=== PATIENT | male | born 1960 | race Caucasian/White ===

== ENCOUNTER 2016-04-07 12:55 | Emergency (ER) | payer BC, OTHER ==
[~2016-04-07] VITALS: Ht 170.2 cm; Wt 80.0 kg
[~2016-04-07 12:55] MED LIST: ATV5 PO; CLC100 PO; FLV400 PO; LIDO5DIS10 TD; RXC5 PO; [UNRECOGNIZED DRUG - CODE] PO
[2016-04-07 12:57] VITALS: TEMP 36.5; Ht 170.2 cm; Wt 80.0 kg
[2016-04-07] MEDS ORDERED: HYDROmorphone INJ 1 MG/ML SYR IV STA (13:37)
[2016-04-07] MEDS ORDERED: HYDROmorphone INJ 1 MG/ML SYR IM ONE (13:45)
[2016-04-07 13:59] VITALS: BP 154/81; PULSE 91; O2SAT 96
--- NOTE | 2016-04-08 18:01 | EMERGENCY ROOM VISIT NOTE ---
ED Visit Note First contact with patient: 13:03 Chief Complaint: Severe lower back pain. History of Present Illness: Mr. Stein is a 55-year-old white male who ambulates into the ED accompanied by his accompanied by his complaining of severe lumbar back pain. Historically patient reports he has severe degenerative disc disease and has had lumbar discectomy surgeries. He is currently followed by his family physician pain and receives monthly doses of OxyIR. Additionally he reports his contract with his family physician for no additional prescribed narcotics. Patient reports last evening he was attempting to get out of the bed. He reports he threw his feet towards himself and twisted his body. When he was attempting to stand up he reports he developed acute onset of severe pain. Instead time the pain has been constant and is located in the L1-L2. He describes his pain as a constant sharp sensation. He rates his discomfort 10/ 10. He reports he does have radiation down the left buttocks and leg. His pain worsens with all movements of the back and palpation. He has not identified any alleviating factors related to the pain. He reports he has taken his home medication OxyIR without relief of his discomfort. He denies any associated symptoms or fevers, chills, sweats, skin eruptions, skin color changes, abdominal pain, nausea, vomiting, diarrhea, constipation, rectal bleeding, black/tarry stools, urinary symptoms, hematuria, bowel and bladder dysfunction, genital/rectal paresthesias, lower extremity weakness/numbness/ tingling. Review of Systems: As noted above in history of present illness. All body systems were reviewed and found to be negative as noted above. Past Medical History: (1) Ac Myocar Infarc,Inferolateral Wall,Init Epis Care (2) Ac Myocard Infarc,Anterolat Wall,Epis Care,Unspec (3) Cervical stenosis of spinal canal (4) Coronary Atherosclerosis Of [place] Coronary Vessel (5) intractable radicular back pain (6) intractable radicular back pain (7) Neuropathy (8) Percutaneous Translum Coron Angioplasty Status (9) POSSIBLE DISCITIS (10) Pure Hypercholesterolem Current Medications: Medications Dose Route/Sig Max Daily Dose Days Date Category Ascorbic Acid 1,000 Mg Tab 100 Mg PO DAILY 04/07/16 Reported Folvite (Folic Acid) 400 Mcg Tab 400 Mcg PO DAILY 04/07/16 Reported Oxycodone Hcl 5 Mg Cap 5 Mg PO Q8 PRN 08/15/14 Reported Cymbalta (Duloxetine HCl) 60 Mg Cap 60 Mg PO BID 01/14/14 Reported Pepcid (Famotidine) 40 Mg Tab 40 Mg PO QAM 12/15/13 Reported Aspirin Adult Low Strengt (Aspirin) 81 Mg Chw 81 Mg PO HS 09/29/12 Reported Lipitor (Atorvastatin Calcium) 80 Mg Tab 40 Mg PO HS 01/07/11 Reported Nitrostat (Nitroglycerin) 0.4 Mg Tab 0.4 Mg UT PRN 01/09/09 Reported Multivitamin (Multivitamins) Tab 1 Tab PO QAM 01/09/09 Reported [place]-3 (Fish Oil) 1 Ea Cap 2 Cap PO BID 01/09/09 Reported Vitamin B6 (Pyridoxine HCl) 100 Mg Tab 100 Mg PO NOON 01/09/09 Reported Vitamin B-12 (Cyanocobalamin) 500 Mcg Tab 500 Mcg PO NOON 01/09/09 Reported Ativan * (Lorazepam) 0.5 Mg Tab 0.5 Mg PO DAILY PRN 01/09/09 Reported Toprol-Xl (Metoprolol Succinate) 100 Mg Tabcr 100 Mg PO QAM 01/09/09 Reported Zestril (Lisinopril) 10 Mg Tab 10 Mg PO QAM 01/09/09 Reported Allergies to Medications: Acetaminophen, ibuprofen, morphine, sulfa, chlorhexidine. Social History: Patient is not currently employed; he lives with his and feels safe in his home environment; he admits to tobacco use and denies alcohol use. Physical Examination: Vital Signs: Date Time Temp Pulse Resp B/P Pulse Ox O2 Delivery O2 Flow Rate FiO2 04/07/16 13:59 91 22 154/81 96 04/07/16 12:57 36.5 76 16 150/88 96 Room Air GENERAL: 55-year-old female in moderate distress due to pain, nontoxic-appearing , afebrile and hemodynamically stable. NEUROLOGICAL: Awake, alert and oriented to person, place and time. Answering questions appropriately and following commands. Assisted gait with cane. SKIN: Warm, dry and pink. No soft tissue eruptions or trauma noted. HEENT: Atraumatic and normocephalic. BACK: No tenderness over the bony cervical and thoracic spine. No CVA tenderness. Moderate tenderness over the L1 and L2 area without bony deformities, swelling, ecchymosis or step-offs. There is also mild tenderness in the bilateral upper lumbar paraspinous musculature without muscle spasm. Decreased range of motion in all movements of the spine due to pain. Negative straight leg raise test. THORAX: Lungs sounds are clear to auscultation and equal bilaterally with symmetrical chest wall. HEART: Regular rate and rhythm. No gallops, rubs or murmurs are appreciated. ABDOMEN: Flat, soft and nontender. Positive bowel sounds in all quadrants. No guarding, rigidity or organomegaly. EXTREMITIES: Moves all extremities well on command and with purpose. All distal neurovascular statuses are intact and equal bilaterally. 2+ patellar and Achilles deep tendon reflexes intact and equal bilaterally. 4/5 muscle strength in hip flexion, extension, abduction and abduction, knee flexion and extension, ankle pronation and supination and flexion and extension of the great toe. No calf tenderness or cords. Throughout the foot the skin was warm and dry and capillary refill was brisk. ED Course: Patient is assessed as noted above. Patient was given an IM injection of 2 mg of the Dilaudid. Patient was observed and discharged home in stable condition accompanied by his without reactions to his medications. Clinical Impression: Acute on chronic lumbar back pain. Disposition: Patient discharged home in stable condition accompanied by his ; prior to departure he was reassessed and subjectively reported he was better and rated his discomfort 8/10. Plan: Patient was encouraged to continue his home pain medications as prescribed. Patient was encouraged use ice for 5 times a day for 5 minutes for pain. Patient was encouraged to contact his back specialist for definitive care and treatment. Patient was encouraged return ED for worsening/uncontrolled pain, genital/ rectal paresthesias, bowel and and bladder dysfunction, fevers, abdominal pain or any new/concerning symptoms.
[2016-06-05] MEDS ORDERED: OXYC1CAP5 PO (12:12)
[2016-06-05] MEDS ORDERED: FAMO40TA6 PO (13:09)
[2016-06-05] MEDS ORDERED: DOCU-94 PO (13:56)
[2016-06-05] MEDS ORDERED: ASCO100061 PO (13:56)
[2016-06-05] MEDS ORDERED: FOLI400T41 PO (13:56)
[2016-06-05] MEDS ORDERED: ASPI1CHW26 PO (14:02)
[2016-06-05] MEDS ORDERED: CYM/60 PO (15:10)
[2016-06-06] MEDS ORDERED: FAMO40TA6 PO (16:36)
== END 2016-04-07 14:00 | disposition home or self-care (01) ==
LOC: C.EDB 12:56 → C.EDD 14:00
DX: M54.5 Low back pain (principal); G89.29 Other chronic pain; I25.2 Old myocardial infarction; I25.10 Atherosclerotic heart disease of native coronary artery without angina pectoris; E78.00 Pure hypercholesterolemia, unspecified; G62.9 Polyneuropathy, unspecified; F17.200 Nicotine dependence, unspecified, uncomplicated; Z79.899 Other long term (current) drug therapy; Z79.82 Long term (current) use of aspirin; Z98.61 Coronary angioplasty status

== ENCOUNTER 2016-06-05 19:28 | Observation (INO) | payer BC, OTHER ==
[~2016-06-05] VITALS: Ht 170.2 cm; Wt 78.3 kg
[~2016-06-05 19:28] MED LIST changes: +ASCO100061 PO; +ASPI1CHW26 PO; -CLC100 PO; +CYM/60 PO; +DOCU-94 PO; +FAMO40TA6 PO; -FLV400 PO; +FOLI400T41 PO; -LIDO5DIS10 TD; +OXYC1CAP5 PO; -RXC5 PO; -[UNRECOGNIZED DRUG - CODE] PO
[2016-06-05] MEDS ORDERED: ASPIRIN 81 MG CHEW PO STA (19:48)
--- NOTE | 2016-06-05 20:04 | DIAGNOSTIC IMAGING REPORT ---
SINGLE VIEW CHEST CLINICAL HISTORY: Atypical chest pain. FINDINGS: An AP, portable, upright chest radiograph is compared to study dated 08/15/2014. The examination is degraded by portable technique and patient rotation. The heart is mildly enlarged and there is atherosclerotic calcification of the thoracic aorta. The pulmonary vasculature is noncongested. Linear atelectasis is present the left lung base. Chronic interstitial thickening is unchanged. The lungs and pleural spaces are otherwise clear. No pneumothorax is seen. The skeletal structures appear osteopenic. The bony thorax is grossly intact. Fusion hardware is partially imaged in the lower cervical spine. IMPRESSION: Cardiac enlargement with no acute cardiopulmonary abnormality. Electronically signed by: Johnny Hernandez M.D. 06/05/2016 8:02 PM Dictated Date/Time: 06/05/2016 8:01 PM
[2016-06-05] MEDS ORDERED: LORA-741 PO (20:15)
[2016-06-05 20:33] LABS: BASO % 0.2 %; BASO ABS # 0.02 K/uL (0-0.2); COMPLETE YES; EOS % 3.3 %; HEMATOCRIT 39.8 % (42-52); IG% 0.3 %; LYMPH % 34.9 %; LYMPH ABS # 3.17 K/uL (1.2-3.4); MEAN CELL VOLUME 90.9 fL (80-100); MEAN CORPUSCULAR HEMOGLOBIN 32.4 pg (25-34); MEAN CORPUSCULAR HGB CONC 35.7 g/dl (32-36); MEAN PLATELET VOLUME 11.1 fL (7.4-10.4); NEUT % 54.3 %; PLATELET COUNT 197 K/uL (130-400); RED BLOOD COUNT 4.38 M/uL (4.7-6.1); WHITE BLOOD COUNT 9.08 K/uL (4.8-10.8)
[2016-06-05 20:45] LABS: BLOOD UREA NITROGEN 11 mg/dl (7-18); BUN/CREATININE RATIO 11.1 (10-20); CALCIUM 9.1 mg/dl (8.5-10.1); CARBON DIOXIDE 25 mmol/L (21-32); CHLORIDE 107 mmol/L (98-107); CREATININE 0.95 mg/dl (0.60-1.40); GLUCOSE 120 mg/dl (70-99); POTASSIUM 3.7 mmol/L (3.5-5.1); SODIUM 139 mmol/L (136-145)
[2016-06-05] MEDS: NITROGLYCERIN 0.4 MG SL PER TAB CHARGE SL PRN ×2 (20:48→20:53)
[2016-06-05 20:49] LABS: CKMB/CK RATIO 1.2 (0-3.0)
[2016-06-05] MEDS ORDERED: ZOLPIDEM TARTRATE 5 MG TAB PO PRN (21:30)
[2016-06-05] MEDS ORDERED: NITROGLYCERIN 0.4 MG SL PER TAB CHARGE SL PRN (21:30)
[2016-06-05] MEDS ORDERED: ONDANSETRON INJ 2 MG/ML 2 ML VIAL IV PRN (21:30)
[2016-06-05] MEDS ORDERED: NITROGLYCERIN 0.4 MG SL PER TAB CHARGE UT SCH (21:30)
[2016-06-05] MEDS ORDERED: LORAZEPAM 0.5 MG TAB PO PRN (21:30)
[2016-06-05] MEDS ORDERED: LISI-461 PO (21:34)
[2016-06-05] MEDS ORDERED: METO1TAB69 PO (21:35)
[2016-06-05] MEDS ORDERED: OMEG10007 PO (21:35)
[2016-06-05] MEDS ORDERED: PYRI100T4 PO (21:35)
[2016-06-05] MEDS ORDERED: MULT-506 PO (21:35)
[2016-06-05] MEDS ORDERED: CYAN500T PO (21:35)
[2016-06-05] MEDS ORDERED: NTRGSL/4 UT (21:35)
[2016-06-05] MEDS ORDERED: ATOR-26 PO (22:02)
[2016-06-05] MEDS: OXYCODONE HCL IR 5 MG TAB (IMMEDIATE RELEASE) PO PRN (22:04)
--- NOTE | 2016-06-05 22:13 | History and Physical ---
History & Physical Date & Time of Service: Jun 05, 2016 at 22:13 Chief Complaint: Precordial Chest Pain Primary Care Physician: Good Esteban M.D. History of Present Illness Source: patient, family, spouse The patient is a 55-year-old male who presents to the emergency department with complaint of 4 days of intermittent left sided chest pain that worsens with exertion and resolves with rest. He also has a second process which he describes as pressure at the top of his chest that remains even at rest. His arms and legs have intermittently felt heavy and weak. He did take 2 nitroglycerin sublingual NTG's yesterday which did not help symptoms. He has had MIs with 2 stents placed in 2011, and since that time has taken Plavix and aspirin daily as directed. He does smoke regularly, and does not have an active exercise plan. He presented to the emergency department tonight at the insistence of his family. Past Medical/Surgical History Medical Problems: (1) Ac Myocar Infarc,Inferolateral Wall,Init Epis Care Status: Resolved (2) Ac Myocard Infarc,Anterolat Wall,Epis Care,Unspec Status: Resolved (3) Coronary Atherosclerosis Of [place] Coronary Vessel Status: Chronic (4) intractable radicular back pain Status: Chronic (5) intractable radicular back pain Status: Chronic (6) Neuropathy Status: Chronic (7) Percutaneous Translum Coron Angioplasty Status Status: Resolved (8) POSSIBLE DISCITIS Status: Resolved (9) Pure Hypercholesterolem Status: Chronic Family History Heart disease Hypertension Social History Smoking Status: Current Every Day Smoker Smokeless Tobacco Use: No Alcohol Use: none Drug Use: none Marital Status: Housing status: lives with family Occupational Status: disabled Immunizations History of Influenza Vaccine: Yes Influenza Vaccine Date: Dec 17, 2010 History of Tetanus Vaccine?: 1998 History of Pneumococcal: Yes Pneumococcal Date: Dec 20, 2003 History of Hepatitis B Vaccine: No Multi-Drug Resistant Organisms History of MDRO: No Allergies Coded Allergies: Acetaminophen (Verified Allergy, Severe, NOT TO TAKE DUE TO EXISTING HEART PROBLEM, 06/03/15) Ibuprofen (Verified Allergy, Severe, NOT TO TAKE DUE TO EXISTING HEART PROBLEM, 06/03/15) Chlorhexidine (Verified Allergy, Intermediate, severe itching, 06/03/15) Sulfa Antibiotics (Verified Allergy, Intermediate, rash, hives, 06/03/15) Morphine (Verified Allergy, Unknown, SHAKEY, GRUMPY OUT OF SORTS, 04/07/16) Home Medications Scheduled Ascorbic Acid (Ascorbic Acid), 1,000 MG PO DAILY Aspirin (Aspirin Adult Low Strengt), 81 MG PO HS Atorvastatin (Lipitor), 40 MG PO HS Cyanocobalamin (Vitamin B-12), 500 MCG PO NOON Docusate Sodium (Colace), 200 MG PO HS Duloxetine HCl (Cymbalta), 60 MG PO BID Famotidine (Pepcid), 40 MG PO QAM Fish Oil ([place]-3), 2 CAP PO BID Folic Acid (Folvite), 400 MCG PO DAILY Lisinopril (Zestril), 10 MG PO QAM Metoprolol Succ (Toprol Xl) (Toprol-Xl ), 100 MG PO QAM Multivitamin (Multivitamin), 1 TAB PO QAM Nitroglycerin (Nitrostat), 0.4 MG UT PRN Pyridoxine (Vitamin B6), 100 MG PO NOON Scheduled PRN Lorazepam (Ativan), 0.5 MG PO DAILY PRN for Anxiety Oxycodone Hcl (Oxycodone Hcl), 5 MG PO Q8 PRN for Pain Review of Systems The patient denies palpitations, cough, lower extremity swelling, vision change , hearing change, sore throat, fevers, chills, sweats, weight change, fatigue, nausea, vomiting, abdominal pain, pelvic pain, blood in urine or stool, dysuria , urinary frequency or urgency, lightheadedness, dizziness, headache, memory loss, rash, abnormal bruising or bleeding, imbalance, focal weakness, arthralgias or myalgias, back or neck pain, night sweats, or allergy symptoms. The review of systems is otherwise negative other than for that already noted above, and at least 10 systems have been reviewed. Physical Exam Vital Signs Date Time Temp Pulse Resp B/P Pulse Ox O2 Delivery O2 Flow Rate FiO2 06/05/16 21:01 56 18 132/77 92 Room Air 06/05/16 20:54 58 18 135/75 95 Room Air 06/05/16 20:50 59 06/05/16 20:49 54 18 166/95 95 Room Air 06/05/16 19:30 Room Air 06/05/16 19:30 36.9 64 16 167/84 96 Room Air The patient is awake, well-developed and adequately nourished, alert and oriented 3, normocephalic and atraumatic, lying in bed and in no acute distress. HEENT--PERRL, EOMI, mucous membranes and oropharynx normal. Neck--supple, no JVD or bruits, thyroid normal, trachea midline, no adenopathy. Heart--normal S1 and S2, no extra beats, no murmurs, rubs or gallops. Lungs--clear bilaterally, no respiratory distress, no accessory muscle use. Abdomen--normal bowel sounds and soft, nontender and nondistended, no hernias or masses, no organomegaly. Extremities--no cyanosis, clubbing or edema. There are good distal pulses b/l. Dermatologic--normal skin turgor, normal color, warm and dry, no abnormal lymph nodes, no rash. Neurologic--cranial nerves II through XII grossly intact, motor and sensory examination normal. Rheumatologic--normal range of motion, nontender, muscles and joints. Psychiatric--normal affect. Diagnostics Laboratory Results Results Past 24 Hours Test 06/05/16 20:05 06/05/16 21:28 06/05/16 22:04 Range/Units White Blood Count 9.08 4.8-10.8 K/uL Red Blood Count 4.38 4.7-6.1 M/uL Hemoglobin 14.2 14.0-18.0 g/dL Hematocrit 39.8 42-52 % Mean Corpuscular Volume 90.9 80-100 fL Mean Corpuscular Hemoglobin 32.4 25-34 pg Mean Corpuscular Hemoglobin Concent 35.7 32-36 g/dl Platelet Count 197 130-400 K/uL Mean Platelet Volume 11.1 7.4-10.4 fL Neutrophils (%) (Auto) 54.3 % Lymphocytes (%) (Auto) 34.9 % Monocytes (%) (Auto) 7.0 % Eosinophils (%) (Auto) 3.3 % Basophils (%) (Auto) 0.2 % Neutrophils # (Auto) 4.92 1.4-6.5 K/uL Lymphocytes # (Auto) 3.17 1.2-3.4 K/uL Monocytes # (Auto) 0.64 0.11-0.59 K/uL Eosinophils # (Auto) 0.30 0-0.5 K/uL Basophils # (Auto) 0.02 0-0.2 K/uL RDW Standard Deviation 45.3 36.4-46.3 fL RDW Coefficient of Variation 13.6 11.5-14.5 % Immature Granulocyte % (Auto) 0.3 % Immature Granulocyte # (Auto) 0.03 0.00-0.02 K/uL D-Dimer 500 0-500 ug/L FEU Sodium Level 139 136-145 mmol/L Potassium Level 3.7 3.5-5.1 mmol/L Chloride Level 107 98-107 mmol/L Carbon Dioxide Level 25 21-32 mmol/L Anion Gap 7.0 3-11 mmol/L Blood Urea Nitrogen 11 7-18 mg/dl Creatinine 0.95 0.60-1.40 mg/dl Est Creatinine Clear Calc Drug Dose 83.0 ml/min Estimated GFR () 102.6 Estimated GFR (Non- 88.5 BUN/Creatinine Ratio 11.1 10-20 Random Glucose 120 70-99 mg/dl Calcium Level 9.1 8.5-10.1 mg/dl Total Creatine Kinase 77 39-308 U/L Creatine Kinase MB 0.9 0.5-3.6 ng/ml Creatine Kinase MB Ratio 1.2 0-3.0 Troponin I < 0.015 0-0.045 ng/ml Diagnostic Radiology Patient Name: FERNANDO RAMON Unit Number: [id number] Dictated: 06/05/162000 Transcribed: 06/05/162000 EV Printed Date/Time: [~ rep prt dt]/[~ rep prt tm] [~ rep ct labl] - [~ rep ct ivnm] [facility] [place] [address] Dictated: 06/05/162000 Transcribed: 06/05/162000 EV Printed Date/Time: [~ rep prt dt]/[~ rep prt tm] [~ rep ct labl] - [~ rep ct ivnm] [~ rep ct add3]] SINGLE VIEW CHEST CLINICAL HISTORY: Atypical chest pain. FINDINGS: An AP, portable, upright chest radiograph is compared to study dated 08/15/2014. The examination is degraded by portable technique and patient rotation. The heart is mildly enlarged and there is atherosclerotic calcification of the thoracic aorta. The pulmonary vasculature is noncongested. Linear atelectasis is present the left lung base. Chronic interstitial thickening is unchanged. The lungs and pleural spaces are otherwise clear. No pneumothorax is seen. The skeletal structures appear osteopenic. The bony thorax is grossly intact. Fusion hardware is partially imaged in the lower cervical spine. IMPRESSION: Cardiac enlargement with no acute cardiopulmonary abnormality. Electronically signed by: Johnny Hernandez M.D. 06/05/2016 8:02 PM Dictated Date/Time: 06/05/2016 8:01 PM The status of this report is Signed. Draft = Not yet reviewed or approved by Radiologist. Signed = Reviewed and approved by Radiologist. <AttendingPhy></AttendingPhy> <FamilyPhy>Good Esteban M.D.</FamilyPhy> < PrimaryPhy>Good Esteban M.D.</PrimaryPhy> <UnitNumber>[id number]</ UnitNumber> <VisitNumber>[id number]</VisitNumber> <PatientName>KALPANAMARTINFERNANDO Vazquez </PatientName> <DateOfBirth>1960</DateOfBirth> <Location>C.ED[facility]</Location> <ServiceDate>06/05/16</ServiceDate> <MNE>ESINDI</MNE> <OrderingPhy>Abdirizak Alfred DO</OrderingPhy> <OrderingPhyMNE>f rep ord dr varma</OrderingPhyMNE> < DictatingPhyMNE>f rep dict dr varma</DictatingPhyMNE> <CCListMNE>f rep ct avani</ CCListMNE> <AdmittingPhyMNE>f pt admit dr varma</AdmittingPhyMNE> <AttendingPhyMNE >f pt attend dr varma</AttendingPhyMNE> <ConsultingPhyMNE>f pt consult dr varma</ConsultingPhyMNE> <FamilyPhyMNE>f pt fam dr varma</FamilyPhyMNE> <OtherPhyMNE>f pt other dr varma</OtherPhyMNE> < PrimaryPhyMNE>f pt prim care dr varma</PrimaryPhyMNE> <ReferringPhyMNE>f pt referring dr varma</ReferringPhyMNE> EKG EKG #1 shows normal sinus rhythm at 62 bpm, no change compared to 05/24/2015. EKG #2 shows sinus bradycardia at 54 bpm, with no acute ST-T changes. Impression Assessment and Plan CAD/hypertension/history of TN/coronary artery stents 2/exertional chest pain and shortness of breath--the patient will be admitted to the telemetry unit for serial cardiac enzymes, cardiac rhythm monitoring and a 2-D echocardiogram with Dopplers. We'll pay close attention to the echo to see if there is a pericardial effusion, as there is just a hint of generalized ST elevation on both EKG's, which could suggest pericarditis. We'll continue aspirin 81 mg by mouth daily, lisinopril 10 mg by mouth every morning, metoprolol succinate 100 mg by mouth every morning, and nitroglycerin sublinguals when necessary. Hypercholesterolemia--continue atorvastatin 40 mg by mouth at bedtime and fish oil 2000 mg by mouth twice a day. GERD--continue famotidine 40 mg by mouth every morning. Depression/radicular back pain/neuropathy--continue Cymbalta 60 mg by mouth twice a day, pyridoxine 100 mg by mouth at noon, folic acid 400 g by mouth daily and cyanocobalamin 500 g by mouth at noon. Level of Care Telemetry Advanced Directives Existing Advance Directive: No Existing Living Will: No Existing Power of Braiding Machine Operator: No Resuscitation Status FULL RESUSCITATION VTE Prophylaxis VTE Risk Assessment Done? Y/N: Yes Risk Level: Low Given or contraindicated: SCD's Social Service Consult None Apply
--- NOTE | 2016-06-05 22:29 | EMERGENCY ROOM VISIT NOTE ---
History Report prepared by Polina: Francisco Campos Under the Supervision of: Dr. Abdirizak Alfred D.O. First contact with patient: 19:39 Chief Complaint: CHEST PAIN Stated Complaint: CHEST PAINS, PRESSURE- HX HEART ATTACKS Nursing Triage Summary: Patient c/o left sided chest pain with radiation into neck/throat that began a few days ago. + relief with nitro yesterday. Hx: multiple stent placement. History of Present Illness The patient is a 55 year old male who presents to the Emergency Room with complaints of intermittent left-sided chest pain beginning about 4 days ago. He notes the pain is worse with walking and exertion, and is usually resolved with rest. He describes the pain as "sharp" but also notes experiencing pressure at the top of his chest that remains even with rest. He does not currently have pain, but has this pressure feeling. The patient adds that his arm feels heavy and weak. He denies having any shortness of breath. The patient took 2 nitro yesterday which did not help. He adds that he also takes Plavix, and Aspirin at bedtime. He has not taken his Aspirin this evening. The patient reports having a history of PE, and two stents placed in 2011 from past MIs. He states his current symptoms feels similar to his past MIs. He denies a history of stroke, but admits to smoking. Source of History: patient Onset: about 4 days ago Position: chest (left) Quality: pressure, sharp Timing: intermittent Modifying Factors (Worsening): exertion Modifying Factors (Relieving): rest Associated Symptoms: No SOB Review of Systems See HPI for pertinent positives & negatives. A total of 10 systems reviewed and were otherwise negative. Past Medical & Surgical Medical Problems: (1) Ac Myocar Infarc,Inferolateral Wall,Init Epis Care (2) Ac Myocard Infarc,Anterolat Wall,Epis Care,Unspec (3) Cervical stenosis of spinal canal (4) Coronary Atherosclerosis Of [place] Coronary Vessel (5) intractable radicular back pain (6) intractable radicular back pain (7) Neuropathy (8) Percutaneous Translum Coron Angioplasty Status (9) POSSIBLE DISCITIS (10) Precordial chest pain (11) Pure Hypercholesterolem Family History Heart disease Hypertension Social History Smoking Status: Current Every Day Smoker Alcohol Use: none Drug Use: none Marital Status: Housing Status: lives with family Occupation Status: disabled Current/Historical Medications Scheduled Ascorbic Acid (Ascorbic Acid), 1,000 MG PO DAILY Aspirin (Aspirin Adult Low Strengt), 81 MG PO HS Atorvastatin (Lipitor), 40 MG PO HS Cyanocobalamin (Vitamin B-12), 500 MCG PO NOON Docusate Sodium (Colace), 200 MG PO HS Duloxetine HCl (Cymbalta), 60 MG PO BID Famotidine (Pepcid), 40 MG PO QAM Fish Oil ([place]-3), 2 CAP PO BID Folic Acid (Folvite), 400 MCG PO DAILY Lisinopril (Zestril), 10 MG PO QAM Metoprolol Succ (Toprol Xl) (Toprol-Xl ), 100 MG PO QAM Multivitamin (Multivitamin), 1 TAB PO QAM Nitroglycerin (Nitrostat), 0.4 MG UT PRN Pyridoxine (Vitamin B6), 100 MG PO NOON Scheduled PRN Lorazepam (Ativan), 0.5 MG PO DAILY PRN for Anxiety Oxycodone Hcl (Oxycodone Hcl), 5 MG PO Q8 PRN for Pain Allergies Coded Allergies: Acetaminophen (Verified Allergy, Severe, NOT TO TAKE DUE TO EXISTING HEART PROBLEM, 06/03/15) Ibuprofen (Verified Allergy, Severe, NOT TO TAKE DUE TO EXISTING HEART PROBLEM, 06/03/15) Chlorhexidine (Verified Allergy, Intermediate, severe itching, 06/03/15) Sulfa Antibiotics (Verified Allergy, Intermediate, rash, hives, 06/03/15) Morphine (Verified Allergy, Unknown, SHAKEY, GRUMPY OUT OF SORTS, 04/07/16) Physical Exam Vital Signs Date Time Temp Pulse Resp B/P Pulse Ox O2 Delivery O2 Flow Rate FiO2 06/05/16 21:01 56 18 132/77 92 Room Air 06/05/16 20:54 58 18 135/75 95 Room Air 06/05/16 20:50 59 06/05/16 20:49 54 18 166/95 95 Room Air 06/05/16 19:30 Room Air 06/05/16 19:30 36.9 64 16 167/84 96 Room Air Physical Exam GENERAL: Sitting up in bed, chronically ill appearing, no acute distress, non- toxic. EYE EXAM: normal conjunctiva OROPHARYNX: no exudate, no erythema, lips, buccal mucosa, and tongue normal and mucous membranes are moist NECK: supple, no nuchal rigidity, no adenopathy, non-tender LUNGS: Clear to auscultation. Normal chest wall mechanics HEART: no murmurs, S1 normal and S2 normal ABDOMEN: abdomen soft, non-tender, normo-active bowel sounds, no masses, no rebound or guarding. BACK: Back is symmetrical on inspection and there is no deformity, no midline tenderness, no CVA tenderness. SKIN: no rashes and no bruising UPPER EXTREMITIES: upper extremities are grossly normal. LOWER EXTREMITIES: No pitting edema. Calves equal bilaterally. NEURO EXAM: Normal sensorium, cranial nerves II-XII grossly intact, normal speech, no gross weakness of arms, no gross weakness of legs. Gross sensation intact. Medical Decision & Procedures ER Provider Diagnostic Interpretation: Radiology results have been interpreted by the radiologist and reviewed by me. SINGLE VIEW CHEST FINDINGS: An AP, portable, upright chest radiograph is compared to study dated 08/15/2014. The examination is degraded by portable technique and patient rotation. The heart is mildly enlarged and there is atherosclerotic calcification of the thoracic aorta. The pulmonary vasculature is noncongested. Linear atelectasis is present the left lung base. Chronic interstitial thickening is unchanged. The lungs and pleural spaces are otherwise clear. No pneumothorax is seen. The skeletal structures appear osteopenic. The bony thorax is grossly intact. Fusion hardware is partially imaged in the lower cervical spine. IMPRESSION: Cardiac enlargement with no acute cardiopulmonary abnormality. Electronically signed by: Johnny Hernandez M.D. 06/05/2016 8:02 PM Dictated Date/Time: 06/05/2016 8:01 PM Laboratory Results 06/05/16 20:05 Red Blood Count 4.38, Mean Corpuscular Volume 90.9, Mean Corpuscular Hemoglobin 32.4, Mean Corpuscular Hemoglobin Concent 35.7, Mean Platelet Volume 11.1, Neutrophils (%) (Auto) 54.3, Lymphocytes (%) (Auto) 34.9, Monocytes (%) (Auto) 7.0, Eosinophils (%) (Auto) 3.3, Basophils (%) (Auto) 0.2, Neutrophils # (Auto) 4.92, Lymphocytes # (Auto) 3.17, Monocytes # (Auto) 0.64, Eosinophils # (Auto) 0.30, Basophils # (Auto) 0.02 06/05/16 20:05 Test 06/05/16 20:05 White Blood Count 9.08 K/uL (4.8-10.8) Red Blood Count 4.38 M/uL (4.7-6.1) Hemoglobin 14.2 g/dL (14.0-18.0) Hematocrit 39.8 % (42-52) Mean Corpuscular Volume 90.9 fL (80-100) Mean Corpuscular Hemoglobin 32.4 pg (25-34) Mean Corpuscular Hemoglobin Concent 35.7 g/dl (32-36) Platelet Count 197 K/uL (130-400) Mean Platelet Volume 11.1 fL (7.4-10.4) Neutrophils (%) (Auto) 54.3 % Lymphocytes (%) (Auto) 34.9 % Monocytes (%) (Auto) 7.0 % Eosinophils (%) (Auto) 3.3 % Basophils (%) (Auto) 0.2 % Neutrophils # (Auto) 4.92 K/uL (1.4-6.5) Lymphocytes # (Auto) 3.17 K/uL (1.2-3.4) Monocytes # (Auto) 0.64 K/uL (0.11-0.59) Eosinophils # (Auto) 0.30 K/uL (0-0.5) Basophils # (Auto) 0.02 K/uL (0-0.2) RDW Standard Deviation 45.3 fL (36.4-46.3) RDW Coefficient of Variation 13.6 % (11.5-14.5) Immature Granulocyte % (Auto) 0.3 % Immature Granulocyte # (Auto) 0.03 K/uL (0.00-0.02) D-Dimer 500 ug/L FEU (0-500) Anion Gap 7.0 mmol/L (3-11) Est Creatinine Clear Calc Drug Dose 83.0 ml/min Estimated GFR () 102.6 Estimated GFR (Non- 88.5 BUN/Creatinine Ratio 11.1 (10-20) Calcium Level 9.1 mg/dl (8.5-10.1) Laboratory results per my review. Medications Administered Medications (Trade) Dose Ordered Sig/Tiffanie Route Start Time Stop Time Status Last Admin Dose Admin Aspirin (Aspirin Chew) 324 mg NOW STAT PO 06/05/16 19:48 3/28/17 19:49 DC 06/05/16 20:47 324 MG Nitroglycerin (Nitrostat Tab) 0.4 mg Q5M PRN SL 06/05/16 20:00 06/05/16 21:45 DC 06/05/16 20:53 0.4 MG ECG Indication: chest pain Rate (beats per minute): 62 Rhythm: sinus rhythm Findings: no ectopy, other (normal axis) Comparison ECG Date: 05/24/11 Change: Flipped T wave in aVL ED Course ED COURSE: Vital signs were reviewed and showed hypertensive. The patients medical record was reviewed The above diagnostic studies were performed and reviewed. ED treatments and interventions as stated above. 1940: The patient was evaluated in room B5. A complete history and physical examination was performed. 1947: Ordered Aspirin 324 mg PO. 1999: Ordered Nitroglycerin 0.4 mg SL. 2049: I reviewed the patient's case with Dr. Olson. He will evaluate the patient for further management. 2099: Upon reevaluation, the patient is doing well.I discussed my findings with the patient and he understands and agrees with the treatment plan. Based on the patients age, coexisting illnesses, exam and lab findings the decision to treat as an inpatient was made. The patient remained stable while under my care. The patient will be evaluated for further management. Medical Decision Differential diagnoses includes but is not limited to acute coronary syndrome, myocardial infarction, pericarditis, pulmonary embolus, aortic dissection, pneumonia, pneumothorax, musculoskeletal, shingles, esophageal. Patient is a 55-year-old male who presents the ER for precordial chest pain and arm heaviness. He notes he has a previous history of 2 MIs and stents placed. EKG was unchanged from previous. Troponin was negative. He is given nitroglycerin with improvement of his chest pain and resolution of a sharp stabbing pain. D-dimer was negative. Patient was also given aspirin. Chest x- ray was unremarkable. He is updated regards to his findings. He is admitted to internal medicine. Consults Time Called: 2044 Consulting Physician: Dr. Olson. [facility] [place] Returned Call: 2049 I reviewed the patient's case with Dr. Olson. He will evaluate the patient for further management. Impression Primary Impression: Precordial chest pain Scribe Attestation The scribe's documentation has been prepared under my direction and personally reviewed by me in its entirety. I confirm that the note above accurately reflects all work, treatment, procedures, and medical decision making performed by me. Departure Information Dispostion Being Evaluated By Hospitalist Good Hdz M.D. (PCP) Patient Instructions My [facility]
[2016-06-05 22:34] LABS: CKMB/CK RATIO 1.3 (0-3.0)
[2016-06-06] MEDS ORDERED: IV FLUIDS COMPLETED PRN (01:00)
[2016-06-06 05:27] LABS: BASO % 0.3 %; BASO ABS # 0.02 K/uL (0-0.2); COMPLETE YES; EOS % 4.8 %; HEMATOCRIT 39.1 % (42-52); IG% 0.1 %; LYMPH % 45.4 %; LYMPH ABS # 3.49 K/uL (1.2-3.4); MEAN CELL VOLUME 89.7 fL (80-100); MEAN CORPUSCULAR HEMOGLOBIN 32.1 pg (25-34); MEAN CORPUSCULAR HGB CONC 35.8 g/dl (32-36); MEAN PLATELET VOLUME 10.6 fL (7.4-10.4); MONO % 6.2 %; NEUT % 43.2 %; PLATELET COUNT 191 K/uL (130-400); RED BLOOD COUNT 4.36 M/uL (4.7-6.1); WHITE BLOOD COUNT 7.69 K/uL (4.8-10.8)
[2016-06-06 05:44] LABS: BLOOD UREA NITROGEN 9 mg/dl (7-18); BUN/CREATININE RATIO 11.7 (10-20); CALCIUM 8.7 mg/dl (8.5-10.1); CARBON DIOXIDE 26 mmol/L (21-32); CHLORIDE 111 mmol/L (98-107); GLUCOSE 87 mg/dl (70-99); POTASSIUM 3.9 mmol/L (3.5-5.1); SODIUM 143 mmol/L (136-145)
--- NOTE | 2016-06-06 07:51 | Family Medicine Progress Note ---
Progress Note Date of Service Jun 06, 2016. Subjective Pt evaluation today including: conversation w/ patient, physical exam, chart review, lab review Patient says that he has a persistent chest heaviness/pressure and occasional episodes of sharp grace over the sternal and left chest area. Know known triggers - has been present at rest, occasionally worse after eating, no radiation into arm/jaw back. No associated dyspnea, diaphoresis, palpitation or nausea/vomiting. He says these sensations are different from both previous KS pain and GERD symptoms. Denies recent acute illness, other than pain and depression secondary to his back pain. . Reports no lightheadedness, SOB, diaphoresis, n/v, rashes, change in back pain. Constitutional: No fever Respiratory: No cough, No shortness of breath, No sputum Cardiovascular: + chest pain, No PND, No edema, No orthopnea, No palpitations Abdomen: No GI bleeding, No constipation, No diarrhea, No nausea, No pain, No vomiting Male : No dysuria, No hematuria Skin: No itch, No rash Objective Vital Signs Date Time Temp Pulse Resp B/P Pulse Ox O2 Delivery O2 Flow Rate FiO2 06/06/16 07:33 54 06/06/16 04:19 55 06/06/16 03:00 52 18 148/76 95 Room Air 06/06/16 00:15 55 06/05/16 23:04 55 18 152/80 97 Room Air 06/05/16 21:01 56 18 132/77 92 Room Air 06/05/16 20:54 58 18 135/75 95 Room Air 06/05/16 20:50 59 06/05/16 20:49 54 18 166/95 95 Room Air 06/05/16 19:30 Room Air 06/05/16 19:30 36.9 64 16 167/84 96 Room Air Physical Exam General Appearance: WD/WN, no apparent distress Eyes: normal inspection ENT: hearing grossly normal Neck: supple, no adenopathy, no JVD Respiratory/Chest: lungs clear, normal breath sounds, no respiratory distress, no accessory muscle use Cardiovascular: regular rate, rhythm, no JVD, no murmur Abdomen: normal bowel sounds, non tender, soft, no organomegaly Extremities: normal inspection, no pedal edema, no calf tenderness Neurologic/Psychiatric: alert, normal mood/affect, oriented x 3 Skin: normal color, warm/dry, no rash Laboratory Results Results Past 24 Hours Test 06/05/16 22:04 06/06/16 05:13 06/06/16 14:45 Range/Units Total Creatine Kinase 72 67 64 39-308 U/L Creatine Kinase MB 0.9 0.7 0.6 0.5-3.6 ng/ml Creatine Kinase MB Ratio 1.3 1.0 0.9 0-3.0 Troponin I < 0.015 < 0.015 < 0.015 0-0.045 ng/ml White Blood Count 7.69 4.8-10.8 K/uL Red Blood Count 4.36 4.7-6.1 M/uL Hemoglobin 14.0 14.0-18.0 g/dL Hematocrit 39.1 42-52 % Mean Corpuscular Volume 89.7 80-100 fL Mean Corpuscular Hemoglobin 32.1 25-34 pg Mean Corpuscular Hemoglobin Concent 35.8 32-36 g/dl Platelet Count 191 130-400 K/uL Mean Platelet Volume 10.6 7.4-10.4 fL Neutrophils (%) (Auto) 43.2 % Lymphocytes (%) (Auto) 45.4 % Monocytes (%) (Auto) 6.2 % Eosinophils (%) (Auto) 4.8 % Basophils (%) (Auto) 0.3 % Neutrophils # (Auto) 3.32 1.4-6.5 K/uL Lymphocytes # (Auto) 3.49 1.2-3.4 K/uL Monocytes # (Auto) 0.48 0.11-0.59 K/uL Eosinophils # (Auto) 0.37 0-0.5 K/uL Basophils # (Auto) 0.02 0-0.2 K/uL RDW Standard Deviation 44.9 36.4-46.3 fL RDW Coefficient of Variation 13.5 11.5-14.5 % Immature Granulocyte % (Auto) 0.1 % Immature Granulocyte # (Auto) 0.01 0.00-0.02 K/uL Sodium Level 143 136-145 mmol/L Potassium Level 3.9 3.5-5.1 mmol/L Chloride Level 111 98-107 mmol/L Carbon Dioxide Level 26 21-32 mmol/L Anion Gap 6.0 3-11 mmol/L Blood Urea Nitrogen 9 7-18 mg/dl Creatinine 0.80 0.60-1.40 mg/dl Est Creatinine Clear Calc Drug Dose 98.5 ml/min Estimated GFR () 114.9 Estimated GFR (Non- 99.2 BUN/Creatinine Ratio 11.7 10-20 Random Glucose 87 70-99 mg/dl Calcium Level 8.7 8.5-10.1 mg/dl Magnesium Level 2.0 1.8-2.4 mg/dl Assessment and Plan 55 year old male smoker with h/o CAD with KS s/p stent placement in 2012, HTN, HLD, and radicular pain s/p back surgery presents with chest pain. In view of negative workup, likely worsening reflux. Chest pain - Continue aspirin 81mg daily, lisinopril 10mg qAM, metoprolol succinate 100mg qAM, and nitroglycerin sublinguals PRN - CE x 3 negative - Echocardiogram with Dopplers unremarkable with some artifact - CTA chest negative for thoracic aortic aneurysm or dissection - Dobutamine stress no evidence of inducible ischemia HTN - Continue lisinopril 10mg qAM, metoprolol succinate 100mg qAM HLD - Continue atorvastatin 40mg qHS and fish oil 2000mg BID GERD - Increase famotidine 40mg qAM to BID - Recommend outpatient follow up for GI eval given tobacco use and worsening symptoms Depression/radicular back pain/neuropathy - Continue Cymbalta 60mg BID, pyridoxine 100mg daily at noon, folic acid 400g daily and cyanocobalamin 500g daily at noon. Dispo - Home Continued [facility] stay due to: other Discharge planning: home Resident Tracking Resident Involvement: Resident Care Provided Care Provided: Adult Hospital Medicine History Resident Physician Supervision Note: I was present with Dr. Barrios during the history and exam. I discussed the case with the resident and agree with the findings and plan as documented in the note. Any exceptions or clarifications are listed here. Pt seen and examined at bedside. Chest pain has subsided and is no longer present. Described primarily as suprasternal pressure sensation different from both previous KS pain and burning reflux pain. Reports no lightheadedness, SOB, diaphoresis, n/v, rashes, change in back pain. General Appearance: WD/WN, no apparent distress Respiratory: chest non-tender, lungs clear, normal breath sounds, no respiratory distress Cardiovascular: normal peripheral pulses, regular rate, rhythm, no edema, no murmur Gastrointestinal: normal bowel sounds, non tender, soft, no organomegaly Assessment/Plan 55 y/o male h/o CAD w/ KS and QUIN, HTN, tobacco use, HLD present w/ chest pain Chest pain - CT chest w/ contrast w/o aneurysm, dobutamine stress reviewed, troponin neg x 3. Symptoms concomittant with worsening reflux. Increase H2 ru to BID, strongly encourage outpatient f/u for GI eval because of h/o tobacco use and worsening symptoms CAD w/ h/o KS w/ QUIN - continue ASA, lipitor, lisinopril, toprol HTN - continue toprol, lisinopril GERD - famotidine BID Depression/anxiety - cymbalta
[2016-06-06] MEDS ORDERED: MULTIVITAMIN TAB PO SCH (09:00)
[2016-06-06] MEDS ORDERED: OMEGA-3 (PURIFIED FISH OIL) 1 GM CAP PO SCH (09:00)
[2016-06-06] MEDS ORDERED: ASCORBIC ACID 500 MG TAB PO SCH (09:00)
[2016-06-06] MEDS ORDERED: DULOXETINE HCL 60 MG CAP PO SCH (09:00)
[2016-06-06] MEDS ORDERED: METOPROLOL SUCC 50MG EXT REL TAB PO SCH (09:00)
[2016-06-06] MEDS ORDERED: LISINOPRIL 10 MG TAB PO SCH (09:00)
[2016-06-06] MEDS ORDERED: FAMOTIDINE 20 MG TAB PO SCH (09:00)
[2016-06-06] MEDS ORDERED: FoLIC ACID TAB 400 MCG TAB PO SCH (09:00)
[2016-06-06] MEDS: OXYCODONE HCL IR 5 MG TAB (IMMEDIATE RELEASE) PO PRN (10:03)
[2016-06-06 10:05] VITALS: BP 141/79; PULSE 55; TEMP 37; O2SAT 98; Ht 170.2 cm; Wt 78.3 kg
[2016-06-06] MEDS ORDERED: OPTIRAY 320 IV PRN (11:15)
[2016-06-06] MEDS ORDERED: CYANOCOBALAMIN 500 MCG TAB (VIT B-12) PO SCH (12:00)
[2016-06-06] MEDS ORDERED: PYRIDOXINE HCL 50 MG TAB PO SCH (12:00)
[2016-06-06 12:35] VITALS: BP 163/79; PULSE 53; TEMP 36.2; O2SAT 98
--- NOTE | 2016-06-06 12:40 | DIAGNOSTIC IMAGING REPORT ---
CT CHEST COMBO ANGIOGRAPHY CT DOSE: 601.48 mGy.cm CLINICAL HISTORY: Atypical chest pain. Possible aortic dissection. TECHNIQUE: Unenhanced images were obtained to the thorax. Patient was then scanned in a dynamic helical fashion during intravenous administration of 93 cc of Optiray 320. MIP imaging was performed. COMPARISON STUDY: None. FINDINGS: There are postsurgical changes present within the cervical spine. No thyroid masses are visualized. There are mildly enlarged mediastinal and hilar lymph nodes. No pulmonary artery filling defects are visualized. There is no evidence of thoracic aortic aneurysm or dissection. There is no evidence of acute aortic hematoma. The heart is normal in size. There are coronary artery calcifications present. There are no pleural effusions. There are lingular atelectatic changes present. There is no focal pulmonary consolidation. There is minor subpleural interstitial thickening. There is mild apical emphysema. There are few scattered calcified granulomas present. There is a to small to characterize 8 mm left lobe hepatic hypodensity. There is a 17 mm right lobe hepatic hypodensity which is felt to represent a cyst IMPRESSION: 1. No CT evidence of thoracic aortic aneurysm or dissection. 2. Mildly enlarged mediastinal and hilar lymph nodes 3. No evidence of focal pulmonary consolidation Electronically signed by: Darren Fernando M.D. 06/06/2016 12:39 PM Dictated Date/Time: 06/06/2016 12:33 PM
[2016-06-06] MEDS ORDERED: NICOTINE 21 MG/24 HR TDSY TD ONE (13:03)
[2016-06-06] MEDS ORDERED: METOPROLOL TARTRATE 1 MG/ML VIAL ONE (13:26)
[2016-06-06] MEDS ORDERED: DOBUTamine HCL 12.5 MG/ML 20 ML VIAL ONE (13:26)
[2016-06-06] MEDS ORDERED: ATROPINE SULFATE 0.1 MG/ML 5ML SYR ONE (13:26)
--- NOTE | 2016-06-06 14:37 | CARDIOLOGY CONSULTATION ---
DATE OF CONSULTATION: 06/06/2016 PERTINENT HISTORY OF PRESENT ILLNESS: Mr. Stein is a 55-year-old white male well known to me from the outpatient setting. He was admitted last evening with a chest pain syndrome. This consultation was ordered to assist in his cardiac management. The patient claims he was in his usual state of health until 1 week prior to presentation. On 05/30/2016, while walking outside, the patient experienced a "jab" in the left chest and then a "burning pressure" that radiated up his sternal region to his throat. This lasted for approximately 30-45 minutes. There were no other associated symptoms such as shortness of breath, nausea, vomiting, or diaphoresis. On June 03, the patient had a similar episode of chest discomfort with burning pressure radiating up his throat. This occurred while resting, but after his evening meal. Again, there were no other associated symptoms. We have discussed the possibility of the acid reflux. The patient has longstanding history of coronary artery disease. He suffered an inferolateral myocardial infarction in 2003, treated with a bare metal stent in the left circumflex. He had recurrent infarction in December 2010 secondary to in-stent stenosis. He had 2 drug-eluting stents placed within the left circumflex stent. The LAD had a 30% stenosis. The right coronary artery was free of significant disease. The patient did have a normal dobutamine stress echocardiogram performed in July 2014. Currently, the patient is resting comfortably at the bedside and without complaints. PAST MEDICAL HISTORY: 1. Coronary artery disease -- see above. 2. Bare metal stent left circumflex -- 2003. 3. Drug-eluting stents x2, left circumflex, in-stent restenosis. 4. Hypertension. 5. Hypercholesterolemia. 6. GERD. 7. Nephrolithiasis. 8. History of pulmonary embolism. 9. Inguinal hernia repair. 10. BPH. 11. History of thrombophlebitis. 12. Chronic low back pain. 13. Anxiety/depression. MEDICATIONS: 1. Toprol-XL 100 mg per day. 2. Lisinopril 10 mg daily. 3. Lipitor 40 mg at bedtime. 4. Aspirin 81 mg per day. 5. Pepcid 40 mg per day. 6. Folic acid 400 mcg daily. 7. Cymbalta 60 mg b.i.d. 8. Colace 200 mg per day. 9. Vitamin B12 500 mcg daily. 10. Vitamin B6 100 mg daily. 11. Vitamin C 1000 mg daily. ALLERGIES: 1. SULFA. 2. IBUPROFEN. 3. ACETAMINOPHEN. SOCIAL HISTORY: The patient is and lives with his . Currently, on disability due to chronic low back pain. He did smoke 1 pack of cigarettes daily. Does not use alcohol. FAMILY HISTORY: No early coronary artery disease. REVIEW OF SYSTEMS: A 10-point review of systems is negative except for that described above. PHYSICAL EXAMINATION: GENERAL: This is a well-developed, well-nourished white male in no acute distress. VITAL SIGNS: Blood pressure is 148/76 with a regular pulse of 54. Respiratory rate is 18. The patient is afebrile at 36.9 degrees Celsius. Saturation is 95% on room air. HEENT: Negative. NECK: Supple with full carotid upstrokes. No carotid bruits. Jugular venous pressure is flat at 90 degrees. There is no thyromegaly. CARDIOVASCULAR: Reveals a regular rhythm with normal S1 and S2. No S3, S4, or murmurs are noted. LUNGS: Clear without rales, rhonchi, or wheezes. ABDOMEN: Soft without bruits. EXTREMITIES: Reveal intact radial artery pulses bilaterally. There is no peripheral edema. LABORATORY AND IMAGING DATA: CBC notes hemoglobin 14.0, hematocrit 39.1, white count 7.7, and platelet count 191,000. Electrolytes note sodium of 143, potassium 3.9, chloride 108, bicarb 26, BUN 9, creatinine 0.8, glucose 87. Three troponin I levels are undetectable at less than 0.015. CKs are 77, 72, and 167 with MB fractions of 0.9, 0.9, and 0.7 respectively. D-dimer was normal at 500. EKG with sinus rhythm and early repolarization changes. Chest x-ray notes cardiomegaly without acute disease. Echocardiogram notes normal left ventricular systolic function without wall motion abnormality. The ascending thoracic aorta notes either artifact within the lumen or a possible dissection flap. IMPRESSION: Mr. Stein was admitted with a chest pain syndrome. As his symptoms lasted for greater than 30 minutes on 2 separate occasions within the last 7 days, would expect elevated troponins if this was to be myocardial ischemia. Clear, this is not the case. The findings in the ascending thoracic aorta are most likely artifact; however, a dissection cannot be excluded on the basis of this study. I suggest proceeding with a CT scan of the chest with contrast. This was discussed with Dr. Barrios. A CT scan is negative for a dissection, could proceed with a stress echocardiogram. PLAN: 1. CT scan of the chest with contrast to rule out an ascending thoracic dissection. 2. Consider stress echocardiogram if the above normal. 3. Continue usual outpatient cardiac medications. 4. Further recommendations depending on his clinical course.
[2016-06-06 15:30] VITALS: BP 108/60; PULSE 55; TEMP 36.3; O2SAT 95
[2016-06-06 15:33] LABS: CKMB/CK RATIO 0.9 (0-3.0)
--- NOTE | 2016-06-06 15:55 | DOBUTAMINE ECHO ---
*NOTICE TO RECEIVING LIBERTARIAN AGENCY This information is strictly Confidential and protected under [place] law. [place] law prohibits you from making any further disclosure of this information unless further disclosure is expressly permitted by the written consent of the person to whom it pertains or is authorized by law. A general authorization for the release of medical or other information is not sufficient for this purpose. Hospital accepts no responsibility if the information is made available to any other person, INCLUDING THE PATIENT. Interpretation Summary * Name: FERNANDO RAMON Study Date: 06/06/2016 12:57 PM BP: 118/79 mmHg * Patient Location: [facility] HR: 52 * : 1960 (M/d/yyyy) Gender: Male Height: 67 in * Age: 55 yrs Ethnicity: [place] Weight: 180 lb * Ordering Physician: Shalini Barrios. * Referring Physician: Self, Referred * Performed By: Tracy Reilly, [facility] * * Reason For Study: CHEST PAIN * BSA: 1.9 m2 * -- Conclusions -- * Diagnostic dobutamine echocardiogram with symptoms of chest pressure but no evidence of inducible ischemia. Procedure Details * DOBUTAMINE ECHO, CPT#63429 Left Ventricular Findings with Stress * Diagnostic dobutamine echocardiogram with symptoms of chest pressure but no evidence of inducible ischemia. Left Ventricle * Left ventricular systolic function is normal. Stress Parameters * Normal baseline electrocardiogram. * Stress ECG: No ST changes. No arrhythmias. * The stress portion of this study was personally supervised by the undersigned interpreting physician. * Rest heart rate was '52' BPM. * Rest blood pressure was '118/79' * Maximum heart rate achieved was 139 bpm. * Maximum heart rate was 85 % of maximum age-predicted heart rate. * Maximum blood pressure was '135/58' * Maximum Dobutamine infusion rate was '50' mcg/kg/min. * A total of 0.5 mg of intravenous Atropine was used to supplement Dobutamine for heart rate response. * Dobutamine infusion was terminated due to end of protocol/maximum medication doses * A total of 0 mg of IV Metoprolol was administered to reverse Dobutamine-induced tachycardia. Left Ventricular Findings with Stress * Normal baseline LV function with normal augmentation and no inducible wall motion abnormalities. Normal baseline EKG without changes during dobutamine infusion. Patient did report some upper chest pressure during the test.
[2016-06-06] MEDS ORDERED: FAMO40TA6 PO (16:36)
--- NOTE | 2016-06-06 16:47 | Discharge Instructions ---
Discharge Instructions Date of Service Jun 06, 2016. Admission Reason for Admission: Precordial Chest Pain Discharge Discharge Diagnosis / Problem: Chest pain Discharge Goals Goal(s): Decrease discomfort, Improve disease control Activity Recommendations Activity Limitations: resume your previous activity Lifting Limitations: none Exercise/Sports Limitations: as tolerated May Resume Sexual Activity: when tolerated Shower/Bathe: no limitations Driving or Machine Use: resume 1 day after discharge . Instructions / Follow-Up Instructions / Follow-Up You were admitted to the hospital under observation for central chest pain. With your history of cardiac issues, high cholesterol, high blood pressure and smoking, you were evaluated by cardiology and inpatient family medicine. During this time, you were given an echocardiogram, a dobutamine stress test and a CT scan of your vessels around your heart, the results of which are summarized below. All of these findings are not concerning for cardiac causes of chest pain. You should continue your home statin and blood pressure medications as you had when you arrived. Your description of the pain as an upper chest squeezing sensation as being different from your usual burning reflux pain is concerning for esophageal irritation/spasm. As a result, your inpatient team has increased your famotidine (Pepcid) dosing to twice daily in order to decrease the amount of acid in your system and decrease the frequency and severity of your issue. You should be followed up in short order by your primary care physician and potentially by a electronic data processing auditor with endoscopy. You are a cigarette smoker - this contributes in part to many of your problems, including your reflux and your heart issues. It would be very beneficial for you to quit. When you are ready, we would encourage you to discuss quitting with Dr. Esteban and make a plan so he can support your though these trying times. Current Hospital Diet Patient's current hospital diet: AHA Diet (Heart Healthy) Discharge Diet Recommended Diet: AHA Diet (Heart Healthy), Low Sodium Diet (2gm Na) Pending Studies Studies pending at discharge: no Laboratory Results CT Chest - no evidence of thoracic aortic aneurysm (bulging of the blood vessels of the heart). Some mildly enlarged lymph nodes. Diagnostic dobutamine echocardiogram with symptoms of chest pressure but no evidence of inducible ischemia. Stress EKG showed no changes or arrhythmias Medical Emergencies . Who to Call and When: Medical Emergencies: If at any time you feel your situation is an emergency, please call 911 immediately. . Non-Emergent Contact Non-Emergency issues call your: Primary Care Provider Call Non-Emergent contact if: you have a fever, your pain is not controlled, your pain is worsening, your pain is unusual for you . . "Provider Documentation" section prepared by Michael Bishop. VTE Core Measure Inpt VTE Proph given/why not?: SCD's
[2016-06-06] MEDS ORDERED: ATORVASTATIN 40 MG TAB PO SCH (21:00)
[2016-06-06] MEDS ORDERED: DOCUSATE SODIUM 100 MG CAP PO SCH (21:00)
[2016-06-06] MEDS ORDERED: ASPIRIN 81 MG ECTAB PO SCH (21:00)
--- NOTE | 2016-06-06 22:09 | Discharge Summary ---
Discharge Summary Date of Service Jun 06, 2016. (Alka. Barrios MD) Discharge Summary Admission Date: Jun 05, 2016 at 21:24 Discharge Date: Jun 06, 2016 Discharge Disposition: Home Principal Diagnosis: GERD Immunizations: Have You Had Influenza Vaccine: Yes Influenza Vaccine Date: Dec 17, 2010 History of Tetanus Vaccine?: 1998 History of Pneumococcal: Yes Pneumococcal Date: Dec 20, 2003 History of Hepatitis B Vaccine: No (Alka. Barrios MD) Principal Diagnosis: (Michael Bishop MD) Discharge Exam For detailed ROS and P/E at time of discharge, see progress note dated 06/06/16 (Alka. Barrios MD) Hospital Course Patient admitted to the hospital under observation for central chest pain. With history of CAD with CT s/p QUIN placement in 2011, HLD, HTN and smoking, inpatient and cardiology management included and reported the following: - CE x 3: negative - Echocardiogram with Doppler: unremarkable with some artifact - CTA chest: no evidence of thoracic aortic aneurysm or dissection. Some mildly enlarged lymph nodes. - Diagnostic dobutamine echocardiogram with symptoms of chest pressure but no evidence of inducible ischemia. - Stress EKG: no changes or arrhythmias Given pain description as upper chest squeezing sensation, possibly worsening GERD with some concern arising for esophageal irritation/spasm. Thus famotidine dosing increased to BID for symptom management with recommendations for outpatient follow up by PCP and potentially by gastroenterology with endoscopy. Patient advised for smoking cessation. Total Time Spent: Less than 30 minutes This includes examination of the patient, discharge planning, medication reconciliation, and communication with other providers. (Alka. Barrios MD) Total Time Spent: Greater than 30 minutes (Michael Bishop MD) Discharge Instructions Please refer to the electronic Patient Visit Report (Discharge Instructions) for additional information. (Alka. Barrios MD) Additional Copies To Good Esteban M.D. History For complete history and physical from day of discharge, see accompanying note from today. (Michael Bishop MD) Assessment/Plan 55 y/o male h/o CAD w/ CT and QUIN, HTN, tobacco use, HLD present w/ chest pain Chest pain - CT chest w/ contrast w/o aneurysm, dobutamine stress w/o ischemia, troponin neg x 3. Symptoms concomitant with worsening reflux. Increase H2 ru to BID, strongly encourage outpatient f/u for GI eval because of h/o tobacco use and worsening symptoms. Follow with primary care. CAD w/ h/o CT w/ QUIN - continue ASA, lipitor, lisinopril, toprol HTN - continue toprol, lisinopril GERD - famotidine BID Depression/anxiety - cymbalta (Michael Bishop MD)
[2016-06-07] MEDS ORDERED: NICOTINE 21 MG/24 HR TDSY TD SCH (09:00)
--- NOTE | 2016-06-11 12:20 | ECHOCARDIOGRAM REPORT ---
*NOTICE TO RECEIVING GREEN PARTY AGENCY This information is strictly Confidential and protected under [place] law. [place] law prohibits you from making any further disclosure of this information unless further disclosure is expressly permitted by the written consent of the person to whom it pertains or is authorized by law. A general authorization for the release of medical or other information is not sufficient for this purpose. Hospital accepts no responsibility if the information is made available to any other person, INCLUDING THE PATIENT. Interpretation Summary * Name: FERNANDO RAMON Study Date: 06/06/2016 07:23 AM BP: 148/76 mmHg * Patient Location: [facility] HR: 52 * : 1960 (M/d/yyyy) Gender: Male Height: 68 in * Age: 55 yrs Ethnicity: CA Weight: 180 lb * Ordering Physician: Juan Olson * Referring Physician: Self, Referred * Performed By: Tracy Reilly [facility] * * Reason For Study: CHEST PAIN * BSA: 2.0 m2 * -- Conclusions -- * Left ventricular systolic function is normal. * No regional wall motion abnormalities noted. * Ejection Fraction = 55-60%. * There is mild concentric left ventricular hypertrophy. * Diastolic dysfunction, Grade II (pseudonormalization pattern). * Linear echos in the ascending thoracic aorta suggest a possible aortic dissection vs. artifact. * Suggest CT scan of chest. Procedure Details * A complete two-dimensional transthoracic echocardiogram was performed (2D, M-mode, Doppler and color flow Doppler). Left Ventricle * The left ventricle is normal in size. * There is mild concentric left ventricular hypertrophy. * Ejection Fraction = 55-60%. * Left ventricular systolic function is normal. * No regional wall motion abnormalities noted. Right Ventricle * The right ventricle is not well visualized. * The right ventricular systolic function is normal as assessed by tricuspid annular plane systolic excursion (TAPSE) (normal >1.5 cm). Atria * The left atrium is mildly dilated. * The right atrium is mildly dilated. * No ASD detected; PFO is not assessed. Mitral Valve * The mitral valve anatomy is normal. * There is no mitral valve stenosis. * Significant mitral regurgitation is absent. Tricuspid Valve * The tricuspid valve is not well visualized, but is grossly normal. * There is no tricuspid stenosis. * Significant tricuspid regurgitation is absent. Aortic Valve * The aortic valve is normal in structure and function. * No hemodynamically significant valvular aortic stenosis. * No aortic regurgitation is present. Pulmonic Valve * The pulmonary valve is not well seen, but the Doppler examination is normal without significant regurgitation or stenosis. Great Vessels * The aortic root is normal size. * Linear echos in the ascending thoracic aorta suggest a possible aortic dissection vs. artifact. * The pulmonary is not well visualized. Pericardium/Pleural * There is no pericardial effusion. Great Vessels * Normal inferior vena cava size and collapsability with sniff indicates a normal right atrial pressure of 3 mmHg Left Ventricular Diastolic Function * Diastolic dysfunction, Grade II (pseudonormalization pattern). MMode 2D Measurements and Calculations IVSd 1.4 cm IVSs 2.0 cm LVIDd 4.7 cm LVIDs 3.7 cm LVPWd 1.6 cm LVPWs 1.2 cm IVS/LVPW 0.86 FS 21.7 % EDV(Teich) 104.2 ml ESV(Teich) 58.5 ml EF(Teich) 43.9 % EDV(cubed) 106.2 ml ESV(cubed) 51.0 ml EF(cubed) 52.0 % % IVS thick 43.3 % % LVPW thick -25.49 % LV mass(C)d 302.5 grams LV mass(C)dI 154.8 grams/m\S\2 LV mass(C)s 235.3 grams LV mass(C)sI 120.4 grams/m\S\2 SV(Teich) 45.7 ml SI(Teich) 23.4 ml/m\S\2 SV(cubed) 55.2 ml SI(cubed) 28.2 ml/m\S\2 Ao root diam 3.5 cm Ao root area 9.8 cm\S\2 LA dimension 4.1 cm LA/Ao 1.2 LVOT diam 2.0 cm LVOT area 3.0 cm\S\2 LVAd ap4 31.6 cm\S\2 LVLd ap4 8.1 cm EDV(MOD-sp4) 103.5 ml EDV(sp4-el) 104.3 ml LVAs ap4 18.6 cm\S\2 LVLs ap4 6.2 cm ESV(MOD-sp4) 46.7 ml ESV(sp4-el) 47.2 ml EF(MOD-sp4) 54.8 % EF(sp4-el) 54.8 % LVAd ap2 34.3 cm\S\2 LVLd ap2 7.5 cm EDV(MOD-sp2) 127.8 ml EDV(sp2-el) 132.6 ml LVAs ap2 19.3 cm\S\2 LVLs ap2 6.2 cm ESV(MOD-sp2) 50.3 ml ESV(sp2-el) 50.9 ml EF(MOD-sp2) 60.7 % EF(sp2-el) 61.6 % LVLd %diff -7.67 % EDV(MOD-bp) 115.0 ml LVLs %diff 0.47 % ESV(MOD-bp) 48.6 ml EF(MOD-bp) 57.7 % SV(MOD-sp4) 56.8 ml SI(MOD-sp4) 29.0 ml/m\S\2 SV(MOD-sp2) 77.5 ml SI(MOD-sp2) 39.7 ml/m\S\2 SV(MOD-bp) 66.3 ml SI(MOD-bp) 33.9 ml/m\S\2 SV(sp4-el) 57.1 ml SI(sp4-el) 29.2 ml/m\S\2 SV(sp2-el) 81.7 ml SI(sp2-el) 41.8 ml/m\S\2 Doppler Measurements and Calculations MV E max pramod 94.4 cm/sec MV A max pramod 60.4 cm/sec MV E/A 1.6 MV P1/2t max pramod 110.6 cm/sec MV P1/2t 106.5 msec MVA(P1/2t) 2.1 cm\S\2 MV dec slope 304.4 cm/sec\S\2 MV dec time 0.19 sec Ao V2 max 142.4 cm/sec Ao max PG 8.1 mmHg Ao max PG (full) 3.9 mmHg LALO(V,A) 2.2 cm\S\2 LALO(V,D) 2.2 cm\S\2 LV V1 max PG 4.2 mmHg LV V1 max 102.5 cm/sec PA V2 max 75.3 cm/sec PA max PG 2.3 mmHg
== END 2016-06-06 17:10 | disposition home or self-care (01) ==
LOC: ENRESERVDT → ENRESERVTM → C.EDB 19:28 → C.EDINP 21:24 → C.2E 06-06 12:31
PROVIDERS: ADMIT Hospitalist; ATTEND Family Medicine
DX: K21.9 Gastro-esophageal reflux disease without esophagitis (principal); I25.2 Old myocardial infarction; I25.10 Atherosclerotic heart disease of native coronary artery without angina pectoris; Z98.61 Coronary angioplasty status; E78.00 Pure hypercholesterolemia, unspecified; F17.200 Nicotine dependence, unspecified, uncomplicated

== ENCOUNTER 2016-10-29 11:38 | Emergency (ER) | payer BC, OTHER ==
[~2016-10-29] VITALS: Ht 170.2 cm; Wt 78.4 kg
[~2016-10-29 11:38] MED LIST changes: +ATOR-26 PO; -ATV5 PO; +CYAN500T PO; +LISI-461 PO; +LORA-741 PO; +METO1TAB69 PO; +MULT-506 PO; +NTRGSL/4 UT; +OMEG10007 PO; +PYRI100T4 PO
[2016-10-29 11:50] VITALS: TEMP 36.6; Ht 170.2 cm; Wt 78.4 kg
[2016-10-29] MEDS ORDERED: HYDROmorphone INJ 2 MG/ML SYR/VIAL IM STA (12:31)
[2016-10-29] MEDS ORDERED: KRIL1000 (12:36)
--- NOTE | 2016-10-29 12:37 | EMERGENCY ROOM VISIT NOTE ---
History First contact with patient: 12:16 Chief Complaint: BACK PAIN Stated Complaint: BACK PAIN History of Present Illness The patient is a 55 year old male who presents to the Emergency Room with complaints of low back pain. The patient has a long-standing history of back pain and has had multiple surgeries. The patient states that 2 days ago he was getting up out of a chair and felt that his back locked up. He states the he immediately had pain that radiated into his buttock. The patient states that he chronically has pain and numbness in the left leg. He states this seems to be slightly worse. The patient rates his discomfort a 9/10. He denies any fevers. He denies any loss of bowel or bladder control. He denies any weakness. He denies any abdominal pain, nausea or vomiting. The patient does take oxycodone 3 times daily for his chronic back pain. Review of Systems A 10 system review of systems was completed with positives and pertinent negatives listed in the HPI. Past Medical/Surgical History Medical Problems: (1) Ac Myocar Infarc,Inferolateral Wall,Init Epis Care (2) Ac Myocard Infarc,Anterolat Wall,Epis Care,Unspec (3) Cervical stenosis of spinal canal (4) Coronary Atherosclerosis Of [place] Coronary Vessel (5) intractable radicular back pain (6) intractable radicular back pain (7) Neuropathy (8) Percutaneous Translum Coron Angioplasty Status (9) POSSIBLE DISCITIS (10) Precordial chest pain (11) Pure Hypercholesterolem Family History Heart disease Hypertension Social History Smoking Status: Current Every Day Smoker Alcohol Use: none Drug Use: none Marital Status: Housing Status: lives with family Occupation Status: disabled Current/Historical Medications Scheduled Ascorbic Acid (Ascorbic Acid), 1,000 MG PO DAILY Aspirin (Aspirin Adult Low Strengt), 81 MG PO HS Atorvastatin (Lipitor), 40 MG PO HS Cyanocobalamin (Vitamin B-12), 500 MCG PO NOON Docusate Sodium (Colace), 200 MG PO HS Duloxetine HCl (Cymbalta), 60 MG PO BID Famotidine (Pepcid), 40 MG PO BID Folic Acid (Folvite), 400 MCG PO DAILY Lisinopril (Zestril), 10 MG PO QAM Metoprolol Succ (Toprol Xl) (Toprol-Xl ), 100 MG PO QAM Multivitamin (Multivitamin), 1 TAB PO QAM Nitroglycerin (Nitrostat), 0.4 MG UT PRN Prednisone (Prednisone), 0 PO DAILY Pyridoxine (Vitamin B6), 100 MG PO NOON Scheduled PRN Lorazepam (Ativan), 0.5 MG PO DAILY PRN for Anxiety Oxycodone Hcl (Oxycodone Hcl), 5 MG PO Q8 PRN for Pain Miscellaneous Medications Krill Oil (Krill Oil) Physical Exam Vital Signs Date Time Temp Pulse Resp B/P (MAP) Pulse Ox O2 Delivery O2 Flow Rate FiO2 10/29/16 14:18 61 16 130/85 94 10/29/16 13:05 75 16 153/84 95 Room Air 10/29/16 11:50 36.6 77 22 132/81 95 Room Air Physical Exam VITALS: Vitals are noted on the nurse's note and reviewed by myself. Vital signs stable. GENERAL: This is a 55-year-old male, in no acute distress, nondiaphoretic, well- developed well-nourished. SKIN: The skin was without rashes, erythema, edema, or bruising. There is no tenting of the skin. Capillary reflex less than 2 seconds. HEAD: Normocephalic atraumatic. EARS: The external ears are normal in appearance. EYES: Pupils equal round and reactive to light and accommodation. Conjunctivae without injection, sclerae without icterus. Extraocular movements intact. NOSE: Patent, turbinates without inflammation or discharge. MOUTH: Mucous membranes moist. Tonsils are not enlarged. Pharynx without erythema or exudate. Uvula midline. Airway patent. Tongue does not deviate. NECK: Supple without nuchal rigidity. No JVD. HEART: Regular rate and rhythm without murmurs gallops or rubs. LUNGS: Clear to auscultation bilaterally without wheezes, rales or rhonchi. No retractions or accessory muscle use. MUSCULOSKELETAL: No muscle atrophy, erythema, or edema noted. Full range of motion without joint tenderness in all extremities.there is mild tenderness to palpation to the lumbar spine. Normal gait. Strength 5/5 throughout. NEURO: Patient was alert and oriented to person place and time. Normal sensation to light and sharp touch. Deep tendon reflexes 2+ in the lower extremities bilaterally. No focal neurological deficits. Medical Decision & Procedures Medications Administered Medications (Trade) Dose Ordered Sig/Tiffanie Route Start Time Stop Time Status Last Admin Dose Admin Dexamethasone Sodium Phosphate (Decadron Inj) 10 mg NOW ONCE IM 10/29/16 12:45 10/29/16 12:47 DC 10/29/16 12:40 10 MG Hydromorphone HCl (Dilaudid Inj) 2 mg ONE STAT IM 10/29/16 12:31 10/29/16 12:32 DC 10/29/16 12:40 2 MG ED Course The patient was seen and examined. Previous visits were reviewed. The patient does not have any loss of bowel or bladder control, saddle anesthesia,. He does not have any weakness on examination. His reflexes are intact in the lower extremities bilaterally. I do not suspect cauda equina or cord compression. He does not have fever. I do not suspect infectious process. The patient has a history of back pain and has had surgery in the past. I discussed the possibility of MRI with the patient and his significant other. I do not suspect acute neurologic deficit and do not suspect acute surgical emergency. I advised him that I could not guarantee that the insurance company would cover an MRI of the lumbar spine. They are in agreement and plan to follow with Dr. Sim. The patient was given 2 mg IM Dilaudid and 10 mg IM Decadron. I did attempt to contact Dr. Sim and relayed the patient's information to the OR nurse. I did not hear back from him. The patient is already taking oxycodone. I do not feel comfortable prescribing additional narcotics at this time. He was treated in the ER and given a prescription for prednisone. He should return with any worsening or concerning symptoms. The patient was also seen and examined by who agrees with the assessment and treatment plan. Medical Decision DIFFERENTIAL DIAGNOSIS: Lumbar strain, degenerative disc disease, spondylolisthesis, herniated disc, spinal stenosis, osteoporosis, fracture, cauda equina syndrome, neoplasm, infection, inflammatory arthritis, among others. [place] Drug Monitoring [place] Search Results: patient reviewed within database, see additional documentation Drug Monitoring Findings: The patient receives regular prescriptions of oxycodone for his back pain Medication Reconcilliation Current Medication List: was personally reviewed by me Blood Pressure Screening Patient's blood pressure: Elevated blood pressure Blood pressure disposition: Elevated BP felt to be situational Impression Primary Impression: Acute exacerbation of chronic low back pain Departure Information Dispostion Home / Self-Care Condition GOOD Prescriptions Prednisone (Prednisone) 20 Mg Tab 0 PO DAILY, #18 TAB 3 DAILY FOR 3 DAYS, THEN 2 DAILY FOR 3 DAYS, THEN 1 DAILY FOR 3 DAYS. Prov: Matilde Andrews PA-C 10/29/16 Referrals Good Esteban M.D. (PCP) Darien Sim D.O. Patient Instructions Back Pain - [facility], Back Pain Relieve, [facility] Additional Instructions Resume your usual medications Prednisone as prescribed, until finished Contact orthopedics for a follow-up appointment for further evaluation and management Return with any fevers, worsening pain, loss of bowel or bladder control, weakness, generalized worsening symptoms
[2016-10-29] MEDS ORDERED: DEXAMETHASONE SOD INJ 10 MG/ML VIAL IM ONE (12:45)
[2016-10-29] MEDS ORDERED: PRED20TA PO (13:34)
--- NOTE | 2016-10-29 14:14 | EMERGENCY ROOM VISIT NOTE ---
ED Visit Note First contact with patient: 12:16 I have personally seen and evaluated the patient with the physician pediatric physician assistant. I agree with the diagnostic/management decisions and have personally been involved in these decisions and agree with the diagnosis.
[2016-10-29 14:18] VITALS: BP 130/85; PULSE 61; O2SAT 94
== END 2016-10-29 14:18 | disposition home or self-care (01) ==
LOC: C.EDB 11:39 → C.EDD 14:18
DX: M54.5 Low back pain (principal); I21.09 ST elevation (STEMI) myocardial infarction involving other coronary artery of anterior wall; I21.19 ST elevation (STEMI) myocardial infarction involving other coronary artery of inferior wall; E78.00 Pure hypercholesterolemia, unspecified; Z83.3 Family history of diabetes mellitus; Z82.49 Family history of ischemic heart disease and other diseases of the circulatory system; F17.200 Nicotine dependence, unspecified, uncomplicated

== ENCOUNTER → 2016-11-09 | Outpatient (CLI) | payer BC, OTHER ==
[~2016-11-09] MED LIST changes: +KRIL1000; -OMEG10007 PO; +PRED20TA PO
--- NOTE | 2016-11-09 14:13 | DIAGNOSTIC IMAGING REPORT ---
MRI OF THE LUMBAR SPINE WITHOUT CONTRAST CLINICAL HISTORY: Sciatica. COMPARISON STUDY: Lumbar spine MRI October 20, 2015. TECHNIQUE: Utilizing a 1.5 Marissa magnet and dedicated coil, multiplanar, multiecho imaging of the lumbar spine was performed without IV contrast. FINDINGS: For purposes of numbering on this exam, the L5-S1 disc space is assigned to axial image 23 of 25. Alignment of the lumbar spine is anatomic. Vertebral body heights are maintained. There is no marrow replacement. Conus terminates at the T12-L1 level. There is no intracanalicular mass or fluid collection. Paravertebral soft tissues are unremarkable. The patient is status post L3-L4 and L4-L5 discectomies with interbody spacer placement. A posterior decompression is noted. There are bilateral pedicle screws at the L3 and L4 levels. L5 pedicle screws have been removed. L1-2: Mild disc bulge is noted with a central annular tear. The central canal and neural foramen are patent. L2-3: There is a disc bulge with ligamentous hypertrophy and facet arthrosis. There is mild narrowing of the central canal, lateral recesses and neural foramen. This is slightly increased since exam of October 20, 2015. L3-4: The central canal and neural foramen are patent. L4-5: The central canal and neural foramen are patent. L5-S1: The central canal and neural foramen are patent. IMPRESSION: 1. Status post L3-L4 and L4-L5 discectomies and bilateral pedicle screw fusion from L3 through L4. L5 pedicle screws removed. 2. Mild central canal, lateral recess and neural foraminal stenosis at L2-L3 due to disc bulge, ligamentous hypertrophy and facet arthrosis. Otherwise, patent central canal and neural foramen. Electronically signed by: Camron Miller M.D. 11/09/2016 2:12 PM Dictated Date/Time: 11/09/2016 2:01 PM
== END | disposition home or self-care (01) ==
LOC: C.MRI 13:09
PROVIDERS: ATTEND Orthopaedic Surgery Orthopaedic Surgery of the Spine
DX: M54.40 Lumbago with sciatica, unspecified side (principal); Z98.1 Arthrodesis status

== ENCOUNTER 2017-02-13 13:47 | Emergency (ER) | payer BC, OTHER ==
[~2017-02-13] VITALS: Ht 170.2 cm; Wt 74.0 kg
[~2017-02-13 13:47] MED LIST changes: -ASCO100061 PO; -ASPI1CHW26 PO; -ATOR-26 PO; -CYAN500T PO; -FOLI400T41 PO; -KRIL1000; +KRIL1000 PO; +METO100T44 PO; -METO1TAB69 PO; -MULT-506 PO; -NTRGSL/4 UT; -PYRI100T4 PO
[2017-02-13] MEDS ORDERED: FOLI400T41 PO (13:56)
[2017-02-13] MEDS ORDERED: ASCO100061 PO (13:56)
[2017-02-13 13:59] VITALS: TEMP 36.7; Ht 170.2 cm; Wt 74.0 kg
[2017-02-13] MEDS ORDERED: ASPI1CHW26 PO (14:02)
[2017-02-13] MEDS ORDERED: CYCLOBENZAPRINE HCL 10 MG TAB PO STA (14:54)
[2017-02-13] MEDS ORDERED: DEXAMETHASONE SOD INJ 4 MG/ML VIAL IM ONE (15:00)
[2017-02-13] MEDS ORDERED: KETOROLAC TROMETHAMINE 60 MG/2 ML VIAL IM ONE (15:00)
[2017-02-13] MEDS ORDERED: HYDROmorphone INJ 2 MG/ML SYR/VIAL IM ONE (15:00)
--- NOTE | 2017-02-13 15:13 | EMERGENCY ROOM VISIT NOTE ---
History First contact with patient: 14:42 Chief Complaint: BACK PAIN Stated Complaint: BACK PAIN History of Present Illness The patient is a 56 year old male who presents to the Emergency Room with complaints of low back pain shooting down his left leg. The patient has a history of chronic back pain. He has had 2 back surgeries in the past. He follows with pain management, and Dr. Sim. He is prescribed oxycodone by his primary care physician. This has not been helping. The patient reports getting a steroid injection in the left SI joint last week. This did not seem to help. He denies any weakness in his lower extremities. No urinary or bowel incontinence. No fever or chills. 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,Anterolat Wall,Epis Care,Unspec (3) Cervical stenosis of spinal canal (4) Coronary Atherosclerosis Of [place] Coronary Vessel (5) intractable radicular back pain (6) intractable radicular back pain (7) Neuropathy (8) Percutaneous Translum Coron Angioplasty Status (9) POSSIBLE DISCITIS (10) Precordial chest pain (11) Pure Hypercholesterolem Family History Heart disease Hypertension Social History Smoking Status: Current Every Day Smoker Alcohol Use: none Drug Use: none Marital Status: Housing Status: lives with family Occupation Status: disabled Current/Historical Medications Scheduled Ascorbic Acid (Ascorbic Acid), 1,000 MG PO DAILY Aspirin (Aspirin Adult Low Strengt), 81 MG PO HS Atorvastatin (Lipitor), 40 MG PO HS Clopidogrel Bisulfate (Clopidogrel), 75 MG PO DAILY Cyanocobalamin (Vitamin B-12), 500 MCG PO QD@1200 Cyclobenzaprine Hcl (Flexeril), 10 MG PO TID Docusate Sodium (Docusate Sodium), 100 MG PO HS Duloxetine HCl (Duloxetine HCl), 60 MG PO BID Famotidine (Pepcid), 40 MG PO QAM Folic Acid (Folvite), 400 MCG PO DAILY Krill Oil (Krill Oil), 1 CAP PO DAILY Lisinopril (Lisinopril), 10 MG PO QAM Methylprednisolone (Medrol Dosepak), 1 PKT PO UD Metoprolol Succinate (Metoprolol Succinate ER), 100 MG PO QAM Multivitamin (Multivitamin), 1 TAB PO QAM Pyridoxine (Vitamin B6), 100 MG PO QD@1200 Scheduled PRN Lorazepam (Lorazepam), 0.5 MG PO BID PRN for Anxiety Nitroglycerin (Nitrostat), 0.4 MG UT UD PRN for Chest Pain Oxycodone HCl (Oxycodone HCl), 5 MG PO Q8 PRN for Pain Physical Exam Vital Signs Date Time Temp Pulse Resp B/P (MAP) Pulse Ox O2 Delivery O2 Flow Rate FiO2 02/13/17 15:45 60 18 128/71 93 Room Air 02/13/17 13:59 36.7 72 16 149/89 97 Room Air Physical Exam VITALS: Vitals are noted on the nurse's note and reviewed by myself. Vital signs stable. GENERAL: 56-year-old male, in obvious discomfort,, in no acute distress, nondiaphoretic, well-developed well-nourished. SKIN: The skin was without rashes, erythema, edema, or bruising. HEAD: Normocephalic atraumatic. NECK: Cervical spine is nontender. MUSCULOSKELETAL: No tenderness over the spinous processes throughout the spine. There is a muscle spasm noted in the lumbar paraspinous muscle on the left. No significant tenderness over the SI joint bilaterally. Sensation in lower extremities is intact bilaterally. Strength 5/5 throughout. NEURO: Patient was alert and oriented to person place and time. Normal sensation to touch. No focal neurological deficits. Medical Decision & Procedures Medications Administered Medications (Trade) Dose Ordered Sig/[facility] Route Start Time Stop Time Status Last Admin Dose Admin Hydromorphone HCl (Dilaudid Inj) 2 mg ONE ONCE IM 02/13/17 15:00 02/13/17 15:01 DC 02/13/17 15:10 2 MG Dexamethasone Sodium Phosphate (Decadron Inj) 10 mg NOW ONCE IM 02/13/17 15:00 02/13/17 15:01 DC 02/13/17 15:07 10 MG Ketorolac Tromethamine (Toradol Inj) 60 mg ONE ONCE IM 02/13/17 15:00 02/13/17 15:01 DC 02/13/17 15:09 60 MG Cyclobenzaprine HCl (Flexeril Tab) 10 mg NOW STAT PO 02/13/17 14:54 12/6/17 14:55 DC 02/13/17 15:06 10 MG ED Course The patient was seen and examined He was medicated with Dilaudid, Toradol, Decadron and Flexeril Upon reevaluation, the patient was feeling better. We discussed discharge instructions, and he was discharged in good condition Medical Decision Differential diagnosis: Spine fracture, ligamentous injury, subluxation, spondylolisthesis, spondylosis, herniated disc, contusion, muscle spasm This patient is a 56-year-old male that presents to emergency department with acute on chronic back pain. He does not have any weakness in the extremities, urinary or bowel incontinence, or saddle paresthesias. No recent injury. On exam, he does have a muscle spasm in the lumbar area. He was neurologically intact. I did not find imaging necessary. He had good relief in the emergency department. The patient is prescribed chronic narcotics from his primary care provider. He will continue these as prescribed. He was given a prescription for a muscle relaxant. He was also given a Medrol Dosepak. He'll follow-up with his pain management doctor in addition to his primary care physician. He agrees to return to the emergency department for a new, worsening or concerning symptoms. This chart was completed in part utilizing [employer] Voice Recognition software. Attempts were made to minimize the grammatical errors, random word insertions, pronoun errors and incomplete sentences. Any formal questions or concerns about the content, text or information contained within the body of this dictation should be directly addressed to the provider for clarification. [place] Drug Monitoring Program Search Results: patient reviewed within database Medication Reconcilliation Current Medication List: was personally reviewed by me Blood Pressure Screening Patient's blood pressure: Elevated blood pressure Blood pressure disposition: Elevated BP felt to be situational Impression Primary Impression: Acute exacerbation of chronic low back pain Departure Information Dispostion Home / Self-Care Condition FAIR Prescriptions Cyclobenzaprine Hcl (FLEXERIL) 10 Mg Tab 10 MG PO TID, #30 TAB Prov: Mari Ayon PA-C 02/13/17 Methylprednisolone (MEDROL DOSEPAK) 4 Mg [place] 1 PKT PO UD for 6 Days, #1 PKT Prov: Mari Ayon PA-C 02/13/17 Referrals Esteban, Good, M.D. (PCP) Patient Instructions [facility] Additional Instructions Please continue current pain medications as prescribed Please take Flexeril 1 tab every 8 hours as needed for back pain/muscle spasms. Please do not drink alcohol or drive well taking this medication as it may make you sleepy. Please take the entire course of steroids. Take this medication with food. Please follow-up with your primary care physician in addition to pain management Please return to the emergency department with any new, worsening or concerning symptoms; especially, problems with urination or bowel movements, weakness in the legs or fever
[2017-02-13 15:45] VITALS: BP 128/71; PULSE 60; O2SAT 93
[2017-02-13] MEDS ORDERED: METH4PAK PO (15:46)
[2017-02-13] MEDS ORDERED: CYCL10TA6 PO (15:46)
[2017-02-13] MEDS ORDERED: PLV75 PO (15:58)
[2017-02-13] MEDS ORDERED: LISI-461 PO (15:58)
[2017-02-13] MEDS ORDERED: LORA0.5T12 PO (15:58)
[2017-02-13] MEDS ORDERED: CLC100 PO (15:58)
[2017-02-13] MEDS ORDERED: FAMO40TA6 PO (15:58)
[2017-02-13] MEDS ORDERED: CYM60 PO (15:58)
[2017-02-13] MEDS ORDERED: OXYC-609 PO (15:58)
[2017-02-13] MEDS ORDERED: TPRSR/100 PO (15:58)
[2017-02-13] MEDS ORDERED: CYAN500T PO (21:35)
[2017-02-13] MEDS ORDERED: PYRI100T4 PO (21:35)
[2017-02-13] MEDS ORDERED: NTRGSL/4 UT (21:35)
[2017-02-13] MEDS ORDERED: MULT-506 PO (21:35)
[2017-02-13] MEDS ORDERED: ATOR-26 PO (22:02)
--- NOTE | 2017-02-14 14:14 | EMERGENCY ROOM VISIT NOTE ---
ED Visit Note First contact with patient: 14:42 HPI: exacerbation of chronic back pain. No bowel incontinence or urinary retention. Plan: flexeril, steroids for antiinflammatory effect. Pain management and spine f/u. I reviewed the patient's past medical history, medications, and visit nursing notes. I discussed the case with the physician surgeon assistant, examined the patient, and agree with the findings and plan as documented in the physician assistants note.
== END 2017-02-13 15:59 | disposition home or self-care (01) ==
LOC: C.EDB 13:48 → C.EDD 15:59
DX: M54.5 Low back pain (principal); G89.29 Other chronic pain; I25.2 Old myocardial infarction; I25.10 Atherosclerotic heart disease of native coronary artery without angina pectoris; E78.00 Pure hypercholesterolemia, unspecified; M48.02 Spinal stenosis, cervical region; F17.200 Nicotine dependence, unspecified, uncomplicated; Z98.61 Coronary angioplasty status; Z79.82 Long term (current) use of aspirin; Z79.899 Other long term (current) drug therapy; Z82.49 Family history of ischemic heart disease and other diseases of the circulatory system

== ENCOUNTER → 2017-10-15 | Outpatient (CLI) | payer OTHER ==
[~2017-10-15] MED LIST changes: +ASCO100061 PO; +ASPI1CHW26 PO; +ATOR-26 PO; +CLC100 PO; +CYAN500T PO; -CYM/60 PO; +CYM60 PO; -DOCU-94 PO; +FOLI400T41 PO; -LORA-741 PO; +LORA0.5T12 PO; -METO100T44 PO; +MULT-506 PO; +NTRGSL/4 UT; +OXYC-609 PO; -OXYC1CAP5 PO; +PLV75 PO; -PRED20TA PO; +PYRI100T4 PO; +TPRSR/100 PO
--- NOTE | 2017-10-15 10:48 | DIAGNOSTIC IMAGING REPORT ---
TWO VIEW CHEST CLINICAL HISTORY: Preoperative examination. History of COPD. FINDINGS: PA and lateral chest radiographs are compared to study dated 06/05/2016 and correlated with chest CT dated 06/06/2016. The cardiomediastinal silhouette is unremarkable noting atherosclerotic calcification of the thoracic aorta. Chronic interstitial thickening is similar to previous. There is mild left basilar scarring/atelectasis. No airspace consolidation or pleural effusion is identified. There is no pneumothorax. The bony thorax appears intact. Fusion hardware is noted in the lower cervical spine. IMPRESSION: No active disease in the chest. Electronically signed by: Johnny Hernandez M.D. 10/15/2017 10:47 AM Dictated Date/Time: 10/15/2017 10:45 AM
== END | disposition home or self-care (01) ==
LOC: C.RAD1850 10:38
PROVIDERS: ATTEND Family Medicine
DX: Z01.818 Encounter for other preprocedural examination (principal); J44.9 Chronic obstructive pulmonary disease, unspecified; Z88.2 Allergy status to sulfonamides

== ENCOUNTER → 2017-10-23 | Outpatient (CLI) | payer OTHER ==
[2017-10-18 10:29] VITALS: BMI 29.0
--- NOTE | 2017-10-22 15:21 | PAT Medication Instructions ---
Service Date Oct 22, 2017. Current Home Medication List Ascorbic Acid (Ascorbic Acid), 1,000 MG PO QAM Aspirin (Aspirin Adult Low Strengt), 81 MG PO HS Atorvastatin (Lipitor), 40 MG PO HS Clopidogrel Bisulfate (Clopidogrel), 75 MG PO QAM Cyanocobalamin (Vitamin B-12), 500 MCG PO QD@1200 Docusate Sodium (Docusate Sodium), 100 MG PO HS Duloxetine HCl (Duloxetine HCl), 60 MG PO BID Famotidine (Pepcid), 40 MG PO QAM Folic Acid (Folvite), 400 MCG PO NOON Krill Oil (Krill Oil), 1 CAP PO NOON Lisinopril (Lisinopril), 10 MG PO QAM Lorazepam (Lorazepam), 0.5 MG PO BID PRN for Anxiety Metoprolol Succinate (Metoprolol Succinate ER), 100 MG PO QAM Multivitamin (Multivitamin), 1 TAB PO QAM Nitroglycerin (Nitrostat), 0.4 MG UT UD PRN for Chest Pain Oxycodone HCl (Oxycodone HCl), 5 MG PO Q8 PRN for Pain Pyridoxine (Vitamin B6), 100 MG PO QD@1200 Medication Instructions For Your Scheduled Surgery - Hold the following medications starting 10/22/17: Krill Oil (Krill Oil), 1 CAP PO NOON - Check with surgeon and prescribing physician for instructions: Clopidogrel Bisulfate (Clopidogrel), 75 MG PO QAM - Hold the following medications the morning of surgery: Ascorbic Acid (Ascorbic Acid), 1,000 MG PO QAM Folic Acid (Folvite), 400 MCG PO NOON Lisinopril (Lisinopril), 10 MG PO QAM Multivitamin (Multivitamin), 1 TAB PO QAM - Take the following medications the morning of surgery with a sip of water: Nitroglycerin (Nitrostat), 0.4 MG UT UD PRN for Chest Pain (if needed) Oxycodone HCl (Oxycodone HCl), 5 MG PO Q8 PRN for Pain (okay to take up to 4 hours prior to surgery if needed) Lorazepam (Lorazepam), 0.5 MG PO BID PRN for Anxiety (if needed) Metoprolol Succinate (Metoprolol Succinate ER), 100 MG PO QAM Famotidine (Pepcid), 40 MG PO QAM Duloxetine HCl (Duloxetine HCl), 60 MG PO BID - Take the following medications as scheduled the night before surgery: Pyridoxine (Vitamin B6), 100 MG PO QD@1200 Nitroglycerin (Nitrostat), 0.4 MG UT UD PRN for Chest Pain (if needed) Oxycodone HCl (Oxycodone HCl), 5 MG PO Q8 PRN for Pain (if needed) Lorazepam (Lorazepam), 0.5 MG PO BID PRN for Anxiety (if needed) Duloxetine HCl (Duloxetine HCl), 60 MG PO BID Cyanocobalamin (Vitamin B-12), 500 MCG PO QD@1200 Docusate Sodium (Docusate Sodium), 100 MG PO HS Atorvastatin (Lipitor), 40 MG PO HS Aspirin (Aspirin Adult Low Strengt), 81 MG PO HS If you have any questions please call us at [phone] or [phone] or [phone]
[~2017-10-23] VITALS: Ht 170.2 cm; Wt 78.3 kg
[~2017-10-23] MED LIST changes: +ACETAMINOPHEN 500 MG TAB PO SCH; +CEFAZOLIN 1000MG IV PUSH 7.5 ML IV SCH; +GABAPENTIN 600 MG PO SCH; +LACTATED RINGER'S 1000ML 1,000 ML IV SCH
[2017-10-23 10:35] VITALS: Ht 170.2 cm; Wt 78.3 kg
[2017-10-23 11:18] LABS: BASO % 0.1 %; BASO ABS # 0.01 K/uL (0-0.2); EOS % 1.6 %; EOS ABS # 0.14 K/uL (0-0.5); HEMATOCRIT 41.6 % (42-52); HEMOGLOBIN 14.5 g/dL (14.0-18.0); IG# 0.02 K/uL (0.00-0.02); LYMPH % 27.1 %; LYMPH ABS # 2.38 K/uL (1.2-3.4); MEAN CELL VOLUME 92.4 fL (80-100); MEAN CORPUSCULAR HEMOGLOBIN 32.2 pg (25-34); MEAN CORPUSCULAR HGB CONC 34.9 g/dl (32-36); MEAN PLATELET VOLUME 10.3 fL (7.4-10.4); MONO % 6.8 %; NEUT % 64.2 %; NEUT ABS # 5.62 K/uL (1.4-6.5); PLATELET COUNT 211 K/uL (130-400); RED CELL DISTRIBUTION WIDTH CV 13.7 % (11.5-14.5); RED CELL DISTRIBUTION WIDTH SD 46.5 fL (36.4-46.3); WHITE BLOOD COUNT 8.77 K/uL (4.8-10.8)
[2017-10-23 11:26] LABS: PTT PATIENT 25.5 SECONDS (21.0-31.0)
--- NOTE | 2017-11-07 12:24 | EDITING REQUIRED CODING QUERY ---
Once completed, please kindly fax back to [phone] For questions please call [phone] Physician Order Needed A valid physician order must be submitted in order to properly bill for the service(s) provided, including date of service(s), valid diagnosis, and physician signature. If these tests are done on a recurring basis the original physican order must be submitted in order to code and bill for the service(s) provided. Please fax us the original, signed physician order so that we may expedite billing to [phone] DOS 10/23/2017 * CBC WITH AUTO DIFF * PRP * PTT * PT/INR * TYPE/SCREEN * UA CLEAN CATCH * ECG * CHEST X RAY Thank you Adeola Massey [facility] Information Management
== END | disposition home or self-care (01) ==
LOC: C.LAB 08:00 → EDSTATUS 10-30 11:48
PROVIDERS: ATTEND Orthopaedic Surgery Orthopaedic Surgery of the Spine
DX: Z01.810 Encounter for preprocedural cardiovascular examination (principal); Z01.812 Encounter for preprocedural laboratory examination; Z01.818 Encounter for other preprocedural examination

== ENCOUNTER 2023-05-22 14:02 | Observation (INO) ==
[2023-05-22] MEDS ORDERED: NITROGLYCERIN SL 0.4 MG/TAB TAB SL PRN ×2 (14:13→21:24)
--- NOTE | 2023-05-22 14:13 | ED Triage Note ---
Date of Service May 22, 2023 Provider in Triage Author: Ryan Hobbs History of Present Illness This patient was briefly evaluated while in triage. An abbreviated physical exam was performed. This patient is a 62-year-old Male who presents to the ED for evaluation of chest pain, fatigue and night sweats. The patient reports that he has had chest discomfort for the past few days. He reports that the pain is mostly left-sided radiating to the center. He reports that it feels like indigestion. Patient does report a prior history of 2 catheterizations, with his last stent placement in 2011 . Patient is a smoker. Patient also reports a history of chronic back pain. He rates his discomfort an 8 out of 10. Patient is currently on Plavix. Patient does have nitroglycerin at home, but has not tried taking it. Physical Exam CONSTITUTIONAL: Healthy and well nourished. HEENT: No scleral icterus or conjunctival injection. RESPIRATORY: Clear to auscultation bilaterally with no wheezing, crackles, rhonchi or stridor. CARDIOVASCULAR: Regular rate and rhythm with no murmurs, rubs or gallops. MUSCULOSKELETAL: Full range of motion of all joints without discomfort. INTEGUMENTARY: No rash or other significant dermatologic conditions noted. HEMATOLOGIC: No ecchymosis or petechiae. PSYCHIATRIC: Positive affect. NEUROLOGIC: No focal neurologic deficits noted. Initial orders for labs and / or imaging were placed and patient was placed in the waiting area until a bed is available. Please see further documentation for the full ED course.
[2023-05-22 16:04] LABS: Basophils # (auto) 0.03 K/uL (0.00-0.20); Basophils % (auto) 0.4 %; Eosinophils # (auto) 0.43 K/uL (0.00-0.50); Eosinophils % (auto) 5.1 %; Hematocrit (blood only) 43.3 % (42.0-52.0); Hemoglobin 15.2 g/dl (14.0-18.0); Immature Granulocytes # (auto) 0.02 K/uL (0.01-0.20); Immature Granulocytes % (auto) 0.2 %; Lymphocytes # (auto) 3.14 K/uL (1.20-3.40); Lymphocytes % (auto) 37.2 %; Mean Corpuscular Hemoglobin 31.1 pg (25.0-34.0); Mean Corpuscular Hgb Conc 35.1 g/dL (32.0-36.0); Mean Corpuscular Volume 88.7 fL (80.0-100.0); Mean Platelet Volume 11.3 fL (9.4-12.4); Monocytes # (auto) 0.56 K/uL (0.11-0.59); Monocytes % (auto) 6.6 %; Neutrophils # (auto) 4.26 K/uL (1.40-6.50); Neutrophils % (auto) 50.5 %; Platelet Count 264 K/uL (130-400); RDW Coefficient of Variation 13.3 % (11.5-14.5); RDW Standard Deviation 43.4 fL (36.4-46.3); Red Blood Count 4.88 M/uL (4.70-6.10); White Blood Count 8.44 K/ul (4.8-10.8)
[2023-05-22 16:19] LABS: Troponin I High Sensitivity 6.1 pg/ml (0-20)
--- NOTE | 2023-05-22 16:25 | XRay Report ---
XR chest 1V not portable HISTORY: 62 years-old Male Chest pain, nonspecific COMPARISON: 04/26/2023 TECHNIQUE: PA view the chest FINDINGS: Cardiac silhouette is enlarged. No pneumothorax, pleural effusion or pulmonary edema. Chronic interst itial coarsening. Cervical spinal fusion hardware. Degenerative changes of the shoulders and spine. IMPRESSION: No acute process. ACT 112: Negative or not required by law. The above report was generated using voice recognition software. It may contain grammatical, syntax o r spelling errors. Electronically signed by: Fidel Davies M.D. 05/22/2023 4:24 PM
[2023-05-22 16:27] LABS: Albumin Level 4.1 gm/dl (3.4-5.0); Anion Gap 9 (3-11); Bilirubin,Total 0.3 mg/dl (0.2-1.0); Calcium 9.7 mg/dl (8.6-10.3); Carbon Dioxide 21 mmol/L (21-32); Chloride 104 mmol/L (98-107); Potassium 4.6 mmol/L (3.5-5.1); Sodium 134 mmol/L (136-145)
[2023-05-22 16:33] LABS: Alanine Aminotransferase 25 U/L (7-52); Albumin Globulin Ratio 1.3 (0.9-2); Alkaline Phosphatase 88 U/L (34-104); Aspartate Aminotransferase 37 U/L (13-39); Blood Urea Nitrogen 14 mg/dl (6-23); Est GFR (African American) 91.8 ml/min; Est GFR (Non-African American) 79.2 ml/min; Globulin 3.2 gm/dl (2.5-4.0); Glucose 101 mg/dl (70-99(Fasting)); Lipase 36 U/L (11-82); Total Protein 7.3 gm/dl (6.0-8.3)
--- NOTE | 2023-05-22 17:04 | Emergency Department Note ---
Impression & Plan Precordial chest pain, Hypertension, Headache, History of coronary artery disease ED Provider Note NAME: FERNANDO RAMON AGE: 62 SEX: M : 1960 ARRIVES VIA: Walk-In INFORMANT: [Patient] ED PROVIDER(S): [Johnny Steven MD] CHIEF COMPLAINT: Cardiac assessment HISTORY OF PRESENT ILLNESS: The patient is a 62-year-old male with a history of 2 prior MIs. He does have 2 coronary stents. Patient states that over the last month, he has had elevated blood pressure. He did see his doctor's office and his lisinopril was increased. He saw his doctor 2 days ago and his blood pressure was high but there were no medication changes made. Patient is currently complaining of a headache and fatigue. He states that he has had 2 days of some left-sided chest pressure that seems to come and go. It does not seem to worsen with activity. He has not felt short of breath but last evening, he did have a sweat. With the headache, the sweats, his history of heart disease, he presents for evaluation, he is concerned for a repeat heart attack. PMHx/PSHx/Social Hx: See Below PHYSICAL EXAM: GENERAL: Patient is in no acute distress. Slightly anxious. HEENT: No acute trauma, normocephalic atraumatic, mucous membranes moist, no nasal congestion. NECK: No stridor, no adenopathy, no meningismus, trachea is midline. LUNGS: Clear to auscultation bilaterally, no wheeze, no rhonchi, breath sounds equal. Breath sounds diminished bilaterally. HEART: Without murmurs gallops or rubs, regular rate and rhythm. ABDOMEN: Soft, nontender, no peritonitis. EXTREMITIES: No cyanosis, full range of motion of all the joints without pain or difficulty. NEUROLOGIC: Oriented x 3, no acute motor or sensory deficits, no focal weakness. SKIN: No jaundice, no diaphoresis. DIFFERENTIAL DIAGNOSIS: Cardiac ischemia, RI, musculoskeletal pain, uncontrolled blood pressure, electrolyte imbalance, anemia, among others. EMERGENCY DEPARTMENT PROCEDURES: MEDICAL DECISION MAKING: There is no leukocytosis or concerning anemia. There is a normal platelet count. No coagulopathy. No renal failure or significant electrolyte abnormality. No concerning liver enzyme elevation. No evidence for pancreatitis. ECG shows a normal sinus rhythm, no ST elevation. Cardiac enzyme testing x 1 is not consistent with acute cardiac injury. Chest film does not show mediastinal widening, pneumonia or pneumothorax. On exam, the patient was complaining of some left-sided chest pain. He was quite hypertensive. The patient received 1 inch of nitroglycerin paste. He received 2.5 mg of IV Lopressor, 0.5 mg of IV Ativan, 5 mg of IV hydralazine, 324 of oral aspirin. Patient was given 5 mg of oxycodone for his chronic back pain. The patient presents with chest discomfort, headache and high blood pressure. His blood pressure is now under control since being medicated. He seems to be more comfortable. I do think the patient requires a hospital stay. He presents with chest discomfort, he has known coronary disease. He was quite hypertensive upon arrival. I do think further cardiac workup and blood pressure control is warranted. I spoke with the patient and case management. The on-call hospitalist was consulted. Prior/Outside records/notes reviewed: Cardiology note from 03/01/2023 discussing his ongoing issues and history of coronary disease as well as the plan moving forward. ECG per my interpretation: Indication was chest pain. The ECG shows a normal sinus rhythm with a rate of 63. There is no ST elevation, no PVCs, the QTc is 382. Continuous Cardiac Monitoring per my interpretation: An order was placed for continuous cardiac monitoring. The monitor shows a rate of 65 with normal sinus rhythm. Imaging/x-ray results per my interpretation: Chest x-ray does not show mediastinal widening, pneumonia or pneumothorax. Chronic Medical/Social conditions affecting care: History of RI with coronary artery disease. Care/Management discussed with: Case management, the on-call hospitalist. Level of care consideration(s): After review of the information above and other included data: --I believe the patient requires escalation of care to admission Critical Care Note: I have personally spent 41 minutes of critical care time in the direct management of this patient. This includes bedside care, interpretation of diagnostic studies, and testing, discussion with consultants, patient, and family members, and other required patient management activities. This 41 minutes is in excess of all separately billable procedures. DISPOSITION: Admission with cardiology consult. Past Med/Surg History Medical History Myocardial Infarction 2003. Depression Hypertension BPH (benign prostatic hyperplasia) Pulmonary embolism 2004, spontaneous- previously on coumadin for short period of time Coronary artery disease 2004- stent x 1, 2012- stents x 2. FOllows with [facility] [place] cardiology Kidney stones Hyperlipidemia GERD (gastroesophageal reflux disease) controlled Anxiety Lumbar stenosis with neurogenic claudication Surgical History Fusion of spine Lumbar x2 H/O hand surgery LEFT H/O tooth extraction removal of infected dental implant 01/19/20 placed on abx. History of cardiac cath 2003 - 1 STENT 2010- 2 STENTS History of cataract surgery bilateral History of cystoscopy with stent History of lithotripsy laser lithotripsy History of tooth extraction Hx of inguinal hernia repair left S/P cervical spinal fusion 05/2015. MAC 3. Grade 1 view. No issues. Full ROM. S/P epidural steroid injection lumbar and SI joint injections S/P lumbar fusion hardware removal, L2-L3 decompression with fusion: 11/15/17: Grade 1 view, MAC#3, ETT 8.0 at [facility] Family History Other No family history of adverse response to anesthesia Social History Smoking Status: Current every day smoker Tobacco Type: Cigarettes Cigarettes Per Day: 20 daily x 40 years; Second Hand Exposure: Yes; Do You Dip or Chew Tobacco: No; Hx Alcohol Use: No Hx Substance Use: Yes (recreational use "2 joints a day") Last Used Substance: Hours (ago) Last Used Substance Other:: 01/19/20 Preferred Language: Malay Communication Ability: Effective Visual Impairment: No Limitations Hearing Ability: Normal Shared Services And Outsourcing Manager Required: No Beliefs That Will Affect Care: Uatsdin Uatsdin Beliefs: Denominational marital status: Current Living Situation: Spouse Feels Safe at Home: Yes Assistive Devices: Brace/Splint/Immobilizer and Denture - Upper Allergies Allergies Allergy/AdvReac Type Severity Reaction Status Date / Time chlorhexidine Allergy Intermediate severe Verified 05/22/23 17:01 itching, redness Sulfa (Sulfonamide Allergy Intermediate rash, hives Verified 05/22/23 17:01 Antibiotics) acetaminophen AdvReac Severe elevated Verified 05/22/23 17:01 LFTs ibuprofen AdvReac Severe elevated Verified 05/22/23 17:01 LFTs morphine AdvReac Intermediate shakiness, Verified 05/22/23 17:01 grumpy, disoriented Home Meds Home Medications Medication Instructions Recorded Confirmed ascorbic acid (vitamin C) 1,000 mg 1,000 mg PO QAM ##0 04/07/16 05/22/23 tablet aspirin 81 mg tablet,delayed 81 mg PO HS 11/14/17 05/22/23 release clopidogrel 75 mg tablet (Plavix) 75 mg PO QAM 11/14/17 05/22/23 cyanocobalamin (vitamin B-12) 500 500 mcg PO QAM 11/14/17 05/22/23 mcg tablet (Vitamin B-12) docusate sodium 100 mg capsule 100 mg PO QAM 11/14/17 05/22/23 duloxetine 60 mg capsule,delayed 60 mg PO BID 11/14/17 05/22/23 release (Cymbalta) famotidine 40 mg tablet (Pepcid) 40 mg PO BID 11/14/17 05/22/23 folic acid 400 mcg tablet 0.4 mg PO QAM 11/14/17 05/22/23 krill 1,000 mg-omega-3 170 mg-dha 1 cap PO QAM 11/14/17 05/22/23 50 mg-epa 80 [id number] capsule (krill oil) lorazepam 0.5 mg tablet 0.5 mg PO BID PRN Anxiety 11/14/17 05/22/23 metoprolol succinate 100 mg 100 mg PO QAM 11/14/17 05/22/23 tablet,extended release 24 hr multivitamin 1 tab PO QAM 11/14/17 05/22/23 nitroglycerin 0.4 mg sublingual 0.4 mg sublingual DIRECTED PRN 11/14/17 05/22/23 tablet (Nitrostat) Chest Pain oxycodone 5 mg capsule 5 mg PO Q8H 11/14/17 05/22/23 pyridoxine (vitamin B6) 100 mg 100 mg PO QAM 11/14/17 05/22/23 tablet cannabidiol 100 mg/mL oral solution 50 mg PO BID 11/27/19 05/22/23 atorvastatin 80 mg tablet 80 mg PO QAM 05/22/23 05/22/23 cholecalciferol (vitamin D3) 25 0 mcg PO DAILY 05/22/23 05/22/23 mcg (1,000 unit) capsule (Vitamin D3) lisinopril 20 mg tablet 20 mg PO QAM 05/22/23 05/22/23 zinc gluconate 50 mg tablet 50 mg PO DAILY 05/22/23 05/22/23 Previous Rx's Medication Instructions Recorded diazepam 2 mg tablet (Valium) 2 mg PO BID PRN muscle spasm #14 08/17/22 tabs Results & Data (ED) Vital Signs Vital Signs - 24 hr 05/22/23 14:10 05/22/23 16:48 05/22/23 16:49 Temperature 36.8 C Temperature Source Temporal Artery Scan Pulse Rate 69 Pulse Rate [Apical] 64 Pulse Rhythm Regular Pulse Strength Normal Respiratory Rate 18 16 Respiratory Effort / Characteristics Non-Labored Non-Labored Spontaneous Respiratory Depth Normal Normal Respiratory Pattern Regular Regular Blood Pressure 164/98 H Blood Pressure [Right Arm] 184/106 H Blood Pressure Mean 120 Blood Pressure Mean [Right Arm] 132 Blood Pressure Position [Right Arm] Semi-fowlers Pulse Oximetry 98 99 99 Oxygen Delivery Method Room Air Room Air Room Air Sepsis Recent Fever Within 48 Hours No Sepsis New/Unexplained Change in Mental Status No Sepsis Action Taken by Nursing No Action Required 05/22/23 17:05 05/22/23 17:06 05/22/23 17:21 Temperature Temperature Source Pulse Rate 61 63 Pulse Rate [Apical] 61 Pulse Rhythm Pulse Strength Respiratory Rate Respiratory Effort / Characteristics Respiratory Depth Respiratory Pattern Blood Pressure 210/122 H Blood Pressure [Right Arm] 210/122 H Blood Pressure Mean Blood Pressure Mean [Right Arm] 151 Blood Pressure Position [Right Arm] Pulse Oximetry Oxygen Delivery Method Sepsis Recent Fever Within 48 Hours Sepsis New/Unexplained Change in Mental Status Sepsis Action Taken by Nursing 05/22/23 17:30 Temperature Temperature Source Pulse Rate 56 L Pulse Rate [Apical] Pulse Rhythm Pulse Strength Respiratory Rate Respiratory Effort / Characteristics Respiratory Depth Respiratory Pattern Blood Pressure 177/131 H Blood Pressure [Right Arm] Blood Pressure Mean Blood Pressure Mean [Right Arm] Blood Pressure Position [Right Arm] Pulse Oximetry Oxygen Delivery Method Sepsis Recent Fever Within 48 Hours Sepsis New/Unexplained Change in Mental Status Sepsis Action Taken by Skilled Nursing Medications Current Medication List: was personally reviewed by me Laboratory Data Attestation: I reviewed the patient's lab results. 05/22/23 14:45 05/22/23 14:45 Lab Results 05/22/23 05/22/23 Range/Units 14:45 17:25 WBC 8.44 (4.8-10.8) K/ul RBC 4.88 (4.70-6.10) M/uL Hgb 15.2 (14.0-18.0) g/dl Hct 43.3 (42.0-52.0) % MCV 88.7 (80.0-100.0) fL MCH 31.1 (25.0-34.0) pg MCHC 35.1 (32.0-36.0) g/dL RDW Std Deviation 43.4 (36.4-46.3) fL RDW Coeff of Jeanette 13.3 (11.5-14.5) % Plt Count 264 (130-400) K/uL MPV 11.3 (9.4-12.4) fL Immature Gran % (Auto) 0.2 % Neut % (Auto) 50.5 % Lymph % (Auto) 37.2 % [place] % (Auto) 6.6 % Eos % (Auto) 5.1 % Baso % (Auto) 0.4 % Neut # (Auto) 4.26 (1.40-6.50) K/uL Lymph # (Auto) 3.14 (1.20-3.40) K/uL [place] # (Auto) 0.56 (0.11-0.59) K/uL Eos # (Auto) 0.43 (0.00-0.50) K/uL Baso # (Auto) 0.03 (0.00-0.20) K/uL Immature Gran # (Auto) 0.02 (0.01-0.20) K/uL PT Cancelled 10.9 INR Cancelled 1.0 APTT Cancelled 28 PTT Ratio Cancelled 1.0 Sodium 134 L (136-145) mmol/L Potassium 4.6 (3.5-5.1) mmol/L Chloride 104 (98-107) mmol/L Carbon Dioxide 21 (21-32) mmol/L Anion Gap 9 (3-11) BUN 14 (6-23) mg/dl Creatinine 1.00 (0.6-1.4) mg/dl Est Cr Clr Drug Dosing Not Reportable Est GFR ( Amer) 91.8 ml/min Est GFR (Non-Af Amer) 79.2 ml/min BUN/Creatinine Ratio 14.0 (10-20) Glucose 101 H (70-99(Fasting)) mg/dl Calcium 9.7 (8.6-10.3) mg/dl Magnesium 1.8 (1.7-2.4) mg/dl Total Bilirubin 0.3 (0.2-1.0) mg/dl AST 37 (13-39) U/L ALT 25 (7-52) U/L Alkaline Phosphatase 88 (34-104) U/L Troponin I High Sens 6.1 (0-20) pg/ml Total Protein 7.3 (6.0-8.3) gm/dl Albumin 4.1 (3.4-5.0) gm/dl Globulin 3.2 (2.5-4.0) gm/dl Albumin/Globulin Ratio 1.3 (0.9-2) Lipase 36 (11-82) U/L Administered Medications Discontinued Medications Aspirin (Aspirin Chew 324 Mg) 324 mg PO NOW STA Stop: 05/22/23 16:59 Last Admin: 05/22/23 17:06 Dose: 324 mg Documented By: SANJEEV Hydralazine HCl (Hydralazine Hcl 20 Mg/Ml Vial) 5 mg IV NOW ONE Stop: 05/22/23 17:47 Last Admin: 05/22/23 18:04 Dose: 5 mg Documented By: [email or web address] Lorazepam (Lorazepam 1 Mg/1 Ml Syr Ed Inj Use) 0.5 mg IV ONE STA Stop: 05/22/23 16:58 Last Admin: 05/22/23 17:11 Dose: 0.5 mg Documented By: SANJEEV Metoprolol Tartrate (Metoprolol Tartrate 1 Mg/Ml Vial) 2.5 mg IV NOW STA Stop: 05/22/23 16:58 Last Admin: 05/22/23 17:06 Dose: 2.5 mg Documented By: SANJEEV Nitroglycerin (Nitroglycerin 2% Ointment 30gm Tube) 1 inch EXT NOW STA Stop: 05/22/23 16:58 Last Admin: 05/22/23 17:11 Dose: 1 inch Documented By: SANJEEV Oxycodone HCl (Oxycodone Hcl Ir 5 Mg Tab (Immediate Release)) 5 mg PO NOW STA Stop: 05/22/23 18:05 Last Admin: 05/22/23 18:16 Dose: 5 mg Documented By: LCD Imaging Data Radiologist's Impression: Chest X-Ray 05/22/23 14:13 XR chest 1V not portable HISTORY: 62 years-old Male Chest pain, nonspecific COMPARISON: 04/26/2023 TECHNIQUE: PA view the chest FINDINGS: Cardiac silhouette is enlarged. No pneumothorax, pleural effusion or pulmonary edema. Chronic interstitial coarsening. Cervical spinal fusion hardware. Degenerative changes of the shoulders and spine. IMPRESSION: No acute process. ACT 112: Negative or not required by law. The above report was generated using voice recognition software. It may contain grammatical, syntax or spelling errors. Electronically signed by: Fidel Davies M.D. 05/22/2023 4:24 PM Discharge Plan Visit Data Chief Complaint: Cardiac Assessment Stated Complaint: CHEST PAIN,HX CARDIAC,TIRED ED Provider: Johnny Steven Discharge Problem: Precordial chest pain, Hypertension, Headache, History of coronary artery disease Patient Disposition: Admitted As Inpatient Condition: Fair Forms Stand Alone Forms: My [facility] Related Content Database (RCDb) Prescriptions Prescriptions: No Action ascorbic acid (vitamin C) 1,000 mg Tablet 1,000 mg PO QAM Qty: 0 multivitamin Tablet 1 tab PO QAM famotidine [Pepcid] 40 mg Tablet 40 mg PO BID metoprolol succinate 100 mg Tablet Extended Release 24 Hr 100 mg PO QAM clopidogrel [Plavix] 75 mg Tablet 75 mg PO QAM folic acid 400 mcg Tablet 0.4 mg PO QAM aspirin 81 mg Tablet,Delayed Release (Dr/Ec) 81 mg PO HS lorazepam 0.5 mg Tablet 0.5 mg PO BID PRN (Reason: Anxiety) cyanocobalamin (vitamin B-12) [Vitamin B-12] 500 mcg Tablet 500 mcg PO QAM oxycodone 5 mg Capsule 5 mg PO Q8H nitroglycerin [Nitrostat] 0.4 mg Tablet, Sublingual 0.4 mg Sublingual DIRECTED PRN (Reason: Chest Pain) Patient Comments: "i have not used it for awhile" docusate sodium 100 mg Capsule 100 mg PO QAM pyridoxine (vitamin B6) 100 mg Tablet 100 mg PO QAM duloxetine [Cymbalta] 60 mg Capsule,Delayed Release(Dr/Ec) 60 mg PO BID krill oil [id number] mg Capsule 1 cap PO QAM cannabidiol 100 mg/mL Solution 50 mg PO BID diazepam [Valium] 2 mg tablet 2 mg PO BID PRN (Reason: muscle spasm) Qty: 14 0RF atorvastatin 80 mg tablet 80 mg PO QAM lisinopril 20 mg tablet 20 mg PO QAM zinc gluconate 50 mg Tablet 50 mg PO DAILY cholecalciferol (vitamin D3) [Vitamin D3] 25 mcg (1,000 unit) Capsule 0 mcg PO DAILY Rx Instructions: PT UNSURE OF STRENGTH Referrals Referrals: Michael Bishop MD [Primary Care Provider] - Discharge Problem: Hypertension Qualifiers: Hypertension type: unspecified Qualified Code(s): I10 - Essential (primary) hypertension Headache Qualifiers: Headache type: unspecified Headache chronicity pattern: acute headache I ntractability: intractable Qualified Code(s): R51.9 - Headache, unspecified
[2023-05-22] MEDS: METOPROLOL TARTRATE 1 MG/ML VIAL IV STA (17:06)
[2023-05-22] MEDS: ASPIRIN CHEW 324 MG PO STA (17:06)
[2023-05-22] MEDS: NITROGLYCERIN 2% OINTMENT 30GM TUBE EXT STA (17:11)
[2023-05-22] MEDS: LORazepam 1 MG/1 ML SYR ED Inj Use IV STA (17:11)
[2023-05-22] MEDS ORDERED: hydrALAZINE HCL 20 MG/ML VIAL IV STA (17:45)
[2023-05-22 17:57] LABS: Magnesium 1.8 mg/dl (1.7-2.4)
[2023-05-22] MEDS: hydrALAZINE HCL 20 MG/ML VIAL IV ONE (18:04)
--- NOTE | 2023-05-22 18:08 | History & Physical Report ---
Date of Service May 22, 2023 Assessment & Plan (1) Hypertensive emergency: Plan: Symptomatic hypertension With headache and chest discomfort, no signs of ischemia BP peak in ER 200/100, improved following aspirin/nitro/hydralazine Home regimen includes lisinopril 20 mg every morning, metoprolol 100 mg succinate every morning. He does not have a history of hypokalemia, and hydrochlorothiazide for adjunct control Patient seen at ER reassessment. Following aspirin, nitro, hydralazine BP on recheck at bedside is 168/80s. Headache 70% resolved, chest pain is completely resolved with improved blood pressure. Patient has no focal neurologic deficits, no facial droop, no aphasia/dysarthria suggestive of stroke; CThead deferred no chest pain or ongoing signs of MT. Patient's chest pain did occur with hypertension resolved with improvement in hypertension, this pain lasted several hours and is within normal troponin and no acute ischemic EKG changes. Not consistent with ACS. Continue BP management as above. Adjunct hydrochlorothiazide added for blood pressure control. Hydralazine on-call first-line, labetalol on-call for second- line/severe hypertension. Signed out to overnight provider Urine protein pending, creatinine is normal, albumin is normal Patient denies any abdominal, shoulder blade or scapular pain and BP has improved on reassessment. No dyspnea/hypoxia. No ongoing signs to suggest PE/aneurysm at time of assessment (2) CAD (coronary artery disease): Plan: History of CAD Follows with [facility] cardiology. Has a history of PCI with OM 2 BMS occlusion s/p aspiration thrombectomy and QUIN times 04/30/2010, stable on follow- up since that time 1 pack/day cigarette use BP recently slightly elevated [id number] at last follow-up. On admission blood pressure had escalated to 200s with symptoms including chest pain and headache which both improved following blood pressure control Signed out to overnight provider for evaluation; if patient has repeat chest pain then continue with blood pressure control, give additional nitro, trend troponins, obtain echo and consult cardiology. (3) HLD (hyperlipidemia): Plan: Continue statin (4) HNP (herniated nucleus pulposus), lumbar: Plan: History of chronic lumbar pain with multiple procedures with Dr. Sim Patient reports he has not had any acute change in his lumbar pain, and no acute strength or sensory change in his extremities. Home medications continued (5) Tobacco abuse: Plan: Cessation recommended, ongoing cigarette use (6) BPH (benign prostatic hyperplasia): Plan: Voiding without difficulty, you have urinary symptoms. Bladder scan as needed History of Present Illness Primary Care Provider: Michael Bishop MD Alphonso Huntley is seen for suspected symptomatic severe hypertension Pt seen at bedside: BP higher than normal this week. Intermittent headache this week with high blood pressure. Saw Dr. Galindo --> Bp was a little high but pt was having back pain and was going to followup and have rechecked on next visit. Was only 150s systolic at that time. Back pain no worse than normal/no change Pt did have progressive increasing headache which was abnormal for him, took BP at [facility] eand sabi to 178/101 Last night hae a little heavy sweat and LEFT sided chest pressure and with some substernal pressure. Chest discomfort was persistent for several hours until he arrived in the ER, resolved completely after aspirin, hydralazine, and nitro. Pain is completely gone at time of assessment. Headache was persistent 'and head was going to explode' until coming to the ER< with BP control now 70% better and 'almost gone.' NO dyspnea/shortness of breath No fevers, chills NO cough. No sputum production. No abdominal pain. No pain between the shoulder backs. +chronic low back pain unchanged from prior. Hx of multiple back surgeries with Dr. Sim. No UE or LE weakness or sensory change Medical History: Reviewed Medications: Reviewed Surgical History: Reviewed Family history: Reviewed Allergies: Reviewed Social History: +cigarette use 1ppd. +marijuana. Code Status: Full COde Allergies Allergy/AdvReac Type Severity Reaction Status Date / Time chlorhexidine Allergy Intermediate severe Verified 05/22/23 17:01 itching, redness Sulfa (Sulfonamide Allergy Intermediate rash, hives Verified 05/22/23 17:01 Antibiotics) acetaminophen AdvReac Severe elevated Verified 05/22/23 17:01 LFTs ibuprofen AdvReac Severe elevated Verified 05/22/23 17:01 LFTs morphine AdvReac Intermediate shakiness, Verified 05/22/23 17:01 grumpy, disoriented Home Medications Medication Instructions Recorded Confirmed Type ascorbic acid (vitamin C) 1,000 mg 1,000 mg PO QAM ##0 04/07/16 05/22/23 History tablet aspirin 81 mg tablet,delayed 81 mg PO HS 11/14/17 05/22/23 History release clopidogrel 75 mg tablet (Plavix) 75 mg PO QAM 11/14/17 05/22/23 History cyanocobalamin (vitamin B-12) 500 500 mcg PO QAM 11/14/17 05/22/23 History mcg tablet (Vitamin B-12) docusate sodium 100 mg capsule 100 mg PO QAM 11/14/17 05/22/23 History duloxetine 60 mg capsule,delayed 60 mg PO BID 11/14/17 05/22/23 History release (Cymbalta) famotidine 40 mg tablet (Pepcid) 40 mg PO BID 11/14/17 05/22/23 History folic acid 400 mcg tablet 0.4 mg PO QAM 11/14/17 05/22/23 History krill 1,000 mg-omega-3 170 mg-dha 1 cap PO QAM 11/14/17 05/22/23 History 50 mg-epa 80 [id number] capsule (krill oil) lorazepam 0.5 mg tablet 0.5 mg PO BID PRN Anxiety 11/14/17 05/22/23 History metoprolol succinate 100 mg 100 mg PO QAM 11/14/17 05/22/23 History tablet,extended release 24 hr multivitamin 1 tab PO QAM 11/14/17 05/22/23 History nitroglycerin 0.4 mg sublingual 0.4 mg sublingual DIRECTED PRN 11/14/17 05/22/23 History tablet (Nitrostat) Chest Pain oxycodone 5 mg capsule 5 mg PO Q8H 11/14/17 05/22/23 History pyridoxine (vitamin B6) 100 mg 100 mg PO QAM 11/14/17 05/22/23 History tablet cannabidiol 100 mg/mL oral solution 50 mg PO BID 11/27/19 05/22/23 History diazepam 2 mg tablet (Valium) 2 mg PO BID PRN muscle spasm #14 08/17/22 05/22/23 Rx tabs atorvastatin 80 mg tablet 80 mg PO QAM 05/22/23 05/22/23 History cholecalciferol (vitamin D3) 25 0 mcg PO DAILY 05/22/23 05/22/23 History mcg (1,000 unit) capsule (Vitamin D3) lisinopril 20 mg tablet 20 mg PO QAM 05/22/23 05/22/23 History zinc gluconate 50 mg tablet 50 mg PO DAILY 05/22/23 05/22/23 History Past Med/Surg History Medical History Anxiety BPH (benign prostatic hyperplasia) Coronary artery disease 2004- stent x 1, 2012- stents x 2. FOllows with [facility] cardiology Depression GERD (gastroesophageal reflux disease) controlled Hyperlipidemia Hypertension Kidney stones Lumbar stenosis with neurogenic claudication Myocardial Infarction 2004. Pulmonary embolism 2004, spontaneous- previously on coumadin for short period of time Surgical History Fusion of spine Lumbar x2 H/O hand surgery LEFT H/O tooth extraction removal of infected dental implant 01/19/20 placed on abx. History of cardiac cath 2004 - 1 STENT 2010- 2 STENTS History of cataract surgery bilateral History of cystoscopy with stent History of lithotripsy laser lithotripsy History of tooth extraction Hx of inguinal hernia repair left S/P cervical spinal fusion 05/2015. MAC 3. Grade 1 view. No issues. Full ROM. S/P epidural steroid injection lumbar and SI joint injections S/P lumbar fusion hardware removal, L2-L3 decompression with fusion: 11/15/17: Grade 1 view, MAC#3, ETT 8.0 at [facility] Family History Other No family history of adverse response to anesthesia Social History Smoking Status: Current every day smoker Tobacco Type: Cigarettes Cigarettes Per Day: 20 daily x 40 years; Second Hand Exposure: Yes; Do You Dip or Chew Tobacco: No; Hx Alcohol Use: No Hx Substance Use: Yes (recreational use "2 joints a day") Last Used Substance: Hours (ago) Last Used Substance Other:: 01/19/20 Preferred Language: Greek Communication Ability: Effective Visual Impairment: No Limitations Hearing Ability: Normal 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 NAD. Cooperative. HEENT: Atraumatic, normocephalic. PERLAA. No facial asymmetry Pulm: Trace RLL end expiratory wheeze. Otherwise CTAB A&P. -wheezes, -rales, - rhonchi. Symmetrical chest rise. No increased work of breathing. No respiratory distress. Cardiac: RRR, -mrg. Radial pulses intact and symmetrical. Abdominal: Nontender, nondistended, soft. BS present. Ext: warm, dry. tailing hand, elbow flexion, hip flexion, ankle dorsi/plantarflexion 5/5 bilat. Sensation to soft touch intact bilaterally. Results & Data Results & Data Vital Signs (Past 12 Hours) Vital Signs Temp Pulse Pulse Resp BP BP Pulse Ox 05/22/23 17:30 56 L 177/131 H 05/22/23 17:21 63 05/22/23 17:06 61 210/122 H 05/22/23 17:05 61 210/122 H 05/22/23 16:49 99 05/22/23 16:48 64 16 184/106 H 99 05/22/23 14:10 36.8 C 69 18 164/98 H 98 O2 Del Method 05/22/23 17:30 05/22/23 17:21 05/22/23 17:06 05/22/23 17:05 05/22/23 16:49 Room Air 05/22/23 16:48 Room Air 05/22/23 14:10 Room Air PG Care Time/CCT Total # of Minutes Spent Total Time Spent with Patient: Total time spent is greater than 50% in coordination of care (as documented) at patient's floor/unit and/or counseling patient: Coding Level of Care Code 11977 INT INP/OBS CARE 3/75MIN Diagnoses Hypertensive emergency I16.1 CAD (coronary artery disease) I25.10 HLD (hyperlipidemia) E78.5 HNP (herniated nucleus pulposus), lumbar M51.26 Tobacco abuse Z72.0 Benign prostatic hyperplasia without lower urinary tract symptoms N40.0 Lower urinary tract symptom presence: symptoms absent (6) BPH (benign prostatic hyperplasia) Lower urinary tract symptom presence: symptoms absent Qualified Code(s): N40.0 - Benign prostatic hyperplasia without lower urinary tract symptoms
[2023-05-22] MEDS: oxyCODONE HCL IR 5 MG TAB (IMMEDIATE RELEASE) PO STA (18:16)
[2023-05-22 18:18] LABS: Partial Thromboplastin Time 28 Seconds (21-31); Prothrombin Time 10.9 Seconds (9.0-12.0)
[2023-05-22] MEDS ORDERED: hydrALAZINE HCL 20 MG/ML VIAL IV PRN (18:38)
[2023-05-22] MEDS: hydroCHLOROthiazide 25 MG TAB PO STA (19:27)
[2023-05-22] MEDS: ASPIRIN 81 MG ECTAB PO SCH (22:26)
[2023-05-22] MEDS: DULoxetine HCL 60 MG CAP PO SCH (22:27)
[2023-05-22] MEDS: FAMOTIDINE 40 MG TABLET PO SCH (22:27)
[2023-05-22] MEDS: KETOROLAC TROMETHAMINE 15 MG/ML VIAL IV ONE (22:49)
[2023-05-22] MEDS: NICOTINE 21 MG/24 HR TDSY TD SCH (23:47)
[2023-05-22] MEDS: oxyCODONE HCL IR 5 MG TAB (IMMEDIATE RELEASE) PO SCH (23:47)
[2023-05-23] MEDS: ENOXAPARIN INJ 40 MG/0.4 ML SYR SQ SCH (07:59)
[2023-05-23] MEDS: CLOPIDOGREL BISULFATE 75 MG TAB PO SCH (08:00)
[2023-05-23] MEDS: METOPROLOL SUCC 50MG EXT REL TAB PO SCH (08:00)
[2023-05-23] MEDS: FOLIC ACID 400 MCG TAB PO SCH (08:00)
[2023-05-23] MEDS: CYANOCOBALAMIN (B-12) 500 MCG TABLET PO SCH (08:00)
[2023-05-23] MEDS: ATORVASTATIN 40 MG TAB PO SCH (08:00)
[2023-05-23] MEDS: lisinopril 40 MG TAB PO SCH (08:00)
[2023-05-23] MEDS: DOCUSATE SODIUM 100 MG CAP PO SCH (08:01)
[2023-05-23] MEDS: PYRIDOXINE HCL 50 MG TAB PO SCH (08:01)
[2023-05-23 08:07] LABS: Basophils # (auto) 0.04 K/uL (0.00-0.20); Basophils % (auto) 0.5 %; Eosinophils # (auto) 0.35 K/uL (0.00-0.50); Hematocrit (blood only) 41.8 % (42.0-52.0); Hemoglobin 14.2 g/dl (14.0-18.0); Immature Granulocytes # (auto) 0.03 K/uL (0.01-0.20); Immature Granulocytes % (auto) 0.3 %; Lymphocytes # (auto) 2.83 K/uL (1.20-3.40); Lymphocytes % (auto) 32.6 %; Mean Corpuscular Hemoglobin 30.2 pg (25.0-34.0); Mean Corpuscular Volume 88.9 fL (80.0-100.0); Mean Platelet Volume 10.7 fL (9.4-12.4); Monocytes # (auto) 0.76 K/uL (0.11-0.59); Monocytes % (auto) 8.7 %; Neutrophils # (auto) 4.68 K/uL (1.40-6.50); Neutrophils % (auto) 53.9 %; Platelet Count 234 K/uL (130-400); RDW Coefficient of Variation 13.5 % (11.5-14.5); RDW Standard Deviation 43.9 fL (36.4-46.3); White Blood Count 8.69 K/ul (4.8-10.8)
--- NOTE | 2023-05-23 08:20 | Hospitalist Progress Note ---
Date of Service May 23, 2023 Assessment & Plan (1) Hypertensive emergency: Plan: Symptomatic hypertension With headache and chest discomfort, no signs of ischemia initially treated with aspirin/nitro/hydralazine BP improved, Headache resolved, chest pain resolved ( with normal troponin no furtehr acs eval) Home regimen includes lisinopril 20 mg, metoprolol 100 mg succinate Adjunct hydrochlorothiazide added for blood pressure control. Urine normal, albumin is normal (2) CAD (coronary artery disease): Plan: History of CAD history of PCI with OM 2 BMS occlusion s/p aspiration thrombectomy and QUIN times 04/30/2010, [facility] Cardiology 1 pack/day cigarette use -Aspirin, plavix, atorvastatin (3) HNP (herniated nucleus pulposus), lumbar: Plan: History of chronic lumbar pain with multiple procedures with Dr. Sim Patient reports he has not had any acute change in his lumbar pain, and no acute strength or sensory change in his extremities. Home medications oxycodone, duloxetine, valium, cannibidiol (4) Tobacco abuse: Plan: Cessation recommended, ongoing cigarette use (5) BPH (benign prostatic hyperplasia): Plan: Voiding without difficulty, you have urinary symptoms. Admission and Anticipated Discharge Date Admission Date: May 22, 2023 Results & Data Results & Data Vital Signs (Past 12 Hours) Vital Signs Temp Pulse Pulse Resp BP BP Pulse Ox 05/23/23 07:35 97.3 F L 67 18 179/99 H 96 05/23/23 03:35 97.9 F 66 18 140/85 93 05/22/23 22:41 97.3 F L 60 18 170/91 H 96 05/22/23 22:17 61 05/22/23 21:45 63 05/22/23 21:29 97.9 F 61 18 179/92 H 94 05/22/23 21:04 59 L O2 Del Method 05/23/23 07:35 Room Air 05/23/23 03:35 Room Air 05/22/23 22:41 Room Air 05/22/23 22:17 05/22/23 21:45 05/22/23 21:29 Room Air 05/22/23 21:04 PG Care Time/CCT Total # of Minutes Spent Total Time Spent with Patient: Total time spent is greater than 50% in coordination of care (as documented) at patient's floor/unit and/or counseling patient: Coding Diagnoses Hypertensive emergency I16.1 CAD (coronary artery disease) I25.10 HNP (herniated nucleus pulposus), lumbar M51.26 Tobacco abuse Z72.0 Benign prostatic hyperplasia without lower urinary tract symptoms N40.0 Lower urinary tract symptom presence: symptoms absent (5) BPH (benign prostatic hyperplasia) Lower urinary tract symptom presence: symptoms absent Qualified Code(s): N40.0 - Benign prostatic hyperplasia without lower urinary tract symptoms
[2023-05-23 08:29] LABS: BUN Creatinine Ratio 15.4 (10-20); Calcium 9.4 mg/dl (8.6-10.3); Creatinine Clr Calc Pharmacy 66.8 ml/min; Est GFR (African American) 75.9 ml/min; Est GFR (Non-African American) 65.5 ml/min; Potassium 3.9 mmol/L (3.5-5.1)
[2023-05-23] MEDS: SPIRONOLACTONE 25 MG TAB PO ONE (08:54)
[2023-05-23] MEDS ORDERED: NON-FORMULARY MEDICATION (Krill-Om-3-Dha-Epa-Phospho-Ast [Krill Oil] 1,000-170-50-80 mg Ca PO SCH (09:00)
--- OUTSIDE RECORDS SUMMARY | 2023-05-23 14:24 | External Medical Summary | Continuity of Care Document ---
Author Name Unknown Organization [facility] [address] Address [address] [place], [place] [id number] Care Team Providers Care Guest Service Host Name Role Phone Dario Lisandroso Primary Care Physician [phone] [id number] Date(s): 05/13/23 - 05/13/23 [facility] [address] [facility] [address], [facility] [address] [place], [place] [phone] Encounter Diagnosis Low back pain, unspecified(Final) - Essential (primary) hypertension(Final) - Hyperlipidemia, unspecified(Final) - Discharge Disposition: Home or Self Care Attending Physician: MD Conn Joseph P Referring Physician: MD Conn Joseph P Allergies, Adverse Reactions, Alerts Substance Reaction Severity Status morphine SHAKEY, GRUMPY OUT OF SORTS Active sulfa drugs HEADACHE ITCH RASH Active Immunizations Given and Recorded Vaccine Date Status Refusal Reason tetanus/diphtheria/pertuss, acel (Tdap) 09/28/22 G iven tetanus/diphtheria/pertuss, acel (Tdap) 10/22/13 G iven tetanus/diphtheria/pertuss, acel (Tdap) 01/12/03 R ecorded influenza virus vaccine, inactivated 01/12/21 Give n influenza virus vaccine, inactivated 12/02/19 Give n influenza virus vaccine, inactivated 11/17/18 Give n influenza virus vaccine, inactivated 01/02/18 Give n influenza virus vaccine, inactivated 12/18/16 Give n influenza virus vaccine, inactivated 12/15/15 Give n influenza virus vaccine, inactivated 12/24/14 Give n influenza virus vaccine, inactivated 01/05/14 Give n pneumococcal 23-valent vaccine 11/26/02 Recorded Medications Aspirin Low Dose Start: 12/08/09 16:05:57, 81 mg =, PO, Daily, Refills: 0, current medication from another provider Start Date: 12/08/09 Status: Ordered atorvastatin 80 mg oral tablet Start: 10/17/22 21:44:00 EDT, See Instructions, Disp# 90 tab, Refills: 4, TAKE 1 TABLET BY MOUTH ATBEDTIME., Pharmacy: [facility] Start Date: 10/17/22 Status: Ordered cannabidiol Start: 04/16/19 11:20:00 EST, 1 dose, 1 dose daily Start Date: 04/16/19 Status: Ordered CBD oil Start: 11/17/18 14:11:00 EDT, CBD oil Start Date: 11/17/18 Status: Ordered clopidogrel 75 mg oral tablet Start: 03/05/23 9:51:00 EST, 1 tab, PO, Daily, Disp# 90 tab, Refills: 3, Pharmacy: [id number] Start Date: 03/05/23 Status: Ordered docusate sodium 100 mg oral capsule Start: 12/23/17 9:38:03 EDT, See Instructions, Disp# 360, Refills: 2, TAKE 2 CAPSULES TWICE A DAY NEEDED, Pharmacy: [facility]/pharmacy #[id number] Start Date: 12/23/17 Status: Ordered DULoxetine 60 mg oral delayed release capsule Start: 04/29/23 12:12:00 EST, 1 cap, PO, bid, Disp# 180 unknown unit, Refills: 4, Pharmacy: [facility] Start Date: 04/29/23 Status: Ordered famotidine 20 mg oral tablet Start: 01/14/23 11:08:00 EST, 1 tab, PO, bid, Disp# 180 tab, Refills: 2, Pharmacy: [facility] Start Date: 01/14/23 Stop Date: 10/11/23 Status: Ordered lisinopril 20 mg oral tablet Start: 01/14/23 11:23:00 EST, 1 tab, PO, Daily, Disp# 30 tab, Refills: 3, Pharmacy: [facility] Start Date: 01/14/23 Stop Date: 05/14/23 Status: Ordered LORazepam 0.5 mg oral tablet Start: 05/06/23 10:13:00 EST, 1 tab, PO, q12h, Disp# 60 tab, Refills: 0, Note to Pharmacy: no driving or operating machines if cognitively impaired, PRN: as needed for anxiety, [id number] Start Date: 05/06/23 Status: Ordered Metoprolol Succinate ER 100 mg oral tablet, extended release Start: 01/28/23 19:56:00 EST, 1 tab, PO, Daily, Disp# 90 tab, Refills: 3, Pharmacy: [id number] Start Date: 01/28/23 Status: Ordered multivitamin Start: 03/25/18 12:25:00 EST, 1 tab, PO, Daily Start Date: 03/25/18 Status: Ordered nitroglycerin 0.4 mg sublingual tablet Start: 02/07/18 13:14:27 EST, See Instructions, Disp# 25, TAKE 1 TAB UNDER TONGUE EVERY 5 MINUTES: NEEDED FOR CHEST PAIN, Pharmacy: [id number] Start Date: 02/07/18 Status: Ordered oxyCODONE 5 mg oral tablet Start: 05/06/23 10:13:00 EST, 5 mg =, PO, q8h, Disp# 93 tab, Refills: 0, PRN: as needed for pain, [id number] Start Date: 05/06/23 Stop Date: 06/06/23 Status: Ordered pantoprazole 40 mg oral delayed release tablet See Instructions, Disp# 30 tab, Refills: 5, TAKE 1 TABLET BY MOUTH EVERY DAY, Pharmacy: [id number] Start Date: 01/05/20 Status: Ordered triamcinolone 0.025% topical ointment Start: 02/29/16 15:00:00, 1 appl, topical, bid, Disp# 60 g, Refills: 3, apply a thin film to both arms and both legs afflicted with psoriasis, Pharmacy: [facility] Start Date: 02/29/16 Status: Ordered Vitamin C Start: 08/11/18 9:58:00 EDT, 1,000 mg =, PO, Daily Start Date: 08/11/18 Status: Ordered Vitamin D3 Start: 07/19/20 9:17:00 EDT Start Date: 07/19/20 Status: Ordered Zinc Start: 07/19/20 9:17:00 EDT Start Date: 07/19/20 Status: Ordered Problem List Condition Confirmation Course Effective Dates Status H ealth Status Informant ANXIETY Confirmed Active Cannabis use, uncomplicated Confirmed Active Chronic lower back pain Confirmed Active COPD, DISEASE ONLY Confirmed Active Cigarette smoker Confirmed Active Dysphagia Confirmed Active Chronic GERD Confirmed Active History of sacroiliac joint dysfunction Confirmed Active HEMORRHOIDS Confirmed Active History of - myocardial infarction 1 Confirmed Active History of spinal fusion Confirmed Active Hypertension Confirmed Active Lumbar radiculopathy Confirmed Active Lumbar spondylosis Confirmed Active Major depressive 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 Confirmed Active Neck pain 2 Confirmed Active Left wrist pain Confirmed Active Paresthesia of left arm Confirmed Active Lesion of thumb Confirmed Active Solitary pulmonary nodule Confirmed Active Odynophagia Confirmed Active 96478 2and numbness in hands and arms Procedures Procedure Date Related Diagnosis Body Site Status Lung cancer screening 1 04/13/22 C ompleted SI joint fusion 2 02/03/[address] of pelvis w/o IV contrast 3 02/23/[address] of abdomen and pelvis wit hout contrast 4 09/17/18 Completed Fusion of lumbar spine L2-3 2017 Completed Dental implant system- REMOVAL 2016 Completed Spinal fusion with graft 5 06/03/15 Completed removal old hardware-interva l L3-4 discectomy with spacer 6 08/16/14 Complet ed Lumbar nerve root compressio n and fusion L3 and4 7 08/05/14 Completed Stent placement- LEFT CIRCUMFLEX - X 2 12/17/10 Completed Kidney stone- RETRIEVAL 8 03/11/10 Completed rods,cage/bone graft to back 02/09/04 Completed PICA-stent right branch circumflex 08/01/03 Completed left inguinal hernia 06/13/98 Comp leted 1Impression: 1. Mild emphysema with areas of subpleural fibrosis and ill-defined centrilobular nodular opacities. Although there are no significant groundglass opacities or air trapping, these findings are suspicious for possible respiratory bronchiolitis interstitial lung disease. 2. Stable benign 5 mm nodule of the left lower lobe. There are several additional scattered solid nodules measuring up to 4mm which also of low clinical suspicion. Attention at follow-up recommended. 3. Unchanged subcarinal lymphadenopathy. 2DrGi Sim 3Impression: No definitive CT evidence of significant sacroilitis. MRI would be more sensitive for the detectionof marrow edema. 41. Nonobstructing 3 mm right renal calculus. This is similar to slightly increased in size from prior. No hydronephrosis or evidence of a recently passed calculus. 2. Allowing for noncontrast technique, no convincing evidence of acute intra- abdominal pathology. 3. Prostatomegaly. 4. Findings suggest postinfectious or postinflammatory changes in the right lower lobe, which may in part be chronic. 5C 5-[address] Sim 6DrGi Hartman 7DrGi Sim 8RETRIEVAL Results Laboratory List Name Date Comprehensive Metabolic Panel (COMP META B PANEL) 05/13/23 Lipid Profile (LIPOPROTEINS) 05/13/23 Most recent to oldest [Reference Range]: 1 eGFR CKD-EPI [>60 mL/min/1.73 m2] 81 mL/ min/1.73 m2 1 (05/13/23 9:30 AM) Non-HDL 141 mg/dL 2 (05/13/23 9:30 AM) Estimated CrCl 76.72 mL/min (05/13/23 10:26 AM) Anion Gap [5-14 mmol/L] 7 mmol/L (05/13/23 9:30 AM) Alb [3.5-5.0 g/dL] 4.2 g/dL (05/13/23 9:30 AM) Alk Phos [38-126 unit/L] 84 unit/L (05/13/23 9:30 AM) ALT [<50 unit/L] 26 unit/L (05/13/23 9:30 AM) AST [15-46 unit/L] 27 unit/L (05/13/23 9:30 AM) BUN [7-20 mg/dL] 15 mg/dL (05/13/23 9:30 AM) Ca [8.4-10.2 mg/dL] 9.7 mg/dL (05/13/23 9:30 AM) Chol/HDL 6 (05/13/23 9:30 AM) Chol [125-200 mg/dL] 167 mg/dL (05/13/23 9:30 AM) Cl- [96-107 mmol/L] 109 mmol/L *HI* (05/13/23 9:30 AM) HCO3 [22-30 mmol/L] 25 mmol/L (05/13/23 9:30 AM) Cret [0.70-1.30 mg/dL] 1.03 mg/dL (05/13/23 9:30 AM) Glu [74-106 mg/dL] 108 mg/dL *HI* (05/13/23 9:30 AM) HDL [>35 mg/dL] 26 mg/dL *LOW* (05/13/23 9:30 AM) K [3.5-5.1 mmol/L] 5.0 mmol/L (05/13/23 9:30 AM) LDL Chol, Calculated [50-130 mg/dL] 100 mg/dL (05/13/23 9:30 AM) Na [137-145 mmol/L] 141 mmol/L (05/13/23 9:30 AM) T Bili [0.2-1.3 mg/dL] 0.7 mg/dL (05/13/23 9:30 AM) Prot [6.3-8.2 g/dL] 7.9 g/dL (05/13/23 9:30 AM) TG [<200 mg/dL] 205 mg/dL *HI* (05/13/23 9:30 AM) 1Result Comment: Testing Performed By: Dept of Pathology [facility], [address] [place] [id number] 2Result Comment: Testing Performed By: Dept of Pathology [facility], [address] [place] [id number] Social History Social History Type Response Tobacco Current every day sm oker, Cigarettes, Exposure to Secondhand Smoke: No. 20 per day. 43 year(s). Started age 13 Years. Previous treatment: Nicotine replacement. Ready to change: No. 1 Smoking Status Current every day he natacha smoker Sex Male 1menthol natalia Patient Care team information Care Team Personnel Name: MD Springer Jonathan D Position: Physician - Family Med Member Role: Lifetime Relationship Address: Address: [address] [place] [id number] [place] Name: DO Cruz Jill M Position: Physician - Anesthesiologist Member Role: Lifetime Relationship Address: Address: [address] [place] [id number] Name: MD Bishop Christopher Position: Physician - Family Med Member Role: Primary Care Provider Address: Address: [address] [place] [id number] [place] Care Team Related Persons Name: MEGAN RAMON Address: home [address] [facility], [phone] Name: MEGAN RAMON Address: home [address] [facility], [place] [phone] Name: RACHEL RAMON Address: home [address] [facility] [place], [place] [phone] [place] Name: RACHEL RAMON Soraida Address: home [address] [facility] [place] [phone] [place] Name: RACHEL RAMON Soraida Address: home [address] [facility] [place], [place] [phone] [place] Name: RACHEL RAMON Soraida Address: home [address] [facility] [place] [phone]
[2023-05-23] MEDS: LORazepam 0.5 MG TAB PO PRN (14:46)
--- NOTE | 2023-05-23 14:58 | Ultrasound Report ---
US duplex renal artery CLINICAL HISTORY: accelerated hypertension. Assess for renal artery stenosis COMPARISON STUDY: Abdomen and pelvis CT 08/17/2022. FINDINGS: The right kidney measures 10.3 cm and the left kidney measures 10.4 cm. There is a punctate echogenic focus within the right kidney likely representing a small stone. No hydronephrosis. The st omach loss within the proximal right renal artery was 113 cm/s in the left renal artery was 150 cm/s. Resistive indices of the bilateral renal arcuate arteries are within normal limits. The bilateral re nal veins are patent. A 4.5 cm left renal cyst. IMPRESSION: 1. No evidence for renal artery stenosis. 2. Right-sided nephrolithiasis. No hydronephrosis. ACT 112: Negative or not required by law. Electronically signed by: Avila Wilcox M.D. 05/23/2023 2:57 PM
--- NOTE | 2023-05-23 16:53 | Discharge Summary ---
Date of Service May 23, 2023 Admission HPI Per Admitting Provider Alphonso Huntley is seen for suspected symptomatic severe hypertension Pt seen at bedside: BP higher than normal this week. Intermittent headache this week with high blood pressure. Saw Dr. Galindo --> Bp was a little high but pt was having back pain and was going to followup and have rechecked on next visit. Was only 150s systolic at that time. Back pain no worse than normal/no change Pt did have progressive increasing headache which was abnormal for him, took BP at [facility] to 178/101 Last night hae a little heavy sweat and LEFT sided chest pressure and with some substernal pressure. Chest discomfort was persistent for several hours until he arrived in the ER, resolved completely after aspirin, hydralazine, and nitro. Pain is completely gone at time of assessment. Headache was persistent 'and head was going to explode' until coming to the ER< with BP control now 70% better and 'almost gone.' NO dyspnea/shortness of breath No fevers, chills NO cough. No sputum production. No abdominal pain. No pain between the shoulder backs. +chronic low back pain unchanged from prior. Hx of multiple back surgeries with Dr. Sim. No UE or LE weakness or sensory change Medical History: Reviewed Medications: Reviewed Surgical History: Reviewed Family history: Reviewed Allergies: Reviewed Social History: +cigarette use 1ppd. +marijuana. Code Status: Full COde Principal Diagnosis Hypertensive urgency Discharge Exam Cardiac exam is regular there are no murmurs There are no carotid bruits or abdominal bruits Lungs are clear without wheezes or crackles Extremities are without edema Discharge Data Allergies Allergy/AdvReac Type Severity Reaction Status Date / Time chlorhexidine Allergy Intermediate severe Verified 05/22/23 17:01 itching, redness Sulfa (Sulfonamide Allergy Intermediate rash, hives Verified 05/22/23 17:01 Antibiotics) acetaminophen AdvReac Severe elevated Verified 05/22/23 17:01 LFTs ibuprofen AdvReac Severe elevated Verified 05/22/23 17:01 LFTs morphine AdvReac Intermediate shakiness, Verified 05/22/23 17:01 grumpy, disoriented Consultations 05/22/23 17:04 ED Decision to Admit Stat Ordered Studies 05/23/23 08:34 US duplex renal artery Routine Hospital Course (1) Hypertensive emergency: Symptomatic hypertension With headache and chest discomfort, no signs of ischemia initially treated with aspirin/nitro/hydralazine BP improved, Headache reso lved, chest pain resolved ( with normal troponin no furtehr acs eval) Home regimen includes lisinopril 20 mg, metoprolol 100 mg succinate Adjunct spironolactone with good improvement Renal artery ultrasound was checked and is negative for renal artery stenosis Urine normal, albumin is normal Echocardiogram is pending at this time Lifestyle modification counseling given to this patient (2) CAD (coronary artery disease): History of CAD history of PCI with OM 2 BMS occlusion s/p aspiration thrombectomy and QUIN times 04/30/2010, [facility] 1 pack/day cigarette use -Aspirin, plavix, atorvastatin (3) HNP (herniated nucleus pulposus), lumbar: History of chronic lumbar pain with multiple procedures with Dr. Sim Patient reports he has not had any acute change in his lumbar pain, and no acute strength or sensory change in his extremities. Home medications oxycodone, duloxetine, valium, cannibidiol Patient will continue to follow with pain management through Dr. Sim (4) Tobacco abuse: Cessation recommended, ongoing cigarette use counseling given before discharge (5) BPH (benign prostatic hyperplasia): Voiding without difficulty, you have urinary symptoms. Total Time Total Time Spent Total Time Spent (In Minutes): greater than 30 minutes Discharge Plan Discharge Items Patient Disposition: Home - Self-Care Reason For Visit: SX HYPERTENSION, CHEST PAIN Discharge Diagnosis: accelerated hypertension Condition on Discharge: Fair Activity: Per Instructions section Non-emergency contact: Primary Care Provider Call non-emergency contact if: your symptoms worsen Follow-up/Referrals: Michael Bishop MD [Primary Care Provider] - Diet: Low Sodium (2gm) Ambulatory Orders: Basic Metabolic Panel (Routine) Timeframe: 4 Days Location: Determined by Patient Ordered By: Jonathan Blackmon Attending Provider Instructions: you will be started on a new medicine called spironolactone, you will have blood work on Saturday please reduce your risk of high blood pressure by reducing salt, caffeine and alcohol, Pending Studies at Discharge: Yes Studies:: your echocardiogram is not read at the time of discharge, we will call if issues and certainly discuss with your primary care Stand-Alone Forms: My [employer], Smoking Cessation Medications and DC Order Prescriptions: New spironolactone 25 mg tablet 25 mg PO DAILY Qty: 30 0RF spironolactone 25 mg tablet 25 mg PO DAILY Qty: 7 0RF Continued ascorbic acid (vitamin C) 1,000 mg Tablet 1,000 mg PO QAM Qty: 0 multivitamin Tablet 1 tab PO QAM famotidine [Pepcid] 40 mg Tablet 40 mg PO BID metoprolol succinate 100 mg Tablet Extended Release 24 Hr 100 mg PO QAM clopidogrel [Plavix] 75 mg Tablet 75 mg PO QAM folic acid 400 mcg Tablet 0.4 mg PO QAM aspirin 81 mg Tablet,Delayed Release (Dr/Ec) 81 mg PO HS lorazepam 0.5 mg Tablet 0.5 mg PO BID PRN (Reason: Anxiety) cyanocobalamin (vitamin B-12) [Vitamin B-12] 500 mcg Tablet 500 mcg PO QAM oxycodone 5 mg Capsule 5 mg PO Q8H nitroglycerin [Nitrostat] 0.4 mg Tablet, Sublingual 0.4 mg Sublingual DIRECTED PRN (Reason: Chest Pain) Patient Comments: "i have not used it for awhile" docusate sodium 100 mg Capsule 100 mg PO QAM pyridoxine (vitamin B6) 100 mg Tablet 100 mg PO QAM duloxetine [Cymbalta] 60 mg Capsule,Delayed Release(Dr/Ec) 60 mg PO BID krill oil [phone] mg Capsule 1 cap PO QAM cannabidiol 100 mg/mL Solution 50 mg PO BID diazepam [Valium] 2 mg tablet 2 mg PO BID PRN (Reason: muscle spasm) Qty: 14 0RF atorvastatin 80 mg tablet 80 mg PO QAM lisinopril 20 mg tablet 20 mg PO QAM zinc gluconate 50 mg Tablet 50 mg PO DAILY cholecalciferol (vitamin D3) [Vitamin D3] 25 mcg (1,000 unit) Capsule 0 mcg PO DAILY Rx Instructions: PT UNSURE OF STRENGTH Discharge Orders: Discharge Order (Routine); Ordered 05/23/23 Ordered By: Jonathan Huerta Admission Data Admit Date/Time: 05/22/23 18:38 Attending Provider: Jonathan Huerta Admit Provider: Nicholas Lei Primary Care Provider: Michael Bishop Other Providers: Nicholas Lei Coding Level of Care Code 25476 INP/OBS DISCH >30 MIN Diagnoses Hypertensive emergency I16.1 CAD (coronary artery disease) I25.10 HNP (herniated nucleus pulposus), lumbar M51.26 Tobacco abuse Z72.0 Benign prostatic hyperplasia without lower urinary tract symptoms N40.0 Lower urinary tract symptom presence: symptoms absent
--- NOTE | 2023-05-23 19:51 | XCELERA ---
[id number]
--- OUTSIDE RECORDS SUMMARY | 2023-05-24 02:06 | External Medical Summary | Continuity of Care Document ---
Author Name Unknown Organization [facility] [address] [place] [address] [address] [place] [phone] Care Team Providers Care Dairy Nutrition Consultant Name Role Phone Michael Bishop Primary Care Physician [phone] Encounter [facility] [id number] Date(s): 05/20/23 - 05/20/23 [facility] [address] [facility] 207 [facility], [address] [address] [phone] Encounter Diagnosis Major depressive 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(Discharge Diagnosis) - 05/20/23 Chronic lower back pain(Discharge Diagnosis) - 04/03/23 COPD, DISEASE ONLY(Discharge Diagnosis) - 05/20/23 Annual physical exam(Discharge Diagnosis) - 05/20/23 Prediabetes(Discharge Diagnosis) - 05/20/23 Discharge Disposition: Home or Self Care Attending Physician: MD Bishop Christopher Allergies, Adverse Reactions, Alerts Substance Reaction Severity Status morphine SHAKEY, GRUMPY OUT OF SORTS Active sulfa drugs HEADACHE ITCH RASH Active Assessment and Plan Extracted from: Title:FCM - CPE, LBP, COPD w/ nodules, MDD Autho r:MD Bishop Christopher Date:05/20/23 1.Major depressive disorde r in partial remission Chronic condition exacerbated/progressive/side effects of treatment Goal:improves ymptoms Data:PHQ, VINCE Plan: - likely worsening 2/2 worsening lower back pain and limitations to lifestyle - has good family support, defers prof counseling therapy at this time - could consider addition of bupropion or adjunctive medications as next therapeutic step - managed pain as belo 2.Chronic lower back pain Chronic condition exacerbated/progressive/side effects of treatment Goal:improve pain/function Data:[facility]20[facility] Plan: - reviewed options for pain control - would greatly favor mechanical intervention over pharmaceutical 2/2 adverse effects, tolerance - refer back to Dr. Sim for any potential further surgical intevrentions - has f/u with [facility] for pain mgmt w/ Dr. Patterson, will defer to them w/ upcoming interventional therapy - continue oxycodone at present dose, continue medical marijuana as well 3.COPD, DISEASE ONLY Chronic condition, stable Goal:prevention ofworsening Data:CT from04/2023 Plan: - reviewed results of CT w/ lung nodules, ongoing emphysema - encourage smoking cessation (very precontemplative) 4.Prediabetes Chronic condition, stable Goal:prevention ofprogression Data:CMP Plan: - encourage as much activity as is tolerable with current back pain - low carb diet 5.Annual physical exam - encouraged diet and exercise regimen appropriate for patient age and condition - routine dental and eye care per continuity - re-establish w/ DENTAL - vaccinations reviewed and requires updates - patient aware and declines -screening labs reviewed -no prostate or urinary complaints with patient - declines colon cancer screening w/ scope, FOBT, cologuard Immunizations Given and Recorded Vaccine Date Status [...] TAKE 1 TABLET BY MOUTH ATBEDTIME., Pharmacy: [facility] Start Date: 10/17/22 Status: Ordered cannabidiol Start: 04/16/19 11:20:00 EST, 1 dose, 1 dose daily Start Date: 04/16/19 Status: Ordered CBD oil Start: 11/17/18 14:11:00 EDT, CBD oil Start Date: 11/17/18 Status: Ordered clopidogrel 75 mg oral tablet Start: 03/05/23 9:51:00 EST, 1 tab, PO, Daily, Disp# 90 tab, Refills: 3, Pharmacy: [id number] Start Date: 03/05/23 Status: Ordered docusate sodium 100 mg oral capsule Start: 12/23/17 9:38:03 EDT, See Instructions, Disp# 360, Refills: 2, TAKE 2 CAPSULES TWICE A DAY NEEDED, [id number] Start Date: 12/23/17 Status: Ordered DULoxetine 60 mg oral delayed release capsule Start: 04/29/23 12:12:00 EST, 1 cap, PO, bid, Disp# 180 unknown unit, Refills: 4, Pharmacy: [facility] Start Date: 04/29/23 Status: Ordered famotidine 20 mg oral tablet Start: 01/14/23 11:08:00 EST, 1 tab, PO, bid, Disp# 180 tab, Refills: 2, Pharmacy: [facility] Start Date: 01/14/23 Stop Date: 10/11/23 Status: Ordered lisinopril 20 mg oral tablet Start: 01/14/23 11:23:00 EST, 1 tab, PO, Daily, Disp# 30 tab, Refills: 3, Pharmacy: [facility] Start Date: 01/14/23 Stop Date: 05/14/23 Status: Ordered LORazepam 0.5 mg oral tablet Start: 05/06/23 10:13:00 EST, 1 tab, PO, q12h, Disp# 60 tab, Refills: 0, Note to Pharmacy: no driving or operating machines if cognitively impaired, PRN: as needed for anxiety, Pharmacy: [facility]acy#[id number] Start Date: 05/06/23 Status: Ordered Metoprolol Succinate ER 100 mg oral tablet, extended release Start: 01/28/23 19:56:00 EST, 1 tab, PO, Daily, Disp# 90 tab, Refills: 3, Pharmacy: [id number] Start Date: 01/28/23 Status: Ordered multivitamin Start: 03/25/18 12:25:00 EST, 1 tab, PO, Daily Start Date: 03/25/18 Status: Ordered nitroglycerin 0.4 mg sublingual tablet Start: 02/07/18 13:14:27 EST, See Instructions, Disp# 25, TAKE 1 TAB UNDER TONGUE EVERY 5 MINUTES: NEEDED FOR CHEST PAIN, Pharmacy: [facility]/pharmacy #[id number] Start Date: 02/07/18 Status: Ordered oxyCODONE 5 mg oral tablet Start: 05/06/23 10:13:00 EST, 5 mg =, PO, q8h, Disp# 93 tab, Refills: 0, PRN: as needed for pain, Pharmacy: [facility]/pharmacy #[id number] Start Date: 05/06/23 Stop Date: 06/06/23 Status: Ordered pantoprazole 40 mg oral delayed release tablet See Instructions, Disp# 30 tab, Refills: 5, TAKE 1 TABLET BY MOUTH EVERY DAY, Pharmacy: [id number] Start Date: 01/05/20 Status: Ordered triamcinolone 0.025% topical ointment Start: 02/29/16 15:00:00, 1 appl, topical, bid, Disp# 60 g, Refills: 3, apply a thin film to both arms and both legs afflicted with psoriasis, Pharmacy: [facility] Start Date: 02/29/16 Status: Ordered Vitamin C Start: 08/11/18 9:58:00 EDT, 1,000 mg =, PO, Daily Start Date: 08/11/18 Status: Ordered Vitamin D3 Start: 07/19/20 9:17:00 EDT Start Date: 07/19/20 Status: Ordered Zinc Start: 07/19/20 9:17:00 EDT Start Date: 07/19/20 Status: Ordered Mental Status 05/20/23 Barriers to Learning one year Vision imp airment Mandatory Health Literacy Documentation Yes Health Literacy Communication Barriers N ever Primary Language Fijian Problem List Condition Confirmation Course Effective Dates [...] Active Paresthesia of left arm Confirmed Active Prediabetes Confirmed Active Lesion of thumb Confirmed Active Solitary pulmonary nodule Confirmed Active Odynophagia Confirmed Active 37281 2and numbness in hands and arms Diagnosis Diagnosis Type Effective Dates Health Status Clinical Service Informant Chronic lower back pain Discharge Diagnosis 04/03/23 Non-Specified Major depressive 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 Discharge Diagnosis 05/20/23 Annual physical exam Discharge Diagnosis 05/20/23 COPD, DISEASE ONLY Discharge Diagnosis 05/20/23 Prediabetes Discharge Diagnosis 05/20/23 Procedures Procedure Date Related Diagnosis Body Site [...] chronic. 5C 5-[address] Sim [address] Devan 7Dr[address] Chiquis 8RETRIEVAL Vital Signs Most recent to oldest [Reference Range]: 1 Height 167.7 cm (05/20/23 1:35 PM) Patient Weight 86.5 kg (05/20/23 1:35 PM) Body Mass Index 30.76 kg/m2 (05/20/23 1:35 PM) Temperature [36.5-37.9 DegC] 36.7 DegC (05/20/23 1:35 PM) Blood Pressure 158/82mmHg (05/20/23 1:35 PM) BP Location # 1 Left Arm (05/20/23 1:35 PM) Social History Social History Type Response Tobacco Current every day sm oker, Cigarettes, Exposure to Secondhand Smoke: No. 20 per day. 43 year(s). Started age 13 Years. Previous treatment: Nicotine replacement. Ready to change: No. 1 Smoking Status Current every day he natacha smoker Sex Male 1menthol lites FCM Outpt Note * MD Dario, [place]: PERFORM Event Display: FCM Outpt Note Authored Date: [id number] Chief Complaint Here for f/u. Had chest xray and labs done. No new medical concerns. History of Present Illness Problem Low back pain, chronic, on opioid management - following with [facility] for injection therapy which does help (Dr. Ketty Patterson) - tolerating opioid medication at current dose - evaluated at ED x 1with some improvement with steroids/toradol - original surgical interventionby Dr. Sim(last evaluation in 2019) MDD w/ anxiety - subjective worsening of symptoms with stress with new daughter - supporting with family, not interested in counseling Hypertension - current medication - lisinopril, metoprolol - _adherent to present regimen - no ADEs reported by the patient - checking BP at home - following w/ Dr. Galindo - smoking and caffeine history reviewed - 1 hour prior to measure was last cig CPE _ No hospitalizations in the last 12 months nor severe acute injuries not accounted for in chart. No routine dental care without complaint, looking for provider Routine eye care without issue presently,noglasses/contacts, s/p cataract surgery Vaccination schedule reviewed in EHR Histories updated and reviewed with patient with changes reflected. Feeling safe at home and in relationships without concern. 10 system ROS completed and negative except as noted above. Physical Exam Vitals & Measurements T:36.7C BP:158/82 SpO2:98% HT:167.7cm WT:86.500kg(Dosing) WT:86.5kg BMI:30.76 PHQ2 Data(Data Documented on:05/20/2023 13:27) Emotional health assessment POSITIVE PHQ-9 Data(Data Documented on:05/20/2023 13:31) PHQ-9 Severity Score:17 Thoughts that you would be better off or of hurting yourself in some way?Not at All Depression Risk:Elevated General Anxiety Disorder Screening: VINCE-7 Score:15 VINCE-7 Problem Severity:Extremely Difficult General: _Alert and oriented, No acute distress HEENT: _ Normocephalic, TM clear, Nl gross hearing, moist oral mucosa _ Cardiovascular: _Normal rate, Regular rhythm, No murmur, No gallop. Respiratory: _Lungs are clear to auscultation, Respirations are non-labored, Breath sounds are equal Gastrointestinal: _Soft, Non-tender, Non-distended, Normal bowel sounds. Musculoskeletal: _Normal range of motion,normal strength. Neurologic:Normal sensory, Normal motor function, CN II-XII grossly intact. Integumentary: _Warm, Dry, [place]. Psych: Mood-affect congruence. Reports no SI/HI. Speech is of normal pace and content Assessment/Plan 1.Major depressive 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 Chronic condition exacerbated/progressive/side effects of treatment Goal:improves ymptoms Data:PHQ, VINCE Plan: - likely worsening 2/2 worsening lower back pain and limitations to lifestyle - has good family support, defers prof counseling therapy at this time - could consider addition of bupropion or adjunctive medications as next therapeutic step - managed pain as belo 2.Chronic lower back pain Chronic condition exacerbated/progressive/side effects of treatment Goal:improve pain/function Data:last [facility]09/2022 Plan: - reviewed options for pain control - would greatly favor mechanical intervention over pharmaceutical 2/2 adverse effects, tolerance - refer back to Dr. Sim for any potential further surgical intevrentions - has f/u with [facility] for pain mgmt w/ Dr. Patterson, will defer to them w/ upcoming interventional therapy - continue oxycodone at present dose, continue medical marijuana as well 3.COPD, DISEASE ONLY Chronic condition, stable Goal:prevention ofworsening Data:CT from04/2023 Plan: - reviewed results of CT w/ lung nodules, ongoing emphysema - encourage smoking cessation (very precontemplative) 4.Prediabetes Chronic condition, stable Goal:prevention ofprogression Data:CMP Plan: - encourage as much activity as is tolerable with current back pain - low carb diet 5.Annual physical exam - encouraged diet and exercise regimen appropriate for patient age and condition - routine dental and eye care per continuity - re-establish w/ DENTAL -vaccinations reviewed and requires updates - patient aware and declines -screening labs reviewed -no prostate or urinary complaints with patient - declines colon cancer screening w/ scope, FOBT, cologuard Problem List/Past Medical History Ongoing ANXIETY Cannabis use, uncomplicated Chronic GERD Chronic lower back pain Cigarette smoker COPD, DISEASE ONLY Dysphagia HEMORRHOIDS History of - myocardial infarction History of sacroiliac joint dysfunction History of spinal fusion Hypertension Left wrist pain Lesion of thumb Lumbar radiculopathy Lumbar spondylosis Major depressive 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 Neck pain Odynophagia Paresthesia of left arm Prediabetes Solitary pulmonary nodule Historical ACUTE MYOCARDIAL INFARCTION #2 with stent occlusion Back pain Cardiac catheterization Hernia repair KIDNEY STONES Left arm pain Prostatitis Pulmonary embolism Weight disorder Procedure/Surgical History Lung cancer screening| Service Date: 04/13/2022SI joint fusion| Service Date: 02/03/2020CTof pelvis w/o IV contrast| Service Date: 02/23/2019CT of abdomen and pelvis without contrast| Service Date: 09/17/2018Fusion of lumbar spine L2-3| Service Date: 2017Dental implant system- REMOVAL| Service Date: 2016Spinal fusion with graft| Service Date: 06/03/2015removal old hardware -interval L3-4 discectomy with spacer| Service Date: 08/16/2014Lumbar nerve root compression andfusion L3 and4| Service Date: 08/05/2014Stent placement- LEFT CIRCUMFLEX - X 2| Service Date: 12/17/2010Kidney stone- RETRIEVAL| Service Date: 03/11/2010rods,cage/bone graft to back| ServiceDate: 02/09/2004PICA-stent right branch circumflex| Service Date: 08/01/2003left inguinal hernia| Service Date: 06/13/1998 Medications ascorbic acid(Vitamin C), 1000 mg, PO, Daily aspirin(Aspirin Low Dose), 81 mg, PO, Daily atorvastatin(atorvastatin 80 mg oral tablet), See Instructions cannabidiol, 1 dose cholecalciferol(Vitamin D3) clopidogrel(clopidogrel 75 mg oral tablet), 1 tab, PO, Daily docusate(docusate sodium 100 mg oral capsule), See Instructions, 2 refills DULoxetine(DULoxetine 60 mg oral delayed release capsule), 1 cap, PO, bid famotidine(famotidine 20 mg oral tablet), 20 mg= 1 tab, PO, bid, 2 refills lisinopril(lisinopril 20 mg oral tablet), 20 mg= 1 tab, PO, Daily, 3 refills LORazepam(LORazepam 0.5 mg oral tablet), 0.5 mg= 1 tab, PO, q12h, PRN metoprolol(Metoprolol Succinate ER 100 mg oral tablet, extended release), 1 tab, PO, Daily multivitamin, 1 tab, PO, Daily nitroglycerin(nitroglycerin 0.4 mg sublingual tablet), See Instructions oxyCODONE(oxyCODONE 5 mg oral tablet), 5 mg, PO, q8h, PRN pantoprazole(pantoprazole 40 mg oral delayed release tablet), See Instructions triamcinolone topical(triamcinolone 0.025% topical ointment), 1 appl, topical, bid, 3 refills unknown medication(CBD oil) zinc sulfate(Zinc) Allergies morphineSHAKEY, GRUMPY OUT OF SORTS sulfa drugsHEADACHE, ITCH, RASH Social History Smoking Status Current every day heavy smoker Alcohol - Denies Alcohol Use - Comments: NONE--HX Alcoholic as a younger person Employment/School Status:disability--back Activity level:Moderate physical work Highest education:High school Exercise - Does not exercise Duration (average number of minutes):15 Times per week:Daily Exercise type:Walking Home/Environment Lives with:Children, Spouse Nutrition/Health Type of diet:Regular Substance Abuse Type:Marijuana Frequency:Daily - Comments: 2 joints per day Tobacco - High Risk Use:Current every day smoker Type:Cigarettes Exposure to Secondhand Smoke:No Tobacco use per day:20 Number of years:43 Started at age:13Years Previous treatment:Nicotine replacement Ready to change:No - Comments: menthol lites Family History Alive and well: Sister, Brother, Brother, Daughter and Son. Asthma: Daughter and Son. MVA - Motor vehicle accident: Father. Osteoarthritis: Sister. Ovarian cancer..: Mother. Rheumatoid arthritis: Brother. Health Status Family Member(s) Family Member(s) Relationship: Mother, Name: , Age: 68 Years, Cause: Ovarian CA Relationship: Father, Name: , Age: 41 Years, Cause: MVA Immunizations Vaccine Date Status tetanus/diphtheria/pertuss, acel (Tdap) 09/28/2022 Given influenza virus vaccine, inactivated 01/12/2021 Given influenza virus vaccine, inactivated 12/02/2019 Given influenza virus vaccine, inactivated 11/17/2018 Given influenza virus vaccine, inactivated 01/02/2018 Given influenza virus vaccine, inactivated 12/18/2016 Given influenza virus vaccine, inactivated 12/15/2015 Given influenza virus vaccine, inactivated 12/24/2014 Given influenza virus vaccine, inactivated 01/05/2014 Given tetanus/diphtheria/pertuss, acel (Tdap) 10/22/2013 Given tetanus/diphtheria/pertuss, acel (Tdap) 01/12/2003 Recorded pneumococcal 23-valent vaccine 11/26/2002 Recorded Recommendations Health Maintenance Pending(in the next year) OverDue Adult Influenza Vaccine due09/07/22and every 1year Due Adult COVID-19 Vaccination due05/20/23Unknown Frequency Adult Social Determinants of Health Screening due05/20/23Unknown Frequency Hepatitis C Screening due05/20/23One-time only Pneumococcal Vaccine Adults and Adolescents with Chronic Illness due05/20/23One-time only Shingles Vaccine due05/20/23One-time only Satisfied(in the past 1 year) Satisfied Adult Tdap/Td Vaccine on09/28/22.Satisfied by ALAN Gerardo Cassidy Body Mass Index on05/20/23.Satisfied by ALAN Ortiz Paula Lipid Screening on05/13/23.Satisfied by Contributor_system, [id number] Refused Colorectal Cancer Screening on09/26/22.Recorded by ALAN Ascencio, Taylor: Patient Refuses Electronic Signature on File Electronically Reviewed/Signed by: Michael Bishop MD Author Signature Dt/Tm:05/20/2023 02:08 PM Department of Family Medicine [facility] Patient Care team information Care Team Personnel Name: MD Gian, John Barboza Position: Physician - Family Med Member Role: Lifetime Relationship Address: Address: [address] [place] [id number] [place] Name: DO Cruz Jill M Position: Physician - Anesthesiologist Member Role: Lifetime Relationship Address: Address: [address] [place] [id number] Name: MD Bishop Christopher Position: Physician - Family Med Member Role: Primary Care Provider Address: Address: [address] [place] [address], [place] [address] [place] Care Team Related Persons Name: MEGAN RAMON Address: home [address], [phone] Name: MEGAN RAMON Address: home [address] [address] [place], [place] [phone] Name: RACHEL RAMON Address: home [address], [place] [phone] [place] Name: RACHEL RAMON Address: home [address], [place] [phone] Name: RACHEL RAMON Address: home [address], [place] [phone] Name: RAUDEL RAMONA Soraida Address: home [address], [place] [phone]"
--- NOTE | 2023-05-25 06:10 | Electrocardiogram Report ---
Test Reason : Blood Pressure : / mmHG Vent. Rate : 063 BPM Atrial Rate : 063 BPM P-R Int : 116 ms QRS Dur : 088 ms QT Int : 374 ms P-R-T Axes : 040 049 070 degrees QTc Int : 382 ms Normal sinus rhythm Normal ECG When compared with ECG of 17-AUG-2022 11:28, No significant change Confirmed by Paul Neves ([id number]) on 05/25/2023 6:09:45 AM Referred By: Confirmed By:Paul Neves
== END 2023-05-23 17:55 | disposition home or self-care (01) ==
LOC: ED 14:02 → 2S 14:02 → SUATTDRO 18:38 → 2S 21:02

== ENCOUNTER 2023-08-06 14:43 | Inpatient (IN) ==
--- NOTE | 2023-08-06 15:15 | Emergency Department Note ---
Impression & Plan Acute non-ST elevation myocardial infarction (NSTEMI), Chest pain ED Provider Note NAME: FERNANDO RAMON AGE: 62 SEX: M : 1960 ARRIVES VIA: Walk-In INFORMANT: Patient, patient's , triage note ED PROVIDER(S): Hugo Gamble MD CHIEF COMPLAINT: Chest pain, outpatient referral MEDICAL DECISION MAKING: Patient presents due to concern for chest pain as an outpatient referral. IV was established and blood work was obtained along with an EKG troponin and chest x-ray. EKG does not show any obvious STEMI. Blood work shows a normal white count with virtually normal hemoglobin at 13.9 with normal platelet count. The patient's kidney function is unremarkable with normal electrolytes. The patient's troponin was 148. Given this I did speak with the on-call education trainer Dr. Giles who did evaluate the patient. I did order heparin. The patient was also ordered full dose aspirin and nitro. Patient was reassessed and the patient was still having some chest discomforts the patient was ordered 0.5 mg of Dilaudid. I did speak with the on-call hospital service Dr. Tran and the patient was admitted to the medicine service. Critical Care: I have personally spent 37 minutes of critical care time in direct management of this patient. This includes bedside care, interpretation of diagnostic studies, and testing, discussion with consultants, patient, and family members, and other require inpatient management activities. This 37 minutes is in excess of all separately billable procedures. Discussion w/ other healthcare providers: Dr. Giles with cardiology Dr. Tran inpatient medicine service Prior /Outside records reviewed: None Differential diagnosis: Cardiac ischemia, aortic dissection, pulmonary embolism, pneumothorax, pneumonia, pericarditis, myocarditis, GERD, cholecystitis, pancreatitis, musculoskeletal, as well as other pathologies were considered. Diagnostics, as interpreted by me: ECG: Normal sinus rhythm, rate of 64, normal intervals, normal axis no ST elevations or TWI. No significant change from comparison May 22, 2023 Cardiac monitoring: An order was placed for continuous cardiac monitoring. The monitor shows a rate of 65 with sinus rhythm. Patient was placed on pulse oximetry Medical decision rules: None Imaging studies: I informally interpreted the patient's chest x-ray does not show obvious pneumonia or pneumothorax with formal report to follow. HPI: Patient presents due to concern for chest pain. Patient states that he was seen in the outpatient setting referred here over by PCP resident clinic. Patient states that he had chest pain that he describes as pressure 6 out of 10 but has been fairly stable not necessarily exertional ongoing for about 2 weeks although did seem to be a bit improved after he stopped taking his Aldactone which was prescribed at the end of an admission about a month prior. Patient states it was about an 8 out of 10 prior to stopping his medication. Patient states that he stopped taking this medication on Saturday and felt a little bit better in about 2 days time. Patient states that he has not had any significant change in his chest pain with going up stairs or with activity. Patient denies any fevers or chills. Patient denies any cough or fever but still smokes about 10 cigarettes daily. No leg swelling or calf pain but does have a remote history of PE in the past. Patient does take aspirin and Plavix but does not take any blood thinning medications. The patient does follow with Dr. Galindo. Patient does have a history of CAD status post stents in 2011. Last cardiac catheterization in 2011. The patient believes he has not had a stress test completed in about 2 years. The patient states that he cannot do treadmill stress test and states that he is not interested in performing a medication stress test. PAST MEDICAL HISTORY: See Below PAST SURGICAL HISTORY: See Below SOCIAL HISTORY: See Below HOME MEDICATIONS: See Below ALLERGIES: See Below VITALS: See Below PHYSICAL EXAMINATION: GENERAL: NAD, non-toxic. EYE EXAM: Normal conjunctiva. PERRL, no anisocoria and EOM's grossly intact w/o pain. OROPHARYNX: Moist mucus membranes, grossly normal dentition. NECK: Trachea midline, no stridor. Supple, no nuchal rigidity, no adenopathy, non-tender. No signs of meningismus. FROM of the neck with good chin to chest and neck extension. LUNGS: Clear to auscultation. Normal chest wall mechanics. HEART: NSR, no MRG. ABDOMEN: Abdomen soft, non-tender, no masses, no rebound or guarding. BACK: No CVA TTP. SKIN: No rashes and no bruising. UPPER EXTREMITIES: Upper extremities are grossly normal. LOWER EXTREMITIES: Grossly normal, no edema. NEURO EXAM: A&O x3, cranial nerves II-XII grossly intact, normal speech, moves all 4 extremities. Past Med/Surg History Problem List (Updated 08/06/23 @ 19:30 by Hugo Gamble MD) Chest pain (Acute) Acute non-ST elevation myocardial infarction (NSTEMI) (Acute) History of coronary artery disease (Acute) Hypertension (Acute) Precordial chest pain (Acute) Stented coronary artery Sacroiliitis Acute exacerbation of chronic low back pain (Acute) Cervical stenosis of spinal canal HNP (herniated nucleus pulposus), lumbar (Acute) Intractable low back pain (Acute) Neuropathy (Chronic) Precordial chest pain Encounter for pre-operative examination RADHA (acute kidney injury) (Chronic) Tobacco abuse (Chronic) Chronic back pain Chest pain GERD (gastroesophageal reflux disease) Preoperative cardiovascular examination Depression Hypertension (Chronic) Pulmonary embolism (Chronic) 2004, spontaneous- previously on coumadin for short period of time Lumbar stenosis with neurogenic claudication (Acute) Medical History Thrombophlebitis CAD (coronary artery disease) HLD (hyperlipidemia) Myocardial Infarction 2003. BPH (benign prostatic hyperplasia) Coronary artery disease 2004- stent x 1, 2011- stents x 2. FOllows with [facility] cardiology Kidney stones Hyperlipidemia GERD (gastroesophageal reflux disease) controlled Anxiety Surgical History H/O tooth extraction removal of infected dental implant 01/19/20 placed on abx. S/P lumbar fusion hardware removal, L2-L3 decompression with fusion: 11/15/17: Grade 1 view, MAC#3, ETT 8.0 at [facility] History of tooth extraction S/P epidural steroid injection lumbar and SI joint injections History of cataract surgery bilateral History of cystoscopy with stent History of lithotripsy laser lithotripsy H/O hand surgery LEFT Fusion of spine Lumbar x2 S/P cervical spinal fusion 05/2015. MAC 3. Grade 1 view. No issues. Full ROM. 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 Required: No Beliefs That Will Affect Care: None marital status: Current Living Situation: Spouse Feels Safe at Home: Yes Assistive Devices: Cane Allergies Allergies Allergy/AdvReac Type Severity Reaction Status Date / Time chlorhexidine Allergy Intermediate severe Verified 05/22/23 17:01 itching, redness Sulfa (Sulfonamide Allergy Intermediate rash, hives Verified 05/22/23 17:01 Antibiotics) acetaminophen AdvReac Severe elevated Verified 05/22/23 17:01 LFTs ibuprofen AdvReac Severe elevated Verified 05/22/23 17:01 LFTs morphine AdvReac Intermediate shakiness, Verified 05/22/23 17:01 grumpy, disoriented Home Meds Home Medications Medication Instructions Recorded Confirmed ascorbic acid (vitamin C) 1,000 mg 1,000 mg PO QA ##0 04/07/16 08/06/23 tablet aspirin 81 mg tablet,delayed 81 mg PO HS 11/14/17 08/06/23 release clopidogrel 75 mg tablet (Plavix) 75 mg PO QAM 11/14/17 08/06/23 cyanocobalamin (vitamin B-12) 500 500 mcg PO QAM 11/14/17 08/06/23 mcg tablet (Vitamin B-12) docusate sodium 100 mg capsule 100 mg PO QAM 11/14/17 08/06/23 duloxetine 60 mg capsule,delayed 60 mg PO BID 11/14/17 08/06/23 release (Cymbalta) famotidine 40 mg tablet (Pepcid) 40 mg PO BID 11/14/17 08/06/23 folic acid 400 mcg tablet 0.4 mg PO QAM 11/14/17 08/06/23 krill 1,000 mg-omega-3 170 mg-dha 1 cap PO QAM 11/14/17 08/06/23 50 mg-epa 80 [id number] capsule (krill oil) lorazepam 0.5 mg tablet 0.5 mg PO BID PRN Anxiety 11/14/17 08/06/23 metoprolol succinate 100 mg 100 mg PO QAM 11/14/17 08/06/23 tablet,extended release 24 hr multivitamin 1 tab PO QAM 11/14/17 08/06/23 nitroglycerin 0.4 mg sublingual 0.4 mg sublingual DIRECTED PRN 11/14/17 08/06/23 tablet (Nitrostat) Chest Pain oxycodone 5 mg capsule 5 mg PO Q8H 11/14/17 08/06/23 pyridoxine (vitamin B6) 100 mg 100 mg PO QAM 11/14/17 08/06/23 tablet atorvastatin 80 mg tablet 80 mg PO QAM 05/22/23 08/06/23 cholecalciferol (vitamin D3) 25 1,000 mcg PO DAILY 05/22/23 08/06/23 mcg (1,000 unit) capsule (Vitamin D3) lisinopril 20 mg tablet 20 mg PO QAM 05/22/23 08/06/23 zinc gluconate 50 mg tablet 50 mg PO QAM 05/22/23 08/06/23 spironolactone 25 mg tablet 25 mg PO QAM 08/06/23 08/06/23 Previous Rx's Medication Instructions Recorded diazepam 2 mg tablet (Valium) 2 mg PO BID PRN muscle spasm #14 08/17/22 tabs Results & Data (ED) Vital Signs Vital Signs - 24 hr 08/06/23 14:44 08/06/23 14:59 08/06/23 14:59 Temperature 36.6 C Temperature Source Temporal Artery Scan Pulse Rate 69 68 Pulse Rate [Apical] 65 Pulse Rhythm [Apical] Regular Pulse Strength [Apical] Normal Respiratory Rate 18 18 Respiratory Effort / Characteristics Non-Labored Spontaneous Respiratory Depth Normal Respiratory Pattern Regular Blood Pressure 176/81 H Blood Pressure [Right Arm] 129/80 Blood Pressure Mean 112 Blood Pressure Mean [Right Arm] 96 Pulse Oximetry 97 97 Oxygen Delivery Method Room Air Sepsis Recent Fever Within 48 Hours No Sepsis New/Unexplained Change in Mental Status N/A Sepsis Action Taken by Nursing No Action Required 08/06/23 15:23 08/06/23 16:36 08/06/23 17:40 Temperature Temperature Source Pulse Rate Pulse Rate [Apical] 57 L 66 Pulse Rhythm [Apical] Pulse Strength [Apical] Normal Respiratory Rate 19 18 Respiratory Effort / Characteristics Non-Labored Spontaneous Non-Labored Spontaneous Respiratory Depth Normal Normal Respiratory Pattern Regular Regular Blood Pressure Blood Pressure [Right Arm] 147/88 H 137/80 Blood Pressure Mean Blood Pressure Mean [Right Arm] 107 99 Pulse Oximetry 98 97 98 Oxygen Delivery Method Room Air Room Air Sepsis Recent Fever Within 48 Hours Sepsis New/Unexplained Change in Mental Status Sepsis Action Taken by Nursing 08/06/23 17:49 08/06/23 18:41 Temperature Temperature Source Pulse Rate 53 L Pulse Rate [Apical] 57 L Pulse Rhythm [Apical] Pulse Strength [Apical] Respiratory Rate 19 Respiratory Effort / Characteristics Non-Labored Spontaneous Respiratory Depth Normal Respiratory Pattern Regular Blood Pressure Blood Pressure [Right Arm] 146/94 H Blood Pressure Mean Blood Pressure Mean [Right Arm] 111 Pulse Oximetry 97 Oxygen Delivery Method Room Air Sepsis Recent Fever Within 48 Hours Sepsis New/Unexplained Change in Mental Status Sepsis Action Taken by Group Home Medications Current Medication List: was personally reviewed by me Laboratory Data Attestation: I reviewed the patient's lab results. 08/06/23 15:00 08/06/23 15:00 Lab Results 08/06/23 08/06/23 Range/Units 15:00 17:00 WBC 10.64 (4.8-10.8) K/ul RBC 4.48 L (4.70-6.10) M/uL Hgb 13.9 L (14.0-18.0) g/dl Hct 41.3 L (42.0-52.0) % MCV 92.2 (80.0-100.0) fL MCH 31.0 (25.0-34.0) pg MCHC 33.7 (32.0-36.0) g/dL RDW Std Deviation 46.7 H (36.4-46.3) fL RDW Coeff of Jeanette 13.7 (11.5-14.5) % Plt Count 259 (130-400) K/uL MPV 10.7 (9.4-12.4) fL Immature Gran % (Auto) 0.3 % Neut % (Auto) 55.6 % Lymph % (Auto) 33.7 % Kidder % (Auto) 6.8 % Eos % (Auto) 3.4 % Baso % (Auto) 0.2 % Neut # (Auto) 5.92 (1.40-6.50) K/uL Lymph # (Auto) 3.59 H (1.20-3.40) K/uL Kidder # (Auto) 0.72 H (0.11-0.59) K/uL Eos # (Auto) 0.36 (0.00-0.50) K/uL Baso # (Auto) 0.02 (0.00-0.20) K/uL Immature Gran # (Auto) 0.03 (0.01-0.20) K/uL APTT 26 (21-31) Seconds PTT Ratio 1.0 Sodium 137 (136-145) mmol/L Potassium 4.6 (3.5-5.1) mmol/L Chloride 104 (98-107) mmol/L Carbon Dioxide 26 (21-32) mmol/L Anion Gap 7 (3-11) BUN 20 (6-23) mg/dl Creatinine 1.34 (0.6-1.4) mg/dl Est Cr Clr Drug Dosing 58.3 ml/min Est GFR ( Amer) 64.4 ml/min Est GFR (Non-Af Amer) 55.6 ml/min BUN/Creatinine Ratio 14.9 (10-20) Glucose 100 H (70-99(Fasting)) mg/dl Calcium 9.6 (8.6-10.3) mg/dl Total Bilirubin 0.3 (0.2-1.0) mg/dl AST 24 (13-39) U/L ALT 22 (7-52) U/L Alkaline Phosphatase 82 (34-104) U/L Troponin I High Sens 148.6 H* 156.6 H* (0-20) pg/ml C-Reactive Protein 0.64 H (0-0.5) mg/dl Total Protein 7.5 (6.0-8.3) gm/dl Albumin 4.1 (3.4-5.0) gm/dl Globulin 3.4 (2.5-4.0) gm/dl Albumin/Globulin Ratio 1.2 (0.9-2) Lipase 35 (11-82) U/L Administered Medications Heparin Sodium/Dextrose (Heparin Sodium/Dextrose) 25,000 units in 500 mls @ 18 mls/hr IV .Q24H [facility]; Protocol Stop: 09/05/23 16:14 Last Admin: 08/06/23 16:42 Dose: 900 units/hr, 18 mls/hr Documented By: BRANDI Co-signed By: AGUSTINA Nicotine (Nicotine 14 Mg/24 Hr Patch) 1 patch TD QAM SUZETTE Stop: 09/05/23 17:59 Last Admin: 08/06/23 18:44 Dose: 1 patch Documented By: BRANDI Discontinued Medications Aspirin (Aspirin Chew 324 Mg) 324 mg PO NOW STA Stop: 08/06/23 16:31 Last Admin: 08/06/23 16:38 Dose: 324 mg Documented By: BRANDI Heparin Sodium (Porcine) (Heparin Sod (Porcine) 1000 Unit/Ml) 4,000 units IV NOW ONE Stop: 08/06/23 17:43 Last Admin: 08/06/23 17:54 Dose: 4,000 units Documented By: BRANDI Co-signed By: AGUSTINA Heparin Sodium/Dextrose (Heparin Iv Adult Wt-Based Low-Dose *No* Initial Bolus Protocol) 1 each IV ONE STA; Protocol Stop: 08/06/23 16:00 Last Admin: 08/06/23 16:46 Dose: Not Given Documented By: BRANDI Hydromorphone HCl (Hydromorphone Inj 0.5 Mg/0.5 Ml Syr) 0.5 mg IV NOW STA Stop: 08/06/23 17:46 Last Admin: 08/06/23 17:53 Dose: 0.5 mg Documented By: BRANDI Pantoprazole Sodium 40 mg/ (Syringe) 10 mls @ 5 mls/min IV NOW STA Stop: 08/06/23 17:37 Last Admin: 08/06/23 18:40 Dose: 5 mls/min Documented By: BRANDI Nitroglycerin (Nitroglycerin Sl 0.4 Mg/Tab Tab) 0.4 mg SL NOW STA Stop: 08/06/23 16:31 Last Admin: 08/06/23 16:42 Dose: 0.4 mg Documented By: BRANDI Imaging Data Radiologist's Impression: Chest X-Ray 08/06/23 15:14 XR chest 1V portable CLINICAL HISTORY: Chest pain, nonspecific COMPARISON STUDY: Chest CT 04/26/2023. Chest radiograph May 22, 2023. FINDINGS: Postoperative findings within the spine are incidentally noted. Lung volumes are normal. Lungs are clear. There is no pneumothorax or pleural effusion. Cardiac size is stable. Mediastinal contours are normal. There is no evidence for pulmonary edema. IMPRESSION: No acute cardiopulmonary findings. No change in appearance of the chest. ACT 112: Negative or not required by law. Electronically signed by: Camron Miller M.D. 08/06/2023 3:58 PM Discharge Plan Visit Data Chief Complaint: Chest Pain Stated Complaint: CHEST PRESSURE, DIZZINESS, FATIGUE ED Provider: Hugo Gamble Discharge Problem: Acute non-ST elevation myocardial infarction (NSTEMI), Chest pain Forms Stand Alone Forms: My [facility] Prescriptions Prescriptions: No Action ascorbic acid (vitamin C) 1,000 mg Tablet 1,000 mg PO QAM Qty: 0 multivitamin Tablet 1 tab PO QAM famotidine [Pepcid] 40 mg Tablet 40 mg PO BID metoprolol succinate 100 mg Tablet Extended Release 24 Hr 100 mg PO QAM clopidogrel [Plavix] 75 mg Tablet 75 mg PO QAM folic acid 400 mcg Tablet 0.4 mg PO QAM aspirin 81 mg Tablet,Delayed Release (Dr/Ec) 81 mg PO HS lorazepam 0.5 mg Tablet 0.5 mg PO BID PRN (Reason: Anxiety) cyanocobalamin (vitamin B-12) [Vitamin B-12] 500 mcg Tablet 500 mcg PO QAM oxycodone 5 mg Capsule 5 mg PO Q8H nitroglycerin [Nitrostat] 0.4 mg Tablet, Sublingual 0.4 mg Sublingual DIRECTED PRN (Reason: Chest Pain) Patient Comments: "i have not used it for awhile" docusate sodium 100 mg Capsule 100 mg PO QAM pyridoxine (vitamin B6) 100 mg Tablet 100 mg PO QAM duloxetine [Cymbalta] 60 mg Capsule,Delayed Release(Dr/Ec) 60 mg PO BID krill oil [id number] mg Capsule 1 cap PO QAM diazepam [Valium] 2 mg tablet 2 mg PO BID PRN (Reason: muscle spasm) Qty: 14 0RF atorvastatin 80 mg tablet 80 mg PO QAM lisinopril 20 mg tablet 20 mg PO QAM zinc gluconate 50 mg Tablet 50 mg PO QAM cholecalciferol (vitamin D3) [Vitamin D3] 25 mcg (1,000 unit) Capsule 1,000 mcg PO DAILY Rx Instructions: PT UNSURE OF STRENGTH spironolactone 25 mg tablet 25 mg PO QAM Referrals Referrals: Michael Bishop MD [Primary Care Provider] - Discharge Problem: Chest pain Qualifiers: Chest pain type: unspecified Qualified Code(s): R07.9 - Chest pain, unspecified
[2023-08-06 15:32] LABS: Basophils # (auto) 0.02 K/uL (0.00-0.20); Basophils % (auto) 0.2 %; Eosinophils # (auto) 0.36 K/uL (0.00-0.50); Eosinophils % (auto) 3.4 %; Hematocrit (blood only) 41.3 % (42.0-52.0); Hemoglobin 13.9 g/dl (14.0-18.0); Immature Granulocytes # (auto) 0.03 K/uL (0.01-0.20); Immature Granulocytes % (auto) 0.3 %; Lymphocytes # (auto) 3.59 K/uL (1.20-3.40); Lymphocytes % (auto) 33.7 %; Mean Corpuscular Hgb Conc 33.7 g/dL (32.0-36.0); Mean Corpuscular Volume 92.2 fL (80.0-100.0); Mean Platelet Volume 10.7 fL (9.4-12.4); Monocytes # (auto) 0.72 K/uL (0.11-0.59); Monocytes % (auto) 6.8 %; Neutrophils # (auto) 5.92 K/uL (1.40-6.50); Neutrophils % (auto) 55.6 %; Platelet Count 259 K/uL (130-400); RDW Coefficient of Variation 13.7 % (11.5-14.5); RDW Standard Deviation 46.7 fL (36.4-46.3); Red Blood Count 4.48 M/uL (4.70-6.10); White Blood Count 10.64 K/ul (4.8-10.8)
[2023-08-06 15:49] LABS: Albumin Globulin Ratio 1.2 (0.9-2); Albumin Level 4.1 gm/dl (3.4-5.0); BUN Creatinine Ratio 14.9 (10-20); Bilirubin,Total 0.3 mg/dl (0.2-1.0); Calcium 9.6 mg/dl (8.6-10.3); Creatinine Clr Calc Pharmacy 58.3 ml/min; Est GFR (African American) 64.4 ml/min; Est GFR (Non-African American) 55.6 ml/min; Globulin 3.4 gm/dl (2.5-4.0); Potassium 4.6 mmol/L (3.5-5.1); Total Protein 7.5 gm/dl (6.0-8.3)
[2023-08-06 15:59] LABS: Troponin I High Sensitivity 148.6 pg/ml (0-20)
--- NOTE | 2023-08-06 16:00 | XRay Report ---
XR chest 1V portable CLINICAL HISTORY: Chest pain, nonspecific COMPARISON STUDY: Chest CT 04/26/2023. Chest radiograph May 22, 2023. FINDINGS: Postoperative findings within the spine are incidentally noted. Lung volumes are normal. Jeanette ngs are clear. There is no pneumothorax or pleural effusion. Cardiac size is stable. Mediastinal cont ours are normal. There is no evidence for pulmonary edema. IMPRESSION: No acute cardiopulmonary findings. No change in appearance of the chest. ACT 112: Negative or not required by law. Electronically signed by: Camron Miller M.D. 08/06/2023 3:58 PM
[2023-08-06 16:23] LABS: Partial Thromboplastin Time 26 Seconds (21-31)
[2023-08-06] MEDS: ASPIRIN CHEW 324 MG PO STA (16:38)
[2023-08-06] MEDS: NITROGLYCERIN SL 0.4 MG/TAB TAB SL STA (16:42)
[2023-08-06] MEDS: HEPARIN SODIUM/DEXTROSE 25,000 UNITS/500 ML BAG IV SCH (16:42)
[2023-08-06] MEDS: Heparin IV Adult Wt-Based Low-Dose *NO* INITIAL Bolus Protocol IV STA (16:46)
[2023-08-06 17:39] LABS: Troponin I High Sensitivity 156.6 pg/ml (0-20)
--- NOTE | 2023-08-06 17:39 | History & Physical Report ---
Date of Service August 06, 2023 Assessment & Plan (1) Chest pain: Plan: -Admit to the PCU on tele -Currently with 6/10 chest pressure but otherwise stable -Presented to the ED due to ongoing substernal chest pressure over the past 2 weeks -Has had intermittent BL arm numbness at times as well -Hx of QUIN placement in 2003 and 2010, patient denies these symptoms being similar to the chest discomfort he experienced in the past when he required QUIN placement -Initial high sen trop of 148 -->156 on 2 hour repeat -No acute ST segment or wave changes on ECG -Was evaluated by Cardiology, they will be taking him to the Cath labs tomorrow am -Patient does have a previous hx of PE, described as spontaneous in his problem list >Denies pleuritic chest pain, has been stable on RA, hemodynamically stable, and without tachycardia (although is on a beta ru) >Will obtain venous doppler of the BL LE's to monitor for DVT for now -Started on low-dose, weight-based heparin drip w/bolus in the ED, continue for now -Will add on ESR and CRP to monitor for myocarditis as his pain has not changed with aspirin or nitroglycerin at home or in the ED today (see Cardiology consult note) >Will start prn Dilaudid for ongoing pain -Will continue to monitor on tele and trend high sen trop overnight -S/P 324 mg Aspirin in the ED -Will continue his aspirin, plavix, stating, and metoprolol -Heparin drip for DVT PPX -HH/low sodium diet until midnight then NPO with sips/chips -AM CBC, CMP, mag, PT/INR (2) Hypertension: Plan: -Currently stable -Continue Lisinopril, spironolactone, and metoprolol (3) History of coronary artery disease: Plan: -See chest pain (4) HNP (herniated nucleus pulposus), lumbar: Plan: -Continue home pain regimen (5) Tobacco abuse: Plan: -Continue to stress cessation >Patient is now motivated to quit completely -Will order prn nicotine patch Plan The patient was discussed with Dr. Tran at the time of the admission History of Present Illness Chief Complaint: Chest pain with radiation to the arms Primary Care Provider: Michael Bishop MD Alphonso is a 62 year old male with a PMH significant for poorly controlled HTN, CAD S/P PCI with OM 2 BMS occlusion s/p aspiration thrombectomy and QUIN placement on 04/30/2010, tobacco abuse, chronic back pain due to herniated nucleus pulposus, and BPH who presented to the [facility] ED on 08/06/23 for ongoing chest pain with radiation into the BL arms over the past 2 weeks. On arrival to the ED he was noted to be hypertensive at 176/81 but otherwise stable. Labs were significant for an initial high sen trop of 148 with 2 hour repeat in process. Chest xray was read as negative for acute findings. ECG shows NSR without acute ST segment or T-wave changes. Cardiology was consulted and evaluated the patient; recommended starting the patient on a hearing drip with plans for heart cath tomorrow (08/06). Prior to admission the patient was given 324 mg aspirin, 0.4 mg SL nitroglycerin, 40 mg IV pantoprazole, and started on a low-dose, weight-based heparin drip w/bolus. At the time of the exam the patient was sitting in bed in no acute distress. States that he has been experiencing almost constant substernal chest pressure over the past 2 weeks. Has associated intermittent BL arm numbness but denies neck, jaw, or back pain. Has tried aspirin and nitroglycerin at home without changes in symptoms. Does not change with rest or exertion, and does not change with position. When asked, he states that this does not feel like the chest pain he experienced previously when he required QUIN placement in 2003 and 2010. Still smoking approximately 10 cigarettes daily, but is now very motivated to quit as he wants to be in his grandchildren's lives moving forward. Denies recent fever, chills, cough, hemoptysis, SOB, abd pain, nausea, vomiting, diarrhea, dysuria, hematuria, melena, LE swelling, and recent trauma. He is a full code and his is his POA if he cannot make decisions himself. Please refer to Dr. Tran's attestation for any changes to the treatment plan Allergies Allergy/AdvReac Type Severity Reaction Status Date / Time chlorhexidine Allergy Intermediate severe Verified 05/22/23 17:01 itching, redness Sulfa (Sulfonamide Allergy Intermediate rash, hives Verified 05/22/23 17:01 Antibiotics) acetaminophen AdvReac Severe elevated Verified 05/22/23 17:01 LFTs ibuprofen AdvReac Severe elevated Verified 05/22/23 17:01 LFTs morphine AdvReac Intermediate shakiness, Verified 05/22/23 17:01 grumpy, disoriented Home Medications Medication Instructions Recorded Confirmed Type ascorbic acid (vitamin C) 1,000 mg 1,000 mg PO QAM ##0 04/07/16 08/06/23 History tablet aspirin 81 mg tablet,delayed 81 mg PO HS 11/14/17 08/06/23 History release clopidogrel 75 mg tablet (Plavix) 75 mg PO QAM 11/14/17 08/06/23 History cyanocobalamin (vitamin B-12) 500 500 mcg PO QAM 11/14/17 08/06/23 History mcg tablet (Vitamin B-12) docusate sodium 100 mg capsule 100 mg PO QAM 11/14/17 08/06/23 History duloxetine 60 mg capsule,delayed 60 mg PO BID 11/14/17 08/06/23 History release (Cymbalta) famotidine 40 mg tablet (Pepcid) 40 mg PO BID 11/14/17 08/06/23 History folic acid 400 mcg tablet 0.4 mg PO QAM 11/14/17 08/06/23 History krill 1,000 mg-omega-3 170 mg-dha 1 cap PO QAM 11/14/17 08/06/23 History 50 mg-epa 80 gr-dzqbmj-skdix capsule (krill oil) lorazepam 0.5 mg tablet 0.5 mg PO BID PRN Anxiety 11/14/17 08/06/23 History metoprolol succinate 100 mg 100 mg PO QAM 11/14/17 08/06/23 History tablet,extended release 24 hr multivitamin 1 tab PO QAM 11/14/17 08/06/23 History nitroglycerin 0.4 mg sublingual 0.4 mg sublingual DIRECTED PRN 11/14/17 08/06/23 History tablet (Nitrostat) Chest Pain oxycodone 5 mg capsule 5 mg PO Q8H 11/14/17 08/06/23 History pyridoxine (vitamin B6) 100 mg 100 mg PO QAM 11/14/17 08/06/23 History tablet diazepam 2 mg tablet (Valium) 2 mg PO BID PRN muscle spasm #14 08/17/22 08/06/23 Rx tabs atorvastatin 80 mg tablet 80 mg PO QAM 05/22/23 08/06/23 History cholecalciferol (vitamin D3) 25 1,000 mcg PO DAILY 05/22/23 08/06/23 History mcg (1,000 unit) capsule (Vitamin D3) lisinopril 20 mg tablet 20 mg PO QAM 05/22/23 08/06/23 History zinc gluconate 50 mg tablet 50 mg PO QAM 05/22/23 08/06/23 History spironolactone 25 mg tablet 25 mg PO QAM 08/06/23 08/06/23 History Past Med/Surg History Problem List (Updated 08/06/23 @ 19:30 by Hugo Gamble MD) Chest pain (Acute) Acute non-ST elevation myocardial infarction (NSTEMI) (Acute) History of coronary artery disease (Acute) Hypertension (Acute) Precordial chest pain (Acute) Stented coronary artery Sacroiliitis Acute exacerbation of chronic low back pain (Acute) Cervical stenosis of spinal canal HNP (herniated nucleus pulposus), lumbar (Acute) Intractable low back pain (Acute) Neuropathy (Chronic) Precordial chest pain Encounter for pre-operative examination RADHA (acute kidney injury) (Chronic) Tobacco abuse (Chronic) Chronic back pain Chest pain GERD (gastroesophageal reflux disease) Preoperative cardiovascular examination Depression Hypertension (Chronic) Pulmonary embolism (Chronic) 2004, spontaneous- previously on coumadin for short period of time Lumbar stenosis with neurogenic claudication (Acute) Medical History Thrombophlebitis CAD (coronary artery disease) HLD (hyperlipidemia) Myocardial Infarction 2003. BPH (benign prostatic hyperplasia) Coronary artery disease 2004- stent x 1, 2011- stents x 2. FOllows with [facility] [place] cardiology Kidney stones Hyperlipidemia GERD (gastroesophageal reflux disease) controlled Anxiety Surgical History H/O tooth extraction removal of infected dental implant 01/19/20 placed on abx. S/P lumbar fusion hardware removal, L2-L3 decompression with fusion: 11/15/17: Grade 1 view, MAC#3, ETT 8.0 at [facility] History of tooth extraction S/P epidural steroid injection lumbar and SI joint injections History of cataract surgery bilateral History of cystoscopy with stent History of lithotripsy laser lithotripsy H/O hand surgery LEFT Fusion of spine Lumbar x2 S/P cervical spinal fusion 05/2015. MAC 3. Grade 1 view. No issues. Full ROM. 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 Beliefs That Will Affect Care: None marital status: Current Living Situation: Family Feels Safe at Home: Yes Safety Concerns: Feels Safe At This Time Assistive Devices: None Physical Exam Physical Exam: Physical Exam: General: In no acute distress, stated age, well-nourished, non-toxic appearing HEENT: Normocephalic, atraumatic, no scleral icterus, pupils around round, symmetrical, and reactive to light, moist mucus membranes, trachea midline, no thyromegaly Chest/Pulm: No respiratory distress, symmetrical chest expansion, clear breath sounds throughout Cardiac: RRR, no murmurs noted Abdomen: Negative for ascites and bruising, normoactive bowel sounds, soft, non-tender to palpation throughout Musculoskeletal: Symmetrical and without signs of acute trauma, upper and lower extremities with full ROM, no atrophy, spasticity, or flaccidity Extremities: Radial, dorsalis pedis, and posterior tibial pulses are intact and symmetrical, no edema noted in the BL LE's Skin: Warm, dry, no rashes , lesions, or scars noted Neuro: Alert and oriented to person, place, month, year, and president, no focal defects, no tremors noted Psych: No acute distress, calm and cooperative during the exam Results & Data Results & Data Vital Signs (Past 12 Hours) Vital Signs Temp Pulse Pulse Resp BP BP Pulse Ox 08/06/23 16:36 57 L 19 147/88 H 97 08/06/23 15:23 98 08/06/23 14:59 68 08/06/23 14:59 65 18 129/80 97 08/06/23 14:44 36.6 C 69 18 176/81 H 97 O2 Del Method 08/06/23 16:36 Room Air 08/06/23 15:23 Room Air 08/06/23 14:59 08/06/23 14:59 Room Air 08/06/23 14:44 Laboratory Results Abnormal lab results 08/06/23 08/06/23 Range/Units 15:00 17:00 RBC 4.48 L (4.70-6.10) M/uL Hgb 13.9 L (14.0-18.0) g/dl Hct 41.3 L (42.0-52.0) % RDW Std Deviation 46.7 H (36.4-46.3) fL Lymph # (Auto) 3.59 H (1.20-3.40) K/uL [place] # (Auto) 0.72 H (0.11-0.59) K/uL Glucose 100 H (70-99(Fasting)) mg/dl Troponin I High Sens 148.6 H* 156.6 H* (0-20) pg/ml C-Reactive Protein 0.64 H (0-0.5) mg/dl Diagnostic Findings Chest X-Ray 08/06/23 15:14 XR chest 1V portable CLINICAL HISTORY: Chest pain, nonspecific COMPARISON STUDY: Chest CT 04/26/2023. Chest radiograph May 22, 2023. FINDINGS: Postoperative findings within the spine are incidentally noted. Lung volumes are normal. Lungs are clear. There is no pneumothorax or pleural effusion. Cardiac size is stable. Mediastinal contours are normal. There is no evidence for pulmonary edema. IMPRESSION: No acute cardiopulmonary findings. No change in appearance of the chest. ACT 112: Negative or not required by law. Electronically signed by: Camron Miller M.D. 08/06/2023 3:58 PM ECG Additional Comments: Normal sinus rhythm Normal ECG When compared with ECG of 22-MAY-2023 14:37, No significant change was found Confirmed by Aki Giles ([id number]) on 08/06/2023 5:56:23 PM Code Status & VTE Plan Code Status full code VTE Prophylaxis Plan VTE Prophylaxis will be ordered: Yes Supervising Physician Co-Signing Physician Notes I personally saw and examined the patient. I verified all smith points and agree with Avery Powell PA-C with the following exceptions and/or additions: 62 year old male presents to the ER with 2 weeks of chest pain. Constant severity 6/10, no radiation, non positional, no worse on exertion or in spiration. Prior DC was more sharp. No reflux or acid taste. O/E HS RRR, no murmurs, Chest CTAB, Abdo SNT, no pedal edema A/P Chest pain - atypical for DC given ongoing and constant pain for last 2 weeks without exertional nature although he has elevated troponin and significant risk factors. ASA, clopidogrel, statin, metoprolol, IV heparin. Consult cardiology. PG Care Time/CCT Total # of Minutes Spent Total Time Spent with Patient: Total time spent is greater than 50% in coordination of care (as documented) at patient's floor/unit and/or counseling patient: [place] [address] INT INP/OBS CARE 3/75MIN Patient Type Established Medical Decision Making High Complexity Diagnoses Chest pain R07.9 Hypertension I10 Hypertension type: unspecified History of coronary artery disease Z86.79 HNP (herniated nucleus pulposus), lumbar M51.26 Tobacco abuse Z72.0 (2) Hypertension Hypertension type: unspecified Qualified Code(s): I10 - Essential (primary) hypertension
--- NOTE | 2023-08-06 17:39 | Cardiology Consultation ---
Date of Consultation August 06, 2023 Assessment & Plan (1) Chest pain: (2) History of coronary artery disease: (3) Stented coronary artery: (4) Hypertension: Plan 62-year-old man with known coronary artery disease (status post multiple prior PCI's) who presents with somewhat atypical syndrome of chest pain for 2 weeks and normal ECG but elevated troponin. Absence of a waxing/waning character weighs against ischemic chest pain, but given his known vascular disease and the lack of an alternative explanation would treat initially as potential acute coronary syndrome, continue aspirin and clopidogrel and initiate IV heparin. Nitroglycerin at home and here seem to have no impact, would use analgesics (including narcotic analgesics if necessary) to control pain. Follow troponin curve and serial ECGs, likely will need to proceed to cardiac catheterization tomorrow to further clarify etiology of chest pain If troponin curve is flat and persistent, could represent a myocarditis. Could have had an infarct 2 weeks ago with postinfarct pain (Ike syndrome), but no ECG findings to suggest this. Check echocardiogram for new wall motion abnormalities. Further recommendations based upon troponin curve overnight and likely cardiac catheterization. History of Present Illness Reason for Consultation: Chest pain History of Present Illness 62-year-old man with history of CAD (ILMI 2004 BMS LCx, OM2 BMS occlusion, aspiration thrombectomy and QUIN x 2010, 30%LAD, RCA [place]) who has noted 2 weeks of constant but gradually decreasing chest discomfort and upon ER evaluation has normal ECG but elevated troponin (148). He has had recurrent chest pain over the years, negative dobutamine stress echocardiograms 2014 and 2017, hospitalized May 2023 with severe hypertension/headache/chest pain but negative troponin and normal echocardiogram, had done well until the recent onset of chest pain. About 2 weeks ago, he noted 8/10 in severity central chest discomfort felt like a heavy weight, denied any dyspnea, diaphoresis, palpitations, presyncope, or syncope. Symptoms persisted and were fairly severe until 3 days ago when the pain severity dropped to 5/10. He was apparently seen in the family medicine residency outpatient clinic today and referred to the ER for further evaluation. He smokes about 10 cigarettes a day. At the time my evaluation, he was still noted ongoing 5/10 chest discomfort. No change with position or respiration. No associated symptoms. Allergies Allergy/AdvReac Type Severity Reaction Status Date / Time chlorhexidine Allergy Intermediate severe Verified 05/22/23 17:01 itching, redness Sulfa (Sulfonamide Allergy Intermediate rash, hives Verified 05/22/23 17:01 Antibiotics) acetaminophen AdvReac Severe elevated Verified 05/22/23 17:01 LFTs ibuprofen AdvReac Severe elevated Verified 05/22/23 17:01 LFTs morphine AdvReac Intermediate shakiness, Verified 05/22/23 17:01 grumpy, disoriented Home Medications Medication Instructions Recorded Confirmed Type ascorbic acid (vitamin C) 1,000 mg 1,000 mg PO QAM ##0 04/07/16 08/06/23 History tablet aspirin 81 mg tablet,delayed 81 mg PO HS 11/14/17 08/06/23 History release clopidogrel 75 mg tablet (Plavix) 75 mg PO QAM 11/14/17 08/06/23 History cyanocobalamin (vitamin B-12) 500 500 mcg PO QAM 11/14/17 08/06/23 History mcg tablet (Vitamin B-12) docusate sodium 100 mg capsule 100 mg PO QAM 11/14/17 08/06/23 History duloxetine 60 mg capsule,delayed 60 mg PO BID 11/14/17 08/06/23 History release (Cymbalta) famotidine 40 mg tablet (Pepcid) 40 mg PO BID 11/14/17 08/06/23 History folic acid 400 mcg tablet 0.4 mg PO QAM 11/14/17 08/06/23 History krill 1,000 mg-omega-3 170 mg-dha 1 cap PO QAM 11/14/17 08/06/23 History 50 mg-epa 80 ey-[id number]-[id number] capsule (krill oil) lorazepam 0.5 mg tablet 0.5 mg PO BID PRN Anxiety 11/14/17 08/06/23 History metoprolol succinate 100 mg 100 mg PO QAM 11/14/17 08/06/23 History tablet,extended release 24 hr multivitamin 1 tab PO QAM 11/14/17 08/06/23 History nitroglycerin 0.4 mg sublingual 0.4 mg sublingual DIRECTED PRN 11/14/17 History tablet (Nitrostat) Chest Pain oxycodone 5 mg capsule 5 mg PO Q8H 11/14/17 08/06/23 History pyridoxine (vitamin B6) 100 mg 100 mg PO QAM 11/14/17 08/06/23 History tablet diazepam 2 mg tablet (Valium) 2 mg PO BID PRN muscle spasm #14 08/17/22 08/06/23 Rx tabs atorvastatin 80 mg tablet 80 mg PO QAM 05/22/23 08/06/23 History cholecalciferol (vitamin D3) 25 1,000 mcg PO DAILY 05/22/23 08/06/23 History mcg (1,000 unit) capsule (Vitamin D3) lisinopril 20 mg tablet 20 mg PO QAM 05/22/23 08/06/23 History zinc gluconate 50 mg tablet 50 mg PO QAM 05/22/23 08/06/23 History spironolactone 25 mg tablet 25 mg PO QAM 08/06/23 08/06/23 History Patient History Medical History Thrombophlebitis CAD (coronary artery disease) HLD (hyperlipidemia) Myocardial Infarction 2003. BPH (benign prostatic hyperplasia) Coronary artery disease 2004- stent x 1, 2011- stents x 2. [place] [facility] [place] Kidney stones Hyperlipidemia GERD (gastroesophageal reflux disease) controlled Anxiety Surgical History H/O tooth extraction removal of infected dental implant 01/19/20 placed on abx. S/P lumbar fusion hardware removal, L2-L3 decompression with fusion: 11/15/17: Grade 1 view, MAC#3, ETT 8.0 at [facility] History of tooth extraction S/P epidural steroid injection lumbar and SI joint injections History of cataract surgery bilateral History of cystoscopy with stent History of lithotripsy laser lithotripsy H/O hand surgery LEFT Fusion of spine Lumbar x2 S/P cervical spinal fusion 05/2015. MAC 3. Grade 1 view. No issues. Full ROM. 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 BP 147/88 mmHg. Pulse 57 bpm regular. Respirations 19 and unlabored. Skin: no ecchymoses or generalized lesions. HEENT: unremarkable. Neck: JVP at the clavicle at 90 degrees, no carotid bruits. Lungs: clear. Cardiac: regular rhythm, normal S1-2, no murmur. Abdomen: benign. Extremities: no edema, pulses intact. Neurologic: normal affect and conversation, nonfocal. Results & Data Laboratory Results Initial troponin 148.6. Troponin at the time of his hospitalization in May was 6.1. Hemoglobin 13.9, normal white count and platelet count. Normal electrolytes, BUN 20, creatinine 1.34. Diagnostic Findings ECG showed sinus rhythm at 64 bpm and was completely unremarkable. Chest x-ray was unremarkable. Echocardiogram May 2023 showed EF 66 5% with no regional wall motion abnormalities, moderate LVH with no significant valvular abnormalities. No change compared with 2017. PG Care Time/CCT Total # of Minutes Spent Total Time Spent with Patient: Total time spent is greater than 50% in coordination of care (as documented) at patient's floor/unit and/or counseling patient: Coding Level of Care Code 12391 IN/OBS CONSULT LVL 4,60M Diagnoses Chest pain R07.9 History of coronary artery disease Z86.79 Stented coronary artery Z95.5 Essential hypertension I10 Hypertension type: essential hypertension (4) Hypertension Hypertension type: essential hypertension Qualified Code(s): I10 - Essential (primary) hypertension
[2023-08-06] MEDS: HYDROmorphone INJ 0.5 MG/0.5 ML SYR IV STA (17:53)
[2023-08-06] MEDS: HEPARIN SOD (PORCINE) 1000 UNIT/ML IV ONE (17:54)
--- NOTE | 2023-08-06 17:56 | Electrocardiogram Report ---
Test Reason : Blood Pressure : / mmHG Vent. Rate : 064 BPM Atrial Rate : 064 BPM P-R Int : 138 ms QRS Dur : 084 ms QT Int : 382 ms P-R-T Axes : 053 034 068 degrees QTc Int : 394 ms Normal sinus rhythm Normal ECG When compared with ECG of 22-MAY-2023 14:37, No significant change was found Confirmed by Aki Giles ([id number]) on 08/06/2023 5:56:23 PM Referred By: Confirmed By:Aki Giles
[2023-08-06 18:02] LABS: C Reactive Protein 0.64 mg/dl (0-0.5)
[2023-08-06] MEDS ORDERED: HYDROmorphone INJ 0.5 MG/0.5 ML SYR IV PRN (18:17)
[2023-08-06] MEDS: PANTOprazole 40 MG in SYRINGE 0 ML IV STA (18:40)
[2023-08-06] MEDS: NICOTINE 14 MG/24 HR PATCH TD SCH (18:44)
[2023-08-06] MEDS ORDERED: LORazepam 0.5 MG TAB PO PRN (20:00)
[2023-08-06] MEDS ORDERED: diazePAM 2 MG TABLET PO PRN (20:00)
[2023-08-06] MEDS: oxyCODONE HCL IR 5 MG TAB (IMMEDIATE RELEASE) PO SCH (20:51)
[2023-08-06] MEDS: FAMOTIDINE 40 MG TABLET PO SCH (21:15)
[2023-08-06] MEDS: DULoxetine HCL 60 MG CAP PO SCH (21:16)
[2023-08-06 23:33] LABS: ANTI-Xa, UFH(UnfractionatedHep 0.47 IU/ml (0.3-0.7)
--- OUTSIDE RECORDS SUMMARY | 2023-08-07 07:50 | External Medical Summary | Continuity of Care Document ---
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 Name Role Phone Michael Bishop Primary Care Physician [phone] Encounter [facility] [id number] Date(s): 05/27/23 - 05/27/23 [facility] [address] [facility] [address], [facility] [address] [place], [place] [phone] Encounter Diagnosis Essential (primary) hypertension(Final) - Discharge Disposition: Home or Self Care Attending Physician: MD Huerta Thomas E Referring Physician: MD Huerta Thomas E Allergies, Adverse Reactions, Alerts Substance Reaction Severity [...] TAKE 1 TABLET BY MOUTH ATBEDTIME., Pharmacy: [facility] Start Date: 10/17/22 Status: Ordered cannabidiol Start: 04/16/19 11:20:00 EST, 1 dose, 1 dose daily Start Date: 04/16/19 Status: Ordered CBD oil Start: 11/17/18 14:11:00 EDT, CBD oil Start Date: 11/17/18 Status: Ordered clopidogrel 75 mg oral tablet Start: 03/05/23 9:51:00 EST, 1 tab, PO, Daily, Disp# 90 tab, Refills: 3, Pharmacy: [facility] [id number] Start Date: 03/05/23 Status: Ordered docusate sodium 100 mg oral capsule Start: 12/23/17 9:38:03 EDT, See Instructions, Disp# 360, Refills: 2, TAKE 2 CAPSULES TWICE A DAY NEEDED, [id number] Start Date: 12/23/17 Status: Ordered DULoxetine 60 mg oral delayed release capsule Start: 04/29/23 12:12:00 EST, 1 cap, PO, bid, Disp# 180 unknown unit, Refills: 4, Pharmacy: [facility] Start Date: 04/29/23 Status: Ordered famotidine 20 mg oral tablet Start: 01/14/23 11:08:00 EST, 1 tab, PO, bid, Disp# 180 tab, Refills: 2, Pharmacy: [facility] Start Date: 01/14/23 Stop Date: 10/11/23 Status: Ordered lisinopril 20 mg oral tablet Start: 01/14/23 11:23:00 EST, 1 tab, PO, Daily, Disp# 30 tab, Refills: 3, Pharmacy: [facility] Start Date: 01/14/23 Stop Date: 05/14/23 Status: Ordered LORazepam 0.5 mg oral tablet Start: 05/06/23 10:13:00 EST, 1 tab, PO, q12h, Disp# 60 tab, Refills: 0, Note to Pharmacy: no driving or operating machines if cognitively impaired, PRN: as needed for anxiety, Pharmacy: [facility][id number] Start Date: 05/06/23 Status: Ordered Metoprolol Succinate ER 100 mg oral tablet, extended release Start: 01/28/23 19:56:00 EST, 1 tab, PO, Daily, Disp# 90 tab, Refills: 3, Pharmacy: [id number] Start Date: 01/28/23 Status: Ordered multivitamin Start: 03/25/18 12:25:00 EST, 1 tab, PO, Daily Start Date: 03/25/18 Status: Ordered nitroglycerin 0.4 mg sublingual tablet Start: 02/07/18 13:14:27 EST, See Instructions, Disp# 25, TAKE 1 TAB UNDER TONGUE EVERY 5 MINUTES: NEEDED FOR CHEST PAIN, Pharmacy: [facility]/pharmacy #[id number] Start Date: 02/07/18 Status: Ordered oxyCODONE 5 mg oral tablet Start: 05/06/23 10:13:00 EST, 5 mg =, PO, q8h, Disp# 93 tab, Refills: 0, PRN: as needed for pain, [id number] Start Date: 05/06/23 Stop Date: 06/06/23 Status: Ordered pantoprazole 40 mg oral delayed release tablet See Instructions, Disp# 30 tab, Refills: 5, TAKE 1 TABLET BY MOUTH EVERY DAY, Pharmacy: [facility] [id number] Start Date: 01/05/20 Status: Ordered triamcinolone 0.025% topical ointment Start: 02/29/16 15:00:00, 1 appl, topical, bid, Disp# 60 g, Refills: 3, apply a thin film to both arms and both legs afflicted with psoriasis, Pharmacy: [facility] Start Date: 02/29/16 Status: Ordered Vitamin [...] pulmonary nodule Confirmed Active Odynophagia Confirmed Active 63646 2and numbness in hands and arms Procedures [...] Sim 8RETRIEVAL Results Laboratory List Name Date Basic Metabolic Panel (BASIC METAB PANEL ) 05/27/23 Request to FAX Report (First Location) ( ACC NO TO BE FAXED) 05/27/23 Most recent to oldest [Reference Range]: 1 eGFR CKD-EPI [>60 mL/min/1.73 m2] 77 mL/ min/1.73 m2 1 (05/27/23 11:54 AM) Estimated CrCl 71.26 mL/min (05/27/23 12:46 PM) Phone No [phone] (05/27/23 11:54 AM) Faxed on: 05/28/23 09:00 (05/27/23 11:54 AM) Anion Gap [5-14 mmol/L] 7 mmol/L (05/27/23 11:54 AM) BUN [7-20 mg/dL] 17 mg/dL (05/27/23 11:54 AM) Ca [8.4-10.2 mg/dL] 10.3 mg/dL *HI* (05/27/23 11:54 AM) Cl- [96-107 mmol/L] 108 mmol/L *HI* (05/27/23 11:54 AM) HCO3 [22-30 mmol/L] 23 mmol/L (05/27/23 11:54 AM) Cret [0.70-1.30 mg/dL] 1.08 mg/dL (05/27/23 11:54 AM) Glu [74-106 mg/dL] 100 mg/dL (05/27/23 11:54 AM) K [3.5-5.1 mmol/L] 5.2 mmol/L *HI* (05/27/23 11:54 AM) Na [137-145 mmol/L] 138 mmol/L (05/27/23 11:54 AM) 1Result Comment: Testing Performed By: Dept of Pathology [facility] [address], [address], [place] [address] 2Result Comment: Testing Performed By: Dept of Pathology [facility] [address], [address] [place] [address] Social History Social History Type Response Tobacco [...] Med Member Role: Lifetime Relationship Address: Address: [address] [place] [address] Name: DO Cruz Jill M Position: Physician - Anesthesiologist Member Role: Lifetime Relationship Address: Address: [address] [place] [address] Name: MD Bishop Christopher Position: Physician - Family Med Member Role: Primary Care Provider Address: Address: [address] [place] [address] Care Team Related Persons Name: MEGAN RAMON Address: home [address] [facility], [id number] Name: MEGAN RAMON Address: home [address] [place], [place] [id number] Name: RACHEL RAMON Address: home [address] [place], [place] [phone] Name: RACHEL RAMON Address: home [address] [place], [place] [id number] Name: RACHEL RAMON Address: home [address] [place], [place] [phone] Name: RACHEL RAMON Address: home [address] [place], [place] [phone]
--- NOTE | 2023-08-07 08:00 | Ultrasound Report ---
US venous doppler LE BI CLINICAL HISTORY: chest pressure, hx PE TECHNIQUE: Bilateral lower extremity real-time compression venous ultrasound with Color Doppler imagi ng. Utilizing real-time ultrasonic imaging multiple real time high-resolution ultrasonic images with compression and noncompression maneuvers of the deep venous system in addition to color doppler imagi ng were performed from the common femoral vein through the proximal calf veins. COMPARISON: None available at the time of this dictation. FINDINGS/IMPRESSION: Currently there is normal compressibility of the deep venous system from the common femoral vein thro ugh the proximal calf veins. No superficial venous thrombosis is identified. ACT 112: Negative or not required by law. Electronically signed by: Hector Perera M.D. 08/07/2023 7:58 AM
[2023-08-07] MEDS: CLOPIDOGREL BISULFATE 75 MG TAB PO SCH (08:38)
[2023-08-07] MEDS: SPIRONOLACTONE 25 MG TAB PO SCH (08:38)
[2023-08-07] MEDS: METOPROLOL SUCC 50MG EXT REL TAB PO SCH (08:38)
[2023-08-07] MEDS: ATORVASTATIN 40 MG TAB PO SCH (08:38)
[2023-08-07] MEDS: lisinopril 20 MG TAB PO SCH (08:39)
[2023-08-07] MEDS: OPTIRAY 320 125ml IV ONE (11:07)
--- NOTE | 2023-08-07 11:33 | Hospitalist Progress Note ---
Date of Service August 07, 2023 Assessment & Plan (1) Chest pain: Plan: - high sensitivity troponin trending downwards overnight 147.6 -> 117.4 - previous hx of PE, venous doppler of bilateral lower extremities negative for clots - will obtain CTA of chest to further rule out PE - evaluated by cardiology, dobutamine stress test scheduled after CTA chest - also, continue aspirin, Plavix, statin, and metoprolol - continue heparin drip for DVT prophylaxis - remain NPO - continue monitoring PT/INR (2) Hypertension: Plan: - Currently stable - Continue Lisinopril, spironolactone, and metoprolol (3) HNP (herniated nucleus pulposus), lumbar: Plan: - continue home pain regimen (4) Tobacco abuse: Plan: - patient mentioned numerous stressors in his life for the last 2 years - counciled pateint on smoking cessation - patient is aware that he needs to quit and is open to counciling - nicotine patch ordered PRN Plan Code Status: Full DVT prophylaxis: heparin Diet: NPO Admission and Anticipated Discharge Date Admission Date: August 06, 2023 Subjective Hospital Day 2. Pateint is doing well and reports no overnight events. No acute distress, denies chest pain, N/V, diaphoresis, palpitations. Physical Exam Physical Exam: General: In no acute distress, stated age, well-nourished, non-toxic appearing HEENT: Normocephalic, atraumatic Chest/Pulm: No respiratory distress, symmetrical chest expansion, clear breath sounds throughout, no increased work of breathing Cardiac: RRR, no murmurs noted Abdomen: Negative for ascites and bruising, normoactive bowel sounds, soft, non-tender to palpation throughout Extremities: Radial, dorsalis pedis, and posterior tibial pulses are intact and symmetrical, no edema noted in the BL LE's Skin: Warm, dry, no rashes , lesions, or scars noted Psych: No acute distress, calm and cooperative during the exam Results & Data Results & Data Vital Signs (Past 12 Hours) Vital Signs Pulse Pulse Resp BP Pulse Ox O2 Del Method 08/07/23 08:02 63 08/07/23 07:31 68 18 133/71 93 Room Air 08/07/23 04:03 61 18 126/74 94 Room Air 08/07/23 00:34 61 18 137/68 94 Room Air 08/07/23 00:34 94 Room Air 08/06/23 23:02 59 L (2) Hypertension Hypertension type: unspecified Qualified Code(s): I10 - Essential (primary) hypertension
--- NOTE | 2023-08-07 12:01 | CT Scan Report ---
CT ANGIOGRAPHY OF THE CHEST, PULMONARY EMBOLUS PROTOCOL CLINICAL HISTORY: Chest pain. Shortness of breath. COMPARISON STUDY: Chest CT April 26, 2023. Chest radiograph performed earlier today. TECHNIQUE: Following IV administration of 120 mL of Optiray, helical axial images of the chest were o btained utilizing the pulmonary embolus protocol. Maximal intensity projections and sagittal and cor onal reformats were viewed on an independent 3D workstation. IV contrast was administered without co mplication. Automated exposure control was utilized for the study. A dose lowering technique was ut ilized adhering to the principles of ALARA. CT DOSE: 853.71 mGy.cm FINDINGS: No pulmonary emboli are identified. There is no thoracic aortic dissection. Size of the he art is normal. Is no pericardial effusion. Prominent bilateral hilar lymph nodes are unchanged since CT of January 29, 2018. These are benign. There is no pneumothorax or pleural effusion. Subpleural g roundglass right lower lobe opacities are unchanged from earlier exams. Multiple small pulmonary nodu les measuring up to 5 mm are unchanged since chest CT of April 26, 2023. These are also similar to earlier CT of January 29, 2018. Mild emphysema is present. No acute fractures within the bony thora x. Water attenuation right upper pole renal lesion represents a cyst. A few suspected hepatic cysts a re present. IMPRESSION: 1. No pulmonary emboli identified. 2. No acute intrathoracic findings. 3. Stable subpleural groundglass right lower lobe opacities and scattered pulmonary nodules within th e lungs. These are likely benign and can be assessed on follow-up exams to ensure stability. 4. Mild emphysema. ACT 112: Negative or not required by law. Electronically signed by: Camron Miller M.D. 08/07/2023 11:59 AM
[2023-08-07] MEDS: ATROPINE SULFATE 0.1 MG/ML 10ML SYR IV ONE (13:36)
[2023-08-07] MEDS: DOBUTamine HCL 12.5 MG/ML 20 ML VIAL IV ONE (13:36)
[2023-08-07] MEDS: METOPROLOL TARTRATE 1 MG/ML VIAL IV ONE (13:36)
--- NOTE | 2023-08-07 13:49 | Discharge Summary ---
Date of Service August 07, 2023 Admission HPI Per Admitting Provider Alphonso is a 62 year old male with a PMH significant for poorly controlled HTN, CAD S/P PCI with OM 2 BMS occlusion s/p aspiration thrombectomy and QUIN placement on 04/30/2010, tobacco abuse, chronic back pain due to herniated nucleus pulposus, and BPH who presented to the [facility] ED on 08/06/23 for ongoing chest pain with radiation into the BL arms over the past 2 weeks. On arrival to the ED he was noted to be hypertensive at 176/81 but otherwise stable. Labs were significant for an initial high sen trop of 148 with 2 hour repeat in process. Chest xray was read as negative for acute findings. ECG shows NSR without acute ST segment or T-wave changes. Cardiology was consulted and evaluated the patient; recommended starting the patient on a hearing drip with plans for heart cath tomorrow (08/06). Prior to admission the patient was given 324 mg aspirin, 0.4 mg SL nitroglycerin, 40 mg IV pantoprazole, and started on a low-dose, weight-based heparin drip w/bolus. At the time of the exam the patient was sitting in bed in no acute distress. States that he has been experiencing almost constant substernal chest pressure over the past 2 weeks. Has associated intermittent BL arm numbness but denies neck, jaw, or back pain. Has tried aspirin and nitroglycerin at home without changes in symptoms. Does not change with rest or exertion, and does not change with position. When asked, he states that this does not feel like the chest pain he experienced previously when he required QUIN placement in 2003 and 2010. Still smoking approximately 10 cigarettes daily, but is now very motivated to quit as he wants to be in his grandchildren's lives moving forward. Denies recent fever, chills, cough, hemoptysis, SOB, abd pain, nausea, vomiting, diarrhea, dysuria, hematuria, melena, LE swelling, and recent trauma. He is a full code and his is his POA if he cannot make decisions himself. Please refer to Dr. Tran's attestation for any changes to the treatment plan Principal Diagnosis Myocarditis Discharge Exam Constitutional: well-appearing, no acute distress HEENT: NCAT, no conjunctival injection CV: regular rhythm, no murmur appreciated, extremities well-perfused, no LE edema Resp: CTABL, no wheezes/rales/rhonchi appreciated, no increased work of breathing GI: soft, nondistended, nontender, BS normoactive MSK: no gross deformities appreciated Skin: warm, dry, no rash appreciated Neuro: alert, oriented, no focal neurologic deficit appreciated Discharge Data Allergies Allergy/AdvReac Type Severity Reaction Status Date / Time chlorhexidine Allergy Intermediate severe Verified 05/22/23 17:01 itching, redness Sulfa (Sulfonamide Allergy Intermediate rash, hives Verified 05/22/23 17:01 Antibiotics) acetaminophen AdvReac Severe elevated Verified 05/22/23 17:01 LFTs ibuprofen AdvReac Severe elevated Verified 05/22/23 17:01 LFTs morphine AdvReac Intermediate shakiness, Verified 05/22/23 17:01 grumpy, disoriented Consultations 08/06/23 16:00 ED Decision to Admit Stat 08/06/23 18:11 Consult Cardiology Routine Procedures Performed Operation Date: 08/07/23 09:30 <No data on this case meets the specified criteria> Ordered Studies 08/06/23 18:08 US venous doppler LE BI Routine 08/07/23 06:47 CL Cath Imgs for PACS use only Routine 08/07/23 09:59 CT angio chest PE protocol Urgent Hospital Course (1) Chest pain: - Elevated troponin on admission, downtrending 147.6 -> 117.4. No ischemic changes on EKG - previous hx of PE, venous doppler of bilateral lower extremities negative for clots, CTA without PE - evaluated by cardiology, dobutamine stress test wnl - etiology for elevated troponin demand ischemia vs myocarditis-> cardiology recommending repeat troponin next week with PCP recommended - continue aspirin, Plavix, statin, and metoprolol (2) Hypertension: - Continue Lisinopril and metoprolol (3) HNP (herniated nucleus pulposus), lumbar: - continue home pain regimen (4) Tobacco abuse: - patient mentioned numerous stressors in his life for the last 2 years - counciled pateint on smoking cessation - patient is aware that he needs to quit and is open to counciling Total Time Total Time Spent Total Time Spent (In Minutes): See attending attestation Discharge Plan Discharge Items Patient Disposition: Home - Self-Care Reason For Visit: CHEST PAIN, NSTEMI Discharge Diagnosis: Elevated Troponin Activity: Per Instructions section Non-emergency contact: Primary Care Provider Call non-emergency contact if: you have any medication questions Follow-up/Referrals: Michael Bishop MD [Primary Care Provider] - Diet: Regular Addtl Attending Provider Instructions: You were admitted with chest pain. We did at CT scan to rule out a repeat pulmonary embolism and a cardiac stress test that did not show any abnormalities. The elevation in your troponins could be due to myocarditis, we would like you to follow up in the office next week so that we can to repeat your troponin in the office next week. We did not make any changes to your medications. We got you at appointment at the [facility] office for 08/13/[address] Beba Chen. If you need to change this appointment please call the office. If your chest pain returns please return to the ED for evaluation. Pending Studies at Discharge: No Stand-Alone Forms: My [employer], Smoking Cessation Medications and DC Order Prescriptions: Continued ascorbic acid (vitamin C) 1,000 mg Tablet 1,000 mg PO QAM Qty: 0 multivitamin Tablet 1 tab PO QAM famotidine [Pepcid] 40 mg Tablet 40 mg PO BID metoprolol succinate 100 mg Tablet Extended Release 24 Hr 100 mg PO QAM clopidogrel [Plavix] 75 mg Tablet 75 mg PO QAM folic acid 400 mcg Tablet 0.4 mg PO QAM aspirin 81 mg Tablet,Delayed Release (Dr/Ec) 81 mg PO HS lorazepam 0.5 mg Tablet 0.5 mg PO BID PRN (Reason: Anxiety) cyanocobalamin (vitamin B-12) [Vitamin B-12] 500 mcg Tablet 500 mcg PO QAM oxycodone 5 mg Capsule 5 mg PO Q8H nitroglycerin [Nitrostat] 0.4 mg Tablet, Sublingual 0.4 mg Sublingual DIRECTED PRN (Reason: Chest Pain) Patient Comments: "i have not used it for awhile" docusate sodium 100 mg Capsule 100 mg PO QAM pyridoxine (vitamin B6) 100 mg Tablet 100 mg PO QAM duloxetine [Cymbalta] 60 mg Capsule,Delayed Release(Dr/Ec) 60 mg PO BID krill oil 1,734-310-59-80 mg Capsule 1 cap PO QAM diazepam [Valium] 2 mg tablet 2 mg PO BID PRN (Reason: muscle spasm) Qty: 14 0RF atorvastatin 80 mg tablet 80 mg PO QAM lisinopril 20 mg tablet 20 mg PO QAM zinc gluconate 50 mg Tablet 50 mg PO QAM cholecalciferol (vitamin D3) [Vitamin D3] 25 mcg (1,000 unit) Capsule 1,000 mcg PO DAILY Rx Instructions: PT UNSURE OF STRENGTH Discontinued spironolactone 25 mg tablet 25 mg PO QAM Discharge Orders: Discharge Order (Routine); Ordered 08/07/23 Ordered By: Beba Chen Admission Data Admit Date/Time: 08/06/23 17:47 Attending Provider: Em Beth Admit Provider: John Tran Primary Care Provider: Michael Bishop Other Providers: John Tran; Aki Giles Other Interventions: Discharge Summary Assessment (RN) Last Done: 08/07/23 14:28 Supervising Physician Co-Signing Physician Notes Attending Physician Supervision Note: I independently interviewed and examined the patient and verified the smith history and physical, reviewed labs and image studies and agree with findings and care plan noted above. Resident Activity Tracking Resident Involvement: Resident Care Provided Care Provided: Adult Hospital Medicine
--- NOTE | 2023-08-07 13:54 | Electrocardiogram Report ---
Test Reason : Blood Pressure : / mmHG Vent. Rate : 060 BPM Atrial Rate : 060 BPM P-R Int : 128 ms QRS Dur : 082 ms QT Int : 410 ms P-R-T Axes : 046 023 045 degrees QTc Int : 410 ms Normal sinus rhythm Normal ECG When compared with ECG of 06-AUG-2023 14:51, No significant change was found Confirmed by Aki Giles ([id number]) on 08/07/2023 1:53:51 PM Referred By: REFERRED SELF Confirmed By:Aki Giles
--- NOTE | 2023-08-07 14:55 | XCELERA ---
[id number] \\[id number]
--- NOTE | 2023-08-07 14:55 | XCELERA ---
[id number] \\[email or web address]\[id number]
[2023-08-07] MEDS ORDERED: ASPIRIN 81 MG ECTAB PO SCH (21:00)
== END 2023-08-07 14:43 | disposition home or self-care (01) | DRG 313 ==
LOC: ED 14:43 → SUATTDRO 17:47 → EDINP 17:47 → 1E 20:00

== ENCOUNTER 2023-10-08 02:11 | Inpatient (IN) ==
--- NOTE | 2023-10-08 03:03 | Emergency Department Note ---
Impression & Plan ST elevation (STEMI) myocardial infarction ED Provider Note NAME: FERNANDO RAMON AGE: 62 SEX: M : 1960 ARRIVES VIA: Ambulance INFORMANT: Patient, ED PROVIDER(S): Ortiz Pham MD CHIEF COMPLAINT: Chest pain HPI: This is 62-year-old male with history of previous CAD/stenting presenting for midsternal chest pain. Patient has been around midnight he began having pain in the center of his chest going to his throat. He notes it felt somewhat similar but fairly different from his previous MIs in 2003 and 2011. He had 2 stents in total. He notes took 3 stable nitro at home as well as he was given 3 sublingual nitro by EMS. Also given 324 of aspirin. Patient notes continued symptoms, burning in his chest. No pleurisy or shortness of breath. ROS: See above HPI for pertinent positives & negatives. A total of 10 systems reviewed and were otherwise negative. PHYSICAL EXAMINATION: General: resting comfortably in no acute distress Head: Normocephalic and atraumatic Eyes: Normal inspection, extraocular muscles intact Ear, nose, throat: Normal external exam Neck: Normal range of motion Respiratory: lungs clear to auscultation bilaterally Cardiovascular: Regular rate/rhythm, no murmur GI: soft, nontender, no guarding or rebound Extremities: nontender, moves all extremities Neuro: The patient awake and alert, appropriately conversive, no focal deficits, symmetric faces Skin: Warm, dry, and intact MEDICAL DECISION MAKING: This is a 62-year male with history of CAD and stents presenting for midsternal chest pain. Patient notes his pain has minimized and is getting nitroglycerin at home as well as EMS. He does note some slight burning sensation. Will rule out ACS with EKG, troponin, basic blood work. Will try GI cocktail as patient does describe burning sensation. -Patient notes that his symptoms are improved after Maalox. -Chest Xray independently interpreted by me showing no pneumothorax, focal opacity, or pleural effusions. -First ECG independently interpreted by me with normal sinus rhythm, rate of 67, normal axis, normal AL, normal QRS, normal QTc, no ST segment elevations consistent with STEMI criteria -Was called to bedside as patient had recurrence of his pain, is writhing in stretcher. Not currently diaphoretic but does endorse worsening chest pain. -Second ECG independently interpreted by me with normal sinus rhythm, rate of 57, normal axis, normal AL, normal QRS, normal QTc, subtle ST elevation in the inferior leads, 2 3 and aVF with T wave inversion in aVL -Patient's troponin is negative. Discussed care with Dr. Chung who recommends activating heart alert. Will do heparin bolus/drip at this time -Discussed care Dr. Ordaz for admission Differential diagnosis: ACS, PE, dissection, pneumonia ER treatment provided: See below Diagnostics interpreted by me: ECG: See above Cardiac Monitoring: An order was placed for continuous cardiac monitoring. The monitor shows a rate of 63 with sinus rhythm. Laboratory studies: As stated above and show below. Imaging studies: See below. Critical Care Note: I have personally spent 35 minutes of critical care time in the direct management of this patient. This includes bedside care, interpretation of diagnostic studies, and testing, discussion with consultants, patient, and family members, and other required patient management activities. This 35 minutes is in excess of all separately billable procedures. Past Med/Surg History Problem List (Updated 10/08/23 @ 06:58 by Ortiz Pham MD) ST elevation (STEMI) myocardial infarction (Acute) STEMI (ST elevation myocardial infarction) Acute non-ST elevation myocardial infarction (NSTEMI) (Acute) History of coronary artery disease (Acute) Hypertension (Acute) Precordial chest pain (Acute) Stented coronary artery Sacroiliitis Acute exacerbation of chronic low back pain (Acute) Cervical stenosis of spinal canal HNP (herniated nucleus pulposus), lumbar (Acute) Intractable low back pain (Acute) Neuropathy (Chronic) Precordial chest pain Encounter for pre-operative examination RADHA (acute kidney injury) (Chronic) Tobacco abuse (Chronic) Chronic back pain Chest pain GERD (gastroesophageal reflux disease) Preoperative cardiovascular examination Depression Hypertension (Chronic) Pulmonary embolism (Chronic) 2004, spontaneous- previously on coumadin for short period of time Lumbar stenosis with neurogenic claudication (Acute) Medical History Thrombophlebitis CAD (coronary artery disease) HLD (hyperlipidemia) Myocardial Infarction 2003. BPH (benign prostatic hyperplasia) Coronary artery disease 2004- stent x 1, 2012- stents x 2. [place] [facility] [place] Kidney stones Hyperlipidemia GERD (gastroesophageal reflux disease) controlled Anxiety Surgical History H/O tooth extraction removal of infected dental implant 01/19/20 placed on abx. S/P lumbar fusion hardware removal, L2-L3 decompression with fusion: 11/15/17: Grade 1 view, MAC#3, ETT 8.0 at [facility] History of tooth extraction S/P epidural steroid injection lumbar and SI joint injections History of cataract surgery bilateral History of cystoscopy with stent History of lithotripsy laser lithotripsy H/O hand surgery LEFT Fusion of spine Lumbar x2 S/P cervical spinal fusion 05/2015. MAC 3. Grade 1 view. No issues. Full ROM. Hx of inguinal hernia repair left History of cardiac cath 2003 - STENT 2010- STENTS Family History Other No family history of adverse response to anesthesia Social History Smoking Status: Current every day smoker Tobacco Type: Cigarettes Cigarettes Per Day: 20; Second Hand Exposure: Yes; Do You Dip or Chew Tobacco: No; Hx Alcohol Use: No Hx Substance Use: Yes Last Used Substance: Hours (ago) Last Used Substance Other:: thc Preferred Language: Chilean Communication Ability: Effective Visual Impairment: No Limitations Hearing Ability: Normal Core Dropper Required: Yes Beliefs That Will Affect Care: None marital status: Current Living Situation: Family Feels Safe at Home: Yes Assistive Devices: Cane Allergies Allergies Allergy/AdvReac Type Severity Reaction Status Date / Time chlorhexidine Allergy Intermediate severe Verified 10/08/23 02:38 itching, redness Sulfa (Sulfonamide Allergy Intermediate rash, hives Verified 10/08/23 02:38 Antibiotics) acetaminophen AdvReac Severe elevated Verified 10/08/23 02:38 LFTs ibuprofen AdvReac Severe elevated Verified 10/08/23 02:38 LFTs morphine AdvReac Intermediate shakiness, Verified 10/08/23 02:38 grumpy, disoriented Home Meds Home Medications Medication Instructions Recorded Confirmed ascorbic acid (vitamin C) 1,000 mg 1,000 mg PO QAM ##0 04/07/16 10/08/23 tablet aspirin 81 mg tablet,delayed 81 mg PO HS 11/14/17 10/08/23 release clopidogrel 75 mg tablet (Plavix) 75 mg PO QAM 11/14/17 10/08/23 cyanocobalamin (vitamin B-12) 500 500 mcg PO QAM 11/14/17 10/08/23 mcg tablet (Vitamin B-12) duloxetine 60 mg capsule,delayed 60 mg PO BID 11/14/17 10/08/23 release (Cymbalta) folic acid 400 mcg tablet 0.4 mg PO QAM 11/14/17 10/08/23 lorazepam 0.5 mg tablet 0.5 mg PO Q12H Anxiety 11/14/17 10/08/23 metoprolol succinate 100 mg 100 mg PO QAM 11/14/17 10/08/23 tablet,extended release 24 hr multivitamin 1 tab PO QAM 11/14/17 10/08/23 oxycodone 5 mg capsule 5 mg PO Q8H Pain 11/14/17 10/08/23 pyridoxine (vitamin B6) 100 mg 100 mg PO QAM 11/14/17 10/08/23 tablet cholecalciferol (vitamin D3) 25 1,000 mcg PO DAILY 05/22/23 10/08/23 mcg (1,000 unit) capsule (Vitamin D3) lisinopril 20 mg tablet 20 mg PO QAM 05/22/23 10/08/23 zinc gluconate 50 mg tablet 50 mg PO QAM 05/22/23 10/08/23 Total Beets 1 dose PO DAILY 09/06/23 10/08/23 famotidine 20 mg tablet 20 mg PO BID 09/06/23 10/08/23 krill 1,000 mg-omega-3 230 mg-dha 1 cap PO QAM 09/06/23 10/08/23 60 [id number]-astaxan capsule (MegaRed Birchleaf-3 Krill Oil) spironolactone 25 mg tablet 25 mg PO QAM 09/06/23 10/08/23 Previous Rx's Medication Instructions Recorded nitroglycerin 0.4 mg sublingual 0.4 mg sublingual DIRECTED PRN 08/09/23 tablet (Nitrostat) Chest Pain #20 tabs Results & Data (ED) Vital Signs Vital Signs - 24 hr 10/08/23 02:15 10/08/23 02:15 10/08/23 02:22 Temperature Temperature Source Pulse Rate Pulse Rate [Apical] 67 Pulse Rate from SpO2 Sensor Pulse Rhythm Pulse Rhythm [Apical] Regular Respiratory Rate 18 Respiratory Effort / Characteristics Non-Labored Spontaneous Respiratory Depth Normal Respiratory Pattern Regular Blood Pressure 110/68 Blood Pressure [Left Arm] 110/65 Blood Pressure Mean 75 Blood Pressure Mean [Left Arm] 80 Pulse Oximetry 94 94 Oxygen Delivery Method Room Air Room Air Sepsis Recent Fever Within 48 Hours Sepsis New/Unexplained Change in Mental Status Sepsis Action Taken by Nursing 10/08/23 02:25 10/08/23 02:30 10/08/23 02:34 Temperature 36.7 C Temperature Source Oral Pulse Rate 66 66 67 Pulse Rate [Apical] Pulse Rate from SpO2 Sensor 66 Pulse Rhythm Regular Pulse Rhythm [Apical] Respiratory Rate 20 18 Respiratory Effort / Characteristics Non-Labored Spontaneous Respiratory Depth Normal Respiratory Pattern Regular Blood Pressure 100/62 110/65 Blood Pressure [Left Arm] Blood Pressure Mean 79 80 Blood Pressure Mean [Left Arm] Pulse Oximetry 95 94 Oxygen Delivery Method Room Air Room Air Sepsis Recent Fever Within 48 Hours No Sepsis New/Unexplained Change in Mental Status No Sepsis Action Taken by Nursing No Action Required 10/08/23 02:45 10/08/23 03:00 10/08/23 03:30 Temperature Temperature Source Pulse Rate 67 62 61 Pulse Rate [Apical] Pulse Rate from SpO2 Sensor 61 61 Pulse Rhythm Regular Pulse Rhythm [Apical] Respiratory Rate 18 16 15 Respiratory Effort / Characteristics Respiratory Depth Respiratory Pattern Blood Pressure 123/76 125/63 Blood Pressure [Left Arm] Blood Pressure Mean 101 87 Blood Pressure Mean [Left Arm] Pulse Oximetry 94 96 95 Oxygen Delivery Method Room Air Room Air Room Air Sepsis Recent Fever Within 48 Hours Sepsis New/Unexplained Change in Mental Status Sepsis Action Taken by Nursing 10/08/23 04:00 10/08/23 04:00 10/08/23 04:07 Temperature Temperature Source Pulse Rate 59 L Pulse Rate [Apical] 61 68 Pulse Rate from SpO2 Sensor 59 L Pulse Rhythm Pulse Rhythm [Apical] Regular Respiratory Rate 20 15 21 Respiratory Effort / Characteristics Non-Labored Spontaneous Non-Labored Spontaneous Respiratory Depth Normal Normal Respiratory Pattern Regular Regular Blood Pressure 187/97 H Blood Pressure [Left Arm] 187/97 H 250/118 H Blood Pressure Mean 142 Blood Pressure Mean [Left Arm] 127 162 Pulse Oximetry 100 99 99 Oxygen Delivery Method Room Air Room Air Room Air Sepsis Recent Fever Within 48 Hours Sepsis New/Unexplained Change in Mental Status Sepsis Action Taken by Nursing 10/08/23 04:10 10/08/23 04:10 10/08/23 04:33 Temperature Temperature Source Pulse Rate 62 63 Pulse Rate [Apical] 66 Pulse Rate from SpO2 Sensor 62 63 Pulse Rhythm Pulse Rhythm [Apical] Regular Respiratory Rate 18 16 18 Respiratory Effort / Characteristics Non-Labored Spontaneous Respiratory Depth Normal Respiratory Pattern Regular Blood Pressure 154/90 H 133/68 Blood Pressure [Left Arm] 154/90 H Blood Pressure Mean 110 89 Blood Pressure Mean [Left Arm] 111 Pulse Oximetry 98 98 96 Oxygen Delivery Method Room Air Room Air Room Air Sepsis Recent Fever Within 48 Hours Sepsis New/Unexplained Change in Mental Status Sepsis Action Taken by Nursing 10/08/23 05:00 10/08/23 05:30 10/08/23 05:30 Temperature Temperature Source Pulse Rate 63 Pulse Rate [Apical] 65 Pulse Rate from SpO2 Sensor 63 66 Pulse Rhythm Pulse Rhythm [Apical] Regular Respiratory Rate 16 16 Respiratory Effort / Characteristics Non-Labored Spontaneous Respiratory Depth Normal Respiratory Pattern Regular Blood Pressure 126/71 151/70 H Blood Pressure [Left Arm] 151/70 H Blood Pressure Mean 87 97 Blood Pressure Mean [Left Arm] 97 Pulse Oximetry 97 95 96 Oxygen Delivery Method Room Air Room Air Room Air Sepsis Recent Fever Within 48 Hours Sepsis New/Unexplained Change in Mental Status Sepsis Action Taken by Nursing 10/08/23 06:00 Temperature Temperature Source Pulse Rate 63 Pulse Rate [Apical] Pulse Rate from SpO2 Sensor Pulse Rhythm Pulse Rhythm [Apical] Respiratory Rate 17 Respiratory Effort / Characteristics Respiratory Depth Respiratory Pattern Blood Pressure Blood Pressure [Left Arm] Blood Pressure Mean Blood Pressure Mean [Left Arm] Pulse Oximetry 97 Oxygen Delivery Method Room Air Sepsis Recent Fever Within 48 Hours Sepsis New/Unexplained Change in Mental Status Sepsis Action Taken by Nursing Laboratory Data 10/08/23 02:25 10/08/23 02:25 Lab Results 10/08/23 10/08/23 Range/Units 02:25 04:16 WBC 8.89 (4.8-10.8) K/ul RBC 3.86 L (4.70-6.10) M/uL Hgb 12.2 L (14.0-18.0) g/dl Hct 35.3 L (42.0-52.0) % MCV 91.5 (80.0-100.0) fL MCH 31.6 (25.0-34.0) pg MCHC 34.6 (32.0-36.0) g/dL RDW Std Deviation 44.0 (36.4-46.3) fL RDW Coeff of Jeanette 13.3 (11.5-14.5) % Plt Count 233 (130-400) K/uL MPV 11.0 (9.4-12.4) fL Immature Gran % (Auto) 0.2 % Neut % (Auto) 50.7 % Lymph % (Auto) 35.9 % [place] % (Auto) 6.9 % Eos % (Auto) 6.0 % Baso % (Auto) 0.3 % Neut # (Auto) 4.51 (1.40-6.50) K/uL Lymph # (Auto) 3.19 (1.20-3.40) K/uL [place] # (Auto) 0.61 H (0.11-0.59) K/uL Eos # (Auto) 0.53 H (0.00-0.50) K/uL Baso # (Auto) 0.03 (0.00-0.20) K/uL Immature Gran # (Auto) 0.02 (0.01-0.20) K/uL Sodium 133 L (136-145) mmol/L Potassium 4.1 (3.5-5.1) mmol/L Chloride 105 (98-107) mmol/L Carbon Dioxide 22 (21-32) mmol/L Anion Gap 6 (3-11) BUN 18 (6-23) mg/dl Creatinine 1.07 (0.6-1.4) mg/dl Est Cr Clr Drug Dosing 73.1 ml/min Est GFR ( Amer) 84.6 ml/min Est GFR (Non-Af Amer) 73.0 ml/min BUN/Creatinine Ratio 16.8 (10-20) Glucose 104 H (70-99(Fasting)) mg/dl Calcium 9.4 (8.6-10.3) mg/dl Total Bilirubin 0.3 (0.2-1.0) mg/dl AST 22 (13-39) U/L ALT 18 (7-52) U/L Alkaline Phosphatase 75 (34-104) U/L Troponin I High Sens 5.5 5.9 (0-20) pg/ml Total Protein 6.6 (6.0-8.3) gm/dl Albumin 3.7 (3.4-5.0) gm/dl Globulin 2.9 (2.5-4.0) gm/dl Albumin/Globulin Ratio 1.3 (0.9-2) Lipase 29 (11-82) U/L Administered Medications Heparin Sodium/Dextrose (Heparin Sodium/Dextrose) 25,000 units in 500 mls @ 18 mls/hr IV .Q24H [facility]; Protocol Stop: 11/07/23 05:29 Last Admin: 10/08/23 05:33 Dose: 900 units/hr, 18 mls/hr Documented By: COLT Co-signed By: EUGENIA Discontinued Medications Al Hydrox/Mg Hydrox/Simethicone (Aluminum/Magnesium Susp 30 Ml Udc) 30 ml PO NOW STA Stop: 10/08/23 02:46 Last Admin: 10/08/23 03:42 Dose: 30 ml Documented By: COLT Heparin Sodium (Porcine) (Heparin Sod (Porcine) 1000 Unit/Ml) 1 units IV NOW ONE Stop: 10/08/23 05:20 Last Admin: 10/08/23 05:33 Dose: 4,000 units Documented By: COLT Co-signed By: EUGENIA Heparin Sodium/Dextrose (Heparin Iv Adult Wt-Based Low-Dose W/ Initial Bolus Protocol) 1 each IV NOW STA; Protocol Stop: 10/08/23 05:05 Last Admin: 10/08/23 05:36 Dose: Not Given Documented By: COLT Hydromorphone HCl (Hydromorphone Inj 0.5 Mg/0.5 Ml Syr) 0.5 mg IV NOW STA Stop: 10/08/23 05:15 Last Admin: 10/08/23 05:37 Dose: Not Given Documented By: COLT Famotidine (Pepcid 20mg Iv Push) 20 mg in 5 mls @ 2.5 mls/min IV NOW STA Stop: 10/08/23 02:46 Last Admin: 10/08/23 03:42 Dose: 2.5 mls/min Documented By: COLT Nitroglycerin (Nitroglycerin 2% Ointment 30gm Tube) 1 inch EXT NOW STA Stop: 10/08/23 04:13 Last Admin: 10/08/23 04:18 Dose: 1 inch Documented By: COLT Discharge Plan Visit Data Chief Complaint: Chest Pain Stated Complaint: CHEST PAIN SINCE 003, HX OF ME AND STENTS ED Provider: Ortiz Pham Discharge Problem: ST elevation (STEMI) myocardial infarction Patient Disposition: Admitted As Inpatient Discharge Instructions Interventions: ED Discharge Assessment Last Done: 10/08/23 06:16 Forms Stand Alone Forms: [facility] [employer] Prescriptions Prescriptions: No Action ascorbic acid (vitamin C) 1,000 mg Tablet 1,000 mg PO QAM Qty: 0 nitroglycerin [Nitrostat] 0.4 mg tablet, sublingual 0.4 mg Sublingual DIRECTED PRN (Reason: Chest Pain) Qty: 20 3RF multivitamin Tablet 1 tab PO QAM metoprolol succinate 100 mg Tablet Extended Release 24 Hr 100 mg PO QAM clopidogrel [Plavix] 75 mg Tablet 75 mg PO QAM Rx Instructions: PER PT "WAS ON HOLD FOR PROCEDURE, WILL RESTART 10/08/23". folic acid 400 mcg Tablet 0.4 mg PO QAM aspirin 81 mg Tablet,Delayed Release (Dr/Ec) 81 mg PO HS lorazepam 0.5 mg Tablet 0.5 mg PO Q12H Rx Instructions: takes routinely cyanocobalamin (vitamin B-12) [Vitamin B-12] 500 mcg Tablet 500 mcg PO QAM oxycodone 5 mg Capsule 5 mg PO Q8H Rx Instructions: pt takes every 8 hours pyridoxine (vitamin B6) 100 mg Tablet 100 mg PO QAM duloxetine [Cymbalta] 60 mg Capsule,Delayed Release(Dr/Ec) 60 mg PO BID spironolactone 25 mg tablet 25 mg PO QAM famotidine 20 mg tablet 20 mg PO BID Total Beets 1 dose PO DAILY [id number]-ast [MegaRed Birchleaf-3 Krill Oil] 1,000-230-60 mg Capsule 1 cap PO QAM lisinopril 20 mg tablet 20 mg PO QAM zinc gluconate 50 mg Tablet 50 mg PO QAM cholecalciferol (vitamin D3) [Vitamin D3] 25 mcg (1,000 unit) Capsule 1,000 mcg PO DAILY Referrals Referrals: Michael Bishop MD [Primary Care Provider] -
[2023-10-08 03:13] LABS: Basophils # (auto) 0.03 K/uL (0.00-0.20); Basophils % (auto) 0.3 %; Eosinophils # (auto) 0.53 K/uL (0.00-0.50); Hematocrit (blood only) 35.3 % (42.0-52.0); Hemoglobin 12.2 g/dl (14.0-18.0); Immature Granulocytes # (auto) 0.02 K/uL (0.01-0.20); Immature Granulocytes % (auto) 0.2 %; Lymphocytes # (auto) 3.19 K/uL (1.20-3.40); Lymphocytes % (auto) 35.9 %; Mean Corpuscular Hemoglobin 31.6 pg (25.0-34.0); Mean Corpuscular Hgb Conc 34.6 g/dL (32.0-36.0); Mean Corpuscular Volume 91.5 fL (80.0-100.0); Monocytes # (auto) 0.61 K/uL (0.11-0.59); Monocytes % (auto) 6.9 %; Neutrophils # (auto) 4.51 K/uL (1.40-6.50); Neutrophils % (auto) 50.7 %; Platelet Count 233 K/uL (130-400); RDW Coefficient of Variation 13.3 % (11.5-14.5); Red Blood Count 3.86 M/uL (4.70-6.10); White Blood Count 8.89 K/ul (4.8-10.8)
[2023-10-08 03:27] LABS: Albumin Globulin Ratio 1.3 (0.9-2); Albumin Level 3.7 gm/dl (3.4-5.0); BUN Creatinine Ratio 16.8 (10-20); Bilirubin,Total 0.3 mg/dl (0.2-1.0); Calcium 9.4 mg/dl (8.6-10.3); Creatinine Clr Calc Pharmacy 73.1 ml/min; Est GFR (African American) 84.6 ml/min; Globulin 2.9 gm/dl (2.5-4.0); Potassium 4.1 mmol/L (3.5-5.1); Total Protein 6.6 gm/dl (6.0-8.3)
[2023-10-08 03:33] LABS: Troponin I High Sensitivity 5.5 pg/ml (0-20)
[2023-10-08] MEDS: FAMOTIDINE 20MG IV PUSH 20 MG/5 ML SYR IV STA (03:42)
[2023-10-08] MEDS: ALUMINUM/MAGNESIUM SUSP 30 ML UDC PO STA (03:42)
[2023-10-08] MEDS: NITROGLYCERIN 2% OINTMENT 30GM TUBE EXT STA (04:18)
--- OUTSIDE RECORDS SUMMARY | 2023-10-08 05:18 | External Medical Summary | Continuity of Care Document ---
Author Name Unknown Organization [address] [place] [phone] Care Team Providers Care Staff Development Coordinator Name Role Phone Michael Bishop Primary Care Physician [phone] Encounter [facility] [id number] Date(s): 09/23/23 - 09/23/23 [facility] 0 [facility] 207 [facility] 1850 [facility], [address] [address] [phone] Encounter Diagnosis Muscle spasm(Discharge Diagnosis) - 09/23/23 Discharge Disposition: Home or Self Care Attending Physician: MD Bishop Christopher Allergies, Adverse Reactions, Alerts Substance Criticality Severity Reaction Reaction Severity Status morphine SHAKEY, GRUMPY OUT OF SORTS Active sulfa drugs HEADACHE ITCH RASH Active Assessment and Plan Extracted from: Title:Office Visit Note Author:DO Chen Clair e S Date:09/23/23 1.Muscle spasm Undifferentiated new problem with uncertain prognosis Goal: Resolution Data: THREE data points for a [id number] CT, Cervical Spine CT, Brain MRI, CBC, CMP, troponin, lyme antibodies Plan: Unclear etiology. Possible that could be related to marijuana use. Right sided distribution would raise concern for central nervous symptom process, but imaging reassuring. Distribution of event does not seem constant with seizure or TIA. Overall symptoms improving. Plan for neurology referral. Consider Neurology e-consult. Immunizations Given and Recorded Vaccine Date Status [...] Recorded Medications Aspirin Low Dose Start: 12/08/09 4:05:57 PM EDT, 81 mg =, PO, Daily, Refills: 0, current medication from another provider Start Date: 12/08/09 Status: Ordered atorvastatin 80 mg oral tablet Start: 10/17/22 9:44:00 PM EDT, See Instructions, Disp# 90 tab, Refills: 4, TAKE 1 TABLET BY MOUTH ATBEDTIME., Pharmacy: [facility] Start Date: 10/17/22 Status: Ordered Beet root Start: 08/06/23 1:44:00 PM EDT, Beet root Start Date: 08/06/23 Status: Ordered clopidogrel 75 mg oral tablet Start: 03/05/23 9:51:00 AM EST, 1 tab, PO, Daily, Disp# 90 tab, Refills: 3, Pharmacy: [facility] STORE [id number] Start Date: 03/05/23 Status: Ordered docusate sodium 100 mg oral capsule Start: 12/23/17 9:38:03 AM EDT, See Instructions, Disp# 360, Refills: 2, TAKE 2 CAPSULES TWICE A DAY NEEDED, Pharmacy: [facility]/pharmacy #[id number] Start Date: 12/23/17 Status: Ordered DULoxetine 60 mg oral delayed release capsule Start: 04/29/23 12:12:00 PM EST, 1 cap, PO, bid, Disp# 180 unknown unit, Refills: 4, Pharmacy: [facility] Start Date: 04/29/23 Status: Ordered famotidine 20 mg oral tablet Start: 01/14/23 11:08:00 AM EST, 1 tab, PO, bid, Disp# 180 tab, Refills: 2, Pharmacy: [facility] Start Date: 01/14/23 Stop Date: 10/11/23 Status: Ordered lisinopril 20 mg oral tablet Start: 07/24/23 3:10:00 PM EDT, 1 tab, PO, Daily, Disp# 90 tab, Refills: 4, Pharmacy: [facility] Start Date: 07/24/23 Stop Date: 10/16/24 Status: Ordered LORazepam 0.5 mg oral tablet Start: 09/04/23 5:08:00 PM EDT, 1 tab, PO, q12h, Disp# 60 tab, Refills: 0, Note to Pharmacy: no driving or operating machines if cognitively impaired, PRN: as needed for anxiety, Pharmacy: [facility]/pharmacy #[id number] Start Date: 09/04/23 Status: Ordered Metoprolol Succinate ER 100 mg oral tablet, extended release Start: 01/28/23 7:56:00 PM EST, 1 tab, PO, Daily, Disp# 90 tab, Refills: 3, Pharmacy: [facility] STORE [id number] Start Date: 01/28/23 Status: Ordered multivitamin Start: 03/25/18 12:25:00 PM EST, 1 tab, PO, Daily Start Date: 03/25/18 Status: Ordered [employer]'s Bounty Red Krill Oil Start: 08/06/23 1:44:00 PM EDT Start Date: 08/06/23 Status: Ordered nitroglycerin 0.4 mg sublingual tablet Start: 02/07/18 1:14:27 PM EST, See Instructions, Disp# 25, TAKE 1 TAB UNDER TONGUE EVERY 5 MINUTES: NEEDED FOR CHEST PAIN, Pharmacy: [facility]/pharmacy #[id number] Start Date: 02/07/18 Status: Ordered oxyCODONE 5 mg oral tablet Start: 09/04/23 5:07:00 PM EDT, 5 mg =, PO, q8h, Disp# 93 tab, Refills: 0, PRN: as needed for pain, [id number] Start Date: 09/04/23 Stop Date: 10/05/23 Status: Ordered pantoprazole 40 mg oral delayed release tablet See Instructions, Disp# 30 tab, Refills: 5, TAKE 1 TABLET BY MOUTH EVERY DAY, Pharmacy: [id number] Start Date: 01/05/20 Status: Ordered triamcinolone 0.025% topical ointment Start: 02/29/16 3:00:00 PM EST, 1 appl, topical, bid, Disp# 60 g, Refills: 3, apply a thin film to both arms and both legs afflicted with psoriasis, Pharmacy: [facility] Start Date: 02/29/16 Status: Ordered Vitamin C Start: 08/11/18 9:58:00 AM EDT, 1,000 mg =, PO, Daily Start Date: 08/11/18 Status: Ordered Vitamin D3 Start: 07/19/20 9:17:00 AM EDT Start Date: 07/19/20 Status: Ordered Zinc Start: 07/19/20 9:17:00 AM EDT Start Date: 07/19/20 Status: Ordered Mental Status 09/23/23 Barriers to Learning one year Vision imp airment Mandatory Health Literacy Documentation Yes Health Literacy Communication Barriers N ever Primary Language Bulgarian Problem List Condition Confirmation Course Effective Dates [...] pulmonary nodule Confirmed Active Odynophagia Confirmed Active 44545 2and numbness in hands and arms Diagnosis Diagnosis Type Effective Dates Health Status Cl inical Service Informant Muscle spasm Discharge Diagnosis 09/23/23 Non-Specified Procedures Procedure Date Related Diagnosis Body Site Status Lung cancer screening 1 04/13/22 C ompleted SI joint fusion 2 02/03/[address] of pelvis w/o IV contrast 3 02/23/[address] of abdomen and pelvis wit hout contrast 4 09/17/18 Completed Fusion of lumbar spine L2-3 2018 Completed Dental implant system- REMOVAL 2017 Completed Spinal fusion with graft 5 06/03/15 [...] Dr. Sim 6DrGi Hartman 7DrGi Sim 8RETRIEVAL Vital Signs Most recent to oldest [Reference Range]: 1 Height 167.7 cm (09/23/23 8:30 AM) Patient Weight 85.5 kg (09/23/23 8:30 AM) Body Mass Index 30.4 kg/m2 (09/23/23 8:30 AM) Temperature [36.5-37.9 DegC] 36.7 DegC (09/23/23 8:30 AM) Heart Rate 73 bpm (09/23/23 8:30 AM) Respiratory Rate 18 br/min (09/23/23 8:30 AM) Blood Pressure 120/78mmHg (09/23/23 8:30 AM) Cuff Pulse Pressure 42 mmHg (09/23/23 8:30 AM) Social History Social History Type Response Tobacco Current every day sm oker, Cigarettes, Exposure to Secondhand Smoke: No. 20 per day. 43 year(s). Started age 13 Years. Previous treatment: Nicotine replacement. Ready to change: No. 1 Smoking Status Current every day he natacha smoker Sex Male 1menthol lites FCM Outpt Note * MD Conn Joseph P: MODIFY MD Conn Joseph P: MODIFY Event Display: FCM Outpt Note Authored Date: [id number] Chief Complaint Hospital f/u History of Present Illness 62 year old male presenting for hospital f/u. - ED on 09/04/[address] and without acute pathology- left without being seen - sudden onsetright-sided head pain that traveled down the right side of his body to his leg and was associated with an event where his head neck began to twist to the side with flexion at his elbow and wrist that was uncontrollable and lasted for approximately 10 to 15 seconds - returned to ED 09/06/23 - CBC, CMP, trop, lymewnl - MRI Brain, CT head/neck, CXRwithout acute pathology - Denies LOC during event, denies weakness - pain in arm/leg after event; slowly getting better - headache after event, continues to have dull headache- improving - had COVID- fever/chills, cough, taste/smell-> symptoms resolved in 3-5 days - no prior episodes like this - marijuana daily for 20+ years; grows his own; otherwise denies substance use Review of Systems As per above Physical Exam Vitals & Measurements T:36.7C HR:73(Monitored) RR:18 BP:120/78 SpO2:98% HT:167.7cm WT:85.500kg(Dosing) WT:85.5kg BMI:30.4 PHQ2 Data(Data Documented on:09/23/2023 08:27) Emotional health assessment NEGATIVE General:Well-developed, well-nourished patient, in no acute distress, pleasant and normal affect, intact memory. Eyes:No scleral injection or discharge. ENT:Moist mucous membranes.Clear oropharynx.No exudate.No lesions.Tympanic membranes are clear bilaterally.Neck is supple without lymphadenopathy or thyromegaly. Lungs:Clear to auscultation bilaterally with good effort. Cardiac:Regular rate and rhythm.No murmurs.No extremity edema. Neurologic:CN II-XII intact, strength 5/5 in UE and LE B/L Assessment/Plan 1.Muscle spasm Undifferentiated new problem with uncertain prognosis Goal: Resolution Data:THREE data points for a [id number] CT, Cervical Spine CT, Brain MRI, CBC, CMP, troponin, lymeantibodies Plan: Unclear etiology. Possible that could be related to marijuana use. Right sided distribution would raise concern for central nervous symptom process, but imaging reassuring. Distribution of event does not seem constant with seizure or TIA. Overall symptoms improving. Plan for neurology referral. Consider Neurology e-consult. Attestation I saw patient and was present for the smith portions of the history and physical. I agree with theresident's note and plan as documented in the resident's note. There is unclear cause of spasticity and note cannabis use for decades, which has known benefit of muscle relaxation, but I am not sure what the effect is of halfway use. Discussed that there are many possible causes. With pain in legs it seems to be more peripheral, but does not fit any nerve root distribution. Spasticity inright hand was an event and is improving and sounds like a brachial plexopathy, but this could be central with the entire right face right arm and right leg affected, but would be cerebellar with unilateral symptoms. George Conn Problem List/Past Medical History Ongoing ANXIETY Cannabis [...] of left arm Prediabetes Solitary pulmonary nodule Resolved ACUTE MYOCARDIAL INFARCTION #2 with stent occlusion [...] Service Date: 03/11/2010rods,cage/bone graft to back| ServiceDate: 12/01/2004PICA-stent right branch circumflex| Service Date: 08/01/2003left inguinal hernia| Service Date: 06/13/1998 Medications ascorbic acid(Vitamin C), 1000 mg, PO, Daily aspirin(Aspirin Low Dose), 81 mg, PO, Daily atorvastatin(atorvastatin 80 mg oral tablet), See Instructions cholecalciferol(Vitamin D3) clopidogrel(clopidogrel 75 mg oral tablet), 1 tab, PO, Daily docusate(docusate sodium 100 mg oral capsule), See Instructions, 2 refills DULoxetine(DULoxetine 60 mg oral delayed release capsule), 1 cap, PO, bid famotidine(famotidine 20 mg oral tablet), 20 mg= 1 tab, PO, bid, 2 refills lisinopril(lisinopril 20 mg oral tablet), 20 mg= 1 tab, PO, Daily, 4 refills LORazepam(LORazepam 0.5 mg oral tablet), 0.5 mg= 1 tab, PO, q12h, PRN metoprolol(Metoprolol Succinate ER 100 mg oral tablet, extended release), 1 tab, PO, Daily multivitamin, 1 tab, PO, Daily nitroglycerin(nitroglycerin 0.4 mg sublingual tablet), See Instructions omega-3 polyunsaturated fatty acids([employer]'s Bounty Red Krill Oil) oxyCODONE(oxyCODONE 5 mg oral tablet), 5 mg, PO, q8h, PRN pantoprazole(pantoprazole 40 mg oral delayed release tablet), See Instructions triamcinolone topical(triamcinolone 0.025% topical ointment), 1 appl, topical, bid, 3 refills unknown medication(Beet root) zinc sulfate(Zinc) Allergies morphineSHAKEY, GRUMPY OUT OF [...] treatment:Nicotine replacement Ready to change:No - Comments: krupa fisher Family History Alive and well: Sister, Brother, [...] Recommendations Health Maintenance Pending(in the next year) Due Adult Influenza Vaccine due09/08/23and every 1year Adult COVID-19 Vaccination due09/23/23Unknown Frequency Adult Social Determinants of Health Screening due09/23/23Unknown Frequency Hepatitis C Screening due09/23/23One-time only Pneumococcal Vaccine Adults and Adolescents with Chronic Illness due09/23/23One-time only Shingles Vaccine due09/23/23One-time only Satisfied(in the past 1 year) Satisfied Adult Tdap/Td Vaccine on09/28/22.Satisfied by ALAN Gerardo Cassidy Body Mass Index on09/23/23.Satisfied by ALAN Berkowitz [place] Lipid Screening on05/13/23.Satisfied by Contributor_system, [id number] Refused Colorectal Cancer Screening on09/26/22.Recorded by ALAN Ascencio LynnaeReason: Patient Refuses Electronic Signature on File Electronically Reviewed/Signed by: Beba Chen DO Author Signature Dt/Tm:09/23/2023 03:26 PM Resident Department of Family Medicine Electronically Reviewed/Signed by: MD Sienna Brittigner Signature Dt/Tm: 09/24/2023 08:18AM Department of Family Medicine CSN Patient Care team information Care Team Personnel Name: MD Gian, John Barboza Position: Physician - Family Med Member Role: Lifetime Relationship Address: Address: [address] [place] [id number] [place] Name: DO Cruz Jill M Position: Physician - Anesthesiologist Member Role: Lifetime Relationship Address: Address: [address] [place] [id number] [place] Name: MD Bishop Christopher Position: Physician - Family Med Member Role: Primary Care Provider Address: Address: [address] [place] [id number] [place] Care Team Related Persons Name: MEGAN RAMON Address: home [address] [facility], [id number] Name: MEGAN RAMON L Address: home [address] [facility] [phone] Name: RACHEL RAMON Address: home [address] [facility], [place] [phone] [place] Name: RACHEL RAMON Address: home [address] [facility], [place] [phone] [place] Name: RACHEL RAMON Address: home [address] [facility], [place] [phone] Name: RACHEL RAMON Address: home [address] [facility], [place] [phone] [place]"
[2023-10-08] MEDS: HEPARIN SODIUM/DEXTROSE 25,000 UNITS/500 ML BAG IV SCH (05:33)
[2023-10-08] MEDS: HEPARIN SOD (PORCINE) 1000 UNIT/ML IV ONE (05:33)
[2023-10-08] MEDS: Heparin IV Adult Wt-Based Low-Dose w/ INITIAL Bolus Protocol IV STA (05:36)
[2023-10-08] MEDS: HYDROmorphone INJ 0.5 MG/0.5 ML SYR IV STA (05:37)
--- NOTE | 2023-10-08 05:47 | History & Physical Report ---
Date of Service October 08, 2023 Assessment & Plan (1) STEMI (ST elevation myocardial infarction): (2) History of coronary artery disease: (3) Hypertension: (4) Precordial chest pain: (5) Stented coronary artery: (6) Tobacco abuse: (7) GERD (gastroesophageal reflux disease): (8) Hypertension: Plan STEMI/CAD/hypertension/history non-STEMI/history of stented coronary arteries x 2- EKG with new ST elevations in inferior leads Placed on Nitropaste 1 inch inferior chest wall, to be to continued at the discretion of cardiology Starting heparin drip weight-based with bolus per protocol Continue aspirin, clopidogrel, lisinopril and metoprolol succinate, spironolactone with any adjustments to be made by cardiology Hyperlipidemia- Check a fasting lipid panel Give atorvastatin 40 mg p.o. now and daily GERD- Continue famotidine 20 mg p.o. twice daily, and give pantoprazole 40 mg IV daily Depression/anxiety- Continue duloxetine and lorazepam Chronic pain syndrome- Acetaminophen 650 mg by mouth every 6 hours as needed for mild pain or fever Oxycodone 5 mg p.o. every 8 hours as needed moderate pain History of Present Illness Chief Complaint: The patient presents to the emergency department with substernal chest pressure that began around midnight this evening, and continued to increase in intensity, worse than during his previous admission at the end of July. Primary Care Provider: Michael Bishop MD The patient is a 62-year-old male with a past medical history including CAD with history of MIs x 2, in 2003 and 2011, and history of 2 stents. He presents the emergency department with symptoms that were more intense than previously in July, with initially EKG suggesting new ST elevations in leads II to III aVF, but less so in V6, and inversion in aVL. Patient had only minimal improvement in symptoms with addition of Nitropaste, decision was made to add heparin drip, intervention cardiology Dr. Chung was called, who recommended a heart heart alert be called. Patient will be taken to the cardiac [facility], and then follow-up care in the ICU. Of note, the patient does continue to smoke at least 10 cigarettes daily. He he did undergo a dobutamine stress echocardiogram during admission from 08/05-08/07/2023, which was negative with ejection fraction 65-70% at baseline Allergies Allergy/AdvReac Type Severity Reaction Status Date / Time chlorhexidine Allergy Intermediate severe Verified 10/08/23 02:38 itching, redness Sulfa (Sulfonamide Allergy Intermediate rash, hives Verified 10/08/23 02:38 Antibiotics) acetaminophen AdvReac Severe elevated Verified 10/08/23 02:38 LFTs ibuprofen AdvReac Severe elevated Verified 10/08/23 02:38 LFTs morphine AdvReac Intermediate shakiness, Verified 10/08/23 02:38 grumpy, disoriented Home Medications Medication Instructions Recorded Confirmed Type ascorbic acid (vitamin C) 1,000 mg 1,000 mg PO QAM ##0 04/07/16 10/08/23 History tablet aspirin 81 mg tablet,delayed 81 mg PO HS 11/14/17 10/08/23 History release clopidogrel 75 mg tablet (Plavix) 75 mg PO QAM 11/14/17 10/08/23 History cyanocobalamin (vitamin B-12) 500 500 mcg PO QAM 11/14/17 10/08/23 History mcg tablet (Vitamin B-12) duloxetine 60 mg capsule,delayed 60 mg PO BID 11/14/17 10/08/23 History release (Cymbalta) folic acid 400 mcg tablet 0.4 mg PO QAM 11/14/17 10/08/23 History lorazepam 0.5 mg tablet 0.5 mg PO Q12H Anxiety 11/14/17 10/08/23 History metoprolol succinate 100 mg 100 mg PO QAM 11/14/17 10/08/23 History tablet,extended release 24 hr multivitamin 1 tab PO QAM 11/14/17 10/08/23 History oxycodone 5 mg capsule 5 mg PO Q8H Pain 11/14/17 10/08/23 History pyridoxine (vitamin B6) 100 mg 100 mg PO QAM 11/14/17 10/08/23 History tablet cholecalciferol (vitamin D3) 25 1,000 mcg PO DAILY 05/22/23 10/08/23 History mcg (1,000 unit) capsule (Vitamin D3) lisinopril 20 mg tablet 20 mg PO QAM 05/22/23 10/08/23 History zinc gluconate 50 mg tablet 50 mg PO QAM 05/22/23 10/08/23 History nitroglycerin 0.4 mg sublingual 0.4 mg sublingual DIRECTED PRN 08/09/23 10/08/23 Rx tablet (Nitrostat) Chest Pain #20 tabs Total Beets 1 dose PO DAILY 09/06/23 10/08/23 History famotidine 20 mg tablet 20 mg PO BID 09/06/23 10/08/23 History krill 1,000 mg-omega-3 230 mg-dha 1 cap PO QAM 09/06/23 10/08/23 History 60 jh-cbw-dypepqouy-astaxan capsule (MegaRed [place]-3 Krill Oil) spironolactone 25 mg tablet 25 mg PO QAM 09/06/23 10/08/23 History Past Med/Surg History Problem List (Updated 10/08/23 @ 05:41 by Juan Olson MD) STEMI (ST elevation myocardial infarction) Acute non-ST elevation myocardial infarction (NSTEMI) (Acute) History of coronary artery disease (Acute) Hypertension (Acute) Precordial chest pain (Acute) Stented coronary artery Sacroiliitis Acute exacerbation of chronic low back pain (Acute) Cervical stenosis of spinal canal HNP (herniated nucleus pulposus), lumbar (Acute) Intractable low back pain (Acute) Neuropathy (Chronic) Precordial chest pain Encounter for pre-operative examination RADHA (acute kidney injury) (Chronic) Tobacco abuse (Chronic) Chronic back pain Chest pain GERD (gastroesophageal reflux disease) Preoperative cardiovascular examination Depression Hypertension (Chronic) Pulmonary embolism (Chronic) 2004, spontaneous- previously on coumadin for short period of time Lumbar stenosis with neurogenic claudication (Acute) Medical History Thrombophlebitis CAD (coronary artery disease) HLD (hyperlipidemia) Myocardial Infarction 2003. BPH (benign prostatic hyperplasia) Coronary artery disease 2004- stent x 1, 2012- stents x 2. FOllows with [facility] [place] cardiology Kidney stones Hyperlipidemia GERD (gastroesophageal reflux disease) controlled Anxiety Surgical History H/O tooth extraction removal of infected dental implant 01/19/20 placed on abx. S/P lumbar fusion hardware removal, L2-L3 decompression with fusion: 11/15/17: Grade 1 view, MAC#3, ETT 8.0 at [facility] History of tooth extraction S/P epidural steroid injection lumbar and SI joint injections History of cataract surgery bilateral History of cystoscopy with stent History of lithotripsy laser lithotripsy H/O hand surgery LEFT Fusion of spine Lumbar x2 S/P cervical spinal fusion 05/2015. MAC 3. Grade 1 view. No issues. Full ROM. Hx of inguinal hernia repair left History of cardiac cath 2003 - STENT 2010- STENTS Family History Other No family history of adverse response to anesthesia Social History Smoking Status: Current every day smoker Tobacco Type: Cigarettes Cigarettes Per Day: 20; Second Hand Exposure: Yes; Do You Dip or Chew Tobacco: No; Hx Alcohol Use: No Hx Substance Use: Yes Last Used Substance: Hours (ago) Last Used Substance Other:: thc Preferred Language: [place] Islander Communication Ability: Effective Visual Impairment: No Limitations Hearing Ability: Normal Packager Hand Required: Yes Beliefs That Will Affect Care: None marital status: Current Living Situation: Family Feels Safe at Home: Yes Assistive Devices: Cane Review of Systems Review of Systems: The patient denies palpitations, cough, lower extremity swelling, sore throat, fevers, chills, sweats, weight change, fatigue, nausea, vomiting, diarrhea , c onstipation, abdominal pain, pelvic pain, blood in urine or stool, dysuria, urinary frequency or urgency, lightheadedness, dizziness, headache, memory loss, loss of consciousness, rash, abnormal bruising or bleeding, imbalance, focal or generalized weakness, numbness or tingling in arms or legs, generalized arthralgias or myalgias, back or neck pain, or night sweats. The review of systems is otherwise negative other than for that already noted above, and at least 10 systems have been reviewed. Physical Exam Physical Exam: The patient is awake, alert and oriented 3, well developed and well nourished, normocephalic and atraumatic, lying in bed and in mild to moderate distress secondary to chest discomfort HEENT--PERRL, EOMI, mucous membranes and oropharynx mildly dry Neck--supple. No JVD. No bruits. Thyroid normal, trachea midline, no adenopathy. Heart--normal S1 and S2. No murmurs, rubs or gallops. Lungs--clear bilaterally, no respiratory distress, no accessory muscle use. Abdomen--normal bowel sounds and soft. Nontender. Nondistended, no hernias or masses, no organomegaly. Extremities- No edema. Dermatologic--normal skin turgor, normal color, no abnormal lymph nodes, no rash. Neurologic--cranial nerves II through XII grossly intact. Rheumatologic--normal range of motion. Psychiatric--normal affect. Results & Data Results & Data Vital Signs (Past 12 Hours) Vital Signs Temp Pulse Pulse Resp BP BP Pulse Ox 10/08/23 05:00 63 16 126/71 97 10/08/23 04:33 63 18 133/68 96 10/08/23 04:10 62 16 154/90 H 98 10/08/23 04:10 66 18 154/90 H 98 10/08/23 04:07 68 21 250/118 H 99 10/08/23 04:00 59 L 15 187/97 H 99 10/08/23 04:00 61 20 187/97 H 100 10/08/23 03:30 61 15 125/63 95 10/08/23 03:00 62 16 123/76 96 10/08/23 02:45 67 18 94 10/08/23 02:34 36.7 C 67 18 110/65 94 10/08/23 02:30 66 20 100/62 95 10/08/23 02:25 66 10/08/23 02:22 110/68 10/08/23 02:15 67 18 110/65 94 10/08/23 02:15 94 O2 Del Method 10/08/23 05:00 Room Air 10/08/23 04:33 Room Air 10/08/23 04:10 Room Air 10/08/23 04:10 Room Air 10/08/23 04:07 Room Air 10/08/23 04:00 Room Air 10/08/23 04:00 Room Air 10/08/23 03:30 Room Air 10/08/23 03:00 Room Air 10/08/23 02:45 Room Air 10/08/23 02:34 Room Air 10/08/23 02:30 Room Air 10/08/23 02:25 10/08/23 02:22 10/08/23 02:15 Room Air 10/08/23 02:15 Room Air Laboratory Results Laboratory Results WBC 8.89 K/ul (4.8-10.8) 10/08/23 02:25 RBC 3.86 M/uL (4.70-6.10) L 10/08/23 02:25 Hgb 12.2 g/dl (14.0-18.0) L 10/08/23 02:25 Hct 35.3 % (42.0-52.0) L 10/08/23 02:25 MCV 91.5 fL (80.0-100.0) 10/08/23 02:25 MCH 31.6 pg (25.0-34.0) 10/08/23 02:25 MCHC 34.6 g/dL (32.0-36.0) 10/08/23 02:25 RDW Std Deviation 44.0 fL (36.4-46.3) 10/08/23 02:25 RDW Coeff of Jeanette 13.3 % (11.5-14.5) 10/08/23 02:25 Plt Count 233 K/uL (130-400) 10/08/23 02:25 MPV 11.0 fL (9.4-12.4) 10/08/23 02:25 Immature Gran % (Auto) 0.2 % 10/08/23 02:25 Neut % (Auto) 50.7 % 10/08/23 02:25 Lymph % (Auto) 35.9 % 10/08/23 02:25 [place] % (Auto) 6.9 % 10/08/23 02:25 Eos % (Auto) 6.0 % 10/08/23 02:25 Baso % (Auto) 0.3 % 10/08/23 02:25 Neut # (Auto) 4.51 K/uL (1.40-6.50) 10/08/23 02:25 Lymph # (Auto) 3.19 K/uL (1.20-3.40) 10/08/23 02:25 [place] # (Auto) 0.61 K/uL (0.11-0.59) H 10/08/23 02:25 Eos # (Auto) 0.53 K/uL (0.00-0.50) H 10/08/23 02:25 Baso # (Auto) 0.03 K/uL (0.00-0.20) 10/08/23 02:25 Immature Gran # (Auto) 0.02 K/uL (0.01-0.20) 10/08/23 02:25 Sodium 133 mmol/L (136-145) L 10/08/23 02:25 Potassium 4.1 mmol/L (3.5-5.1) 10/08/23 02:25 Chloride 105 mmol/L (98-107) 10/08/23 02:25 Carbon Dioxide 22 mmol/L (21-32) 10/08/23 02:25 Anion Gap 6 (3-11) 10/08/23 02:25 BUN 18 mg/dl (6-23) 10/08/23 02:25 Creatinine 1.07 mg/dl (0.6-1.4) 10/08/23 02:25 Est Cr Clr Drug Dosing 73.1 ml/min 10/08/23 02:25 Est GFR ( Amer) 84.6 ml/min 10/08/23 02:25 Est GFR (Non-Af Amer) 73.0 ml/min 10/08/23 02:25 BUN/Creatinine Ratio 16.8 (10-20) 10/08/23 02:25 Glucose 104 mg/dl (70-99(Fasting)) H 10/08/23 02:25 Calcium 9.4 mg/dl (8.6-10.3) 10/08/23 02:25 Total Bilirubin 0.3 mg/dl (0.2-1.0) 10/08/23 02:25 AST 22 U/L (13-39) 10/08/23 02:25 ALT 18 U/L (7-52) 10/08/23 02:25 Alkaline Phosphatase 75 U/L (34-104) 10/08/23 02:25 Troponin I High Sens 5.9 pg/ml (0-20) 10/08/23 04:16 Total Protein 6.6 gm/dl (6.0-8.3) 10/08/23 02:25 Albumin 3.7 gm/dl (3.4-5.0) 10/08/23 02:25 Globulin 2.9 gm/dl (2.5-4.0) 10/08/23 02:25 Albumin/Globulin Ratio 1.3 (0.9-2) 10/08/23 02:25 Lipase 29 U/L (11-82) 10/08/23 02:25 Code Status & VTE Plan Code Status Full code VTE Prophylaxis Plan VTE Prophylaxis will be ordered: Yes PG Care Time/CCT Total # of Minutes Spent Total Time Spent with Patient: Total time spent is greater than 50% in coordination of care (as documented) at patient's floor/unit and/or counseling patient: Coding Level of Care Code 20031 INT INP/OBS CARE 3/75MIN Diagnoses STEMI (ST elevation myocardial infarction) I21.3 History of coronary artery disease Z86.79 Hypertension I10 Hypertension type: unspecified Precordial chest pain R07.2 Stented coronary artery Z95.5 Tobacco abuse Z72.0 GERD (gastroesophageal reflux disease) K21.9 (3) Hypertension Hypertension type: unspecified Qualified Code(s): I10 - Essential (primary) hypertension
--- NOTE | 2023-10-08 06:09 | Pre Anesthesia Assessment ---
Date of Service October 08, 2023 Pre Sedation Assessment Vital Signs Temp Pulse Pulse Resp BP BP Pulse Ox 10/08/23 06:00 63 17 97 10/08/23 05:30 151/70 H 96 10/08/23 05:30 65 16 151/70 H 95 10/08/23 05:00 63 16 126/71 97 10/08/23 04:33 63 18 133/68 96 10/08/23 04:10 62 16 154/90 H 98 10/08/23 04:10 66 18 154/90 H 98 10/08/23 04:07 68 21 250/118 H 99 10/08/23 04:00 59 L 15 187/97 H 99 10/08/23 04:00 61 20 187/97 H 100 10/08/23 03:30 61 15 125/63 95 10/08/23 03:00 62 16 123/76 96 10/08/23 02:45 67 18 94 10/08/23 02:34 98.1 F 67 18 110/65 94 10/08/23 02:30 66 20 100/62 95 10/08/23 02:25 66 10/08/23 02:22 110/68 10/08/23 02:15 67 18 110/65 94 10/08/23 02:15 94 O2 Del Method 10/08/23 06:00 Room Air 10/08/23 05:30 Room Air 10/08/23 05:30 Room Air 10/08/23 05:00 Room Air 10/08/23 04:33 Room Air 10/08/23 04:10 Room Air 10/08/23 04:10 Room Air 10/08/23 04:07 Room Air 10/08/23 04:00 Room Air 10/08/23 04:00 Room Air 10/08/23 03:30 Room Air 10/08/23 03:00 Room Air 10/08/23 02:45 Room Air 10/08/23 02:34 Room Air 10/08/23 02:30 Room Air 10/08/23 02:25 10/08/23 02:22 10/08/23 02:15 Room Air 10/08/23 02:15 Room Air Cardiovascular + regular rate Respiratory + respiratory effort normal Pre-Sedation Airway Assessment Smoking Status: Current every day smoker Hx Sleep Apnea: No Hx Difficult Intubation: No Short, Thick Neck: Yes Oral Cavity: + Dental Abnormalities Mallampati Class: III ASA: ASA3 Procedure Planning Contraindications for Sedation: none Current Medications Reviewed: Yes Notes The planned sedation has been discussed with the patient. Informed Consent was obtained. I have identified the patient, determined the appropriateness of sedation and have assessed the patient immediately prior to the procedure. All medicine(s) and interventions are by my order.
--- NOTE | 2023-10-08 06:10 | Cardiology Consultation ---
Date of Consultation October 08, 2023 Assessment & Plan (1) ACS (acute coronary syndrome): Presentation concerning for ACS and recommend proceeding with urgent cardiac catheterization and possible PCI. No apparent contraindications to procedure. Discussed risks, benefits, alternatives of procedure with patient and they are willing to proceed. Given IV heparin in the ED. Further recommendations pending findings of coronary angiography. History of Present Illness History of Present Illness 62-year-old male here with acute chest pain and concern for ACS. Patient follows with Dr. Galindo for his cardiac care. Past cardiac history remarkable for CAD post initial MD in 2003 treated with BMS and subsequent ACS with occluded OM 2 stent requiring 2 QUIN 12/2010. In 07/2023 was seen for atypical chest pain with minimally elevated troponin. Dobutamine stress echo at that time was negative. Cardiac risk factors include hypertension, dyslipidemia and continues to smoke >half pack per day. Other medical issues include chronic back pain post multiple back surgeries and recent epidural injection. Also had questionable neurologic event 08/2023 for which seen in ED and awaiting visit with neurology. Has been off prior Plavix for last 5 days for back injection. Chest pain began approximately midnight while at rest. Describes stuttering substernal pain. Different than prior MD pain in that did not have diaphoresis. Initial ECG/HS TropI on arrival unremarkable. While in ED had worsening chest pain and ECG at that time showed subtle concave inferior ST elevations. Pain/ST changes improved with nitroglycerin. Still with mild residual chest pain, 34/10 at present. Allergies Allergy/AdvReac Type Severity Reaction Status Date / Time chlorhexidine Allergy Intermediate severe Verified 10/08/23 02:38 itching, redness Sulfa (Sulfonamide Allergy Intermediate rash, hives Verified 10/08/23 02:38 Antibiotics) acetaminophen AdvReac Severe elevated Verified 10/08/23 02:38 LFTs ibuprofen AdvReac Severe elevated Verified 10/08/23 02:38 LFTs morphine AdvReac Intermediate shakiness, Verified 10/08/23 02:38 grumpy, disoriented Home Medications Medication Instructions Recorded Confirmed Type ascorbic acid (vitamin C) 1,000 mg 1,000 mg PO QAM ##0 04/07/16 10/08/23 History tablet aspirin 81 mg tablet,delayed 81 mg PO HS 11/14/17 10/08/23 History release clopidogrel 75 mg tablet (Plavix) 75 mg PO QAM 11/14/17 10/08/23 History cyanocobalamin (vitamin B-12) 500 500 mcg PO QAM 11/14/17 10/08/23 History mcg tablet (Vitamin B-12) duloxetine 60 mg capsule,delayed 60 mg PO BID 11/14/17 10/08/23 History release (Cymbalta) folic acid 400 mcg tablet 0.4 mg PO QAM 11/14/17 10/08/23 History lorazepam 0.5 mg tablet 0.5 mg PO Q12H Anxiety 11/14/17 10/08/23 History metoprolol succinate 100 mg 100 mg PO QAM 11/14/17 10/08/23 History tablet,extended release 24 hr multivitamin 1 tab PO QAM 11/14/17 10/08/23 History oxycodone 5 mg capsule 5 mg PO Q8H Pain 11/14/17 10/08/23 History pyridoxine (vitamin B6) 100 mg 100 mg PO QAM 11/14/17 10/08/23 History tablet cholecalciferol (vitamin D3) 25 1,000 mcg PO DAILY 05/22/23 10/08/23 History mcg (1,000 unit) capsule (Vitamin D3) lisinopril 20 mg tablet 20 mg PO QAM 05/22/23 10/08/23 History zinc gluconate 50 mg tablet 50 mg PO QAM 05/22/23 10/08/23 History nitroglycerin 0.4 mg sublingual 0.4 mg sublingual DIRECTED PRN 08/09/23 10/08/23 Rx tablet (Nitrostat) Chest Pain #20 tabs Total Beets 1 dose PO DAILY 09/06/23 10/08/23 History famotidine 20 mg tablet 20 mg PO BID 09/06/23 10/08/23 History krill 1,000 mg-omega-3 230 mg-dha 1 cap PO QAM 09/06/23 10/08/23 History 60 vn-asd-awvmvuxwu-astaxan capsule (MegaRed [place]-3 Krill Oil) spironolactone 25 mg tablet 25 mg PO QAM 09/06/23 10/08/23 History Patient History Medical History Thrombophlebitis CAD (coronary artery disease) HLD (hyperlipidemia) Myocardial Infarction 2003. BPH (benign prostatic hyperplasia) Coronary artery disease 2004- stent x 1, 2012- stents x 2. [place] [facility] [place]ney [place] Hyperlipidemia GERD (gastroesophageal reflux disease) controlled Anxiety Surgical History H/O tooth extraction removal of infected dental implant 01/19/20 placed on abx. S/P lumbar fusion hardware removal, L2-L3 decompression with fusion: 11/15/17: Grade 1 view, MAC#3, ETT 8.0 at [facility] History of tooth extraction S/P epidural steroid injection lumbar and SI joint injections History of cataract surgery bilateral History of cystoscopy with stent History of lithotripsy laser lithotripsy H/O hand surgery LEFT Fusion of spine Lumbar x2 S/P cervical spinal fusion 05/2015. MAC 3. Grade 1 view. No issues. Full ROM. Hx of inguinal hernia repair left History of cardiac cath 2003 - STENT 2010- 2 STENTS Family History Other No family history of adverse response to anesthesia Social History Smoking Status: Current every day smoker Tobacco Type: Cigarettes Cigarettes Per Day: 20; Second Hand Exposure: Yes; Do You Dip or Chew Tobacco: No; Hx Alcohol Use: No Hx Substance Use: Yes Last Used Substance: Hours (ago) Last Used Substance Other:: thc Preferred Language: Sinhala Communication Ability: Effective Visual Impairment: No Limitations Hearing Ability: Normal Aviation Manager Required: Yes Beliefs That Will Affect Care: None marital status: Current Living Situation: Family Feels Safe at Home: Yes Assistive Devices: Cane Review of Systems Review of Systems: All systems reviewed & are unremarkable except as noted in HPI & below Physical Exam Physical Exam: General: Uncomfortable HEENT: Sclerae anicteric Lungs: Clear to auscultation bilaterally Cardiac: Regular rate and rhythm, no murmurs. Vascular: 2+ radial Abdomen: Soft, nontender Extremities: Well perfused, no peripheral edema Neuro: Nonfocal Psych: Alert orient x3, normal affect and mood Results & Data Vital Signs (Past 12 Hours) Vital Signs Temp Pulse Pulse Resp BP BP Pulse Ox 10/08/23 06:00 63 17 97 10/08/23 05:30 151/70 H 96 10/08/23 05:30 65 16 151/70 H 95 10/08/23 05:00 63 16 126/71 97 10/08/23 04:33 63 18 133/68 96 10/08/23 04:10 62 16 154/90 H 98 10/08/23 04:10 66 18 154/90 H 98 10/08/23 04:07 68 21 250/118 H 99 10/08/23 04:00 59 L 15 187/97 H 99 10/08/23 04:00 61 20 187/97 H 100 10/08/23 03:30 61 15 125/63 95 10/08/23 03:00 62 16 123/76 96 10/08/23 02:45 67 18 94 10/08/23 02:34 98.1 F 67 18 110/65 94 10/08/23 02:30 66 20 100/62 95 10/08/23 02:25 66 10/08/23 02:22 110/68 10/08/23 02:15 67 18 110/65 94 10/08/23 02:15 94 O2 Del Method 10/08/23 06:00 Room Air 10/08/23 05:30 Room Air 10/08/23 05:30 Room Air 10/08/23 05:00 Room Air 10/08/23 04:33 Room Air 10/08/23 04:10 Room Air 10/08/23 04:10 Room Air 10/08/23 04:07 Room Air 10/08/23 04:00 Room Air 10/08/23 04:00 Room Air 10/08/23 03:30 Room Air 10/08/23 03:00 Room Air 10/08/23 02:45 Room Air 10/08/23 02:34 Room Air 10/08/23 02:30 Room Air 10/08/23 02:25 10/08/23 02:22 10/08/23 02:15 Room Air 10/08/23 02:15 Room Air PG Care Time/CCT Total # of Minutes Spent Total Time Spent with Patient: Total time spent is greater than 50% in coordination of care (as documented) at patient's floor/unit and/or counseling patient: Coding Level of Care Code 53456 ER DEPT VISIT MOD LVL 4 Diagnoses ACS (acute coronary syndrome) I24.9
--- NOTE | 2023-10-08 07:04 | Electrocardiogram Report ---
Test Reason : Blood Pressure : / mmHG Vent. Rate : 067 BPM Atrial Rate : 067 BPM P-R Int : 126 ms QRS Dur : 082 ms QT Int : 390 ms P-R-T Axes : 042 044 066 degrees QTc Int : 412 ms Normal sinus rhythm Normal ECG When compared with ECG of 06-SEP-2023 00:15, No significant change was found Confirmed by Paul Neves ([id number]) on 10/08/2023 7:04:23 AM Referred By: REFERRED SELF Confirmed By:Paul Neves
--- NOTE | 2023-10-08 07:11 | Electrocardiogram Report ---
Test Reason : Blood Pressure : / mmHG Vent. Rate : 057 BPM Atrial Rate : 057 BPM P-R Int : 128 ms QRS Dur : 088 ms QT Int : 400 ms P-R-T Axes : 050 048 081 degrees QTc Int : [address] elevation, consider inferior injury pattern/STEMI When compared with ECG of 08-OCT-2023 02:18, ST elevation now present in Inferior leads Confirmed by Paul Neves ([id number]) on 10/08/2023 7:11:19 AM Referred By: REFERRED SELF Confirmed By:Paul Neves
[2023-10-08] MEDS: fentaNYL citrate PF 100 MCG/2 ML VIAL ONE ×2 (07:35→07:39)
[2023-10-08] MEDS: HEPARIN (PORCINE) 1000 UNIT/ML 10 ML (CATH LAB USE ONLY) ONE (07:36)
[2023-10-08] MEDS: MIDAZOLAM HCL 1 MG/ML 2ML VIAL ONE ×2 (07:36→07:39)
[2023-10-08] MEDS: NITROGLYCERIN/D5W 100MCG/ML 20ML SYR ONE (07:38)
[2023-10-08] MEDS: niCARdipine HCL INJ 2.5 MG/ML 10 ML AMP ONE (07:38)
[2023-10-08] MEDS: OPTIRAY 350 ONE (07:40)
[2023-10-08] MEDS: TICAGRELOR 90 MG TAB ONE (07:40)
--- NOTE | 2023-10-08 07:44 | Post Anesthesia Assessment ---
Date of Service October 08, 2023 Post Sedation Assessment Vital Signs Temp Pulse Pulse Resp BP BP Pulse Ox 10/08/23 06:00 63 17 97 10/08/23 05:30 151/70 H 96 10/08/23 05:30 65 16 151/70 H 95 10/08/23 05:00 63 16 126/71 97 10/08/23 04:33 63 18 133/68 96 10/08/23 04:10 62 16 154/90 H 98 10/08/23 04:10 66 18 154/90 H 98 10/08/23 04:07 68 21 250/118 H 99 10/08/23 04:00 59 L 15 187/97 H 99 10/08/23 04:00 61 20 187/97 H 100 10/08/23 03:30 61 15 125/63 95 10/08/23 03:00 62 16 123/76 96 10/08/23 02:45 67 18 94 10/08/23 02:34 98.1 F 67 18 110/65 94 10/08/23 02:30 66 20 100/62 95 10/08/23 02:25 66 10/08/23 02:22 110/68 10/08/23 02:15 67 18 110/65 94 10/08/23 02:15 94 O2 Del Method 10/08/23 06:00 Room Air 10/08/23 05:30 Room Air 10/08/23 05:30 Room Air 10/08/23 05:00 Room Air 10/08/23 04:33 Room Air 10/08/23 04:10 Room Air 10/08/23 04:10 Room Air 10/08/23 04:07 Room Air 10/08/23 04:00 Room Air 10/08/23 04:00 Room Air 10/08/23 03:30 Room Air 10/08/23 03:00 Room Air 10/08/23 02:45 Room Air 10/08/23 02:34 Room Air 10/08/23 02:30 Room Air 10/08/23 02:25 10/08/23 02:22 10/08/23 02:15 Room Air 10/08/23 02:15 Room Air Recovery Score Activity: Moves 4 extremities Respiration: Deep Breath/Cough Circulation: +/-20% PreAnes Value Consciousness: Fully Awake Oxygen Saturation: O2 needed for >90% Discharge Sedation Level of Care: Fast Track Phase II Post Sedation Plan On clinical assessment, the patient appears to have tolerated the sedation without complications. Patient is recovering as anticipated. Patient will continue to be monitored by nursing and may be discharged when sedation discharge criteria are met per below protocol. Upon Completions of procedure up to 15 minutes continue every 5 minute vital signs and the P.A.R. score; then discharge to a Phase I or Fast Track to Phase II per the following guidelines: * Discharge Patient to appropriate Phase II area if PAR is 8 or greater or return to pre- procedure baseline. The post - procedure orders will be as directed. * If PAR score is less than 8 or not return to pre-procedure baseline then patient will follow Phase I monitoring till PAR is reached for Phase II. The Phase I may be done in procedure room or may call to secure a Phase I area. * If naloxone or flumazenil are used for reversal, hold in Phase I for continued monitoring from when last reversal dose was given for a minimum of 60 minutes or longer pending the nurse and/or physician discretion of patient condition before discharge to Phase II. Please call the Sedation Physician to re-evaluate and complete post-note for discharge to Phase II area. Do NOT discharge from procedure sedation or Phase 1 until post- sedation evaluation note is complete by procedure /sedation MD Sedation Discharge Instructions to be given to the patient at discharge to home.
[2023-10-08] MEDS ORDERED: ONDANSETRON INJ 2 MG/ML 2 ML VIAL IV PRN ×2 (07:56→08:29)
--- NOTE | 2023-10-08 07:57 | XRay Report ---
XR chest 1V portable CLINICAL HISTORY: Chest pain, nonspecific TECHNIQUE: Single frontal radiograph of the chest was obtained. Comparison: Comparison is made to chest radiograph 09/04/2023 FINDINGS: ACDF is seen. The cardiomediastinal silhouette is normal. Prominence and cephalization of the vascula ture is seen. No evidence of pleural effusion or pneumothorax. IMPRESSION: Mild pulmonary edema. ACT 112: Negative or not required by law. Electronically signed by: Hector Perera M.D. 10/08/2023 7:55 AM
--- NOTE | 2023-10-08 08:23 | Cardiac Catheterization ---
[facility] Data: [facility] [employer] Cardiac Status Clinical evaluation leading to the procedure CAD Presenation: Unstable angina Anginal Classification: CCS IV Diagnostic Physicians Name: Michael Chung MD Closure Device Recommendations: PCI without planned CABG Cardiac Cath Procedure Full Procedure Date October 08, 2023 Pre-Procedure Diagnosis Pre-Procedure Diagnosis: Acute Coronary Syndrome AUC Score AUC Score: 8 Post-Procedure Diagnosis Post-Procedure Diagnosis: Severe CAD, Successful PCI and Normal Intracardiac Pressures Procedure(s) Performed Procedure(s) Performed: Coronary Angiography, Left Heart Cath and Drug Eluting Stent Nut 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 History of coronary artery disease post prior stents to OM 2 last 2010 Access: 6 Fr right radial artery Catheters: Capron, diagnostic JL 3.5, EBU 3.5 guide, 5 Fr JR4 guide Findings: LM -normal caliber, no significant disease LAD -medium caliber, 50-60% earlymid stenosis, mid segment luminal irregularities, distal vessel small and tapers to apex. Small high D1 with mild proximal disease. Small to medium D2 with 3040% ostial stenosis Circumflex -dominant, large caliber, 30% mid stenosis at takeoff of OM1, 40 to 50% distal stenosis after takeoff of OM 2 remainder of distal vessel into PDA, left PLB without significant disease. Medium caliber OM 2 with diffuse in-stent restenosis up to 90%. RCA -small, nondominant, mid 95% stenosis LVEDP -14 -- PCI -- Antithrombotic therapy: Heparin, ticagrelor Procedure: Left main cannulated with EBU 3.5 guide Pre-procedure flow DAMION 23 Gyro Mechanic 50 wire passed across lesion into distal OM 2 [place] wire placed into distal circumflex OM2 in-stent restenosis predilated with 2.5 compliant balloon Dilated lesion stented with 2.25 x 30 mm [place] drug-eluting stent Stent post-dilated with 2.75 noncompliant balloon IC vasodilators administered for spasm Post procedure DAMION 3 flow, stent well expanded with minimal residual stenosis and no apparent cardiac complications. RCA cannulated with 5 Fr JR4 guide Preprocedure flow DAMION 2-3 Gyro Mechanic 50 wire passed across lesion into acute marginal Mid RCA predilated with 2.0 balloon Mid RCA stented with 2.0 x 12 mm [place] drug-eluting stent Stent postdilated with stent balloon Post procedure DAMION 3 flow, stent well expanded with minimal residual stenosis and no apparent cardiac complications. Arterial Closure: TR band Summary: 1. Multivessel coronary artery disease - 90+% diffuse OM2 in-stent restenosis. 40-50% distal circumflex stenosis after takeoff of OM 2 95% mid small nondominant RCA 50-60% earlymid LAD 2. Normal intracardiac filling pressure 3. Successful PCI of OM2 in-stent restenosis with single drug-eluting stent overlapping prior stents (2.25 x 30 mm Pierce; postdilated with 2.75 NC) 4. Successful PCI of nondominant mid RCA with single QUIN (2.0 x 12 mm Pierce). Recommendations: To PCU for continued monitoring Loaded with ticagrelor 180 mg in [employer] [facility] [employer] Continue dual-antiplatelet therapy for at least 6 months, likely extended P2Y12 in the setting of overlapping stents Medical management of residual CAD Continue statin, and ASCVD risk factor modification including smoking cessation Consult cardiac Rehab Hemodynamics Rest Ao:: 133/66/93 Final Ao: 167/83/117 LV: 147/14 Recommendations Recommendations: PCI without planned CABG Specimens Specimens: None Radiation Exposure (mGy) 4858 Contrast (mls) 160 Anesthesia Moderate 0824-2086 Procedural Complication(s) None Disposition PCU I attest to the content of the Intraoperative Record and any orders documented therein. Any exceptions are noted below. [facility] Card Cath Procedure Codes Cardiac Catheterization Procedure 1: Cardiovascular Cath Procedures: 43511 Coronaries and LHC (+/-LV) Moderate Sedation Procedure 1: Sedation/Anesthesia: 17151 Mod Sedation by the same physician;Init15 Min Child Age 5 & Up Procedure 2: Sedation/Anesthesia: 04817 Mod Sedation by the same physician; Ea [id number] Minutes Stenting Procedure 1: Cardiovascular Stent Procedures: 44380 Perc transcatheter placement of intracoronary stent(s), with ang Procedure 2: Cardiovascular Stent Procedures: 42669 Ea addl branch of a major coronary artery PG Care Time/CCT Total # of Minutes Spent Total Time Spent with Patient: Total time spent is greater than 50% in coordination of care (as documented) at patient's floor/unit and/or counseling patient:
[2023-10-08] MEDS ORDERED: NITROGLYCERIN SL 0.4 MG/TAB TAB SL PRN (08:29)
[2023-10-08] MEDS: SODIUM CHLORIDE 0.9% 1,000 ML IV SCH (08:54)
[2023-10-08] MEDS: ICU Protocol for HYPERglycemia SCH (08:55)
[2023-10-08] MEDS ORDERED: [UNRECOGNIZED DRUG - OTHER] PO SCH (09:00)
[2023-10-08] MEDS ORDERED: CLOPIDOGREL BISULFATE 75 MG TAB PO SCH (09:00)
[2023-10-08] MEDS ORDERED: METOPROLOL SUCC 50MG EXT REL TAB PO SCH (09:00)
[2023-10-08] MEDS ORDERED: KRILL OM DHA EPA PHOSPHO AST PO SCH (09:00)
--- NOTE | 2023-10-08 09:26 | Critical Care Consultation ---
Date of Consultation October 08, 2023 Assessment & Plan (1) ACS (acute coronary syndrome): (2) Hypertension: (3) Tobacco abuse: Plan Impression: 62-year-old male with known prior coronary disease presents now with acute myocardial infarction status post 2 drug-eluting stents. He is hemodynamically stable in the ICU currently. Recommendations: 1. Acute coronary syndrome: Continue to monitor status post stenting. Trend troponin. Follow-up echocardiogram pending. Currently on dual antiplatelet therapy with Plavix and aspirin. Continue statin. On TOÑO inhibitor. Beta- ru ordered. Will need cardiac rehab in the outpatient setting 2. Tobacco abuse: Smoking cessation recommended. 3. Mild hyponatremia: Continue to follow at this point in time. Will observe in the ICU today. If he does well, can likely transition out of the intensive care unit in the next 24 hours. The above recommendations and plan were discussed with the patient as well as with the bedside critical care nurse and on multidisciplinary rounds. Questions were answered to the best my ability. They expressed understanding and are in agreement with plan as outlined History of Present Illness Attending Physician: Juan Olson MD History of Present Illness Asked by hospitalist to assist in evaluation management this patient admitted with acute myocardial infarction status post 2 drug-eluting stents. History is obtained from discussion with the patient as well as review the electronic medical record. Patient is a 62-year-old male who is an active tobacco abuser. He continues to smoke at the rate of 1 pack/day. He has a history of multivessel coronary disease with prior stents in place. He presented to the emergency room this morning with complaints of about 6 hours of chest substernal pain which was somewhat stuttering in nature. No diaphoresis. Initial troponin was unremarkable however in the emergency room repeat EKG showed some subtle ST elevations and pain improved with nitro. He was taken to the [facility] where he was found to have 95% stenosis of the right coronary artery as well is 90% in- stent restenosis of OM 2. Patient had drug-eluting stents placed in both lesions. Filling pressures were normal. TR band was placed and he was transferred to the ICU. Has been hemodynamically stable and is currently pain- free. Allergies Allergy/AdvReac Type Severity Reaction Status Date / Time chlorhexidine Allergy Intermediate severe Verified 10/08/23 02:38 itching, redness Sulfa (Sulfonamide Allergy Intermediate rash, hives Verified 10/08/23 02:38 Antibiotics) acetaminophen AdvReac Severe elevated Verified 10/08/23 02:38 LFTs ibuprofen AdvReac Severe elevated Verified 10/08/23 02:38 LFTs morphine AdvReac Intermediate shakiness, Verified 10/08/23 02:38 grumpy, disoriented Home Medications Medication Instructions Recorded Confirmed Type ascorbic acid (vitamin C) 1,000 mg 1,000 mg PO QAM ##0 04/07/16 10/08/23 History tablet aspirin 81 mg tablet,delayed 81 mg PO HS 11/14/17 10/08/23 History release clopidogrel 75 mg tablet (Plavix) 75 mg PO QAM 11/14/17 10/08/23 History cyanocobalamin (vitamin B-12) 500 500 mcg PO QAM 11/14/17 10/08/23 History mcg tablet (Vitamin B-12) duloxetine 60 mg capsule,delayed 60 mg PO BID 11/14/17 10/08/23 History release (Cymbalta) folic acid 400 mcg tablet 0.4 mg PO QAM 11/14/17 10/08/23 History lorazepam 0.5 mg tablet 0.5 mg PO Q12H Anxiety 11/14/17 10/08/23 History metoprolol succinate 100 mg 100 mg PO QAM 11/14/17 10/08/23 History tablet,extended release 24 hr multivitamin 1 tab PO QAM 11/14/17 10/08/23 History oxycodone 5 mg capsule 5 mg PO Q8H Pain 11/14/17 10/08/23 History pyridoxine (vitamin B6) 100 mg 100 mg PO QAM 11/14/17 10/08/23 History tablet cholecalciferol (vitamin D3) 25 1,000 mcg PO DAILY 05/22/23 10/08/23 History mcg (1,000 unit) capsule (Vitamin D3) lisinopril 20 mg tablet 20 mg PO QAM 05/22/23 10/08/23 History zinc gluconate 50 mg tablet 50 mg PO QAM 05/22/23 10/08/23 History nitroglycerin 0.4 mg sublingual 0.4 mg sublingual DIRECTED PRN 08/09/23 10/08/23 Rx tablet (Nitrostat) Chest Pain #20 tabs Total Beets 1 dose PO DAILY 09/06/23 10/08/23 History famotidine 20 mg tablet 20 mg PO BID 09/06/23 10/08/23 History krill 1,000 mg-omega-3 230 mg-dha 1 cap PO QAM 09/06/23 10/08/23 History 60 le-jke-jefkrhfnf-astaxan capsule (MegaRed [place]-3 Krill Oil) spironolactone 25 mg tablet 25 mg PO QAM 09/06/23 10/08/23 History Patient History Medical History Thrombophlebitis CAD (coronary artery disease) HLD (hyperlipidemia) Myocardial Infarction 2003. BPH (benign prostatic hyperplasia) Coronary artery disease 2004- stent x 1, 2011- stents x 2. FOllows with [facility] [place] cardiology Kidney stones Hyperlipidemia GERD (gastroesophageal reflux disease) controlled Anxiety Surgical History H/O tooth extraction removal of infected dental implant 01/19/20 placed on abx. S/P lumbar fusion hardware removal, L2-L3 decompression with fusion: 11/15/17: Grade 1 view, MAC#3, ETT 8.0 at [facility] History of tooth extraction S/P epidural steroid injection lumbar and SI joint injections History of cataract surgery bilateral History of cystoscopy with stent History of lithotripsy laser lithotripsy H/O hand surgery LEFT Fusion of spine Lumbar x2 S/P cervical spinal fusion 05/2015. MAC 3. Grade 1 view. No issues. Full ROM. Hx of inguinal hernia repair left History of cardiac cath 2003 - STENT 2010- STENTS Family History Other No family history of adverse response to anesthesia Social History Smoking Status: Current every day smoker Tobacco Type: Cigarettes Cigarettes Per Day: 1 pack per day; Second Hand Exposure: Yes; Do You Dip or Chew Tobacco: No; Tobacco Cessation Education Requested by Patient: No Hx Alcohol Use: No Hx Substance Use: Yes Last Used Substance: Days (ago) Last Used Substance Other:: thc Substance Use Type Other:: 2 days ago. Inhalation form only. Preferred Language: Austrian Communication Ability: Effective Visual Impairment: No Limitations Hearing Ability: Normal Hr Analyst Required: No Beliefs That Will Affect Care: None marital status: Current Living Situation: Spouse Other Information That Helps Us Care for You: No Feels Safe at Home: Yes Safety Concerns: Feels Safe At This Time Assistive Devices: Denture - Lower and Glasses Review of Systems Review of Systems: Please refer to admission H&P. No additions or deletions Physical Exam Constitutional: WD/WN, vitals as above Neck: trachea midline, no thyromegaly Respiratory: normal respiratory effort, lungs clear to auscultation Cardiovascular: RRR, no murmur, no edema Gastrointestinal (Abdomen): normal bowel sounds, soft, nontender, no hepatosplenomegaly Musculoskeletal: Extremities: extremities normal to inspection Skin: no rashes, warm and dry Neurologic: Nonfocal exam Lymphatic: no cervical lymphadenopathy Results & Data Results & Data Vital Signs (Past 12 Hours) Vital Signs Temp Pulse Pulse Resp BP BP Pulse Ox 10/08/23 08:55 60 10/08/23 08:36 36.5 C 10/08/23 08:30 58 L 22 96 10/08/23 08:30 181/92 H 10/08/23 08:16 60 18 178/83 H 96 10/08/23 08:00 67 20 96 10/08/23 08:00 150/83 H 10/08/23 06:00 63 17 97 10/08/23 05:30 151/70 H 96 10/08/23 05:30 65 16 151/70 H 95 10/08/23 05:00 63 16 126/71 97 10/08/23 04:33 63 18 133/68 96 10/08/23 04:10 62 16 154/90 H 98 10/08/23 04:10 66 18 154/90 H 98 10/08/23 04:07 68 21 250/118 H 99 10/08/23 04:00 59 L 15 187/97 H 99 10/08/23 04:00 61 20 187/97 H 100 10/08/23 03:30 61 15 125/63 95 10/08/23 03:00 62 16 123/76 96 10/08/23 02:45 67 18 94 10/08/23 02:34 36.7 C 67 18 110/65 94 10/08/23 02:30 66 20 100/62 95 10/08/23 02:25 66 10/08/23 02:22 110/68 10/08/23 02:15 67 18 110/65 94 10/08/23 02:15 94 O2 Del Method 10/08/23 08:55 10/08/23 08:36 10/08/23 08:30 10/08/23 08:30 10/08/23 08:16 Room Air 10/08/23 08:00 10/08/23 08:00 10/08/23 06:00 Room Air 10/08/23 05:30 Room Air 10/08/23 05:30 Room Air 10/08/23 05:00 Room Air 10/08/23 04:33 Room Air 10/08/23 04:10 Room Air 10/08/23 04:10 Room Air 10/08/23 04:07 Room Air 10/08/23 04:00 Room Air 10/08/23 04:00 Room Air 10/08/23 03:30 Room Air 10/08/23 03:00 Room Air 10/08/23 02:45 Room Air 10/08/23 02:34 Room Air 10/08/23 02:30 Room Air 10/08/23 02:25 10/08/23 02:22 10/08/23 02:15 Room Air 10/08/23 02:15 Room Air Coding Level of Care Code 83189 IN/OBS CONSULT LVL 4,60M Diagnoses ACS (acute coronary syndrome) I24.9 Hypertension I10 Hypertension type: unspecified Tobacco abuse Z72.0 (2) Hypertension Hypertension type: unspecified Qualified Code(s): I10 - Essential (primary) hypertension
[2023-10-08] MEDS: oxyCODONE HCL IR 5 MG TAB (IMMEDIATE RELEASE) PO SCH (10:40)
[2023-10-08] MEDS: NSS + 20MEQ KCL 20 MEQ/1,000 ML BAG IV SCH (10:40)
[2023-10-08] MEDS: LORazepam 0.5 MG TAB PO SCH (10:40)
[2023-10-08] MEDS: ASCORBIC ACID 500 MG TAB PO SCH (10:42)
[2023-10-08] MEDS: ASPIRIN 81 MG ECTAB PO SCH (10:42)
[2023-10-08] MEDS: CYANOCOBALAMIN (B-12) 500 MCG TABLET PO SCH (10:42)
[2023-10-08] MEDS: DULoxetine HCL 60 MG CAP PO SCH (10:42)
[2023-10-08] MEDS: METOPROLOL TARTRATE 25 MG TAB PO SCH (10:42)
[2023-10-08] MEDS: PANTOprazole 40 MG in SYRINGE 0 ML IV SCH (10:43)
[2023-10-08] MEDS: SPIRONOLACTONE 25 MG TAB PO SCH (10:43)
[2023-10-08] MEDS: MULTIVITAMIN TAB PO SCH (10:43)
[2023-10-08] MEDS: CHOLECALCIFEROL 25 MCG (1000 UNITS) TAB PO SCH (10:43)
[2023-10-08] MEDS: PYRIDOXINE HCL 50 MG TAB PO SCH (10:44)
[2023-10-08] MEDS: FOLIC ACID 400 MCG TAB PO SCH (10:44)
[2023-10-08] MEDS: ZINC SULFATE 220 MG CAPSULE PO SCH (10:44)
[2023-10-08] MEDS: ATORVASTATIN 40 MG TAB PO ONE (10:44)
[2023-10-08] MEDS: FAMOTIDINE 20 MG TAB PO SCH (10:44)
[2023-10-08] MEDS: lisinopril 20 MG TAB PO SCH (10:44)
--- NOTE | 2023-10-08 12:30 | History & Physical Bridge Note ---
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 He is tired from the sedation and from being up all night. Denies chest pain, no other problems. He is craving cigarettes and requesting NRT patch. Says he has cut down to 10 cigs a day but does not plan on quitting when he leaves the hospital. I discussed his care with Dr. Chung-he had a stent placed in OM for in stent restenosis and 1 stent in RCA Vitals reviewed-hypertensive but was late getting his AM meds today NAD< AAOx3 RRR no mgr CTAB no wcr Ext no edema labs reviewed to include CBC< BMP, troponin ECGs reviewed 62 yo male here with STEMI, now s/p stents to OM and RCA, hypertensive Trend trop, ECHO normal,monitor for arrhythmia on tele encouraged smoking cessation, start NRT patch 14mg daily Started Brilinta on top of his ASA, started atorvastatin, check lipid panel in AM check HgbA1C
[2023-10-08] MEDS: NICOTINE 14 MG/24 HR PATCH TD SCH (12:49)
--- NOTE | 2023-10-08 17:01 | XCELERA ---
[id number]
[2023-10-08] MEDS: TICAGRELOR 90 MG TAB PO SCH (20:15)
[2023-10-08] MEDS ORDERED: ASPIRIN 81 MG ECTAB PO SCH (21:00)
--- NOTE | 2023-10-08 21:05 | Electrocardiogram Report ---
Test Reason : Blood Pressure : / mmHG Vent. Rate : 059 BPM Atrial Rate : 059 BPM P-R Int : 160 ms QRS Dur : 088 ms QT Int : 430 ms P-R-T Axes : 065 015 058 degrees QTc Int : 425 ms Poor data quality, interpretation may be adversely affected Sinus bradycardia Cannot rule out Inferior infarct When compared with ECG of 08-OCT-2023 04:04, ST less elevated in Inferior leads Confirmed by Paul Neves ([id number]) on 10/08/2023 9:05:22 PM Referred By: REFERRED SELF Confirmed By:Paul Neves
[2023-10-09 05:02] LABS: Basophils # (auto) 0.02 K/uL (0.00-0.20); Basophils % (auto) 0.2 %; Eosinophils # (auto) 0.36 K/uL (0.00-0.50); Eosinophils % (auto) 4.2 %; Hematocrit (blood only) 35.1 % (42.0-52.0); Immature Granulocytes # (auto) 0.02 K/uL (0.01-0.20); Immature Granulocytes % (auto) 0.2 %; Lymphocytes % (auto) 25.7 %; Mean Corpuscular Hemoglobin 31.3 pg (25.0-34.0); Mean Corpuscular Hgb Conc 34.2 g/dL (32.0-36.0); Mean Corpuscular Volume 91.4 fL (80.0-100.0); Mean Platelet Volume 10.8 fL (9.4-12.4); Monocytes # (auto) 0.57 K/uL (0.11-0.59); Monocytes % (auto) 6.7 %; Platelet Count 230 K/uL (130-400); RDW Coefficient of Variation 13.2 % (11.5-14.5); RDW Standard Deviation 43.5 fL (36.4-46.3); Red Blood Count 3.84 M/uL (4.70-6.10); White Blood Count 8.57 K/ul (4.8-10.8)
[2023-10-09 05:19] LABS: Albumin Globulin Ratio 1.3 (0.9-2); Albumin Level 3.5 gm/dl (3.4-5.0); BUN Creatinine Ratio 12.5 (10-20); Bilirubin,Total 0.6 mg/dl (0.2-1.0); Chol HDL Ratio 5.2 (0-5); Creatinine Clr Calc Pharmacy 75.2 ml/min; Est GFR (African American) 87.5 ml/min; Est GFR (Non-African American) 75.5 ml/min; Globulin 2.7 gm/dl (2.5-4.0); Magnesium 1.7 mg/dl (1.7-2.4); Total Protein 6.2 gm/dl (6.0-8.3)
[2023-10-09] MEDS: ACETAMINOPHEN 325 MG TAB PO PRN (05:31)
[2023-10-09] MEDS: MAGNESIUM SULFATE / D5W 1 GM/100 ML BAG IV SCH (05:32)
[2023-10-09 06:01] LABS: Troponin I High Sensitivity 827.7 pg/ml (0-20)
[2023-10-09] MEDS: ATORVASTATIN 40 MG TAB PO SCH (07:45)
--- NOTE | 2023-10-09 08:12 | Critical Care Progress Note ---
Date of Service October 09, 2023 Assessment & Plan (1) ACS (acute coronary syndrome): (2) Hypertension: (3) Tobacco abuse: Plan Impression: 62-year-old male with known prior coronary disease presents now with acute myocardial infarction status post 2 drug-eluting stents. Patient had no events overnight and is without discomfort this point. Recommendations: 1. Acute coronary syndrome: Patient continues to do well today. He had no adverse events overnight. Troponin has peaked. Echocardiogram demonstrates normal EF of 55 to 60% without regional wall motion abnormality. Continue with DAPT per cardiology orders. Uptitrate patient's beta-ru and antihypertensives as tolerated. Cardiac rehab assessment. 2. Tobacco abuse: Smoking cessation recommended. 3. Mild hyponatremia: Resolved Thank you for allowing us to participate in care of this pleasant patient. Patient remains hemodynamically stable at this time and without further complaints. At this time, patient is stable for downgrade from the ICU. Admission and Anticipated Discharge Date Admission Date: October 08, 2023 Supervising Physician Co-Signing Physician Notes Seen and examined. EMR reviewed. Discussed with BREANA and on MDR. Agree with AP as noted. OK to transfer out of ICU. CC will sign off. Call if questions. Subjective Patient seen and evaluated bedside. He reports that he has been completely chest pain-free since yesterday. He was out of bed to chair for dinner last night, but has not ambulated much that his room. He offers no complaints of return of chest discomfort, shortness of breath, pleuritic pain, nausea, vomiting, or abdominal discomfort. Review of Systems Review of Systems: As per HPI. Physical Exam Physical Exam: VITAL SIGNS - Vital signs and nursing notes were reviewed. GENERAL - 62-year-old male appearing his stated age who is in no acute distress. Communicates well with provider and answers questions appropriately. EYES - PERRL with EOMI bilaterally. NOSE - Midline and without cyanosis. MOUTH/OROPHARYNX - Without perioral cyanosis. LUNGS - Chest wall symmetric without accessory muscle use, intercostals retractions, or central cyanosis. Normal vesicular breath sounds CTA B/L. No wheezes, rales, or rhonchi appreciated. CARDIAC - RRR with S1/S2. No murmur, rubs, or gallops appreciated. ABDOMEN - Abdominal contour obese without pulsations or visible masses. BS normoactive all four quadrants. No tenderness, palpable masses, hepatosplenomegaly, or ascites noted. EXTREMITIES - No clubbing or peripheral cyanosis. No pretibial edema present. +5/5 strength noted in UE/LE bilaterally. NEUROLOGIC - Cranial nerves II through XII grossly intact. PSYCH - A&Ox3 and cooperates fully with examiner. Pt is very pleasant and interacts well with examiner. Results & Data Results & Data Vital Signs (Past 12 Hours) Vital Signs Temp Pulse Resp BP Pulse Ox 10/09/23 06:00 74 14 93 10/09/23 06:00 158/86 H 10/09/23 06:00 158/86 H 10/09/23 06:00 158/86 H 10/09/23 05:15 76 20 93 10/09/23 05:03 154/91 H 10/09/23 05:00 181/96 H 10/09/23 04:51 77 16 95 10/09/23 04:00 79 18 154/79 H 96 10/09/23 04:00 36.9 C 10/09/23 03:00 162/88 H 10/09/23 03:00 74 19 95 10/09/23 02:25 75 15 96 10/09/23 01:03 75 19 95 10/09/23 01:00 170/84 H 10/09/23 01:00 170/84 H 10/09/23 01:00 170/84 H 10/09/23 00:54 75 17 96 10/09/23 00:06 71 16 96 10/09/23 00:01 170/90 H 10/09/23 00:01 170/90 H 10/09/23 00:00 73 22 97 10/09/23 00:00 74 10/09/23 00:00 37.0 C 10/08/23 23:01 149/83 H 10/08/23 23:01 149/83 H 10/08/23 23:00 77 15 96 10/08/23 22:01 167/99 H 10/08/23 22:01 167/99 H 10/08/23 22:01 167/99 H 10/08/23 22:00 83 17 95 10/08/23 21:00 71 21 95 10/08/23 21:00 135/73 10/08/23 21:00 135/73 10/08/23 21:00 135/73 Coding Level of Care Code 78423 SUB INP/OBS CARE MIN Diagnoses ACS (acute coronary syndrome) I24.9 Hypertension I10 Hypertension type: unspecified Tobacco abuse Z72.0 (2) Hypertension Hypertension type: unspecified Qualified Code(s): I10 - Essential (primary) hypertension
[2023-10-09 08:15] LABS: Estimated Average Glucose 123 mg/dl; Hemoglobin A1C 5.9 % (4.5-5.6)
--- NOTE | 2023-10-09 14:42 | Discharge Summary ---
Discharge Summary Date of Service October 09, 2023 Principal Dx & Hospital Course #1 = Principal Diagnosis (1) STEMI (ST elevation myocardial infarction): P/w CP and had ST elevations in inferior leads, taken urgently to [facility] and had QUIN placed in OM restenosis in old stent and QUIN in RCA Much improved afterwards, no arrhythmias, no further CP Trop peaked at 912 ECHO with preserved EF, no WMAs Started Brilinta and dc Plavix Continue ASA, continue statin, metoprolol, lisinopril at home doses Strongly encouraged smoking cessation and called in NRT patches to [facility] to see if covered by insurance F/u with Cardiology (2) History of coronary artery disease: with h/o BMS in OM and then QUIN meds as above (3) Hypertension: continue Toprol and lisinopril, aldactone, may need to be further up titrated as outpt quit smoking (4) Tobacco abuse: counseled on cessation prescribed NRT, advised to discuss Chantix with PCP (5) GERD (gastroesophageal reflux disease): continue home meds Plan Depression/anxiety- Continue duloxetine and lorazepam Chronic pain syndrome- Acetaminophen 650 mg by mouth every 6 hours as needed for mild pain or fever Oxycodone 5 mg p.o. every 8 hours as needed moderate pain DVT proph-SCDs Dispo-dc to home Notes For Next Care Provider None Medication Changes From Visit Added Brilinta 90mg po bid Stopped Plavix Added nicotine TD 14mg daily Admission HPI Per Admitting Provider The patient is a 62-year-old male with a past medical history including CAD with history of MIs x 2, in 2003 and 2011, and history of 2 stents. He presents the emergency department with symptoms that were more intense than previously in July, with initially EKG suggesting new ST elevations in leads II to III aVF, but less so in V6, and inversion in aVL. Patient had only minimal improvement in symptoms with addition of Nitropaste, decision was made to add heparin drip, intervention cardiology Dr. Chung was called, who recommended a heart heart alert be called. Patient will be taken to the cardiac [facility], and then follow-up care in the ICU. Of note, the patient does continue to smoke at least 10 cigarettes daily. He he did undergo a dobutamine stress echocardiogram during admission from 08/05-08/07/2023, which was negative with ejection fraction 65-70% at baseline Discharge Exam Constitutional WD/WN, vitals as above Neck trachea midline, no thyromegaly Respiratory normal respiratory effort, lungs clear to auscultation one exp wheeze faint on right Cardiovascular RRR, no murmur, no edema right radial cath site with dressing c/d/i, no hematoma Chest (Breasts) Chest: normal inspection of chest Gastrointestinal (Abdomen) normal bowel sounds, soft, nontender, no hepatosplenomegaly Musculoskeletal Extremities: extremities normal to inspection; no cyanosis and no clubbing Skin no rashes, warm and dry Neurologic moves all extremities and awake; no focal motor deficits Psychiatric A+Ox3, euthymic affect Lymphatic no lymphedema Updated Medication List Medication Instructions Recorded Confirmed Type ascorbic acid (vitamin C) 1,000 mg 1,000 mg PO QA ##0 04/07/16 10/08/23 History tablet aspirin 81 mg tablet,delayed 81 mg PO HS 11/14/17 10/08/23 History release clopidogrel 75 mg tablet (Plavix) 75 mg PO QAM 11/14/17 10/08/23 History cyanocobalamin (vitamin B-12) 500 500 mcg PO QAM 11/14/17 10/08/23 History mcg tablet (Vitamin B-12) duloxetine 60 mg capsule,delayed 60 mg PO BID 11/14/17 10/08/23 History release (Cymbalta) folic acid 400 mcg tablet 0.4 mg PO QAM 11/14/17 10/08/23 History lorazepam 0.5 mg tablet 0.5 mg PO Q12H Anxiety 11/14/17 10/08/23 History metoprolol succinate 100 mg 100 mg PO QAM 11/14/17 10/08/23 History tablet,extended release 24 hr multivitamin 1 tab PO QAM 11/14/17 10/08/23 History oxycodone 5 mg capsule 5 mg PO Q8H Pain 11/14/17 10/08/23 History pyridoxine (vitamin B6) 100 mg 100 mg PO QAM 11/14/17 10/08/23 History tablet cholecalciferol (vitamin D3) 25 1,000 mcg PO DAILY 05/22/23 10/08/23 History mcg (1,000 unit) capsule (Vitamin D3) lisinopril 20 mg tablet 20 mg PO QAM 05/22/23 10/08/23 History zinc gluconate 50 mg tablet 50 mg PO QAM 05/22/23 10/08/23 History nitroglycerin 0.4 mg sublingual 0.4 mg sublingual DIRECTED PRN 08/09/23 10/08/23 Rx tablet (Nitrostat) Chest Pain #20 tabs Total Beets 1 dose PO DAILY 09/06/23 10/08/23 History famotidine 20 mg tablet 20 mg PO BID 09/06/23 10/08/23 History krill 1,000 mg-omega-3 230 mg-dha 1 cap PO QAM 09/06/23 10/08/23 History 60 ml-azx-xrrstpmek-astaxan capsule (MegaRed [place]-3 Krill Oil) spironolactone 25 mg tablet 25 mg PO QAM 09/06/23 10/08/23 History atorvastatin 80 mg tablet 40 mg PO DAILY 10/09/23 10/09/23 History nicotine 7 mg/24 hr daily 1 patch transdermal QAM #14 ea 10/09/23 Rx transdermal patch ticagrelor 90 mg tablet (Brilinta) 90 mg PO BID #60 tabs 10/09/23 Rx Hospital Stay Data Consultations 10/08/23 04:49 ED Decision to Admit Stat 10/08/23 08:29 Consult Java Tech Routine Procedures Performed Operation Date: 10/08/23 06:00 Actual Procedures p Cineradiography w/Routine Exam - Michael Chung MD p Aspiration/PCI w/QUIN for Stemi - Michael Chung MD s Drug Eluting Stent SGl Vessel - Michael Chung MD Diagnostic Imagining Performed 10/08/23 05:47 CL Cath Imgs for PACS use only Stat ECHO Pending Results Patient Have Any Pending Studies at Discharge: No Discharge Instructions Given to Patient (Per Discharging Provider) ACTIVITY RECOMMENDATIONS: Excess manipulation of the wrist should be avoided for the next 24-48 hours. * No lifting over 2 pounds (approximately a 1/2 gallon of milk) with the utilized arm for 24 hours. * No strenuous activity such as bowling or tennis for 3 days. * Keep the site of the procedure covered with a bandage for 24 hours. *You may shower the day after the procedure. Do not take a tub bath or submerge the puncture site in water for the next 3 days. *Do not operate any motorized equipment for 3 days. SPECIAL CARE INSTRUCTIONS: The site may be slightly bruised and sore following your procedure. Should any of the following occur, contact the Dr. who performed your procedure. 1. Redness/inflammation, swelling, chills, or fever, or colored drainage at procedure site within 3-7 days after your procedure. 2. Coldness, discoloration, ongoing numbness, severe pain, or swelling. Expect mild tingling of hand and tenderness at the puncture site for up to three days. If this persists beyond three days, or other symptoms develop, notify the Dr. who performed your procedure. BLEEDING: If the procedure site on your wrist begins to bleed, do not panic 1. Place 1 or 2 fingers firmly just slightly above the insertion site to stop the bleeding. You may be able to feel your pulse as you hold pressure. 2. Lift your finger after 5 minutes to see if the bleeding has stopped. 3. Once the bleeding has stopped, gently wipe the wrist area clean with a bandage. * If the bleeding from your wrist does not stop after 10 minutes, or if there is a large amount of bleeding or spurting, call 911 (do not drive yourself to the hospital). SKIN IRRITATION: * You may experience some redness and/or swelling in the area where radiation was administered. If any skin irritation occurs, please contact your family physician. FOLLOW UP VISIT: Keep any scheduled doctor appointments. Home Care: * Take your medications exactly as directed. Don't skip doses. * Remember that recovery after a heart attack takes time. Plan to rest for at lease 4-8 weeks while you recover. Then return to normal activity when your doctor says it's okay. * Ask your doctor about joining a heart rehabilitation program. * Tell your doctor if you are feeling depressed. Feelings of sadness are common after a heart attack, but it is important that you speak to someone if you are feeling overwhelmed by these feelings. * If you are having chest pain, call 911 for an ambulance. Do NOT drive yourself to the hospital. * Ask your family members to learn CPR. * Learn to take your own blood pressure and pulse. Keep a record of your results. Ask your doctor when you should seek emergency medical attention. He or she will tell you which blood pressure reading is dangerous. Lifestyle Changes: * Maintain a healthy weight. Get help to lose any extra pounds. * Cut back on salt. * Limit canned, dried, packaged, and fast foods. * Don't add salt to your food. * Season foods with herbs instead of salt when you cook. * Break the smoking habit. Enroll in a stop-smoking program to improve your chances of success. * Limit fatty foods. * Ask your doctor about having your lipid levels checked regularly. * Build up your activity according to your doctor's recommendation. * Ask your doctor when it's okay to resume sexual activity. * Tell your doctor about any erectile dysfunction (ED) medication you are taking. Some ED medications are not safe if you take certain heart medications. * Try to manage stress. Follow Up: It is important for you to keep your follow up appointments with your medical provider. Total Time Total Time Spent Total Time Spent (In Minutes): 35 min Total Time Includes: Examination of the Patient, Discharge Planning, Medication Reconciliation and Communication With Other Providers (Cardiology) Coding Level of Care Code 89400 INP/OBS DISCH >30 MIN Diagnoses STEMI (ST elevation myocardial infarction) I21.3 History of coronary artery disease Z86.79 Hypertension I10 Hypertension type: unspecified Tobacco abuse Z72.0 GERD (gastroesophageal reflux disease) K21.9
--- NOTE | 2023-10-09 21:46 | Electrocardiogram Report ---
Test Reason : Blood Pressure : / mmHG Vent. Rate : 073 BPM Atrial Rate : 073 BPM P-R Int : 130 ms QRS Dur : 082 ms QT Int : 366 ms P-R-T Axes : 049 025 029 degrees QTc Int : 403 ms Normal sinus rhythm Normal ECG When compared with ECG of 08-OCT-2023 09:10, T wave amplitude has decreased in Lateral leads Confirmed by Paul Neves ([id number]) on 10/09/2023 9:46:17 PM Referred By: REFERRED SELF Confirmed By:Paul Neves
--- NOTE | 2023-10-09 23:30 | Cardiology Progress Note ---
Date of Service October 09, 2023 Assessment & Plan (1) ACS (acute coronary syndrome): Plan: Post PCI with QUIN to OM in-stent restenosis and mid nondominant RCA 2. Preserved LV function 3. Hypertension 4. Dyslipidemia 5. Ongoing tobacco use 6. Questionable neurologic event 08/2023 7. Chronic back pain Doing well today No recurrent chest pain, troponins peaked Preserved LV function on echo, no signs of heart failure on exam. No apparent access site complications. Electrically stable on telemetry. From a cardiac standpoint okay with discharge today. Home on DAPT with aspirin, ticagrelor Resume prior antihypertensives including Toprol-XL, lisinopril, spironolactone. If BP remains elevated at home consider increasing lisinopril to 40 mg daily Home on new statin Again stressed importance of smoking cessation Follow-up with Dr. Galindo in 2 to 3 weeks. Discussed cardiac rehab today. Interested in participating Admission and Anticipated Discharge Date Admission Date: October 08, 2023 Subjective Feeling well today. No recurrence of chest pain. Reports some headache which has been ongoing for the last few weeks. No other concerns. Telemetry reviewedno events. Review of Systems Review of Systems: All systems reviewed & are unremarkable except as noted in HPI & below Physical Exam Physical Exam: General: Comfortable HEENT: Sclerae anicteric Lungs: Clear to auscultation bilaterally Cardiac: Regular rate and rhythm, no murmurs. Vascular: Right radial artery access site with no ecchymosis, hematoma. Distal pulse and sensation intact. Abdomen: Soft, nontender Extremities: Well perfused, no peripheral edema Neuro: Nonfocal Psych: Alert orient x3, normal affect and mood Results & Data Vital Signs (Past 12 Hours) Vital Signs Temp Pulse Pulse Resp BP BP Pulse Ox 10/09/23 16:18 98.2 F 60 19 151/70 H 96 10/09/23 12:00 75 19 96 10/09/23 11:34 122/89 10/09/23 11:34 122/89 10/09/23 11:27 66 24 98 O2 Del Method 10/09/23 16:18 10/09/23 12:00 Room Air 10/09/23 11:34 10/09/23 11:34 10/09/23 11:27 PG Care Time/CCT Total # of Minutes Spent Total Time Spent with Patient: Total time spent is greater than 50% in coordination of care (as documented) at patient's floor/unit and/or counseling patient: Coding Level of Care Code 66705 SUB INP/OBS CARE 50MIN Diagnoses ACS (acute coronary syndrome) I24.9
== END 2023-10-09 17:04 | disposition home or self-care (01) | DRG 322 ==
LOC: SUATTDRO → ED 02:11 → 1E 05:35 → SUATTDRO 05:35

== ENCOUNTER 2024-07-06 15:22 | Inpatient (IN) ==
--- NOTE | 2024-07-06 16:37 | Emergency Department Note ---
Impression & Plan Back pain Admission ED Provider Note HPI: History obtained from patient. The patient is a 63-year-old gentleman who presents the emergency department with chief complaint of left lower back pain that radiates down his left leg. Patient states he has had the symptoms for over a week, he states he was in the ER this past Saturday for the same issue and had CT imaging performed and ultimately he was discharged home with medications. Patient states that he was started on a steroid course by his PCP several days ago without relief of his pain. Patient states the pain is now excruciating with movement and he rates it at a 10 out of 10, at rest he states it is more manageable. Patient denies any urinary or stool incontinence or retention, denies any saddle anesthesia, denies any recent fever. On arrival here to the ED the patient is hypertensive but otherwise hemodynamically stable. He appears to be in mild distress secondary to pain on my initial assessment. ROS: - Per HPI Differential Diagnosis: Degenerative disease of the lumbar spine with radiculopathy, compression fracture, pathologic fracture, spinal stenosis, discitis, cauda equina syndrome, amongst other potential pathologies. *Outpatient medications and allergy history reviewed. 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 Lab work shows a leukocytosis of 15.37, hemoglobin is normal, platelet count is normal, CMP does not show any evidence of any critical findings. Urinalysis does not show any evidence of blood or infection. Given that the patient did have recent CT imaging, I did order an MRI of the lumbar spine. This is concerning for possible discitis in the area of L1-L2. Advanced degenerative changes and neuroforaminal stenosis is also noted. Patient denies any recent fever, he does mention maybe 2 weeks ago he might of had some type of subjective fever but this has not persisted. His leukocytosis is present on CBC however patient was placed on a course of steroids just several days ago, therefore definitive diagnosis of discitis is unclear. Patient continued to have significant pain mostly with movement while he was here in the ED although he did have some improvement with IV Dilaudid. I discussed the patient's presentation with his spinal surgeon, Dr. Sim, who at this time recommends initiation of IV antibiotics and admission. He will consult on the case and requested admission to medicine. Patient was treated with IV vancomycin and IV cefepime. Blood cultures were drawn. I discussed the patient's presentation with the on-call hospitalist, Dr. Márquez, and the patient was placed for admission in stable condition. Consultants/Discussions held with other healthcare providers: - Hospitalist, Dr. Márquez - Orthopedic/spinal surgery, Dr. Sim Disposition discussion held by myself with: - Patient and patient's Diagnosis: 1. Lower back pain, acute 2. Discitis of the lumbar spine, acute 3. Degenerative changes of the lumbar spine, acute on chronic Disposition: Admission Ernesto Daniel DO Emergency Medicine Past Med/Surg History Problem List (Updated 07/06/24 @ 22:21 by Ernesto Daniel DO) Back pain (Acute) Back pain (Acute) Hyperlipidemia CAD (coronary artery disease) Seizure-like activity Acute non-ST elevation myocardial infarction (NSTEMI) (Acute) History of coronary artery disease (Acute) Hypertension (Acute) Stented coronary artery Sacroiliitis Acute exacerbation of chronic low back pain (Acute) Cervical stenosis of spinal canal HNP (herniated nucleus pulposus), lumbar (Acute) Intractable low back pain (Acute) Neuropathy (Chronic) Precordial chest pain Encounter for pre-operative examination RADHA (acute kidney injury) (Chronic) Tobacco abuse (Chronic) Chronic back pain Chest pain GERD (gastroesophageal reflux disease) Preoperative cardiovascular examination Depression Hypertension (Chronic) Pulmonary embolism (Chronic) 2003, spontaneous- previously on coumadin for short period of time Lumbar stenosis with neurogenic claudication (Acute) Medical History ACS (acute coronary syndrome) STEMI (ST elevation myocardial infarction) Chest pain Thrombophlebitis HLD (hyperlipidemia) Myocardial Infarction 2003. BPH (benign prostatic hyperplasia) Coronary artery disease 2004- stent x 1, 2012- stents x 2. FOllows with [facility] cardiology Kidney stones GERD (gastroesophageal reflux disease) controlled Anxiety Surgical History H/O tooth extraction removal of infected dental implant 01/19/20 placed on abx. S/P lumbar fusion hardware removal, L2-L3 decompression with fusion: 11/15/17: Grade 1 view, MAC#3, ETT 8.0 at [facility] History of tooth extraction S/P epidural steroid injection lumbar and SI joint injections History of cataract surgery bilateral History of cystoscopy with stent History of lithotripsy laser lithotripsy H/O hand surgery LEFT Fusion of spine Lumbar x2 S/P cervical spinal fusion 05/2015. MAC 3. Grade 1 view. No issues. Full ROM. Hx of inguinal hernia repair left History of cardiac cath 2003 - 1 STENT 2010- 2 STENTS Family History Other No family history of adverse response to anesthesia Social History Smoking Status: Unknown if ever smoked Tobacco Type: Cigarettes Cigarettes Per Day: 1 pack per day; Second Hand Exposure: No; Do You Dip or Chew Tobacco: No; Hx Alcohol Use: No Hx Substance Use: Yes Last Used Substance: Days (ago) Last Used Substance Other:: thc Substance Use Type Other:: 2 days ago. Inhalation form only. 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 Beliefs That Will Affect Care: Mandaeism Mandaeism Beliefs: [employer] marital status: Current Living Situation: Spouse current occupation: Retired Feels Safe at Home: Yes Assistive Devices: None Allergies Allergies Allergy/AdvReac Type Severity Reaction Status Date / Time chlorhexidine Allergy Intermediate severe Verified 07/06/24 19:09 itching, redness Sulfa (Sulfonamide Allergy Intermediate rash, hives Verified 07/06/24 19:09 Antibiotics) acetaminophen AdvReac Severe elevated Verified 07/06/24 19:09 LFTs ibuprofen AdvReac Severe elevated Verified 07/06/24 19:09 LFTs morphine AdvReac Intermediate shakiness, Verified 07/06/24 19:09 grumpy, disoriented Home Meds Home Medications Medication Instructions Recorded Confirmed ascorbic acid (vitamin C) 1,000 mg 1,000 mg PO QAM ##0 04/07/16 07/06/24 tablet aspirin 81 mg tablet,delayed 81 mg PO HS 11/14/17 07/06/24 release cyanocobalamin (vitamin B-12) 500 500 mcg PO QAM 11/14/17 07/06/24 mcg tablet (Vitamin B-12) duloxetine 60 mg capsule,delayed 60 mg PO BID 11/14/17 07/06/24 release (Cymbalta) folic acid 400 mcg tablet 0.4 mg PO QAM 11/14/17 07/06/24 lorazepam 0.5 mg tablet 0.5 mg PO Q12H PRN Anxiety 11/14/17 07/06/24 metoprolol succinate 100 mg 100 mg PO QAM 11/14/17 07/06/24 tablet,extended release 24 hr multivitamin 1 tab PO QAM 11/14/17 07/06/24 pyridoxine (vitamin B6) 100 mg 100 mg PO QAM 11/14/17 07/06/24 tablet cholecalciferol (vitamin D3) 25 1,000 mcg PO DAILY 05/22/23 07/06/24 mcg (1,000 unit) capsule (Vitamin D3) lisinopril 20 mg tablet 20 mg PO QAM 05/22/23 07/06/24 zinc gluconate 50 mg tablet 50 mg PO QAM 05/22/23 07/06/24 famotidine 20 mg tablet 20 mg PO BID 09/06/23 07/06/24 krill 1,000 mg-omega-3 230 mg-dha 1 cap PO QAM 09/06/23 07/06/24 60 ge-aao-vwdoksycn-astaxan capsule (MegaRed [place]-3 Krill Oil) spironolactone 25 mg tablet 25 mg PO QAM 09/06/23 07/06/24 atorvastatin 80 mg tablet 40 mg PO DAILY 10/09/23 07/06/24 oxycodone 5 mg tablet 5 mg PO Q8H PRN Pain 07/06/24 07/06/24 Previous Rx's Medication Instructions Recorded ticagrelor 90 mg tablet (Brilinta) 90 mg PO BID #60 tabs 11/07/23 nitroglycerin 0.4 mg sublingual 0.4 mg sublingual DIRECTED PRN 03/25/24 tablet (Nitrostat) Chest Pain #25 tabs cyclobenzaprine 5 mg tablet 5 mg PO TID PRN muscle spasm #30 07/01/24 tabs Results & Data (ED) Vital Signs Vital Signs - 24 hr 07/06/24 15:35 07/06/24 16:00 07/06/24 16:30 Temperature 36.8 C Temperature Source Oral Pulse Rate 70 62 69 Pulse Rate [Finger] Pulse Rate from SpO2 Sensor 61 68 Respiratory Rate 18 18 17 Blood Pressure 186/103 H 192/98 H 178/129 H Blood Pressure [Right Arm] Blood Pressure Mean 130 129 145 Blood Pressure Mean [Right Arm] Pulse Oximetry 97 98 98 Oxygen Delivery Method Room Air Sepsis Recent Fever Within 48 Hours No Sepsis New/Unexplained Change in Mental Status No Sepsis Action Taken by Nursing No Action Required 07/06/24 16:31 07/06/24 18:22 07/06/24 19:32 Temperature Temperature Source Pulse Rate 66 63 Pulse Rate [Finger] 68 Pulse Rate from SpO2 Sensor Respiratory Rate 14 Blood Pressure Blood Pressure [Right Arm] 178/98 H Blood Pressure Mean Blood Pressure Mean [Right Arm] 124 Pulse Oximetry 96 Oxygen Delivery Method Room Air Sepsis Recent Fever Within 48 Hours Sepsis New/Unexplained Change in Mental Status Sepsis Action Taken by Nursing 07/06/24 20:00 07/06/24 22:00 Temperature Temperature Source Pulse Rate Pulse Rate [Finger] 64 70 Pulse Rate from SpO2 Sensor Respiratory Rate 12 14 Blood Pressure Blood Pressure [Right Arm] 147/91 H 144/79 H Blood Pressure Mean Blood Pressure Mean [Right Arm] 109 100 Pulse Oximetry 96 96 Oxygen Delivery Method Room Air Room Air Sepsis Recent Fever Within 48 Hours Sepsis New/Unexplained Change in Mental Status Sepsis Action Taken by Nursing Laboratory Data 07/06/24 16:40 07/06/24 18:18 Lab Results 07/06/24 07/06/24 Range/Units 16:40 18:18 WBC 15.37 H (4.8-10.8) K/ul RBC 4.83 (4.70-6.10) M/uL Hgb 14.7 (14.0-18.0) g/dl Hct 43.0 (42.0-52.0) % MCV 89.0 (80.0-100.0) fL MCH 30.4 (25.0-34.0) pg MCHC 34.2 (32.0-36.0) g/dL RDW Std Deviation 44.8 (36.4-46.3) fL RDW Coeff of Jeanette 13.8 (11.5-14.5) % Plt Count 307 (130-400) K/uL MPV 10.8 (9.4-12.4) fL Immature Gran % (Auto) 0.5 % Neut % (Auto) 73.4 % Lymph % (Auto) 17.4 % Forrest % (Auto) 7.4 % Eos % (Auto) 1.1 % Baso % (Auto) 0.2 % Neut # (Auto) 11.27 H (1.40-6.50) K/uL Lymph # (Auto) 2.68 (1.20-3.40) K/uL Forrest # (Auto) 1.14 H (0.11-0.59) K/uL Eos # (Auto) 0.17 (0.00-0.50) K/uL Baso # (Auto) 0.03 (0.00-0.20) K/uL Immature Gran # (Auto) 0.08 (0.01-0.20) K/uL ESR 47 H (0-20) mm/hr PT Cancelled 10.5 INR Cancelled 1.0 Sodium TNP 134 L Potassium TNP 4.4 Chloride 103 (98-107) mmol/L Carbon Dioxide 28 (21-32) mmol/L Anion Gap TNP BUN 21 (6-23) mg/dl Creatinine 0.99 (0.6-1.4) mg/dl Est Cr Clr Drug Dosing 77.0 ml/min eGFR 84.54 BUN/Creatinine Ratio 21.2 H (10-20) Glucose 111 H (70-99(Fasting)) mg/dl Calcium 9.5 (8.6-10.3) mg/dl Total Bilirubin 0.5 (0.2-1.0) mg/dl AST TNP 16 ALT 29 (7-52) U/L Alkaline Phosphatase TNP 83 Total Protein 8.4 H (6.0-8.3) gm/dl Albumin TNP 4.0 Globulin TNP Albumin/Globulin Ratio TNP Lipase 43 (11-82) U/L Urine Color Yellow Urine Appearance Clear (Clear) Urine pH 6.0 (4.5-7.5) Ur Specific [place] 1.008 (1.000-1.030) Urine Protein Negative (Negative) Urine Glucose (UA) Negative (Negative) Urine Ketones Negative (Negative) Urine Blood Negative (Negative) Urine Nitrite Negative (Negative) Urine Bilirubin Negative (Negative) Urine Urobilinogen Negative (Negative) Ur Leukocyte Esterase Negative (Negative) Administered Medications Vancomycin HCl 1,750 mg/ (Sodium Chloride) 535 mls @ 200 mls/hr IV NOW ONE Stop: 07/06/24 23:33 Last Admin: 07/06/24 21:49 Dose: 200 mls/hr Documented By: RADAMES Discontinued Medications Hydromorphone HCl (Hydromorphone Inj 0.5 Mg/0.5 Ml Syr) 0.5 mg IV NOW STA Stop: 07/06/24 16:58 Last Admin: 07/06/24 17:01 Dose: 0.5 mg Documented By: RADAMES Hydromorphone HCl (Hydromorphone Inj 0.5 Mg/0.5 Ml Syr) 0.5 mg IV NOW STA Stop: 07/06/24 18:26 Last Admin: 07/06/24 18:38 Dose: 0.5 mg Documented By: RADAMES Hydromorphone HCl (Hydromorphone Inj 0.5 Mg/0.5 Ml Syr) 0.5 mg IV NOW STA Stop: 07/06/24 21:10 Last Admin: 07/06/24 21:19 Dose: 0.5 mg Documented By: RADAMES Cefepime HCl (Maxipime 2000mg) 2,000 mg in 20 mls @ 5 mls/min IV NOW STA; Protocol Stop: 07/06/24 20:56 Last Admin: 07/06/24 21:20 Dose: 5 mls/min Documented By: RADAMES Methylprednisolone (Methylprednisolone 125 Mg/2 Ml Vial) 125 mg IV NOW STA Stop: 07/06/24 16:35 Last Admin: 07/06/24 17:01 Dose: 125 mg Documented By: RADAMES Morphine Sulfate (Morphine Sulfate 4 Mg/Ml 1 Ml Carp\Vial) 4 mg IV NOW STA Stop: 07/06/24 16:35 Last Admin: 07/06/24 16:51 Dose: Not Given Documented By: RADAMES Ondansetron HCl (Ondansetron Inj 2 Mg/Ml 2 Ml Vial) 4 mg IV NOW STA Stop: 07/06/24 16:35 Last Admin: 07/06/24 17:01 Dose: 4 mg Documented By: RADAMES Imaging Data Radiologist's Impression: Lumbar Spine MRI 07/06/24 16:35 EXAM: MR lumbar spine wo con CLINICAL HISTORY: Back pain. TECHNIQUE: MRI of the lumbar spine was performed without the administration of intravenous contrast. Sequences obtained include sagittal T1-weighted, T2-weighted, STIR (Short Tau Inversion Recovery), and axial T2-weighted sequences. COMPARISON: No previous studies are available for comparison. FINDINGS: Vertebral Alignment: Normal alignment of the lumbar spine without evidence of fracture or malalignment. No evidence of scoliosis is observed. Marrow signals are normal. Vertebral Bodies and Intervertebral Discs: Normal vertebral body height, no fracture identified. Advanced spine degenerative changes with osteophytes Laminectomy with transpedicular internal fixation of L2 and L3 vertebrae. Discectomy and internal disc fixation noted at L2-3 L3-4 and L4-5 intervertebral discs Partial fusion of the disc space of L2-3 ,L3-4 and L4-5 disc spaces High signal noted within L1-2 disc with associated mild bone marrow edema at opposing endplates of L1 and L2 vertebra suggesting possible discitis with the possibility of early spondylodiscitis cannot be totally excluded. No detected collections L1-4. [id number] analysis: T12-L1: There is no significant disc pathology. No spinal canal stenosis. No neural foraminal stenosis.No ligamentum flavum hypertrophy and facet joint arthropathy. L1-L2: 4.7mm diffuse disc bulge with disc osteophyte complex causing mild spinal canal stenosis and bilateral severe neural foraminal stenosis impinging the exiting nerve roots .No ligamentum flavum hypertrophy and facet joint arthropathy. L2-L3: No disc at this level. Bilateral facet joint arthritis is noted. L3-L4: No disc at this level. Bilateral facet joint arthritis is noted. L4-L5: No disc at this level. Bilateral facet joint arthritis is noted. L5-S1: There is no significant disc pathology. No spinal canal stenosis.Bilateral facet joint arthritis causing bilateral moderate neuroforaminal stenosis at this level. Spinal Cord and Nerve Roots: Conus medullaris terminates at the L1 level without abnormality. Nerve roots appear unremarkable bilaterally. The lower thoracic spinal cord, conus medullaris, and cauda equina nerve roots are unremarkable. Soft Tissues: Paraspinal soft tissues appear normal without evidence of abnormal signal intensity or mass lesions. IMPRESSION: 1. High signal noted within L1-2 disc with associated mild bone marrow edema at opposing endplates of L1 and L2 vertebra, suggesting possible discitis with the possibility of early spondylodiscitis cannot be totally excluded. No detected collections. Correlate clinically. 2. Advanced spine degenerative changes with osteophytes. 3. Laminectomy with transpedicular internal fixation of L2 and L3 vertebrae. Discectomy and internal disc fixation noted at L2-3 L3-4 and L4-5 intervertebral discs. 4. L1-L2 disc osteophyte complex causing mild spinal canal stenosis. 5. L5-S1 Bilateral facet joint arthritis causing bilateral moderate neuroforaminal stenosis at this level. Electronically signed by Gui Raymundo 07-06-2024 8:29 PM Discharge Plan Visit Data Chief Complaint: Back Injury/Pain ED Provider: Ernesto Daniel Discharge Problem: Back pain Forms Stand Alone Forms: [facility] [employer] Prescriptions Prescriptions: No Action ascorbic acid (vitamin C) 1,000 mg Tablet 1,000 mg PO QAM Qty: 0 Brilinta 90 mg tablet 90 mg PO BID Qty: 60 11RF nitroglycerin [Nitrostat] 0.4 mg tablet, sublingual 0.4 mg Sublingual DIRECTED PRN (Reason: Chest Pain) Qty: 25 3RF multivitamin Tablet 1 tab PO QAM metoprolol succinate 100 mg Tablet Extended Release 24 Hr 100 mg PO QAM folic acid 400 mcg Tablet 0.4 mg PO QAM aspirin 81 mg Tablet,Delayed Release (Dr/Ec) 81 mg PO HS lorazepam 0.5 mg Tablet 0.5 mg PO Q12H PRN (Reason: Anxiety) cyanocobalamin (vitamin B-12) [Vitamin B-12] 500 mcg Tablet 500 mcg PO QAM pyridoxine (vitamin B6) 100 mg Tablet 100 mg PO QAM duloxetine [Cymbalta] 60 mg Capsule,Delayed Release(Dr/Ec) 60 mg PO BID spironolactone 25 mg tablet 25 mg PO QAM famotidine 20 mg tablet 20 mg PO BID [id number] [MegaRed [place]-3 Krill Oil] 1,000-230-60 mg Capsule 1 cap PO QAM atorvastatin 80 mg tablet 40 mg PO DAILY lisinopril 20 mg tablet 20 mg PO QAM zinc gluconate 50 mg Tablet 50 mg PO QAM cholecalciferol (vitamin D3) [Vitamin D3] 25 mcg (1,000 unit) Capsule 1,000 mcg PO DAILY cyclobenzaprine 5 mg tablet 5 mg PO TID PRN (Reason: muscle spasm) Qty: 30 0RF oxycodone 5 mg tablet 5 mg PO Q8H PRN (Reason: Pain) Referrals Referrals: Michael Bishop MD [Primary Care Provider] -
[2024-07-06] MEDS: MoRPHine SULFATE 4 MG/ML 1 ML CARP\\VIAL IV STA (16:51)
[2024-07-06 16:58] LABS: Appearance Urine Clear (Clear); Bilirubin Urine Negative (Negative); Blood Urine Negative (Negative); Color Urine Yellow; Glucose Urine UA Negative (Negative); Ketones Urine Negative (Negative); Leukocyte Esterase Urine Negative (Negative); Nitrite Urine Negative (Negative); Protein Urine Negative (Negative); Specific Gravity Urine 1.008 (1.000-1.030); Urobilinogen Urine Negative (Negative)
[2024-07-06] MEDS: HYDROmorphone INJ 0.5 MG/0.5 ML SYR IV STA ×3 (17:01→21:19)
[2024-07-06] MEDS: methylPREDNISolone 125 MG/2 ML VIAL IV STA (17:01)
[2024-07-06] MEDS: ONDANSETRON INJ 2 MG/ML 2 ML VIAL IV STA (17:01)
[2024-07-06 17:04] LABS: Basophils # (auto) 0.03 K/uL (0.00-0.20); Basophils % (auto) 0.2 %; Eosinophils # (auto) 0.17 K/uL (0.00-0.50); Eosinophils % (auto) 1.1 %; Hemoglobin 14.7 g/dl (14.0-18.0); Immature Granulocytes # (auto) 0.08 K/uL (0.01-0.20); Immature Granulocytes % (auto) 0.5 %; Lymphocytes # (auto) 2.68 K/uL (1.20-3.40); Lymphocytes % (auto) 17.4 %; Mean Corpuscular Hemoglobin 30.4 pg (25.0-34.0); Mean Corpuscular Hgb Conc 34.2 g/dL (32.0-36.0); Mean Platelet Volume 10.8 fL (9.4-12.4); Monocytes # (auto) 1.14 K/uL (0.11-0.59); Monocytes % (auto) 7.4 %; Neutrophils # (auto) 11.27 K/uL (1.40-6.50); Neutrophils % (auto) 73.4 %; Platelet Count 307 K/uL (130-400); RDW Coefficient of Variation 13.8 % (11.5-14.5); RDW Standard Deviation 44.8 fL (36.4-46.3); Red Blood Count 4.83 M/uL (4.70-6.10); White Blood Count 15.37 K/ul (4.8-10.8)
[2024-07-06 17:31] LABS: Alanine Aminotransferase 29 U/L (7-52); BUN Creatinine Ratio 21.2 (10-20); Bilirubin,Total 0.5 mg/dl (0.2-1.0); Blood Urea Nitrogen 21 mg/dl (6-23); Calcium 9.5 mg/dl (8.6-10.3); Carbon Dioxide 28 mmol/L (21-32); Chloride 103 mmol/L (98-107); Glucose 111 mg/dl (70-99(Fasting)); Lipase 43 U/L (11-82); Total Protein 8.4 gm/dl (6.0-8.3)
[2024-07-06 18:59] LABS: Potassium 4.4 mmol/L (3.5-5.1)
[2024-07-06 19:22] LABS: Prothrombin Time 10.5 Seconds (9.0-12.0)
--- NOTE | 2024-07-06 20:30 | Magnetic Resonance Report ---
EXAM: MR lumbar spine wo con CLINICAL HISTORY: Back pain. TECHNIQUE: MRI of the lumbar spine was performed without the administration of intravenous contrast. Sequences obtained include sagittal T1-weighted, T2-weighted, STIR (Short Tau Inversion Recovery), and axial T2-weighted sequences. COMPARISON: No previous studies are available for comparison. FINDINGS: Vertebral Alignment: Normal alignment of the lumbar spine without evidence of fracture or malalignment. No evidence of scoliosis is observed. Marrow signals are normal. Vertebral Bodies and Intervertebral Discs: Normal vertebral body height, no fracture identified. Advanced spine degenerative changes with osteophytes Laminectomy with transpedicular internal fixation of L2 and L3 vertebrae. Discectomy and internal disc fixation noted at L2-3 L3-4 and L4-5 intervertebral discs Partial fusion of the disc space of L2-3 ,L3-4 and L4-5 disc spaces High signal noted within L1-2 disc with associated mild bone marrow edema at opposing endplates of L1 and L2 vertebra suggesting possible discitis with the possibility of early spondylodiscitis cannot be totally excluded. No detected collections L1-4. [id number] analysis: T12-L1: There is no significant disc pathology. No spinal canal stenosis. No neural foraminal stenosis.No ligamentum flavum hypertrophy and facet joint arthropathy. L1-L2: 4.7mm diffuse disc bulge with disc osteophyte complex causing mild spinal canal stenosis and bilateral severe neural foraminal stenosis impinging the exiting nerve roots .No ligamentum flavum hypertrophy and facet joint arthropathy. L2-L3: No disc at this level. Bilateral facet joint arthritis is noted. L3-L4: No disc at this level. Bilateral facet joint arthritis is noted. L4-L5: No disc at this level. Bilateral facet joint arthritis is noted. L5-S1: There is no significant disc pathology. No spinal canal stenosis.Bilateral facet joint arthritis causing bilateral moderate neuroforaminal stenosis at this level. Spinal Cord and Nerve Roots: Conus medullaris terminates at the L1 level without abnormality. Nerve roots appear unremarkable bilaterally. The lower thoracic spinal cord, conus medullaris, and cauda equina nerve roots are unremarkable. Soft Tissues: Paraspinal soft tissues appear normal without evidence of abnormal signal intensity or mass lesions. IMPRESSION: 1. High signal noted within L1-2 disc with associated mild bone marrow edema at opposing endplates of L1 and L2 vertebra, suggesting possible discitis with the possibility of early spondylodiscitis cannot be totally excluded. No detected collections. Correlate clinically. 2. Advanced spine degenerative changes with osteophytes. 3. Laminectomy with transpedicular internal fixation of L2 and L3 vertebrae. Discectomy and internal disc fixation noted at L2-3 L3-4 and L4-5 intervertebral discs. 4. L1-L2 disc osteophyte complex causing mild spinal canal stenosis. 5. L5-S1 Bilateral facet joint arthritis causing bilateral moderate neuroforaminal stenosis at this level. Electronically signed by Gui Raymundo 07-06-2024 8:29 PM
[2024-07-06] MEDS ORDERED: VANCOMYCIN CONSULT ACTIVE PRN ×2 (20:53→23:38)
[2024-07-06] MEDS: CEFEPIME 2000MG 2,000 MG/20 ML SYR IV STA (21:20)
[2024-07-06] MEDS: VANCOMYCIN HCL 1,750 MG in SODIUM CHLORIDE 0.9% 500 ML IV ONE (21:49)
[2024-07-06 22:22] LABS: C Reactive Protein < 0.50 mg/dl (0-0.5)
--- NOTE | 2024-07-06 22:35 | History & Physical Report ---
Date of Service July 06, 2024 Assessment & Plan (1) Back pain: (2) CAD (coronary artery disease): (3) Hyperlipidemia: (4) Hypertension: Plan 63-year-old male with history of coronary artery disease status post multiple stents, hyperlipidemia, GERD, chronic back pain presenting with severe acute worsening of back pain ongoing for the last week. #Back painsevere acute on chronic left-sided back pain with radiation into the buttock and groin. MRI of the lumbar spine performed with results as above. In brief, some findings suggestive of possible discitis. L1-L2 disc osteophyte complex causing mild spinal canal stenosis as well as L5-S1 arthritis causing stenosis. Patient's pain distribution is most consistent with an L1-L2 nerve. Question focal process going on in the hip? Uncertain if this process represents an acute infection, discitis Admit to medical Pain control with Dilaudid as needed. Of note, patient has an adverse reaction to morphine Flexeril as needed Zofran as needed Senna/docusate every morning with MiraLAX as needed constipation Narcan as needed for accidental overdose Solu-Medrol 40 mg IV daily Continue home duloxetine Heat as needed Ortho/spine consultation appreciated Will keep patient n.p.o. for now Continue vancomycin for possible infection Follow cultures #Coronary artery diseasestatus post 5 stents with most recent being September 2023. Patient is continued on dual antiplatelet therapy with aspirin and Brilinta. He follows locally with cardiology Continue aspirin and Brilinta Continue atorvastatin #Hyperlipidemia Continue atorvastatin #Hypertension Continue spironolactone Continue metoprolol Continue lisinopril #Ongoing tobacco use Nicotine patch History of Present Illness Chief Complaint: acute on chronic back pain, severe Primary Care Provider: Michael Bishop MD Alphonso Stein is a 63-year-old male with history of coronary artery disease ([address] with last stent being placed in Septemberatient on dual antiplatelet therapy with aspirin and Brilinta), chronic lumbar back pain presenting with acute worsening of back pain. Patient reports that 1 week ago on June 30 he was woken from sleep at 0230 with severe, acute left-sided back pain. The pain is located in his left lumbar region with radiation into the left hip, buttock and groin. Patient was seen in the emergency room on July 01 with this complaint and was treated with IV fluids, Zofran, Dilaudid and oxycodone. He was ultimately discharged with Flexeril to be used as needed. Patient has been using heat, ice, Flexeril, oxycodone 5 mg p.o. every 8 hours as well as Flexeril and prednisone for the last several days with no improvement. he reports very severe pain specifically with sitting. He has been unable to ambulate. He did have some increased activity over which may have aggravated his back including playing ball with his grandchildren But nothing comes to mind as an acute precipitating episode. Patient denies trauma or falls. He did experience some subjective fevers and chills approximately 2 weeks ago. no neurological deficit, bowel or bladder involvement In the ER patient is afebrile, hemodynamically stable, nontoxic in appearance Ongoing severe pain ER course: Zofran 4 mg Solu-Medrol 125 mg Dilaudid 0.5 mg x 3 doses Cefepime 2 g IV Vancomycin 1750 mg IV Allergies Allergy/AdvReac Type Severity Reaction Status Date / Time chlorhexidine Allergy Intermediate severe Verified 07/06/24 19:09 itching, redness Sulfa (Sulfonamide Allergy Intermediate rash, hives Verified 07/06/24 19:09 Antibiotics) acetaminophen AdvReac Severe elevated Verified 07/06/24 19:09 LFTs ibuprofen AdvReac Severe elevated Verified 07/06/24 19:09 LFTs morphine AdvReac Intermediate shakiness, Verified 07/06/24 19:09 grumpy, disoriented Home Medications Medication Instructions Recorded Confirmed Type ascorbic acid (vitamin C) 1,000 mg 1,000 mg PO QAM ##0 04/07/16 07/06/24 History tablet aspirin 81 mg tablet,delayed 81 mg PO HS 11/14/17 07/06/24 History release cyanocobalamin (vitamin B-12) 500 500 mcg PO QAM 11/14/17 07/06/24 History mcg tablet (Vitamin B-12) duloxetine 60 mg capsule,delayed 60 mg PO BID 11/14/17 07/06/24 History release (Cymbalta) folic acid 400 mcg tablet 0.4 mg PO QAM 11/14/17 07/06/24 History lorazepam 0.5 mg tablet 0.5 mg PO Q12H PRN Anxiety 11/14/17 07/06/24 History metoprolol succinate 100 mg 100 mg PO QAM 11/14/17 07/06/24 History tablet,extended release 24 hr multivitamin 1 tab PO QAM 11/14/17 07/06/24 History pyridoxine (vitamin B6) 100 mg 100 mg PO QAM 11/14/17 07/06/24 History tablet cholecalciferol (vitamin D3) 25 1,000 mcg PO DAILY 05/22/23 07/06/24 History mcg (1,000 unit) capsule (Vitamin D3) lisinopril 20 mg tablet 20 mg PO QAM 05/22/23 07/06/24 History zinc gluconate 50 mg tablet 50 mg PO QAM 05/22/23 07/06/24 History famotidine 20 mg tablet 20 mg PO BID 09/06/23 07/06/24 History krill 1,000 mg-omega-3 230 mg-dha 1 cap PO QAM 09/06/23 07/06/24 History 60 pi-qqa-jupdqhqem-astaxan capsule (MegaRed [place]-3 Krill Oil) spironolactone 25 mg tablet 25 mg PO QAM 09/06/23 07/06/24 History atorvastatin 80 mg tablet 40 mg PO DAILY 10/09/23 07/06/24 History ticagrelor 90 mg tablet (Brilinta) 90 mg PO BID #60 tabs 11/07/23 07/06/24 Rx nitroglycerin 0.4 mg sublingual 0.4 mg sublingual DIRECTED PRN 03/25/24 07/06/24 Rx tablet (Nitrostat) Chest Pain #25 tabs cyclobenzaprine 5 mg tablet 5 mg PO TID PRN muscle spasm #30 07/01/24 07/06/24 Rx tabs oxycodone 5 mg tablet 5 mg PO Q8H PRN Pain 07/06/24 07/06/24 History Past Med/Surg History Problem List Back pain (Acute) Back pain (Acute) Hyperlipidemia CAD (coronary artery disease) Seizure-like activity Acute non-ST elevation myocardial infarction (NSTEMI) (Acute) History of coronary artery disease (Acute) Hypertension (Acute) Stented coronary artery Sacroiliitis Acute exacerbation of chronic low back pain (Acute) Cervical stenosis of spinal canal HNP (herniated nucleus pulposus), lumbar (Acute) Intractable low back pain (Acute) Neuropathy (Chronic) Precordial chest pain Encounter for pre-operative examination RADHA (acute kidney injury) (Chronic) Tobacco abuse (Chronic) Chronic back pain Chest pain GERD (gastroesophageal reflux disease) Preoperative cardiovascular examination Depression Hypertension (Chronic) Pulmonary embolism (Chronic) 2004, spontaneous- previously on coumadin for short period of time Lumbar stenosis with neurogenic claudication (Acute) Medical History ACS (acute coronary syndrome) STEMI (ST elevation myocardial infarction) Chest pain Thrombophlebitis HLD (hyperlipidemia) Myocardial Infarction 2003. BPH (benign prostatic hyperplasia) Coronary artery disease 2004- stent x 1, 2012- stents x 2. [place] [facility] [place] Kidney stones GERD (gastroesophageal reflux disease) controlled Anxiety Surgical History H/O tooth extraction removal of infected dental implant 01/19/20 placed on abx. S/P lumbar fusion hardware removal, L2-L3 decompression with fusion: 11/15/17: Grade 1 view, MAC#3, ETT 8.0 at [facility] History of tooth extraction S/P epidural steroid injection lumbar and SI joint injections History of cataract surgery bilateral History of cystoscopy with stent History of lithotripsy laser lithotripsy H/O hand surgery LEFT Fusion of spine Lumbar x2 S/P cervical spinal fusion 05/2015. MAC 3. Grade 1 view. No issues. Full ROM. Hx of inguinal hernia repair left History of cardiac cath 2003 - STENT 2010- STENTS Family History Other No family history of adverse response to anesthesia Social History Smoking Status: Current every day smoker Tobacco Type: Cigarettes Cigarettes Per Day: 8-10; Second Hand Exposure: No; Do You Dip or Chew Tobacco: No; Hx Alcohol Use: No Hx Substance Use: Yes Last Used Substance: Days (ago) Last Used Substance Other:: thc Substance Use Type Other:: 2 days ago. Inhalation form only. 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 Beliefs That Will Affect Care: None marital status: Current Living Situation: Spouse current occupation: Retired Feels Safe at Home: Yes Safety Concerns: Feels Safe At This Time Assistive Devices: Cane Review of Systems Review of Systems: All systems reviewed & are unremarkable except as noted in HPI & below Physical Exam Physical Exam: General: patient resting comfortably, NAD, non-toxic in appearance, AA&O x 4 Skin: warm, dry, intact, no rashes or lesions HEENT: NC/AT, PERRL, EOMI, anicteric sclera, conjunctiva without injection, external ear normal to inspection and nontender, nares patent, moist mucus membranes, dentition intact, no oropharyngeal lesions, neck supple, trachea midline, no LAD, no thyromegaly, no JVD Heart: +S1/S2, regular, no m/r/g Lungs: equal air entry bilaterally, no rales/rhonchi/wheezes Abd: +BS, soft, NT/ND, no masses/organomegaly/ascites Ext: warm, 2+ pulses in UE/LE bilaterally, no clubbing/cyanosis or edema Neuro: nonfocal, patient AA&O x 4, speech intact, no facial droop, moving all extremities on command with equal strength 5/5 Back examno gross deformity, no midline tenderness or pain with percussion of the spine, no paraspinal spasm, pain with palpation of left buttock and hip area Results & Data Results & Data Vital Signs (Past 12 Hours) Vital Signs Temp Pulse Pulse Resp BP BP Pulse Ox 07/06/24 22:00 70 14 144/79 H 96 07/06/24 20:00 64 12 147/91 H 96 07/06/24 19:32 63 07/06/24 18:22 68 14 178/98 H 96 07/06/24 16:31 66 07/06/24 16:30 69 17 178/129 H 98 07/06/24 16:00 62 18 192/98 H 98 07/06/24 15:35 36.8 C 70 18 186/103 H 97 O2 Del Method 07/06/24 22:00 Room Air 07/06/24 20:00 Room Air 07/06/24 19:32 07/06/24 18:22 Room Air 07/06/24 16:31 07/06/24 16:30 07/06/24 16:00 07/06/24 15:35 Room Air Laboratory Results Laboratory Results WBC 15.37 K/ul (4.8-10.8) H 07/06/24 16:40 RBC 4.83 M/uL (4.70-6.10) 07/06/24 16:40 Hgb 14.7 g/dl (14.0-18.0) 07/06/24 16:40 Hct 43.0 % (42.0-52.0) 07/06/24 16:40 MCV 89.0 fL (80.0-100.0) 07/06/24 16:40 MCH 30.4 pg (25.0-34.0) 07/06/24 16:40 MCHC 34.2 g/dL (32.0-36.0) 07/06/24 16:40 RDW Std Deviation 44.8 fL (36.4-46.3) 07/06/24 16:40 RDW Coeff of Jeanette 13.8 % (11.5-14.5) 07/06/24 16:40 Plt Count 307 K/uL (130-400) 07/06/24 16:40 MPV 10.8 fL (9.4-12.4) 07/06/24 16:40 Immature Gran % (Auto) 0.5 % 07/06/24 16:40 Neut % (Auto) 73.4 % 07/06/24 16:40 Lymph % (Auto) 17.4 % 07/06/24 16:40 [place] % (Auto) 7.4 % 07/06/24 16:40 Eos % (Auto) 1.1 % 07/06/24 16:40 Baso % (Auto) 0.2 % 07/06/24 16:40 Neut # (Auto) 11.27 K/uL (1.40-6.50) H 07/06/24 16:40 Lymph # (Auto) 2.68 K/uL (1.20-3.40) 07/06/24 16:40 [place] # (Auto) 1.14 K/uL (0.11-0.59) H 07/06/24 16:40 Eos # (Auto) 0.17 K/uL (0.00-0.50) 07/06/24 16:40 Baso # (Auto) 0.03 K/uL (0.00-0.20) 07/06/24 16:40 Immature Gran # (Auto) 0.08 K/uL (0.01-0.20) 07/06/24 16:40 ESR 47 mm/hr (0-20) H 07/06/24 16:40 PT 10.5 Seconds (9.0-12.0) 07/06/24 18:18 INR 1.0 (0.9-1.1) 07/06/24 18:18 Sodium 134 mmol/L (136-145) L 07/06/24 18:18 Potassium 4.4 mmol/L (3.5-5.1) 07/06/24 18:18 Chloride 103 mmol/L (98-107) 07/06/24 16:40 Carbon Dioxide 28 mmol/L (21-32) 07/06/24 16:40 Anion Gap TNP 07/06/24 16:40 BUN 21 mg/dl (6-23) 07/06/24 16:40 Creatinine 0.99 mg/dl (0.6-1.4) 07/06/24 16:40 Est Cr Clr Drug Dosing 77.0 ml/min 07/06/24 16:40 eGFR 84.54 07/06/24 16:40 BUN/Creatinine Ratio 21.2 (10-20) H 07/06/24 16:40 Glucose 111 mg/dl (70-99(Fasting)) H 07/06/24 16:40 Calcium 9.5 mg/dl (8.6-10.3) 07/06/24 16:40 Total Bilirubin 0.5 mg/dl (0.2-1.0) 07/06/24 16:40 AST 16 U/L (13-39) 07/06/24 18:18 ALT 29 U/L (7-52) 07/06/24 16:40 Alkaline Phosphatase 83 U/L (34-104) 07/06/24 18:18 C-Reactive Protein < 0.50 mg/dl (0-0.5) 07/06/24 16:40 Total Protein 8.4 gm/dl (6.0-8.3) H 07/06/24 16:40 Albumin 4.0 gm/dl (3.4-5.0) 07/06/24 18:18 Globulin TNP 07/06/24 16:40 Albumin/Globulin Ratio TNP 07/06/24 16:40 Lipase 43 U/L (11-82) 07/06/24 16:40 Urine Color Yellow 07/06/24 16:40 Urine Appearance Clear (Clear) 07/06/24 16:40 Urine pH 6.0 (4.5-7.5) 07/06/24 16:40 Ur Specific [place] 1.008 (1.000-1.030) 07/06/24 16:40 Urine Protein Negative (Negative) 07/06/24 16:40 Urine Glucose (UA) Negative (Negative) 07/06/24 16:40 Urine Ketones Negative (Negative) 07/06/24 16:40 Urine Blood Negative (Negative) 07/06/24 16:40 Urine Nitrite Negative (Negative) 07/06/24 16:40 Urine Bilirubin Negative (Negative) 07/06/24 16:40 Urine Urobilinogen Negative (Negative) 07/06/24 16:40 Ur Leukocyte Esterase Negative (Negative) 07/06/24 16:40 Impressions Lumbar Spine MRI 07/06/24 16:35 EXAM: MR lumbar spine wo con CLINICAL HISTORY: Back pain. TECHNIQUE: MRI of the lumbar spine was performed without the administration of intravenous contrast. Sequences obtained include sagittal T1-weighted, T2-weighted, STIR (Short Tau Inversion Recovery), and axial T2-weighted sequences. COMPARISON: No previous studies are available for comparison. FINDINGS: Vertebral Alignment: Normal alignment of the lumbar spine without evidence of fracture or malalignment. No evidence of scoliosis is observed. Marrow signals are normal. Vertebral Bodies and Intervertebral Discs: Normal vertebral body height, no fracture identified. Advanced spine degenerative changes with osteophytes Laminectomy with transpedicular internal fixation of L2 and L3 vertebrae. Discectomy and internal disc fixation noted at L2-3 L3-4 and L4-5 intervertebral discs Partial fusion of the disc space of L2-3 ,L3-4 and L4-5 disc spaces High signal noted within L1-2 disc with associated mild bone marrow edema at opposing endplates of L1 and L2 vertebra suggesting possible discitis with the possibility of early spondylodiscitis cannot be totally excluded. No detected collections L1-4. [id number] analysis: T12-L1: There is no significant disc pathology. No spinal canal stenosis. No neural foraminal stenosis.No ligamentum flavum hypertrophy and facet joint arthropathy. L1-L2: 4.7mm diffuse disc bulge with disc osteophyte complex causing mild spinal canal stenosis and bilateral severe neural foraminal stenosis impinging the exiting nerve roots .No ligamentum flavum hypertrophy and facet joint arthropathy. L2-L3: No disc at this level. Bilateral facet joint arthritis is noted. L3-L4: No disc at this level. Bilateral facet joint arthritis is noted. L4-L5: No disc at this level. Bilateral facet joint arthritis is noted. L5-S1: There is no significant disc pathology. No spinal canal stenosis.Bilateral facet joint arthritis causing bilateral moderate neuroforaminal stenosis at this level. Spinal Cord and Nerve Roots: Conus medullaris terminates at the L1 level without abnormality. Nerve roots appear unremarkable bilaterally. The lower thoracic spinal cord, conus medullaris, and cauda equina nerve roots are unremarkable. Soft Tissues: Paraspinal soft tissues appear normal without evidence of abnormal signal intensity or mass lesions. IMPRESSION: 1. High signal noted within L1-2 disc with associated mild bone marrow edema at opposing endplates of L1 and L2 vertebra, suggesting possible discitis with the possibility of early spondylodiscitis cannot be totally excluded. No detected collections. Correlate clinically. 2. Advanced spine degenerative changes with osteophytes. 3. Laminectomy with transpedicular internal fixation of L2 and L3 vertebrae. Discectomy and internal disc fixation noted at L2-3 L3-4 and L4-5 intervertebral discs. 4. L1-L2 disc osteophyte complex causing mild spinal canal stenosis. 5. L5-S1 Bilateral facet joint arthritis causing bilateral moderate neuroforaminal stenosis at this level. Electronically signed by Gui Raymundo 07-06-2024 8:29 PM PG Care Time/CCT Total # of Minutes Spent Total Time Spent with Patient: Total time spent is greater than 50% in coordination of care (as documented) at patient's floor/unit and/or counseling patient: Coding Level of Care Code 87567 INT INP/OBS CARE 3/75MIN Diagnoses Back pain M54.9 Coronary artery disease involving [place] coronary artery of [place] heart without angina pectoris I25.10 Coronary Disease-Associated Artery/Lesion type: [place] artery [place] vs. transplanted heart: [place] heart Associated angina: without angina Hyperlipidemia, unspecified hyperlipidemia type E78.5 Hyperlipidemia type: unspecified Hypertension I10 Hypertension type: unspecified (2) CAD (coronary artery disease) Coronary Disease-Associated Artery/Lesion type: [place] artery [place] vs. transplanted heart: [place] heart Associated angina: without angina Qualified Code(s): I25.10 - Atherosclerotic heart disease of [place] coronary artery w ithout angina pectoris (3) Hyperlipidemia Hyperlipidemia type: unspecified Qualified Code(s): E78.5 - Hyperlipidemia, unspecified (4) Hypertension Hypertension type: unspecified Qualified Code(s): I10 - Essential (primary) hypertension
[2024-07-06] MEDS ORDERED: NALOXONE HCL 0.4 MG/1 ML VIAL/CARP IV PRN (23:38)
[2024-07-06] MEDS ORDERED: CYCLOBENZAPRINE HCL 10 MG TAB PO PRN (23:45)
[2024-07-07] MEDS: CYCLOBENZAPRINE HCL 10 MG TAB PO PRN
[2024-07-07] MEDS: DULoxetine HCL 60 MG CAP PO STA
[2024-07-07] MEDS: LACTATED RINGER'S 1,000 ML IV SCH (00:01)
[2024-07-07] MEDS: ASPIRIN 81 MG ECTAB PO STA (00:21)
[2024-07-07] MEDS: TICAGRELOR 90 MG TAB PO STA (00:21)
[2024-07-07] MEDS: HYDROmorphone INJ 1 MG/ML SYRINGE IV PRN ×2 (01:19→17:40)
--- OUTSIDE RECORDS SUMMARY | 2024-07-07 01:27 | External Medical Summary | Continuity of Care Document ---
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 Name Role Phone Michael Bishop Primary Care Physician [phone] [id number] Date(s): 07/03/24 - 07/03/24 [facility] [address] [facility] 207 [facility] [address] [address] [phone] Encounter Diagnosis Low back pain(Discharge Diagnosis) - 07/03/24 Discharge Disposition: Home or Self Care Attending Physician: MD Conn Joseph P Referring Physician: MD Conn Joseph P Encounter Type: Telehealth Allergies, Adverse Reactions, Alerts Substance Criticality Severity Reaction Reaction Severity Status morphine SHAKEY, GRUMPY OUT OF SORTS Active sulfa drugs HEADACHE ITCH RASH Active Assessment and Plan Extracted from: Title:TeleHealth Visit Note Author:DO Chen C laire S Date:07/03/24 1. Low back pain Chronic condition not at goal/exacerbated/progressive/side effects of treatment Goal: resolution Data: unique tests reviewed: _ED note, CT A&P Plan: Still with significant pain-> requesting Medrol dose pack. Discussed ED vs trial of Medrol dose pack. Discussed that would like to evaluate in person to exam/rule out other causes of pain- will f/u inperson next week. Will trial Medrol dose pack, if worsening pain, systemic symptoms, weakness, parastasis, bowel/bladder incontinence should get emergent evaluation. Immunizations Given and Recorded Vaccine Date Status [...] another provider Start Date: 12/08/09 Status: Ordered Repeat number: 1 atorvastatin 80 mg oral tablet Start: 11/08/23 4:31:00 PM EDT, 1 tab, PO, qhs, Disp# 90 tab, Refills: 4, Pharmacy: [facility] Start Date: 11/08/23 Status: Ordered Quantity: 90.0 Unit: tab Repeat number: 1 Brilinta (ticagrelor) Start: 10/14/23 10:09:00 AM EDT Start Date: 10/14/23 Status: Ordered Repeat number: 1 DULoxetine 60 mg oral delayed release capsule Start: 05/04/24 12:55:00 PM EST, 1 cap, PO, bid, Disp# 180 cap, Refills: 0, Pharmacy: [facility] Start Date: 05/04/24 Status: Ordered Quantity: 180.0 Unit: cap Repeat number: 1 famotidine 20 mg oral tablet Start: 12/19/23 5:09:00 PM EDT, 1 tab, PO, bid, Disp# 180 tab, Refills: 4, Pharmacy: [facility]/pharmacy #[id number] Start Date: 12/19/23 Stop Date: 03/13/25 Status: Ordered Quantity: 180.0 Unit: tab Repeat number: 5 lisinopril 20 mg oral tablet Start: 07/24/23 3:10:00 PM EDT, 1 tab, PO, Daily, Disp# 90 tab, Refills: 4, Pharmacy: [facility] Start Date: 07/24/23 Stop Date: 10/16/24 Status: Ordered Quantity: 90.0 Unit: tab Repeat number: 5 LORazepam 0.5 mg oral tablet Start: 02/25/24 9:27:00 AM EST, 1 tab, PO, q12h, Disp# 60 tab, Refills: 0, Note to Pharmacy: no driving or operating machines if cognitively impaired, PRN: as needed for anxiety, [id number] Start Date: 02/25/24 Status: Ordered Quantity: 60.0 Unit: tab Repeat number: 1 Medrol Dosepak 4 mg oral tablet Start: 07/03/24 2:04:00 PM EDT, See Instructions, Disp# 21 tab, Take as directed on package labelingfor 6 days., [id number] Start Date: 07/03/24 Stop Date: 07/09/24 Status: Ordered Quantity: 21.0 Unit: tab Repeat number: 1 Metoprolol Succinate ER 100 mg oral tablet, extended release Start: 04/13/24 1:49:00 PM EST, 1 tab, PO, Daily, Disp# 90 tab, Refills: 3, Pharmacy: [facility] [id number] Start Date: 04/13/24 Status: Ordered Quantity: 90.0 Unit: tab Repeat number: 1 multivitamin Start: 03/25/18 12:25:00 PM EST, 1 tab, PO, Daily Start Date: 03/25/18 Status: Ordered Repeat number: 1 Nature's Bounty Red Krill Oil Start: 08/06/23 1:44:00 PM EDT Start Date: 08/06/23 Status: Ordered Repeat number: 1 nitroglycerin 0.4 mg sublingual tablet Start: 02/07/18 1:14:27 PM EST, See Instructions, Disp# 25, TAKE 1 TAB UNDER TONGUE EVERY 5 MINUTES: NEEDED FOR CHEST PAIN, [id number] Start Date: 02/07/18 Status: Ordered Quantity: 25.0 Unit: tab Repeat number: 1 oxyCODONE 5 mg oral tablet Start: 06/17/24 6:03:00 PM EDT, 5 mg =, PO, q8h, Disp# 93 tab, Refills: 0, PRN: as needed for pain, Pharmacy: [facility]/pharmacy #[id number] Start Date: 06/17/24 Stop Date: 07/18/24 Status: Ordered Quantity: 93.0 Unit: tab Repeat number: 1 Indications: Low back pain, unspecified; triamcinolone 0.025% topical ointment Start: 02/29/16 3:00:00 PM EST, 1 appl, topical, bid, Disp# 60 g, Refills: 3, apply a thin film to both arms and both legs afflicted with psoriasis, Pharmacy: [facility] Start Date: 02/29/16 Status: Ordered Quantity: 60.0 Unit: g Repeat number: 4 Vitamin C Start: 08/11/18 9:58:00 AM EDT, 1,000 mg =, PO, Daily Start Date: 08/11/18 Status: Ordered Repeat number: 1 Vitamin D3 Start: 07/19/20 9:17:00 AM EDT Start Date: 07/19/20 Status: Ordered Repeat number: 1 Zinc Start: 07/19/20 9:17:00 AM EDT Start Date: 07/19/20 Status: Ordered Repeat number: 1 Mental Status 07/03/24 Barriers to Learning one year Vision imp airment Mandatory Health Literacy Documentation Yes Health Literacy Communication Barriers N ever Primary Language Dutch Problem List Condition Confirmation Course Effective Dates [...] Confirmed Active Left wrist pain Confirmed Active Right knee pain Confirmed Active Paresthesia of left arm Confirmed Active Prediabetes Confirmed Active Lesion of thumb Confirmed Active Solitary pulmonary nodule Confirmed Active 25613 2and numbness in hands and arms Diagnosis Diagnosis Type Effective Dates Health Status Cl inical Service Informant Low back pain Discharge Diagnosis 07/03/24 Non-Specified Procedures Procedure Date Related Diagnosis Body [...] Dr. Sim 6DrGi Hartman 7DrGi Sim 8RETRIEVAL Social History Social History Type Response Tobacco Current every day sm oker, Cigarettes, Exposure to Secondhand Smoke: No. 20 per day. 43 year(s). Started age 13 Years. Previous treatment: Nicotine replacement. Ready to change: No. 1 Smoking Status Never smoked cigaret eloy Sex Male Sex Representation Male (finding) 1menthol lites FCM Outpt Note * DO Chen Claire S: PERFORM DO Meek Allison B: MODIFY Event Display: FCM Outpt Note Authored Date: [id number] TeleHealth Visit Note I have confirmed the patient’s name and date of . The patient has consented to this service,and I have advised the patient that this is a billable visit for which they may be subject to a copay. The patient initiated this visit after they were informed of the availability of TeleHealth for this medically necessary visit. I am located at my office. The patient is located at home. This visit was conducted via live audio/video technology via [employer]. Chief Complaint pain l lower back into groin, standing sitting up takes breathe away since saturday early morning. did CT scan at ER found kidney stones, muscle relaxer, ask for steroid pack? History of Present Illness 63 year old male presenting with concern for LBP. - seen in ED 07/01 w/ low back pain - left sided back pain radiating to groin - multiple prior spinal fusions, also with history of kidney stones - CT A&P with 3mm/4mm stones L/R kidney-> nonobstructing and non within ureters - started on Flexeril-> no improvement - better with laying down; worse with standing walking - denies urinary symptoms -> dysuria/hematuria; denies fever/chills, rash - denies weakness, bowel/bladder incontinence, saddle anesthesia Review of Systems As per above Physical Exam Nursing notes reviewed. No vital signs obtained. General: No Acute Distress. Speaking comfortably. Does not appear anxious. HEENT: Bulbar conjunctivae clear. No discharge from eyes. No nasal discharge. Lips not swollen. No visible neck masses. Respiratory: Good inspiratory effort, no use of accessory muscles. No increased work of breathing. Able to complete full sentences. Neurologic: Alert and Oriented x 3, able to interact. Psychiatric: Pleasant, normal affect. Skin: No rash on visible, exposed areas. Assessment/Plan 1. Low back pain Chronic condition not at goal/exacerbated/progressive/side effects of treatment Goal: resolution Data: unique tests reviewed: _ED note, CT A&P Plan: Still with significant pain-> requesting Medrol dose pack. Discussed ED vs trial of Medroldose pack. Discussed that would like to evaluate in person to exam/rule out other causes of pain- will f/u inperson next week. Will trial Medrol dose pack, if worsening pain, systemic symptoms, weakness, parastasis, bowel/bladder incontinence should get emergent evaluation. Attestation Patient's case reviewed in detail with Dr. Chen_, agree with detail of history and physical as documented above. Plan reviewed in detail with providing resident physician. Agree with plan. Difficult assessment since visit is telemedicine and recommend in office visit. Follow up in the office as scheduled or sooner as needed. Trial Medrol dose pack. ER precautions discussed. Problem List/Past Medical History Ongoing ANXIETY Cannabis use, uncomplicated Chronic GERD Chronic lower back pain Cigarette smoker COPD, DISEASE ONLY Dysphagia HEMORRHOIDS History of - myocardial infarction History of sacroiliac joint dysfunction History of spinal fusion Hypertension Left wrist pain Lesion of thumb Lumbar radiculopathy Lumbar spondylosis Major depressive 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 Neck pain Paresthesia of left arm Prediabetes Right knee pain Solitary pulmonary nodule Resolved ACUTE MYOCARDIAL INFARCTION #2 with stent occlusion Back pain Cardiac catheterization Hernia repair KIDNEY STONES Left arm pain Prostatitis Pulmonary embolism Weight disorder Procedure/Surgical History •Lung cancer screening| Service Date: 04/13/2022•SI joint fusion| Service Date: 02/03/2020•CTof pelvis w/o IV contrast| Service Date: 02/23/2019•CT of abdomen and pelvis without contrast| Service Date: 09/17/2018•Fusion of lumbar spine L2-3| Service Date: 2017•Dental implant system- REMOVAL| Service Date: 2016•Spinal fusion with graft| Service Date: 06/03/2015•removal old hardware -interval L3-4 discectomy with spacer| Service Date: 08/16/2014•Lumbar nerve root compression andfusion L3 and4| Service Date: 08/05/2014•Stent placement- LEFT CIRCUMFLEX - X 2| Service Date: 12/17/2010•Kidney stone- RETRIEVAL| Service Date: 03/11/2010•rods,cage/bone graft to back| ServiceDate: 02/09/2004•PICA-stent right branch circumflex| Service Date: 08/01/2003•left inguinal hernia| Service Date: 06/13/1998 Medications ascorbic acid(Vitamin C), 1000 mg, PO, Daily aspirin(Aspirin Low Dose), 81 mg, PO, Daily atorvastatin(atorvastatin 80 mg oral tablet), 1 tab, PO, qhs cholecalciferol(Vitamin D3) DULoxetine(DULoxetine 60 mg oral delayed release capsule), 1 cap, PO, bid famotidine(famotidine 20 mg oral tablet), 20 mg= 1 tab, PO, bid, 4 refills lisinopril(lisinopril 20 mg oral tablet), 20 mg= 1 tab, PO, Daily, 4 refills LORazepam(LORazepam 0.5 mg oral tablet), 0.5 mg= 1 tab, PO, q12h, PRN methylPREDNISolone(Medrol Dosepak 4 mg oral tablet), See Instructions metoprolol(Metoprolol Succinate ER 100 mg oral tablet, extended release), 1 tab, PO, Daily multivitamin, 1 tab, PO, Daily nitroglycerin(nitroglycerin 0.4 mg sublingual tablet), See Instructions omega-3 polyunsaturated fatty acids([employer]'s Bounty Red Krill Oil) oxyCODONE(oxyCODONE 5 mg oral tablet), 5 mg, PO, q8h, PRN ticagrelor(Brilinta (ticagrelor)) triamcinolone topical(triamcinolone 0.025% topical ointment), 1 appl, topical, bid, 3 refills zinc sulfate(Zinc) Allergies morphine SHAKEY, GRUMPY OUT OF SORTS sulfa drugs HEADACHE, ITCH, RASH Social History Smoking Status Never smoked cigarettes Alcohol - Denies Alcohol Use - Comments: [...] Ready to change:No - Comments: menthol lites Intake (IView) Smoking History Cigarette smoker: Never smoked cigarettes Tobacco Product Use: Never used other tobacco products Family History Alive and well: Sister, Brother, [...] 23-valent vaccine 11/26/2002 Recorded Recommendations Health Maintenance Pending (in the next year) OverDue Adult Influenza Vaccine due 09/09/23 and every 1 year Due Adult Social Determinants of Health Screening due 07/03/24 Unknown Frequency Colorectal Cancer Screening due 07/03/24 Unknown Frequency Hepatitis C Screening due 07/03/24 One-time only Pneumococcal Vaccine Older Adults due 07/03/24 One-time only Seasonal COVID 19 Vaccine due 07/03/24 Unknown Frequency Shingles Vaccine due 07/03/24 One-time only Due In Future Body Mass Index not due until 02/17/25 and every 366 day Satisfied (in the past 1 year) Satisfied Body Mass Index on 02/17/24. Satisfied by AMARJIT Arevalo Angela Depression Follow Up Plan on 11/25/23. Satisfied by ALAN Berkowitz Savannah Lipid Screening on 05/08/24. Satisfied by [email or web address] Electronic Signature on File Electronically Reviewed/Signed by: Beba Chen DO Author Signature Dt/Tm:07/03/2024 05:01 PM Resident Department of Family Medicine Electronically Reviewed/Signed by: Lilliam Meek DO Cosigner Signature Dt/Tm: 07/03/2024 05:18 PM Department of Family Medicine CSN Patient Care team information Care Team Personnel Name: MD Gian, John Barboza Position: Physician - Family Med Member Role: Lifetime Relationship Address: [address] Telecom: [phone] Name: DO Cruz Jill M Position: Physician - Anesthesiologist Member Role: Lifetime Relationship Address: [address] [place] [address] [place] [address] Telecom: [phone] Name: MD Bishop Christopher Position: Physician - Family Med Member Role: Primary Care Provider Address: [address] [facility] [address] [place] [address] Telecom: [phone] Care Team Related Persons Name: MEGAN RAMON Name: BASALMARTIN MEGAN L Name: BASALLA, RACHEL L Name: BASALLA, RACHEL L Name: BASALLA, RACHEL L Name: BASALLA, RACHEL L Insurance Providers Guarantor name: FERNANDO RAMON Health Plan Information #: 1 Payer: [employer] Member Number: [id number] Policy Number: NA Group Number: [id number] Payer Identifier: [id number] Health Plan Information #: 2 Payer: MEDICARE Member Number: NA Policy Number: NA Group Number: NA Payer Identifier: [id number] Health Plan Information #: 3 Payer: [employer] Member Number: [id number] Policy Number: NA Group Number: [id number] Payer Identifier: [id number]"
[2024-07-07 04:37] LABS: Creatinine Clr Calc Pharmacy 75.7 ml/min
[2024-07-07] MEDS: VANCOMYCIN HCL 1,000 MG/270 ML BAG IV SCH (06:23)
--- NOTE | 2024-07-07 07:34 | Pharmacy Report ---
Pharmacy [facility] Note - Date of Service July 07, 2024 - Assessment and Plan Assessment 63 year old M receiving empiric vancomycin for treatment of possible discitis. Patient presented to ED with severe acute worsening of back pain ongoing for last week. MRI findings suggestive of possible discitis. Pertinent microbiologic data includes: blood cultures x 2 pending. Renal function appears to be at/near baseline. Orthopedic surgery consulted. Day # 1 of antimicrobial therapy. Plan Vancomycin * Loading dose: 1750 mg IV x 1 * Maintenance dose: 1000 mg IV every 12 hours * Regimen is predicted to achieve target AUC/LINDA of 400-600 mg/L.hr * Random level ordered for: 07/09/24 Pharmacy will continue to follow and will adjust dose/frequency as necessary. Thank you. Pharmacy has transitioned to AUC monitoring for vancomycin. AUC/LINDA is the preferred PK/PD target and is associated with decreased risk of nephrotoxicity compared to traditional trough targets.
[2024-07-07] MEDS: SPIRONOLACTONE 25 MG TAB PO SCH (07:51)
[2024-07-07] MEDS: methylPREDNISolone 40 MG in SYRINGE 0 ML IV SCH (07:51)
[2024-07-07] MEDS: DULoxetine HCL 60 MG CAP PO SCH (07:52)
[2024-07-07] MEDS: lisinopril 20 MG TAB PO SCH (07:53)
[2024-07-07] MEDS: ATORVASTATIN 40 MG TAB PO SCH (07:53)
[2024-07-07] MEDS: NICOTINE 14 MG/24 HR PATCH TD SCH (07:54)
[2024-07-07] MEDS: FOLIC ACID 400 MCG TAB PO SCH (07:55)
[2024-07-07] MEDS: FAMOTIDINE 20 MG TAB PO SCH (08:03)
[2024-07-07] MEDS ORDERED: methylPREDNISolone 125 MG/2 ML VIAL IV SCH (09:00)
[2024-07-07] MEDS: METOPROLOL SUCC 50MG EXT REL TAB PO SCH (09:09)
[2024-07-07] MEDS: TICAGRELOR 90 MG TAB PO SCH (09:42)
--- NOTE | 2024-07-07 10:16 | Infectious Disease Consult ---
Date of Consultation July 07, 2024 Assessment & Plan (1) Back pain: (2) S/P lumbar fusion: (3) CAD (coronary artery disease): Plan 63yo M with h/o CAD s/p PCI (last on 09/2023), chronic lumbar back pain, prior lumbar surgery x 3 with hardware last one in 2019 who presented on 07/06 with worsening lower left back pain x 1 week, radiation to left hip/groin. No trauma, did report subjective fevers and chills x 2 weeks ago. No urinary/bowel changes. On admission, he was afebrile, hypertensive. Initial labs with WBC 15.37, Cr and AST/ALT wnl. ESR 47, CRP < 0.50. UA negative. MRI L spine with high signal noted within L1-2 disc with associated mild bone marrow edema at opposing endplates of L1 and L2 vertebra, suggesting possible discitis with the possibility of early spondylodiscitis cannot be totally excluded; laminectomy with transpedicular internal fixation of L2 and L3 vertebrae; discectomy and internal disc fixation noted at L2-3 L3-4 and L4-5 intervertebral discs. He was given vanc/cefepime. ID consulted 07/07. No spinal tenderness on examination, CRP is low. I would favor pursuing biopsy for definitive diagnosis of discitis pending input from ortho/spine. Mohini held antibiotics to increase yield. Also consider assessment of left hip, he has some pain of left buttock and hip area. # Possible discitis at L1-L2, early spondylodiscitis # Left lower back/hip/groin pain # H/o lumbar surgery and hardware # h/o CAD s/p PCI in 09/2023 - pending input from ortho/spine surgery - favor lumbar biopsy for definitive diagnosis send for cultures and path - consider further assessment of hip joint given tenderness (await ortho input) - Mohini held vancomycin and CTX for now to increase yield of biopsy - f/u blood cx Will continue to follow. If questions or concerns, contact via [employer] or Infectious Disease Call Center . Janey Leslie MD [facility], Division of Infectious Diseases Consultation Information Consultation was provided via telemedicine using two-way real-time interactive telecommunication between the patient and the telemedicine provider. For the duration of the visit, the provider was performing the assessment from a different facility than the patient. This includesuse of bluetooth stethoscope forauscultationperformed by the telepresenter that the telemedicine provider can hear if described in the physical exam. Costume Rental Clerk contact information: Please call [facility] . (Phone Number For Physician Use Only) After establishing a telemedicine visit, patient was: Patient was verified with two unique identifiers, Patient/authorized rep acknowledged consent and understanding and Gave permission to continue telehealth session Time Spent with Patient: Initial => 75 min History of Present Illness Reason for Consultation: lumbar discitis Attending Physician: Jd Weems MD History of Present Illness 63yo M with h/o CAD s/p PCI (last on 09/2023), chronic lumbar back pain, prior lumbar surgery x 3 with hardware last one in 2018 who presented on 07/06 with worsening back pain x 1 week. He woke up at night on 06/30 with severe left sided back pain. Noted radiation to left hip, buttock and groin. He was seen in the ED on 07/01 and was treated conservatively. Or the past few days, he has been using Flexeril and prednisone with no improvement. Noted pain worse with sitting and inability to ambulate. No trauma, did report subjective fevers and chills x 2 weeks ago. No urinary/bowel changes. On admission, he was afebrile, vss. Initial labs with WBC 15.37, Cr and AST/ALT wnl. ESR 47, CRP < 0.50. UA negative. MRI L spine with high signal noted within L1-2 disc with associated mild bone marrow edema at opposing endplates of L1 and L2 vertebra, suggesting possible discitis with the possibility of early spondylodiscitis cannot be totally excluded; laminectomy with transpedicular internal fixation of L2 and L3 vertebrae; discectomy and internal disc fixation noted at L2-3 L3-4 and L4-5 intervertebral discs. He was given vanc/cefepime. ID consulted 07/07. On evaluation, patient reports that he has significant pain in his lower back, primarily on the left side with radiation to hip and groin. He denies dysuria or urinary frequency. He does note that he had a hard time with urinating due to the pain on his back/side. He does not have any numbness, tingling, weakness in his legs. He denies having fevers/chills. He does note that a week before , he had felt chills and sweats and feeling unwell. No rhinorrhea or sore throat at that time. On 06/30 he was playing soft ball, but no injuries or heavy lifting. Pain subsequently started at 2am on 07/01. Allergies Allergy/AdvReac Type Severity Reaction Status Date / Time chlorhexidine Allergy Intermediate severe Verified 07/06/24 19:09 itching, redness Sulfa (Sulfonamide Allergy Intermediate rash, hives Verified 07/06/24 19:09 Antibiotics) acetaminophen AdvReac Severe elevated Verified 07/06/24 19:09 LFTs ibuprofen AdvReac Severe elevated Verified 07/06/24 19:09 LFTs morphine AdvReac Intermediate shakiness, Verified 07/06/24 19:09 grumpy, disoriented Home Medications Medication Instructions Recorded Confirmed Type ascorbic acid (vitamin C) 1,000 mg 1,000 mg PO QA ##0 04/07/16 07/06/24 History tablet aspirin 81 mg tablet,delayed 81 mg PO HS 11/14/17 07/06/24 History release cyanocobalamin (vitamin B-12) 500 500 mcg PO QAM 11/14/17 07/06/24 History mcg tablet (Vitamin B-12) duloxetine 60 mg capsule,delayed 60 mg PO BID 11/14/17 07/06/24 History release (Cymbalta) folic acid 400 mcg tablet 0.4 mg PO QAM 11/14/17 07/06/24 History lorazepam 0.5 mg tablet 0.5 mg PO Q12H PRN Anxiety 11/14/17 07/06/24 History metoprolol succinate 100 mg 100 mg PO QAM 11/14/17 07/06/24 History tablet,extended release 24 hr multivitamin 1 tab PO QAM 11/14/17 07/06/24 History pyridoxine (vitamin B6) 100 mg 100 mg PO QAM 11/14/17 07/06/24 History tablet cholecalciferol (vitamin D3) 25 1,000 mcg PO DAILY 05/22/23 07/06/24 History mcg (1,000 unit) capsule (Vitamin D3) lisinopril 20 mg tablet 20 mg PO QAM 05/22/23 07/06/24 History zinc gluconate 50 mg tablet 50 mg PO QAM 05/22/23 07/06/24 History famotidine 20 mg tablet 20 mg PO BID 09/06/23 07/06/24 History krill 1,000 mg-omega-3 230 mg-dha 1 cap PO QAM 09/06/23 07/06/24 History 60 yz-zzj-nwuzldwgn-astaxan capsule (MegaRed [place]-3 Krill Oil) spironolactone 25 mg tablet 25 mg PO QAM 09/06/23 07/06/24 History atorvastatin 80 mg tablet 40 mg PO DAILY 10/09/23 07/06/24 History ticagrelor 90 mg tablet (Brilinta) 90 mg PO BID #60 tabs 11/07/23 07/06/24 Rx nitroglycerin 0.4 mg sublingual 0.4 mg sublingual DIRECTED PRN 03/25/24 07/06/24 Rx tablet (Nitrostat) Chest Pain #25 tabs cyclobenzaprine 5 mg tablet 5 mg PO TID PRN muscle spasm #30 07/01/24 07/06/24 Rx tabs oxycodone 5 mg tablet 5 mg PO Q8H PRN Pain 07/06/24 07/06/24 History Patient History Medical History ACS (acute coronary syndrome) STEMI (ST elevation myocardial infarction) Chest pain Thrombophlebitis HLD (hyperlipidemia) Myocardial Infarction 2003. BPH (benign prostatic hyperplasia) Coronary artery disease 2004- stent x 1, 2011- stents x 2. FOllows with [facility] cardiology Kidney stones GERD (gastroesophageal reflux disease) controlled Anxiety Surgical History H/O tooth extraction removal of infected dental implant 01/19/20 placed on abx. S/P lumbar fusion hardware removal, L2-L3 decompression with fusion: 11/15/17: Grade 1 view, MAC#3, ETT 8.0 at [facility] History of tooth extraction S/P epidural steroid injection lumbar and SI joint injections History of cataract surgery bilateral History of cystoscopy with stent History of lithotripsy laser lithotripsy H/O hand surgery LEFT Fusion of spine Lumbar x2 S/P cervical spinal fusion 05/2015. MAC 3. Grade 1 view. No issues. Full ROM. Hx of inguinal hernia repair left History of cardiac cath 2003 - STENT 2010- 2 STENTS Family History Other No family history of adverse response to anesthesia Social History Smoking Status: Current every day smoker Tobacco Type: Cigarettes Cigarettes Per Day: 8-10; Second Hand Exposure: No; Do You Dip or Chew Tobacco: No; Hx Alcohol Use: No Hx Substance Use: Yes Last Used Substance: Days (ago) Last Used Substance Other:: thc Substance Use Type Other:: 2 days ago. Inhalation form only. Preferred Language: Mongolian Communication Ability: Effective Visual Impairment: No Limitations Hearing Ability: Normal Business Database Analyst Required: No Beliefs That Will Affect Care: None marital status: Current Living Situation: Spouse current occupation: Retired Feels Safe at Home: Yes Safety Concerns: Feels Safe At This Time Assistive Devices: Cane Review of System 10-point review of systems reviewed and are negative except for as above. Physical Exam Physical Exam: General: Awake, alert, no acute distress HEENT: NC/AT, EOMI, mmm Neck: supple, no LAD Lungs: respirations non-labored Heart: nl peripheral perfusion Abdomen: soft, NT/ND Back: no spinal tenderness, no ttp in paraspinal or left lower back Ext: no LE edema Skin: no rash Neuro: moving all extremities Results & Data Vital Signs (Past 12 Hours) Vital Signs Temp Pulse Pulse Resp BP BP Pulse Ox 07/07/24 07:50 36.4 C L 67 16 152/90 H 94 07/07/24 00:06 36.6 C 67 18 174/83 H 93 07/06/24 23:24 62 18 150/81 H 95 O2 Del Method 07/07/24 07:50 Room Air 07/07/24 00:06 Room Air 07/06/24 23:24 Laboratory Results Labs reviewed. Diagnostic Findings Imaging reviewed. (3) CAD (coronary artery disease) Coronary Disease-Associated Artery/Lesion type: [place] artery [place] vs. transplanted heart: [place] heart Associated angina: without angina Qualified Code(s): I25.10 - Atherosclerotic heart disease of [place] coronary artery without angina pectoris
--- NOTE | 2024-07-07 11:25 | Hospitalist Progress Note ---
Date of Service July 07, 2024 Assessment & Plan (1) Back pain: Plan: severe acute on chronic left-sided back pain with radiation into the buttock and groin. MRI of the lumbar spine performed with results as above. In brief, some findings suggestive of possible discitis. L1-L2 disc osteophyte complex causing mild spinal canal stenosis as well as L5-S1 arthritis causing stenosis. Patient's pain distribution is most consistent with an L1-L2 nerve. Question focal process going on in the hip? Uncertain if this process represents an acute infection, discitis Admit to medical Pain control with Dilaudid as needed. Of note, patient has an adverse reaction to morphine Flexeril as needed Zofran as needed Senna/docusate every morning with MiraLAX as needed constipation Narcan as needed for accidental overdose Solu-Medrol 40 mg IV daily Continue home duloxetine Heat as needed Ortho/spine consultation pending Will keep patient n.p.o. for now ID consult appreciated, abx held to improve yield of possible lumbar biopsy once assessed by spine surgery Follow cultures (2) CAD (coronary artery disease): Plan: status post 5 stents with most recent being September 2023. Patient is continued on dual antiplatelet therapy with aspirin and Brilinta. He follows locally with cardiology Continue aspirin and Brilinta Continue atorvastatin (3) Hyperlipidemia: Plan: Continue atorvastatin (4) Hypertension: Plan: Continue spironolactone Continue metoprolol Continue lisinopril Plan 63-year-old male with history of coronary artery disease status post multiple stents, hyperlipidemia, GERD, chronic back pain presenting with severe acute worsening of back pain ongoing for the last week. Admission and Anticipated Discharge Date Admission Date: July 06, 2024 Subjective Pt still complaining of back pain. Review of Systems Review of Systems: CONST: Negative for fever, body aches and chills. HENT: Negative for neck pain/stiffness, headache, congestion, sore throat, swelling. EYES: Negative for discharge/pain or vision changes. RESP: Negative for cough/hemoptysis and shortness of breath. CV: Negative chest pain, difficulty breathing, palpitations. ABD: Negative pain, nausea, vomiting. : Negative increase frequency, dysuria, blood in urine or stool. MUSC: Negative for muscle aches, edema. SKIN: Negative rash, lesions/sores. NEURO: Negative headache, dizziness, weakness. Physical Exam Physical Exam: GENERAL APPEARANCE NAD, activity normal for age, well developed/ well nourished, no cyanosis, pallor, or diaphoresis. EYES lids/conjunctiva normal. EARS/NOSE/THROAT Mucous membranes moist, nares normal, lips/teeth normal uvula midline without oral pharyngeal erythema, exudate or swelling TMs normal bilaterally. No lymphangitis/lymphedema. HEAD/NECK normocephalic atraumatic, no facial trauma, neck is supple. RESPIRATORY respiratory effort normal, speaks in full sentences, no tripod position, no accessory muscle use. Lungs clear to auscultation without rhonchi, wheezes, rales CARDIAC Regular rate and rhythm, no edema. ABDOMINAL Soft, ND/NT. No evidence of fluid wave. No pulsatile masses on exam, rebound tenderness, Rizo sign or pain over Mcburney's point. MUSCLES/EXTREMITIES No abnormal range of motion, no swelling. SKIN Warm, pink and dry. No rashes, dermatoses, petechiae or lesions. NEUROLOGICAL Speech is clear and appropriate. Normal level of consciousness. Gait and coordination are normal. 5/5 strength in all extremities. PSYCH Normal mood and affect. Judgement/competence is appropriate Results & Data Results & Data Vital Signs (Past 12 Hours) Vital Signs Temp Pulse Pulse Resp BP BP Pulse Ox 07/07/24 07:50 36.4 C L 67 16 152/90 H 94 07/07/24 00:06 36.6 C 67 18 174/83 H 93 07/06/24 23:24 62 18 150/81 H 95 O2 Del Method 07/07/24 07:50 Room Air 07/07/24 00:06 Room Air 07/06/24 23:24 PG Care Time/CCT Total # of Minutes Spent Total Time Spent with Patient: Total time spent is greater than 50% in coordination of care (as documented) at patient's floor/unit and/or counseling patient: Coding Level of Care Code 67286 SUB INP/OBS CARE 2/35MIN Diagnoses Back pain M54.9 Coronary artery disease involving [place] coronary artery of [place] heart without angina pectoris I25.10 Coronary Disease-Associated Artery/Lesion type: [place] artery [place] vs. transplanted heart: [place] heart Associated angina: without angina Hyperlipidemia, unspecified hyperlipidemia type E78.5 Hyperlipidemia type: unspecified Hypertension I10 Hypertension type: unspecified (2) CAD (coronary artery disease) Coronary Disease-Associated Artery/Lesion type: [place] artery [place] vs. transplanted heart: [place] heart Associated angina: without angina Qualified Code(s): I25.10 - Atherosclerotic heart disease of [place] coronary artery without angina pectoris (3) Hyperlipidemia Hyperlipidemia type: unspecified Qualified Code(s): E78.5 - Hyperlipidemia, unspecified (4) Hypertension Hypertension type: unspecified Qualified Code(s): I10 - Essential (primary) hypertension
--- NOTE | 2024-07-07 14:53 | Orthopedic Consultation ---
Date of Consultation July 07, 2024 Assessment & Plan (1) Spinal stenosis of lumbar region with radiculopathy: MRI and CAT scan available of the lumbar spine. Based on the patient's clinical presentation and imaging I suspect his findings are advanced degenerative changes of the L1-L2 disc consistent with adjacent level disease. His pain pattern is most likely are related to an L1-2 radiculopathy on the left. Does not appear to be infectious in nature. At this time would like him to go for diagnostic therapeutic L1-L2 nerve root block on the left. Like to avoid surgery if possible. If however the symptoms persist despite nerve root block we may have to consider surgical intervention addressing the L1-L2 level. Patient understands agrees with this plan. History of Present Illness Reason for Consultation: Back and left groin pain Attending Physician: Jd Weems MD History of Present Illness This is a 63-year-old male well-known to me that presents with a decline in status over the past several weeks. He complains of lumbar pain radiating to the left flank and the left groin. He obtains relief when lying supine. Sitting up and ambulation reproduces his symptoms. It is quite incapacitating in nature. A course of oral steroids failed to provide any significant relief. He trialed muscle relaxers which also failed to provide relief. Allergies Allergy/AdvReac Type Severity Reaction Status Date / Time chlorhexidine Allergy Intermediate severe Verified 07/06/24 19:09 itching, redness Sulfa (Sulfonamide Allergy Intermediate rash, hives Verified 07/06/24 19:09 Antibiotics) acetaminophen AdvReac Severe elevated Verified 07/06/24 19:09 LFTs ibuprofen AdvReac Severe elevated Verified 07/06/24 19:09 LFTs morphine AdvReac Intermediate shakiness, Verified 07/06/24 19:09 grumpy, disoriented Home Medications Medication Instructions Recorded Confirmed Type ascorbic acid (vitamin C) 1,000 mg 1,000 mg PO QAM ##0 04/07/16 07/06/24 History tablet aspirin 81 mg tablet,delayed 81 mg PO HS 11/14/17 07/06/24 History release cyanocobalamin (vitamin B-12) 500 500 mcg PO QAM 11/14/17 07/06/24 History mcg tablet (Vitamin B-12) duloxetine 60 mg capsule,delayed 60 mg PO BID 11/14/17 07/06/24 History release (Cymbalta) folic acid 400 mcg tablet 0.4 mg PO QAM 11/14/17 07/06/24 History lorazepam 0.5 mg tablet 0.5 mg PO Q12H PRN Anxiety 11/14/17 07/06/24 History metoprolol succinate 100 mg 100 mg PO QAM 11/14/17 07/06/24 History tablet,extended release 24 hr multivitamin 1 tab PO QAM 11/14/17 07/06/24 History pyridoxine (vitamin B6) 100 mg 100 mg PO QAM 11/14/17 07/06/24 History tablet cholecalciferol (vitamin D3) 25 1,000 mcg PO DAILY 05/22/23 07/06/24 History mcg (1,000 unit) capsule (Vitamin D3) lisinopril 20 mg tablet 20 mg PO QAM 05/22/23 07/06/24 History zinc gluconate 50 mg tablet 50 mg PO QAM 05/22/23 07/06/24 History famotidine 20 mg tablet 20 mg PO BID 09/06/23 07/06/24 History krill 1,000 mg-omega-3 230 mg-dha 1 cap PO QAM 09/06/23 07/06/24 History 60 ll-hgz-dlziflmvz-astaxan capsule (MegaRed [place]-3 Krill Oil) spironolactone 25 mg tablet 25 mg PO QAM 09/06/23 07/06/24 History atorvastatin 80 mg tablet 40 mg PO DAILY 10/09/23 07/06/24 History ticagrelor 90 mg tablet (Brilinta) 90 mg PO BID #60 tabs 11/07/23 07/06/24 Rx nitroglycerin 0.4 mg sublingual 0.4 mg sublingual DIRECTED PRN 03/25/24 07/06/24 Rx tablet (Nitrostat) Chest Pain #25 tabs cyclobenzaprine 5 mg tablet 5 mg PO TID PRN muscle spasm #30 07/01/24 07/06/24 Rx tabs oxycodone 5 mg tablet 5 mg PO Q8H PRN Pain 07/06/24 07/06/24 History Patient History Medical History ACS (acute coronary syndrome) STEMI (ST elevation myocardial infarction) Chest pain Thrombophlebitis HLD (hyperlipidemia) Myocardial Infarction 2004. BPH (benign prostatic hyperplasia) Coronary artery disease 2004- stent x 1, 2012- stents x 2. FOllows with [facility] cardiology Kidney stones GERD (gastroesophageal reflux disease) controlled Anxiety Surgical History H/O tooth extraction removal of infected dental implant 01/19/20 placed on abx. S/P lumbar fusion hardware removal, L2-L3 decompression with fusion: 11/15/17: Grade 1 view, MAC#3, ETT 8.0 at [facility] History of tooth extraction S/P epidural steroid injection lumbar and SI joint injections History of cataract surgery bilateral History of cystoscopy with stent History of lithotripsy laser lithotripsy H/O hand surgery LEFT Fusion of spine Lumbar x2 S/P cervical spinal fusion 05/2015. MAC 3. Grade 1 view. No issues. Full ROM. Hx of inguinal hernia repair left History of cardiac cath 2003 - 1 STENT 2010- STENTS Family History Other No family history of adverse response to anesthesia Social History Smoking Status: Current every day smoker Tobacco Type: Cigarettes Cigarettes Per Day: 8-10; Second Hand Exposure: No; Do You Dip or Chew Tobacco: No; Hx Alcohol Use: No Hx Substance Use: Yes Last Used Substance: Days (ago) Last Used Substance Other:: thc Substance Use Type Other:: 2 days ago. Inhalation form only. Preferred Language: Sinhala Communication Ability: Effective Visual Impairment: No Limitations Hearing Ability: Normal Laboratory Helper Required: No Beliefs That Will Affect Care: None marital status: Current Living Situation: Spouse current occupation: Retired Feels Safe at Home: Yes Safety Concerns: Feels Safe At This Time Assistive Devices: None Physical Exam Physical Exam: On exam the patient is in obvious distress when he sits up for our discussion. He has a well-healed lumbar incision. There is no significant pain to palpation of the lumbar musculature or SI joint region. He has +5-5 plantarflexion dorsiflexion quadriceps. Negative logroll. Results & Data Vital Signs (Past 12 Hours) Vital Signs Temp Pulse Resp BP Pulse Ox O2 Del Method 07/07/24 14:17 36.7 C 75 18 146/94 H 95 Room Air 07/07/24 07:50 36.4 C L 67 16 152/90 H 94 Room Air
[2024-07-07 14:56] LABS: A calco-baum cmplx NotReported Not Detected (NotDetected); Bact fragilis Not Reported Not Detected (NotDetected); Blood Culture Id Panel See PCR Comment (NotDetected); C auris Not Reported Not Detected (NotDetected); Calbicans Not Reported Not Detected (NotDetected); Candida glabrata Not Reported Not Detected (NotDetected); Candida krusei Not Reported Not Detected (NotDetected); Cneoformans/gatti Not Reported Not Detected (NotDetected); Cparapsilosis Not Reported Not Detected (NotDetected); Ctropicalis Not Reported Not Detected (NotDetected); E cloacae compx Not Reported Not Detected (NotDetected); Efaecalis Not Reported Not Detected (NotDetected); Efaecium Not Reported Not Detected (NotDetected); Enterobacterales Not Reported Not Detected (NotDetected); Escherichia coli Not Reported Not Detected (NotDetected); H influenzae Not Reported Not Detected (NotDetected); K aerogenes Not Reported Not Detected (NotDetected); Koxytoca Not Reported Not Detected (NotDetected); Kpneumoniae grp Not Reported Not Detected (NotDetected); Lmonocyt Not Reported Not Detected (NotDetected); N meningitidis Not Reported Not Detected (NotDetected); P aeruginosa Not Reported Not Detected (NotDetected); Proteus spp Not Reported Not Detected (NotDetected); Salmonella spp Not Reported Not Detected (NotDetected); Staph lugdunensis Not Reported Not Detected (NotDetected); Staph spp. Not Reported DETECTED (NotDetected); Staphaureus Not Reported Not Detected (NotDetected); Staphepi Not Reported Not Detected (NotDetected); Stenmaltophilia Not Reported Not Detected (NotDetected); Strep agal(GrpB) Not Reported Not Detected (NotDetected); Strep pneum Not Reported Not Detected (NotDetected); Strep pyog (GrpA) Not Reported Not Detected (NotDetected); Strep spp Not Reported Not Detected (NotDetected)
[2024-07-07 15:10] LABS: Staphylococcus spp. DETECTED (NotDetected)
[2024-07-07] MEDS: KETOROLAC TROMETHAMINE 15 MG/ML VIAL IV PRN (15:30)
[2024-07-07] MEDS: cefTRIAXone SODIUM 2,000 MG/50 ML BAG IV SCH (20:46)
[2024-07-07] MEDS: DOCUSATE SODIUM/SENNA 50/8.6MG TAB PO SCH (20:50)
[2024-07-07] MEDS: ASPIRIN 81 MG ECTAB PO SCH (20:51)
[2024-07-08 07:05] LABS: Hematocrit (blood only) 35.9 % (42.0-52.0); Hemoglobin 12.3 g/dl (14.0-18.0); Mean Corpuscular Hemoglobin 30.4 pg (25.0-34.0); Mean Corpuscular Hgb Conc 34.3 g/dL (32.0-36.0); Mean Corpuscular Volume 88.9 fL (80.0-100.0); Mean Platelet Volume 10.7 fL (9.4-12.4); Platelet Count 253 K/uL (130-400); RDW Coefficient of Variation 13.4 % (11.5-14.5); RDW Standard Deviation 44.3 fL (36.4-46.3); Red Blood Count 4.04 M/uL (4.70-6.10); White Blood Count 16.03 K/ul (4.8-10.8)
[2024-07-08 07:28] LABS: BUN Creatinine Ratio 28.4 (10-20); Calcium 8.9 mg/dl (8.6-10.3); Creatinine Clr Calc Pharmacy 54.8 ml/min
--- NOTE | 2024-07-08 08:57 | Infectious Disease Progress Nt ---
Date of Service July 08, 2024 Assessment & Plan (1) Back pain: (2) S/P lumbar fusion: (3) CAD (coronary artery disease): Plan 63yo M with h/o CAD s/p PCI (last on 09/2023), chronic lumbar back pain, prior lumbar surgery x 3 with hardware last one in 2019 who presented on 07/06 with worsening lower left back pain x 1 week, radiation to left hip/groin. No trauma, did report subjective fevers and chills x 2 weeks ago. No urinary/bowel changes. On admission, he was afebrile, hypertensive. Initial labs with WBC 15.37, Cr and AST/ALT wnl. ESR 47, CRP < 0.50. UA negative. MRI L spine with high signal noted within L1-2 disc with associated mild bone marrow edema at opposing endplates of L1 and L2 vertebra, suggesting possible discitis with the possibility of early spondylodiscitis cannot be totally excluded; laminectomy with transpedicular internal fixation of L2 and L3 vertebrae; discectomy and internal disc fixation noted at L2-3 L3-4 and L4-5 intervertebral discs. He was given vanc/cefepime. ID consulted 07/07. Abx held. Seen by ortho who feel symptoms more c/w radiculopathy 2/2 advanced degenerative changes in L1-L2 disc. BCx with GPC and GPR in 1 of 4 bottles. I spoke to micro, Staph spp in BCx is not S aureus based on BCID. Since growth is only in 1 of 4 bottles, I suspect this is a contaminant. I did however reorder blood cx and will continue holding antibiotics. WBC noted, he remains afebrile. # BCx with GPC (CONS by BCID) and GPR likely contaminant # L1-L2 disc changes on MRI # Left lower back/hip/groin pain # H/o lumbar surgery and hardware # h/o CAD s/p PCI in 09/2023 - Mohini ordered repeat BCX - f/u cultures from 07/06 - Im going to continue holding antibiotics for now Will continue to follow. If questions or concerns, contact via Ghost or Infectious Disease Call Center . Janey Leslie MD [facility], Division of Infectious Diseases Admission and Anticipated Discharge Date Admission Date: July 06, 2024 Subjective Subsequent visit was provided via telemedicine using two-way real-time interactive telecommunication between the patient and the telemedicine provider. For the duration of the visit, the provider was performing the assessment from a different facility than the patient. This includesuse of bluetooth stethoscope forauscultationperformed by the telepresenter that the telemedic ine provider can hear if described in the physical exam. Pick Up Man contact information: Please call [facility] Call Center . (Phone Number For Physician Use Only) After establishing a telemedicine visit, patient was: Patient was verified with two unique identifiers, Patient/authorized rep acknowledged consent and und erstanding and Gave permission to continue telehealth session Time Spent with Patient: Subsequent => 55 min Patient with ongoing pain on the left back. No other complaints. Physical Exam Physical Exam: General: Awake, alert, no acute distress HEENT: NC/AT, EOMI, mmm Neck: supple Lungs: respirations non-labored Heart: nl peripheral perfusion Abdomen: soft, NT/ND Ext: no LE edema Skin: no rash Neuro: moving all extremities Results & Data Vital Signs (Past 12 Hours) Vital Signs Temp Pulse Resp BP Pulse Ox O2 Del Method 07/08/24 07:28 36.4 C L 61 16 152/77 H 98 Room Air Laboratory Results Labs reviewed. (3) CAD (coronary artery disease) Associated angina: without angina Coronary Disease-Associated Artery/Lesion type: [place] artery [place] vs. transplanted heart: [place] heart Qualified Code(s): I25.10 - Atherosclerotic heart disease of [place] coronary artery without angina pectoris
--- NOTE | 2024-07-08 11:01 | Hospitalist Progress Note ---
Date of Service July 08, 2024 Assessment & Plan (1) Back pain: Plan: severe acute on chronic left-sided back pain with radiation into the buttock and groin. MRI of the lumbar spine performed with results as above. In brief, some findings suggestive of possible discitis. L1-L2 disc osteophyte complex causing mild spinal canal stenosis as well as L5-S1 arthritis causing stenosis. Patient's pain distribution is most consistent with an L1-L2 nerve. Question focal process going on in the hip? Uncertain if this process represents an acute infection, discitis Admit to medical Pain control with Dilaudid as needed. Of note, patient has an adverse reaction to morphine Flexeril as needed Zofran as needed Senna/docusate every morning with MiraLAX as needed constipation Narcan as needed for accidental overdose Solu-Medrol 40 mg IV daily Continue home duloxetine Heat as needed Ortho/spine consultation appreciated L1-L2 spinal stenosis with radiculopathy -awaiting nerve block -pain managment consulted (2) CAD (coronary artery disease): Plan: status post 5 stents with most recent being September 2023. Patient is continued on dual antiplatelet therapy with aspirin and Brilinta. He follows locally with cardiology Continue aspirin and Brilinta Continue atorvastatin (3) Hyperlipidemia: Plan: Continue atorvastatin (4) Hypertension: Plan: Continue spironolactone Continue metoprolol Continue lisinopril Plan 63-year-old male with history of coronary artery disease status post multiple stents, hyperlipidemia, GERD, chronic back pain presenting with severe acute wo rsening of back pain ongoing for the last week. Admission and Anticipated Discharge Date Admission Date: July 06, 2024 Subjective Pt still complaining of severe back pain. Review of Systems Review of Systems: CONST: Negative for fever, body aches and chills. HENT: Negative for neck pain/stiffness, headache, congestion, sore throat, swelling. EYES: Negative for discharge/pain or vision changes. RESP: Negative for cough/hemoptysis and shortness of breath. CV: Negative chest pain, difficulty breathing, palpitations. ABD: Negative pain, nausea, vomiting. : Negative increase frequency, dysuria, blood in urine or stool. MUSC: Negative for muscle aches, edema. SKIN: Negative rash, lesions/sores. NEURO: Negative headache, dizziness, weakness. Physical Exam Physical Exam: GENERAL APPEARANCE NAD, activity normal for age, well developed/ well nourished, no cyanosis, pallor, or diaphoresis. EYES lids/conjunctiva normal. EARS/NOSE/THROAT Mucous membranes moist, nares normal, lips/teeth normal uvula midline without oral pharyngeal erythema, exudate or swelling TMs normal bilaterally. No lymphangitis/lymphedema. HEAD/NECK normocephalic atraumatic, no facial trauma, neck is supple. RESPIRATORY respiratory effort normal, speaks in full sentences, no tripod position, no accessory muscle use. Lungs clear to auscultation without rhonchi, wheezes, rales CARDIAC Regular rate and rhythm, no edema. ABDOMINAL Soft, ND/NT. No evidence of fluid wave. No pulsatile masses on exam, r ebound tenderness, Rizo sign or pain over Mcburney's point. MUSCLES/EXTREMITIES No abnormal range of motion, no swelling. SKIN Warm, pink and dry. No rashes, dermatoses, petechiae or lesions. NEUROLOGICAL Speech is clear and appropriate. Normal level of consciousness. Gait and coordination are normal. 5/5 strength in all extremities. PSYCH Normal mood and affect. Judgement/competence is appropriate Results & Data Results & Data Vital Signs (Past 12 Hours) Vital Signs Temp Pulse Resp BP Pulse Ox O2 Del Method 07/08/24 07:28 36.4 C L 61 16 152/77 H 98 Room Air PG Care Time/CCT Total # of Minutes Spent Total Time Spent with Patient: Total time spent is greater than 50% in coordination of care (as documented) at patient's floor/unit and/or counseling patient: Coding Level of Care Code 62528 SUB INP/OBS CARE 2/35MIN Diagnoses Back pain M54.9 Coronary artery disease involving [place] coronary artery of [place] heart without angina pectoris I25.10 Coronary Disease-Associated Artery/Lesion type: [place] artery [place] vs. transplanted heart: [place] heart Associated angina: without angina Hyperlipidemia, unspecified hyperlipidemia type E78.5 Hyperlipidemia type: unspecified Hypertension I10 Hypertension type: unspecified (2) CAD (coronary artery disease) Coronary Disease-Associated Artery/Lesion type: [place] artery [place] vs. transplanted heart: [place] heart Associated angina: without angina Qualified Code(s): I25.10 - Atherosclerotic heart disease of [place] coronary artery without angina pectoris (3) Hyperlipidemia Hyperlipidemia type: unspecified Qualified Code(s): E78.5 - Hyperlipidemia, unspecified (4) Hypertension Hypertension type: unspecified Qualified Code(s): I10 - Essential (primary) hypertension
--- NOTE | 2024-07-08 13:26 | Pain Management Consultation ---
Date of Consultation July 08, 2024 Assessment & Plan (1) Spinal stenosis of lumbar region with radiculopathy: (2) Stented coronary artery: Plan 1. Discussed possible L1-L2 left paramedian interlaminar epidural steroid injection. At this time, patient has been ruled out for discitis. Patient aware that if he has any infection that we will not be able to do any injections. Awaiting comment from infectious disease. Patient will need to hold Brilinta for 1 week prior to injection time. Will contact Dr. Galindo for permission to hold or bridge for injection. Patient is aware that this would have to be done as an outpatient. Risk versus benefit discussed. Patient wishes to proceed if above conditions are met. 2. Patient has been on oxycodone for several years. Continue per primary care 3. Continue with duloxetine and cyclobenzaprine as scheduled Case discussed with Dr. Rodriguez History of Present Illness Reason for Consultation: Back pain Attending Physician: Jd Weems MD History of Present Illness Attending: Dr. Rodriguez Mr. Ramon is a 63-year-old male that presents with back pain. He has a long history of back pain going back 20 years with prior fusion to the lumbar disks at L2-L3, L3-L4, L4-L5. He has received multiple injections from Dr. Beltran in the past for back pain as well. Patient reports that last Saturday he was awakened from sleep with severe pain. He tried to sit up on the bed and had disabling pain causing screaming. Pain originates in the lumbosacral spine and travels in a horseshoe configuration to his left groin. Characteristic of pain is a sharp and stabbing. No radiation into the anterior thigh or lower leg. Right side is unaffected. Patient reports that he can lay flat on his left side or sit in his semirecumbent position and has relief. Severe pain is then aggravated by standing erect, laying on his right side, certain movements. He also has difficulty sitting on the toilet secondary to pain. He had no alleviation with ice, heat, oxycodone. He presented to the emergency department and an MR I of the lumbar spine was completed showing concern for discitis with mild bone marrow edema within disc L1-L2. He was seen by orthospine who referred him to our clinic for possible injection. Patient states that at worst pain is 9/10 and at best 1/10 with proper positioning. Previously seen by orthopedics and orthospine with most recent spinal injection by Dr. Beltran in August 2023. Lumbar spine 07/06/2024 Previous interventions include physical therapy which cause worsening symptoms, chiropractic manipulation which cause worsening symptoms, ice, heat, repositioning, oxycodone, prior epidural injection. Patient denies bowel or bladder incontinence. He has no saddle anesthesia. He denies any unusual bleeding or bruising. Patient is on Brilinta and is unsure if it can be held for procedure due to multiple stent placement 9 months ago. Patient has no other constitutional complaints. Allergies Allergy/AdvReac Type Severity Reaction Status Date / Time chlorhexidine Allergy Intermediate severe Verified 07/06/24 19:09 itching, redness Sulfa (Sulfonamide Allergy Intermediate rash, hives Verified 07/06/24 19:09 Antibiotics) acetaminophen AdvReac Severe elevated Verified 07/06/24 19:09 LFTs ibuprofen AdvReac Severe elevated Verified 07/06/24 19:09 LFTs morphine AdvReac Intermediate shakiness, Verified 07/06/24 19:09 grumpy, disoriented Home Medications Medication Instructions Recorded Confirmed Type ascorbic acid (vitamin C) 1,000 mg 1,000 mg PO QAM ##0 04/07/16 07/06/24 History tablet aspirin 81 mg tablet,delayed 81 mg PO HS 11/14/17 07/06/24 History release cyanocobalamin (vitamin B-12) 500 500 mcg PO QAM 11/14/17 07/06/24 History mcg tablet (Vitamin B-12) duloxetine 60 mg capsule,delayed 60 mg PO BID 11/14/17 07/06/24 History release (Cymbalta) folic acid 400 mcg tablet 0.4 mg PO QAM 11/14/17 07/06/24 History lorazepam 0.5 mg tablet 0.5 mg PO Q12H PRN Anxiety 11/14/17 07/06/24 History metoprolol succinate 100 mg 100 mg PO QAM 11/14/17 07/06/24 History tablet,extended release 24 hr multivitamin 1 tab PO QAM 11/14/17 07/06/24 History pyridoxine (vitamin B6) 100 mg 100 mg PO QAM 11/14/17 07/06/24 History tablet cholecalciferol (vitamin D3) 25 1,000 mcg PO DAILY 05/22/23 07/06/24 History mcg (1,000 unit) capsule (Vitamin D3) lisinopril 20 mg tablet 20 mg PO QAM 05/22/23 07/06/24 History zinc gluconate 50 mg tablet 50 mg PO QAM 05/22/23 07/06/24 History famotidine 20 mg tablet 20 mg PO BID 09/06/23 07/06/24 History krill 1,000 mg-omega-3 230 mg-dha 1 cap PO QAM 09/06/23 07/06/24 History 60 ku-lpv-afuudrrao-astaxan capsule (Mega[place]-3 Krill Oil) spironolactone 25 mg tablet 25 mg PO QAM 09/06/23 07/06/24 History atorvastatin 80 mg tablet 40 mg PO DAILY 10/09/23 07/06/24 History ticagrelor 90 mg tablet (Brilinta) 90 mg PO BID #60 tabs 11/07/23 07/06/24 Rx nitroglycerin 0.4 mg sublingual 0.4 mg sublingual DIRECTED PRN 03/25/24 07/06/24 Rx tablet (Nitrostat) Chest Pain #25 tabs cyclobenzaprine 5 mg tablet 5 mg PO TID PRN muscle spasm #30 07/01/24 07/06/24 Rx tabs oxycodone 5 mg tablet 5 mg PO Q8H PRN Pain 07/06/24 07/06/24 History Pain History Previous Imaging and Results Labs: 07/08/24 06:32 07/08/24 06:32 INR 1.0 (0.9-1.1) 07/06/24 18:18 Patient History Medical History ACS (acute coronary syndrome) STEMI (ST elevation myocardial infarction) Chest pain Thrombophlebitis HLD (hyperlipidemia) Myocardial Infarction 2003. BPH (benign prostatic hyperplasia) Coronary artery disease 2003- stent x 1, 2011- stents x 2. FOllows with [facility] cardiology Kidney stones GERD (gastroesophageal reflux disease) controlled Anxiety Surgical History H/O tooth extraction removal of infected dental implant 01/19/20 placed on abx. S/P lumbar fusion hardware removal, L2-L3 decompression with fusion: 11/15/17: Grade 1 view, MAC#3, ETT 8.0 at [facility] History of tooth extraction S/P epidural steroid injection lumbar and SI joint injections History of cataract surgery bilateral History of cystoscopy with stent History of lithotripsy laser lithotripsy H/O hand surgery LEFT Fusion of spine Lumbar x2 S/P cervical spinal fusion 05/2015. MAC 3. Grade 1 view. No issues. Full ROM. Hx of inguinal hernia repair left History of cardiac cath 2003 - STENT 2010- STENTS Family History Other No family history of adverse response to anesthesia Social History Smoking Status: Current every day smoker Tobacco Type: Cigarettes Cigarettes Per Day: 8-10; Second Hand Exposure: No; Do You Dip or Chew Tobacco: No; Hx Alcohol Use: No Hx Substance Use: Yes Last Used Substance: Days (ago) Last Used Substance Other:: thc Substance Use Type Other:: 2 days ago. Inhalation form only. 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 Mood and affect is appropriate. Does not appear in acute distress. BACK: There is no SI joint tenderness. There is mild bilateral lumbosacral midline and bilateral facet joint tenderness. Pain is worsened with facet load bearing. Pain is worsened with extension. There is no paraspinal, quadratus lumborum, piriformis, or gluteal tenderness or spasm. SKIN: No evidence of edema, erythema or skin breakdown. Well-healed surgical scar in the lumbosacral region LOWER EXTREMITIES: Negative straight leg raise bilaterally. R Hip flexion +5; hip extension +5; knee extension +5; knee flexion +5; dorsiflexion +5; plantar flexion +5 L Hip flexion +5; hip extension +5; knee extension +5; knee flexion +5; dorsiflexion +5; plantar flexion +5 R Viviana maneuver: Negative L Viviana maneuver: Negative R Thigh thrust: Negative L Thigh thrust: Negative R SI compression test: Negative L SI compression test: Negative R Gaenslen test: Negative L Gaenslen test: Negative NEURO: Normal gait. Awake, alert, and oriented x 3. Distal sensation of lower legs intact and equal bilaterally. Patellar Reflex L +2 R +2 Results (Pain Clinic) Diagnostic Review MRI Findings: Magnetic Resonance Report Patient: FERNANDO RAMON Admit Date: 07/06/24 MR#: [id number] Address1: [address] Acct ID:[id number] Address2: Date: 1960 [facility] Zip: [place] [address] Age: 63 Location: 3N Sex: M Room/Bed: N388 Att Phy: Matilde Márquez D.O. Diagnosis: SEVERE LEFT SIDED BACK PAIN Serena Phy: Michael Bishop MD Service Date: 07/06/24 [facility] Phy: Interpreting Phy: Gui Raymundo MDAdmit Phy: Matilde Márquez D.OGi Ordering Phy: Ernesto Daniel DO cc: ~ ADDENDUM Addendum Report EXAM: MR lumbar spine wo con ADDENDUM: The results were sent successfully via fax at [phone] at 08:21 PM [employer] ENGINEER 07/06/2024 Electronically signed by Gui Raymundo 07-07-2024 12:25 AM ADDENDUM END EXAM: MR lumbar spine wo con CLINICAL HISTORY: Back pain. TECHNIQUE: MRI of the lumbar spine was performed without the administration of intravenous contrast. Sequences obtained include sagittal T1-weighted, T2-weighted, STIR (Short Tau Inversion Recovery), and axial T2-weighted sequences. COMPARISON: No previous studies are available for comparison. FINDINGS: Vertebral Alignment: Normal alignment of the lumbar spine without evidence of fracture or malalignment. No evidence of scoliosis is observed. Marrow signals are normal. Vertebral Bodies and Intervertebral Discs: Normal vertebral body height, no fracture identified. Advanced spine degenerative changes with osteophytes Laminectomy with transpedicular internal fixation of L2 and L3 vertebrae. Discectomy and internal disc fixation noted at L2-3 L3-4 and L4-5 intervertebral discs Partial fusion of the disc space of L2-3 ,L3-4 and L4-5 disc spaces High signal noted within L1-2 disc with associated mild bone marrow edema at opposing endplates of L1 and L2 vertebra suggesting possible discitis with the possibility of early spondylodiscitis cannot be totally excluded. No detected collections L1-4. [id number] analysis: T12-L1: There is no significant disc pathology. No spinal canal stenosis. No neural foraminal stenosis.No ligamentum flavum hypertrophy and facet joint arthropathy. L1-L2: 4.7mm diffuse disc bulge with disc osteophyte complex causing mild spinal canal stenosis and bilateral severe neural foraminal stenosis impinging the exiting nerve roots .No ligamentum flavum hypertrophy and facet joint arthropathy. L2-L3: No disc at this level. Bilateral facet joint arthritis is noted. L3-L4: No disc at this level. Bilateral facet joint arthritis is noted. L4-L5: No disc at this level. Bilateral facet joint arthritis is noted. L5-S1: There is no significant disc pathology. No spinal canal stenosis.Bilateral facet joint arthritis causing bilateral moderate neuroforaminal stenosis at this level. Spinal Cord and Nerve Roots: Conus medullaris terminates at the L1 level without abnormality. Nerve roots appear unremarkable bilaterally. The lower thoracic spinal cord, conus medullaris, and cauda equina nerve roots are unremarkable. Soft Tissues: Paraspinal soft tissues appear normal without evidence of abnormal signal intensity or mass lesions. IMPRESSION: 1. High signal noted within L1-2 disc with associated mild bone marrow edema at opposing endplates of L1 and L2 vertebra, suggesting possible discitis with the possibility of early spondylodiscitis cannot be totally excluded. No detected collections. Correlate clinically. 2. Advanced spine degenerative changes with osteophytes. 3. Laminectomy with transpedicular internal fixation of L2 and L3 vertebrae. Discectomy and internal disc fixation noted at L2-3 L3-4 and L4-5 intervertebral discs. 4. L1-L2 disc osteophyte complex causing mild spinal canal stenosis. 5. L5-S1 Bilateral facet joint arthritis causing bilateral moderate neuroforaminal stenosis at this level. Electronically signed by Gui Raymundo 07-06-2024 8:29 PM Previous Records Review Previous Records: personally reviewed by me
[2024-07-08] MEDS: ONDANSETRON INJ 2 MG/ML 2 ML VIAL IV PRN (15:28)
[2024-07-09] MEDS ORDERED: VANCOMYCIN LEVEL ONE (05:30)
[2024-07-09 08:41] LABS: Hematocrit (blood only) 39.4 % (42.0-52.0); Hemoglobin 13.4 g/dl (14.0-18.0); Mean Corpuscular Hemoglobin 30.5 pg (25.0-34.0); Mean Corpuscular Volume 89.5 fL (80.0-100.0); Mean Platelet Volume 10.8 fL (9.4-12.4); Platelet Count 274 K/uL (130-400); RDW Coefficient of Variation 13.3 % (11.5-14.5); RDW Standard Deviation 43.9 fL (36.4-46.3); White Blood Count 14.26 K/ul (4.8-10.8)
[2024-07-09 08:58] LABS: BUN Creatinine Ratio 30.1 (10-20); Calcium 8.9 mg/dl (8.6-10.3); Creatinine Clr Calc Pharmacy 46.5 ml/min
--- NOTE | 2024-07-09 11:20 | Hospitalist Progress Note ---
Date of Service July 09, 2024 Assessment & Plan (1) Back pain: Plan: severe acute on chronic left-sided back pain with radiation into the buttock and groin. MRI of the lumbar spine performed with results as above. In brief, some findings suggestive of possible discitis. L1-L2 disc osteophyte complex causing mild spinal canal stenosis as well as L5-S1 arthritis causing stenosis. Patient's pain distribution is most consistent with an L1-L2 nerve. Question focal process going on in the hip? Uncertain if this process represents an acute infection, discitis Admit to medical Pain control with Dilaudid as needed. Of note, patient has an adverse reaction to morphine Flexeril as needed Zofran as needed Senna/docusate every morning with MiraLAX as needed constipation Narcan as needed for accidental overdose Solu-Medrol 40 mg IV daily Continue home duloxetine Heat as needed Ortho/spine consultation appreciated L1-L2 spinal stenosis with radiculopathy -pain management consult recommending out patient nerve block -pt will need Brilinta held, pain management to follow with Dr. Galindo -PT evaluation pending (2) CAD (coronary artery disease): Plan: status post 5 stents with most recent being September 2023. Patient is continued on dual antiplatelet therapy with aspirin and Brilinta. He follows locally with cardiology Continue aspirin and Brilinta Continue atorvastatin (3) Hyperlipidemia: Plan: Continue atorvastatin (4) Hypertension: Plan: Continue spironolactone Continue metoprolol Continue lisinopril Plan 63-year-old male with history of coronary artery disease status post multiple stents, hyperlipidemia, GERD, chronic back pain presenting with severe acute worsening of back pain ongoing for the last week. Admission and Anticipated Discharge Date Admission Date: July 06, 2024 Subjective Pt still complaining of severe back pain. Review of Systems Review of Systems: CONST: Negative for fever, body aches and chills. HENT: Negative for neck pain/stiffness, headache, congestion, sore throat, swelling. EYES: Negative for discharge/pain or vision changes. RESP: Negative for cough/hemoptysis and shortness of breath. CV: Negative chest pain, difficulty breathing, palpitations. ABD: Negative pain, nausea, vomiting. : Negative increase frequency, dysuria, blood in urine or stool. MUSC: Negative for muscle aches, edema. SKIN: Negative rash, lesions/sores. NEURO: Negative headache, dizziness, weakness. Physical Exam Physical Exam: GENERAL APPEARANCE NAD, activity normal for age, well developed/ well nourished, no cyanosis, pallor, or diaphoresis. EYES lids/conjunctiva normal. EARS/NOSE/THROAT Mucous membranes moist, nares normal, lips/teeth normal uvula midline without oral pharyngeal erythema, exudate or swelling TMs normal bilaterally. No lymphangitis/lymphedema. HEAD/NECK normocephalic atraumatic, no facial trauma, neck is supple. RESPIRATORY respiratory effort normal, speaks in full sentences, no tripod position, no accessory muscle use. Lungs clear to auscultation without rhonchi, wheezes, rales CARDIAC Regular rate and rhythm, no edema. ABDOMINAL Soft, ND/NT. No evidence of fluid wave. No pulsatile masses on exam, rebound tenderness, Rizo sign or pain over Mcburney's point. MUSCLES/EXTREMITIES No abnormal range of motion, no swelling. SKIN Warm, pink and dry. No rashes, dermatoses, petechiae or lesions. NEUROLOGICAL Speech is clear and appropriate. Normal level of consciousness. Gait and coordination are normal. 5/5 strength in all extremities. PSYCH Normal mood and affect. Judgement/competence is appropriate Results & Data Results & Data Vital Signs (Past 12 Hours) Vital Signs Temp Pulse Resp BP Pulse Ox O2 Del Method 07/09/24 07:17 36.6 C 59 L 16 134/86 96 Room Air PG Care Time/CCT Total # of Minutes Spent Total Time Spent with Patient: Total time spent is greater than 50% in coordination of care (as documented) at patient's floor/unit and/or counseling patient: Coding Level of Care Code 92733 SUB INP/OBS CARE 2/35MIN Diagnoses Back pain M54.9 Coronary artery disease involving [place] coronary artery of [place] heart without angina pectoris I25.10 Coronary Disease-Associated Artery/Lesion type: [place] artery [place] vs. transplanted heart: [place] heart Associated angina: without angina Hyperlipidemia, unspecified hyperlipidemia type E78.5 Hyperlipidemia type: unspecified Hypertension I10 Hypertension type: unspecified (2) CAD (coronary artery disease) Coronary Disease-Associated Artery/Lesion type: [place] artery [place] vs. transplanted heart: [place] heart Associated angina: without angina Qualified Code(s): I25.10 - Atherosclerotic heart disease of [place] coronary artery without angina pectoris (3) Hyperlipidemia Hyperlipidemia type: unspecified Qualified Code(s): E78.5 - Hyperlipidemia, unspecified (4) Hypertension Hypertension type: unspecified Qualified Code(s): I10 - Essential (primary) hypertension
[2024-07-09] MEDS: SODIUM CHLORIDE 0.9% 1,000 ML IV SCH (12:38)
[2024-07-10 07:40] LABS: Hematocrit (blood only) 33.1 % (42.0-52.0); Hemoglobin 11.1 g/dl (14.0-18.0); Mean Corpuscular Hemoglobin 30.4 pg (25.0-34.0); Mean Corpuscular Hgb Conc 33.5 g/dL (32.0-36.0); Mean Corpuscular Volume 90.7 fL (80.0-100.0); Mean Platelet Volume 11.1 fL (9.4-12.4); Platelet Count 234 K/uL (130-400); RDW Coefficient of Variation 13.3 % (11.5-14.5); RDW Standard Deviation 44.1 fL (36.4-46.3); Red Blood Count 3.65 M/uL (4.70-6.10); White Blood Count 12.93 K/ul (4.8-10.8)
[2024-07-10 08:17] LABS: BUN Creatinine Ratio 28.1 (10-20); Calcium 8.2 mg/dl (8.6-10.3); Creatinine Clr Calc Pharmacy 55.6 ml/min; Potassium 4.6 mmol/L (3.5-5.1)
--- NOTE | 2024-07-10 08:47 | Infectious Disease Progress Nt ---
Date of Service July 10, 2024 Assessment & Plan (1) Back pain: (2) S/P lumbar fusion: (3) CAD (coronary artery disease): Plan 63yo M with h/o CAD s/p PCI (last on 09/2023), chronic lumbar back pain, prior lumbar surgery x 3 with hardware last one in 2019 who presented on 07/06 with worsening lower left back pain x 1 week, radiation to left hip/groin. No trauma, did report subjective fevers and chills x 2 weeks ago. No urinary/bowel changes. On admission, he was afebrile, hypertensive. Initial labs with WBC 15.37, Cr and AST/ALT wnl. ESR 47, CRP < 0.50. UA negative. MRI L spine with high signal noted within L1-2 disc with associated mild bone marrow edema at opposing endplates of L1 and L2 vertebra, suggesting possible discitis with the possibility of early spondylodiscitis cannot be totally excluded; laminectomy with transpedicular internal fixation of L2 and L3 vertebrae; discectomy and internal disc fixation noted at L2-3 L3-4 and L4-5 intervertebral discs. He was given vanc/cefepime. ID consulted 07/07. Abx held. Seen by ortho who feel symptoms more c/w radiculopathy 2/2 advanced degenerative changes in L1-L2 disc. BCx with Bacillus and CONS in 1 of 4 bottles. Repeat BCX no growth. WBC down to 12 today off of antibiotics. Blood cultures are most likely consistent with contaminant based on organism isolated in only 1 of 4 bottles and repeat blood cultures with no growth. He did not have any clinical spinal tenderness and CRP was low. No fevers and WBC is also downtrending without antibiotics. # BCx with Bacillus cereus and S capitiis likely contaminant # L1-L2 disc changes on MRI # Left lower back/hip/groin pain # H/o lumbar surgery and hardware # h/o CAD s/p PCI in 09/2023 - follow blood cx to completion - current growth most likely contamination - management of radiculopathy per orthopedics Will discontinue active follow up at this time. Please do not hesitate to reconsult the Infectious Diseases service as needed. Janey Leslie MD [facility], Division of Infectious Diseases IDConnect: [phone] Admission and Anticipated Discharge Date Admission Date: July 06, 2024 Subjective This patient recommendation is based on a telemedicine consult request which was completed asynchronously through chart review and information provided by the primary physician. The patient was not seen or examined today. The evaluation is consultative in nature and all patient care and treatment decisions can either be accepted or rejected by the patient's primary hospital-based treating physician using their own independent medical judgment for their patient. Time Spent Reviewing Chart: 31+ minutes Remains afebrile, WBC down. BCx remain negative. Results & Data Vital Signs (Past 12 Hours) Vital Signs Temp Pulse Resp BP Pulse Ox O2 Del Method 07/10/24 08:05 36.3 C L 60 15 152/90 H 96 Room Air Laboratory Results Labs reviewed. 07/06 BCX: B cereus and S capitis in 1 of 4 bottles 07/08 BCX: ngtd x 48h (3) CAD (coronary artery disease) Associated angina: without angina Coronary Disease-Associated Artery/Lesion type: [place] artery [place] vs. transplanted heart: [place] heart Qualified Code(s): I25.10 - Atherosclerotic heart disease of [place] coronary artery without angina pectoris
--- NOTE | 2024-07-10 09:53 | Hospitalist Progress Note ---
Date of Service July 10, 2024 Assessment & Plan (1) Back pain: Plan: severe acute on chronic left-sided back pain with radiation into the buttock and groin. MRI of the lumbar spine performed with results as above. In brief, some findings suggestive of possible discitis. L1-L2 disc osteophyte complex causing mild spinal canal stenosis as well as L5-S1 arthritis causing stenosis. Patient's pain distribution is most consistent with an L1-L2 nerve. Question focal process going on in the hip? Uncertain if this process represents an acute infection, discitis Admit to medical Pain control with Dilaudid as needed. Of note, patient has an adverse reaction to morphine Flexeril as needed Zofran as needed Senna/docusate every morning with MiraLAX as needed constipation Narcan as needed for accidental overdose Solu-Medrol 40 mg IV daily Continue home duloxetine Heat as needed Ortho/spine consultation appreciated L1-L2 spinal stenosis with radiculopathy -pain management consult recommending out patient nerve block -pt will need Brilinta held, pain management to follow with Dr. Galindo -PT evaluation pending (2) CAD (coronary artery disease): Plan: status post 5 stents with most recent being September 2023. Patient is continued on dual antiplatelet therapy with aspirin and Brilinta. He follows locally with cardiology Continue aspirin and Brilinta Continue atorvastatin (3) Hyperlipidemia: Plan: Continue atorvastatin (4) Hypertension: Plan: Continue spironolactone Continue metoprolol Continue lisinopril Plan 63-year-old male with history of coronary artery disease status post multiple stents, hyperlipidemia, GERD, chronic back pain presenting with severe acute worsening of back pain ongoing for the last week. Admission and Anticipated Discharge Date Admission Date: July 06, 2024 Subjective Pt complaining of severe back pain pain radiating to his left leg. Review of Systems Review of Systems: CONST: Negative for fever, body aches and chills. HENT: Negative for neck pain/stiffness, headache, congestion, sore throat, swelling. EYES: Negative for discharge/pain or vision changes. RESP: Negative for cough/hemoptysis and shortness of breath. CV: Negative chest pain, difficulty breathing, palpitations. ABD: Negative pain, nausea, vomiting. : Negative increase frequency, dysuria, blood in urine or stool. MUSC: Negative for muscle aches, edema. SKIN: Negative rash, lesions/sores. NEURO: Negative headache, dizziness, weakness. Physical Exam Physical Exam: GENERAL APPEARANCE NAD, activity normal for age, well developed/ well nourished, no cyanosis, pallor, or diaphoresis. EYES lids/conjunctiva normal. EARS/NOSE/THROAT Mucous membranes moist, nares normal, lips/teeth normal uvula midline without oral pharyngeal erythema, exudate or swelling TMs normal bilaterally. No lymphangitis/lymphedema. HEAD/NECK normocephalic atraumatic, no facial trauma, neck is supple. RESPIRATORY respiratory effort normal, speaks in full sentences, no tripod position, no accessory muscle use. Lungs clear to auscultation without rhonchi, wheezes, rales CARDIAC Regular rate and rhythm, no edema. ABDOMINAL Soft, ND/NT. No evidence of fluid wave. No pulsatile masses on exam, rebound tenderness, Rizo sign or pain over Mcburney's point. MUSCLES/EXTREMITIES No abnormal range of motion, no swelling. SKIN Warm, pink and dry. No rashes, dermatoses, petechiae or lesions. NEUROLOGICAL Speech is clear and appropriate. Normal level of consciousness. Gait and coordination are normal. 5/5 strength in all extremities. PSYCH Normal mood and affect. Judgement/competence is appropriate Results & Data Results & Data Vital Signs (Past 12 Hours) Vital Signs Temp Pulse Resp BP Pulse Ox O2 Del Method 07/10/24 08:05 36.3 C L 60 15 152/90 H 96 Room Air PG Care Time/CCT Total # of Minutes Spent Total Time Spent with Patient: Total time spent is greater than 50% in coordination of care (as documented) at patient's floor/unit and/or counseling patient: Coding Level of Care Code 54838 SUB INP/OBS CARE 2/35MIN Diagnoses Back pain M54.9 Coronary artery disease involving [place] coronary artery of [place] heart without angina pectoris I25.10 Coronary Disease-Associated Artery/Lesion type: [place] artery [place] vs. transplanted heart: [place] heart Associated angina: without angina Hyperlipidemia, unspecified hyperlipidemia type E78.5 Hyperlipidemia type: unspecified Hypertension I10 Hypertension type: unspecified (2) CAD (coronary artery disease) Coronary Disease-Associated Artery/Lesion type: [place] artery [place] vs. transplanted heart: [place] heart Associated angina: without angina Qualified Code(s): I25.10 - Atherosclerotic heart disease of [place] coronary artery without angina pectoris (3) Hyperlipidemia Hyperlipidemia type: unspecified Qualified Code(s): E78.5 - Hyperlipidemia, unspecified (4) Hypertension Hypertension type: unspecified Qualified Code(s): I10 - Essential (primary) hypertension
--- NOTE | 2024-07-10 15:26 | Pain Management Progress Note ---
Date of Service July 10, 2024 Assessment & Plan (1) Spinal stenosis of lumbar region with radiculopathy: (2) Stented coronary artery: (3) CAD (coronary artery disease): Coronary Disease-Associated Artery/Lesion type: [place] artery [place] vs. transplanted heart: [place] heart Associated angina: without angina Qualified Code(s): I25.10 - Atherosclerotic heart disease of [place] coronary artery without angina pectoris Plan 1. Patient's pain appears to be consistent with a left-sided L1-2 radiculopathy with severe neuroforaminal stenosis per MRI. Cultures remain pending due to concerns over discitis which appear to be negative at this time. We discussed that he would need to be able to safely hold Brilinta therapy for 7 days prior to lumbar SKIP. Will involve cardiology at this time. Should he be able to safely hold Brilinta, would recommend left L1-2 transforaminal SKIP. 2. Continue steroids, opiates and flexeril. Attempt to transition to oral opiates over the next 24-48 hours. 3. Further recommendations pending cardiology input relating to his ability to hold Brilinta therapy. Admission and Anticipated Discharge Date Admission Date: July 06, 2024 Subjective Mr. Stein is a 63-year-old white male who is admitted with intractable left- sided low back pain extending into the left groin and upper thigh of suspected L1 distribution with MRI finding of severe neuroforaminal stenosis at L1-2 supporting suspected radicular pain. There was concern about discitis and cultures remain pending at time of this dictation. Infectious diseases involved with suspected likely growth contaminant. Patient continues to report severe sharp and burning pain with movement into the left lateral hip and groin/superior thigh. He is finding it difficult to perform any positional change, walking or sitting. He is able to find a quick position while lying. He rates his pain a 3/10 at its best a 10/10 at its worst. Patient is distraught over his ability to manage his pain. He reports chronic Oxy IR utilization for many years since the time of his multiple prior back surgeries as managed by his PCP. Review of PDMP indicates Oxy IR 5 mg # 90 tablets/month. He further reports prior history of failure of gabapentin and pregabalin. Patient remains on Brilinta therapy status post stent placement in September 2023 and currently followed by Dr. Eaton. Patient indicates that he suffered an MS the last time that he attempted to come off of blood thinners for procedure. Patient denies weakness, foot trip or fall. Denies bowel/bladder incontinence or saddle paresthesia. Plan of care discussed with Dr. Pearl Rodriguez. Pain Assessment Pain Assessment Full Body Front + Back: 2 1. Left hip/thigh/groin location 2. Left lumbar with radiation to groin/thigh Physical Exam 2 Physical Exam: General: Patient lying quietly in exam room in no acute distress reported by his . Speech and thought process appropriate. Mood and affect appropriate cognition intact. Back/spine: Nontender over the midline. Well-healed anterior incision. He is nontender in the lumbar paravertebral or quadratus lumborum musculature. Nontender to the gluteal musculature. No focal facet or SI joint tenderness. Lower extremities: SLR negative bilaterally. Strength testing 5/5 hip flexion and extension. Hip is nontender with internal Dexopin rotation. Sensation intact without deficit. Neurologic: Cranial nerves grossly intact. Ambulatory function not witnessed.
--- NOTE | 2024-07-10 16:17 | Cardiology Consultation ---
Date of Consultation July 10, 2024 Assessment & Plan (1) Spinal stenosis of lumbar region with radiculopathy: (2) CAD (coronary artery disease): (3) Stented coronary artery: (4) Hypertension: (5) Hyperlipidemia: Plan Mr. Stein is a 63-year-old male with a history of Hypertension, Mild LVH, LV Diastolic Dysfunction, Hypercholesterolemia, and CAD s/p OM 2 BMS occlusion, aspiration thrombectomy and QUIN x 2, December 2010; negative DSE, July 2023; ACS, instent restenosis, QUIN x 1 in OM2 and PCI of Mid RCA, September 2023 who was admitted to [facility] for Intractable Back Pain on 07/06/24. Cardiology was consulted regarding his DAPT management leading up to an Epidural Steroid Injection. Patient has been very limited due to this exacerbation of back pain so he has not been able to do his usual activities. He has been asymptomatic from a cardiac standpoint. He denies any exertional chest pain, heaviness, tightness, pressure, discomfort, or angina pectoris. He denies any exertional neck, jaw, back, or arm pain. He denies any shortness of breath, unusual dyspnea exertion, orthopnea, or PND. He further denies any palpitations, syncope, or near- syncope. Patient has been hypertensive during this hospitalization, severe back pain likely contributing to this. Plan is to proceed with an epidural steroid injection, so Brilinta needs to be held leading up to this procedure. His last stent was deployed approximately 10 months ago. Recommend the followin. Continue Aspirin 81 mg daily including the morning of his epidural steroid injection. 2. Patient may hold Brilinta x 7 days leading up to epidural steroid injection. 3. Continue Atorvastatin 40 mg daily. 4. Continue Metoprolol Succinate ER 100 mg daily. 5. Continue Lisinopril 20 mg daily. 6. Continue Spironolactone 25 mg daily. 7. Avoid nicotine containing products. 8. Gradually increase aerobic activities as your back recovers. Thank you for asking us to see this patient in consultation. History of Present Illness Attending Physician: Jd Weems MD History of Present Illness Mr. Stein is a 63-year-old male with a history of Hypertension, Mild LVH, LV Diastolic Dysfunction, Hypercholesterolemia, and CAD s/p OM 2 BMS occlusion, aspiration thrombectomy and QUIN x 2, December 2010; negative DSE, July 2023; ACS, instent restenosis, QUIN x1 in OM2 and PCI of Mid RCA, September 2023 who was admitted to [facility] for Intractable Back Pain on 07/06/24. Cardiology was consulted regarding his DAPT management leading up to an Epidural Steroid Injection. Patient has been very limited due to this exacerbation of back pain so he has not been able to do his usual activities. He has been asymptomatic from a cardiac standpoint. He denies any exertional chest pain, heaviness, tightness, pressure, discomfort, or angina pectoris. He denies any exertional neck, jaw, back, or arm pain. He denies any shortness of breath, unusual dyspnea exertion, orthopnea, or PND. He further denies any palpitations, syncope, or near- syncope. Patient has been hypertensive during this hospitalization, severe back pain likely contributing to this. He is compliant with his medications and has not had any adverse side effects. Allergies Allergy/AdvReac Type Severity Reaction Status Date / Time chlorhexidine Allergy Intermediate severe Verified 07/06/24 19:09 itching, redness Sulfa (Sulfonamide Allergy Intermediate rash, hives Verified 07/06/24 19:09 Antibiotics) acetaminophen AdvReac Severe elevated Verified 07/06/24 19:09 LFTs ibuprofen AdvReac Severe elevated Verified 07/06/24 19:09 LFTs morphine AdvReac Intermediate shakiness, Verified 07/06/24 19:09 grumpy, disoriented Home Medications Medication Instructions Recorded Confirmed Type ascorbic acid (vitamin C) 1,000 mg 1,000 mg PO QA ##0 04/07/16 07/06/24 History tablet aspirin 81 mg tablet,delayed 81 mg PO HS 11/14/17 07/06/24 History release cyanocobalamin (vitamin B-12) 500 500 mcg PO QAM 11/14/17 07/06/24 History mcg tablet (Vitamin B-12) duloxetine 60 mg capsule,delayed 60 mg PO BID 11/14/17 07/06/24 History release (Cymbalta) folic acid 400 mcg tablet 0.4 mg PO QAM 11/14/17 07/06/24 History lorazepam 0.5 mg tablet 0.5 mg PO Q12H PRN Anxiety 11/14/17 07/06/24 History metoprolol succinate 100 mg 100 mg PO QAM 11/14/17 07/06/24 History tablet,extended release 24 hr multivitamin 1 tab PO QAM 11/14/17 07/06/24 History pyridoxine (vitamin B6) 100 mg 100 mg PO QAM 11/14/17 07/06/24 History tablet cholecalciferol (vitamin D3) 25 1,000 mcg PO DAILY 05/22/23 07/06/24 History mcg (1,000 unit) capsule (Vitamin D3) lisinopril 20 mg tablet 20 mg PO QAM 05/22/23 07/06/24 History zinc gluconate 50 mg tablet 50 mg PO QAM 05/22/23 07/06/24 History famotidine 20 mg tablet 20 mg PO BID 09/06/23 07/06/24 History krill 1,000 mg-omega-3 230 mg-dha 1 cap PO QAM 09/06/23 07/06/24 History 60 rv-dgb-rhvfbqrjl-astaxan capsule ([place]-3 Krill Oil) spironolactone 25 mg tablet 25 mg PO QAM 09/06/23 07/06/24 History atorvastatin 80 mg tablet 40 mg PO DAILY 10/09/23 07/06/24 History ticagrelor 90 mg tablet (Brilinta) 90 mg PO BID #60 tabs 11/07/23 07/06/24 Rx nitroglycerin 0.4 mg sublingual 0.4 mg sublingual DIRECTED PRN 03/25/24 07/06/24 Rx tablet (Nitrostat) Chest Pain #25 tabs cyclobenzaprine 5 mg tablet 5 mg PO TID PRN muscle spasm #30 07/01/24 07/06/24 Rx tabs oxycodone 5 mg tablet 5 mg PO Q8H PRN Pain 07/06/24 07/06/24 History Patient History Medical History ACS (acute coronary syndrome) STEMI (ST elevation myocardial infarction) Chest pain Thrombophlebitis HLD (hyperlipidemia) Myocardial Infarction 2003. BPH (benign prostatic hyperplasia) Coronary artery disease 2004- stent x 1, 2011- stents x 2. FOllows with [facility] cardiology Kidney stones GERD (gastroesophageal reflux disease) controlled Anxiety Surgical History H/O tooth extraction removal of infected dental implant 01/19/20 placed on abx. S/P lumbar fusion hardware removal, L2-L3 decompression with fusion: 11/15/17: Grade 1 view, MAC#3, ETT 8.0 at [facility] History of tooth extraction S/P epidural steroid injection lumbar and SI joint injections History of cataract surgery bilateral History of cystoscopy with stent History of lithotripsy laser lithotripsy H/O hand surgery LEFT Fusion of spine Lumbar x2 S/P cervical spinal fusion 05/2015. MAC 3. Grade 1 view. No issues. Full ROM. Hx of inguinal hernia repair left History of cardiac cath 2003 - STENT 2010- STENTS Family History Other No family history of adverse response to anesthesia Social History Smoking Status: Current every day smoker Tobacco Type: Cigarettes Cigarettes Per Day: 8-10; Second Hand Exposure: No; Do You Dip or Chew Tobacco: No; Hx Alcohol Use: No Hx Substance Use: Yes Last Used Substance: Days (ago) Last Used Substance Other:: thc Substance Use Type Other:: 2 days ago. Inhalation form only. Preferred Language: [place] Communication Ability: Effective Visual Impairment: No Limitations Hearing Ability: Normal Geosciences Associate Professor Required: No Beliefs That Will Affect Care: None marital status: Current Living Situation: Spouse current occupation: Retired Feels Safe at Home: Yes Safety Concerns: Feels Safe At This Time Assistive Devices: None Review of Systems Review of Systems: -- As per HPI. Physical Exam Physical Exam: BP is 148/78. GENERAL: Patient in no acute distress. HEENT: Head is atraumatic, normocephalic. EOM's intact. Facies symmetric. No perioral cyanosis. NECK: No JVD. JVP is not elevated. Carotid upstrokes are + 2 bilaterally without bruits. CHEST/LUNGS: Mildly diminished breath sounds throughout, otherwise clear. No wheezes, rales, or rhonchi. CVS: S1 and S2 are regular without murmurs, gallops, or rubs. PMI is nonpalpable. No lifts, heaves, or thrills. No abdominal aortic or renal bruits. ABDOMINAL EXAM: Bowel sounds are present. EXTREMITIES: No clubbing or cyanosis. No edema. NEUROLOGIC EXAM: Patient is awake, alert, and oriented. Pleasant and cooperative. Answers questions appropriately. Speech is clear. Results & Data Vital Signs (Past 12 Hours) Vital Signs Temp Pulse Resp BP Pulse Ox O2 Del Method 07/10/24 15:00 36.7 C 62 18 148/78 H 98 Room Air 07/10/24 08:05 36.3 C L 60 15 152/90 H 96 Room Air Laboratory Results Laboratory Results - last 24 hr 07/10/24 06:32 WBC 12.93 H RBC 3.65 L Hgb 11.1 L Hct 33.1 L MCV 90.7 MCH 30.4 MCHC 33.5 RDW Std Deviation 44.1 RDW Coeff of Jeanette 13.3 Plt Count 234 MPV 11.1 Sodium 136 Potassium 4.6 Chloride 109 H Carbon Dioxide 25 Anion Gap 2 L BUN 39 H Creatinine 1.39 Est Cr Clr Drug Dosing 55.6 eGFR 56.26 BUN/Creatinine Ratio 28.1 H Glucose 78 Calcium 8.2 L Diagnostic Findings MRI LUMBAR SPINE 07/06/24: 1. High signal noted within L1-2 disc with associated mild bone marrow edema at opposing endplates of L1 and L2 vertebra, suggesting possible discitis with the possibility of early spondylodiscitis cannot be totally excluded. No detected collections. Correlate clinically. 2. Advanced spine degenerative changes with osteophytes. 3. Laminectomy with transpedicular internal fixation of L2 and L3 vertebrae. Discectomy and internal disc fixation noted at L2-3 L3-4 and L4-5 intervertebral discs. 4. L1-L2 disc osteophyte complex causing mild spinal canal stenosis. 5. L5-S1 Bilateral facet joint arthritis causing bilateral moderate neuroforaminal stenosis at this level. Medications Administered Medication List Aspirin (Aspirin 81 Mg Ectab) 81 mg PO HS [facility] Stop: 08/06/24 20:59 Last Admin: 07/09/24 22:17 Dose: 81 mg Documented By: Admin: 07/08/24 21:24 Dose: 81 mg Documented By: Admin: 07/07/24 20:51 Dose: 81 mg Documented By: SURJIT Atorvastatin Calcium (Atorvastatin 40 Mg Tab) 40 mg PO DAILY [facility]ETTE Stop: 08/06/24 08:59 Last Admin: 07/10/24 08:07 Dose: 40 mg Documented By: Admin: 07/09/24 09:34 Dose: 40 mg Documented By: Admin: 07/08/24 09:11 Dose: 40 mg Documented By: Admin: 07/07/24 07:53 Dose: 40 mg Documented By: RICHARD Cyclobenzaprine HCl (Cyclobenzaprine Hcl 10 Mg Tab) 5 mg PO TID PRN PRN Reason: muscle spasm Stop: 08/05/24 23:44 Last Admin: 07/09/24 22:15 Dose: 5 mg Documented By: Admin: 07/08/24 21:24 Dose: 5 mg Documented By: Admin: 07/07/24 21:28 Dose: 5 mg Documented By: Admin: 07/07/24 12:15 Dose: 5 mg Documented By: Admin: 07/07/24 00:00 Dose: 5 mg Documented By: JIN Duloxetine HCl (Duloxetine Hcl 60 Mg Cap) 60 mg PO BID SUZETTE Stop: 08/06/24 08:59 Last Admin: 07/10/24 08:07 Dose: 60 mg Documented By: Admin: 07/09/24 22:17 Dose: 60 mg Documented By: Admin: 07/09/24 09:34 Dose: 60 mg Documented By: Admin: 07/08/24 21:25 Dose: 60 mg Documented By: Admin: 07/08/24 09:10 Dose: 60 mg Documented By: Admin: 07/07/24 20:51 Dose: 60 mg Documented By: Admin: 07/07/24 07:52 Dose: 60 mg Documented By: RICHARD Famotidine (Famotidine 20 Mg Tab) 20 mg PO BID SUZETTE Stop: 08/06/24 08:59 Last Admin: 07/10/24 09:08 Dose: 20 mg Documented By: Admin: 07/09/24 22:16 Dose: 20 mg Documented By: Admin: 07/09/24 09:33 Dose: 20 mg Documented By: Admin: 07/08/24 21:23 Dose: 20 mg Documented By: Admin: 07/08/24 09:12 Dose: 20 mg Documented By: Admin: 07/07/24 20:50 Dose: 20 mg Documented By: Admin: 07/07/24 08:03 Dose: 20 mg Documented By: RICHARD Folic Acid (Folic Acid 400 Mcg Tab) 400 mcg PO QAM [facility]TE Stop: 08/06/24 08:59 Last Admin: 07/10/24 08:07 Dose: 400 mcg Documented By: Admin: 07/09/24 09:34 Dose: 400 mcg Documented By: Admin: 07/08/24 09:10 Dose: 400 mcg Documented By: Admin: 07/07/24 07:55 Dose: 400 mcg Documented By: RICHARD Hydromorphone HCl (Hydromorphone Inj 1 Mg/Ml Syringe) 1 mg IV Q3H PRN PRN Reason: Pain (6,7,8,9,10) Stop: 07/20/24 23:37 Last Admin: 07/10/24 14:09 Dose: 1 mg Documented By: Admin: 07/10/24 11:12 Dose: 1 mg Documented By: Admin: 07/10/24 07:57 Dose: 1 mg Documented By: Admin: 07/10/24 04:18 Dose: 1 mg Documented By: Admin: 07/10/24 01:10 Dose: 1 mg Documented By: Admin: 07/09/24 22:15 Dose: 1 mg Documented By: Admin: 07/09/24 19:15 Dose: 1 mg Documented By: Admin: 07/09/24 15:49 Dose: 1 mg Documented By: Admin: 07/09/24 12:37 Dose: 1 mg Documented By: Admin: 07/09/24 09:33 Dose: 1 mg Documented By: Admin: 07/09/24 06:31 Dose: 1 mg Documented By: Admin: 07/09/24 03:26 Dose: 1 mg Documented By: Admin: 07/09/24 00:26 Dose: 1 mg Documented By: Admin: 07/08/24 21:22 Dose: 1 mg Documented By: Admin: 07/08/24 18:20 Dose: 1 mg Documented By: Admin: 07/08/24 15:28 Dose: 1 mg Documented By: Admin: 07/08/24 12:20 Dose: 1 mg Documented By: Admin: 07/08/24 09:10 Dose: 1 mg Documented By: Admin: 07/08/24 06:13 Dose: 1 mg Documented By: Admin: 07/08/24 03:02 Dose: 1 mg Documented By: Admin: 07/07/24 23:47 Dose: 1 mg Documented By: Admin: 07/07/24 20:46 Dose: 1 mg Documented By: Admin: 07/07/24 17:40 Dose: 1 mg Documented By: KEVYN Methylprednisolone 40 mg/ (Syringe) 0.64 mls @ 1.5 mls/min IV DAILY SUZETTE Stop: 08/06/24 08:59 Last Admin: 07/10/24 08:07 Dose: 1.5 mls/min Documented By: Admin: 07/09/24 09:33 Dose: 1.5 mls/min Documented By: Admin: 07/08/24 09:09 Dose: 1.5 mls/min Documented By: Admin: 07/07/24 07:51 Dose: 1.5 mls/min Documented By: RICHARD Sodium Chloride (Nss) 1,000 mls @ 80 mls/hr IV .[id number] SUZETTE Stop: 07/12/24 11:44 Last Admin: 07/10/24 12:19 Dose: 80 mls/hr Documented By: Infusion: 07/10/24 12:19 Dose: Infused Documented By: Admin: 07/10/24 01:12 Dose: 80 mls/hr Documented By: Infusion: 07/10/24 01:12 Dose: Infused Documented By: Infusion: 07/09/24 14:00 Dose: 80 mls/hr Documented By: Infusion: 07/09/24 13:32 Dose: 0 mls/hr Documented By: Admin: 07/09/24 12:38 Dose: 80 mls/hr Documented By: CATY Lisinopril (Lisinopril 20 Mg Tab) 20 mg PO QAM [facility]ETTE Stop: 08/06/24 08:59 Last Admin: 07/10/24 08:07 Dose: 20 mg Documented By: Admin: 07/09/24 09:34 Dose: 20 mg Documented By: Admin: 07/08/24 09:11 Dose: 20 mg Documented By: Admin: 07/07/24 07:53 Dose: 20 mg Documented By: RICHARD Metoprolol Succinate (Metoprolol Succ 50mg Ext Rel Tab) 100 mg PO [facility] Stop: 08/06/24 08:59 Last Admin: 07/10/24 08:07 Dose: 100 mg Documented By: Admin: 07/09/24 09:35 Dose: 100 mg Documented By: Admin: 07/08/24 09:10 Dose: 100 mg Documented By: Admin: 07/07/24 09:09 Dose: 100 mg Documented By: RICHARD Miscellaneous (Remove Nicoderm Patch) 1 each N/A DAILY@0859 [facility] Stop: 08/07/24 08:58 Last Admin: 07/10/24 08:10 Dose: 1 each Documented By: Admin: 07/09/24 09:34 Dose: 1 each Documented By: Admin: 07/08/24 09:13 Dose: 1 each Documented By: CATY Nicotine (Nicotine 14 Mg/24 Hr Patch) 1 patch TD [facility] Stop: 08/06/24 08:59 Last Admin: 07/10/24 08:08 Dose: 1 patch Documented By: Admin: 07/09/24 09:34 Dose: 1 patch Documented By: Admin: 07/08/24 09:13 Dose: 1 patch Documented By: Admin: 07/07/24 07:54 Dose: 1 patch Documented By: RICHARD Ondansetron HCl (Ondansetron Inj 2 Mg/Ml 2 Ml Vial) 4 mg IV Q6H PRN PRN Reason: Nausea And Vomiting Stop: 08/05/24 23:37 Last Admin: 07/10/24 15:33 Dose: 4 mg Documented By: Admin: 07/08/24 15:28 Dose: 4 mg Documented By: CATY Senna/Docusate Sodium (Docusate Sodium/Senna 50/8.6mg Tab) 2 tab PO [facility] Stop: 08/06/24 20:59 Last Admin: 07/09/24 22:16 Dose: 2 tab Documented By: Admin: 07/08/24 21:23 Dose: 2 tab Documented By: Admin: 07/07/24 20:50 Dose: 2 tab Documented By: SURJIT Spironolactone (Spironolactone 25 Mg Tab) 25 mg PO [facility] Stop: 08/06/24 08:59 Last Admin: 07/10/24 08:08 Dose: 25 mg Documented By: Admin: 07/09/24 09:36 Dose: 25 mg Documented By: Admin: 07/08/24 09:11 Dose: 25 mg Documented By: Admin: 07/07/24 07:51 Dose: 25 mg Documented By: RICHARD Ticagrelor (Ticagrelor 90 Mg Tab) 90 mg PO BID [facility] Stop: 08/06/24 08:59 Last Admin: 07/10/24 08:08 Dose: 90 mg Documented By: Admin: 07/09/24 22:17 Dose: 90 mg Documented By: Admin: 07/09/24 09:34 Dose: 90 mg Documented By: Admin: 07/08/24 21:24 Dose: 90 mg Documented By: Admin: 07/08/24 09:11 Dose: 90 mg Documented By: Admin: 07/07/24 20:51 Dose: 90 mg Documented By: Admin: 07/07/24 09:42 Dose: 90 mg Documented By: RICHARD Discontinued Medications Aspirin (Aspirin 81 Mg Ectab) 81 mg PO NOW STA Stop: 07/06/24 23:09 Last Admin: 07/07/24 00:21 Dose: 81 mg Documented By: JIN Duloxetine HCl (Duloxetine Hcl 60 Mg Cap) 60 mg PO NOW STA Stop: 07/06/24 23:09 Last Admin: 07/07/24 00:00 Dose: 60 mg Documented By: JIN Hydromorphone HCl (Hydromorphone Inj 0.5 Mg/0.5 Ml Syr) 0.5 mg IV NOW STA Stop: 07/06/24 16:58 Last Admin: 07/06/24 17:01 Dose: 0.5 mg Documented By: RADAMES Hydromorphone HCl (Hydromorphone Inj 0.5 Mg/0.5 Ml Syr) 0.5 mg IV NOW STA Stop: 07/06/24 18:26 Last Admin: 07/06/24 18:38 Dose: 0.5 mg Documented By: RADAMES Hydromorphone HCl (Hydromorphone Inj 0.5 Mg/0.5 Ml Syr) 0.5 mg IV NOW STA Stop: 07/06/24 21:10 Last Admin: 07/06/24 21:19 Dose: 0.5 mg Documented By: RADAMES Hydromorphone HCl (Hydromorphone Inj 1 Mg/Ml Syringe) 1 mg IV Q4H PRN PRN Reason: Pain (6,7,8,9,10) Stop: 07/20/24 23:37 Last Admin: 07/07/24 12:53 Dose: 1 mg Documented By: Admin: 07/07/24 09:09 Dose: 1 mg Documented By: Admin: 07/07/24 05:17 Dose: 1 mg Documented By: Admin: 07/07/24 01:19 Dose: 1 mg Documented By: JIN Vancomycin HCl 1,750 mg/ (Sodium Chloride) 535 mls @ 200 mls/hr IV NOW ONE Stop: 07/06/24 23:33 Last Infusion: 07/07/24 00:35 Dose: Infused Documented By: Admin: 07/06/24 21:49 Dose: 200 mls/hr Documented By: RADAEMS Cefepime HCl (Maxipime 2000mg) 2,000 mg in 20 mls @ 5 mls/min IV NOW STA; Protocol Stop: 07/06/24 20:56 Last Admin: 07/06/24 21:20 Dose: 5 mls/min Documented By: RADAMES Vancomycin HCl (Vancomycin Hcl) 1,000 mg in 270 mls @ 200 mls/hr IV Q12H [facility]; Protocol Stop: 08/18/24 05:59 Last Infusion: 07/07/24 07:45 Dose: Infused Documented By: Admin: 07/07/24 06:23 Dose: 200 mls/hr Documented By: JIN Lactated Ringer's (Lr) 1,000 mls @ 125 mls/hr IV .Q8H [facility]TE Stop: 07/07/24 07:37 Last Infusion: 07/07/24 08:15 Dose: Infused Documented By: Admin: 07/07/24 00:01 Dose: 125 mls/hr Documented By: JIN Ceftriaxone Sodium (Rocephin) 2,000 mg in 50 mls @ 100 mls/hr IV Q24H [facility] Stop: 08/18/24 08:29 Last Admin: 07/07/24 20:46 Dose: Not Given Documented By: SHERYL Ketorolac Tromethamine (Ketorolac Tromethamine 15 Mg/Ml Vial) 15 mg IV Q6H PRN PRN Reason: Pain Stop: 07/12/24 12:37 Last Admin: 07/09/24 11:00 Dose: 15 mg Documented By: Admin: 07/09/24 05:01 Dose: 15 mg Documented By: Admin: 07/08/24 22:54 Dose: 15 mg Documented By: Admin: 07/08/24 16:57 Dose: 15 mg Documented By: Admin: 07/08/24 10:52 Dose: 15 mg Documented By: Admin: 07/08/24 04:20 Dose: 15 mg Documented By: Admin: 07/07/24 21:29 Dose: 15 mg Documented By: Admin: 07/07/24 15:30 Dose: 15 mg Documented By: KEVYN Methylprednisolone (Methylprednisolone 125 Mg/2 Ml Vial) 125 mg IV NOW STA Stop: 07/06/24 16:35 Last Admin: 07/06/24 17:01 Dose: 125 mg Documented By: RADAMES Morphine Sulfate (Morphine Sulfate 4 Mg/Ml 1 Ml Carp\Vial) 4 mg IV NOW STA Stop: 07/06/24 16:35 Last Admin: 07/06/24 16:51 Dose: Not Given Documented By: RADAMES Ondansetron HCl (Ondansetron Inj 2 Mg/Ml 2 Ml Vial) 4 mg IV NOW STA Stop: 07/06/24 16:35 Last Admin: 07/06/24 17:01 Dose: 4 mg Documented By: RADAMES Ticagrelor (Ticagrelor 90 Mg Tab) 90 mg PO NOW STA Stop: 07/06/24 23:09 Last Admin: 07/07/24 00:21 Dose: 90 mg Documented By: JIN PG Care Time/CCT Total # of Minutes Spent Total Time Spent with Patient: Total time spent is greater than 50% in coordination of care (as documented) at patient's floor/unit and/or counseling patient:38 Coding [place] [address] INT INP/OBS CARE 1/40MIN Patient Type Established History Detailed Exam Detailed Medical Decision Making Moderate Complexity Diagnoses Spinal stenosis of lumbar region with radiculopathy M48.061; M54.16 Coronary artery disease involving cahto coronary artery of cahto heart without angina pectoris I25.10 Coronary Disease-Associated Artery/Lesion type: cahto artery [place] vs. transplanted heart: cahto heart Associated angina: without angina Stented coronary artery Z95.5 Essential hypertension I10 Hypertension type: essential hypertension Hyperlipidemia, unspecified hyperlipidemia type E78.5 Hyperlipidemia type: unspecified Time Spent (min) 40 (2) CAD (coronary artery disease) Coronary Disease-Associated Artery/Lesion type: cahto artery [place] vs. transplanted heart: cahto heart Associated angina: without angina Qualified Code(s): I25.10 - Atherosclerotic heart disease of cahto coronary artery wi thout angina pectoris (4) Hypertension Hypertension type: essential hypertension Qualified Code(s): I10 - Essential (primary) hypertension (5) Hyperlipidemia Hyperlipidemia type: unspecified Qualified Code(s): E78.5 - Hyperlipidemia, unspecified
[2024-07-11 08:25] LABS: Hematocrit (blood only) 32.9 % (42.0-52.0); Hemoglobin 11.2 g/dl (14.0-18.0); Mean Corpuscular Hemoglobin 30.4 pg (25.0-34.0); Mean Corpuscular Volume 89.4 fL (80.0-100.0); Mean Platelet Volume 10.9 fL (9.4-12.4); Platelet Count 224 K/uL (130-400); RDW Coefficient of Variation 13.4 % (11.5-14.5); RDW Standard Deviation 44.5 fL (36.4-46.3); Red Blood Count 3.68 M/uL (4.70-6.10)
--- NOTE | 2024-07-11 09:18 | Hospitalist Progress Note ---
Date of Service July 11, 2024 Assessment & Plan (1) Back pain: Plan: severe acute on chronic left-sided back pain with radiation into the buttock and groin. MRI of the lumbar spine performed with results as above. In brief, some findings suggestive of possible discitis. L1-L2 disc osteophyte complex causing mild spinal canal stenosis as well as L5-S1 arthritis causing stenosis. Patient's pain distribution is most consistent with an L1-L2 nerve. Question focal process going on in the hip? Uncertain if this process represents an acute infection, discitis Admit to medical Pain control with Dilaudid as needed. Of note, patient has an adverse reaction to morphine Flexeril as needed Zofran as needed Senna/docusate every morning with MiraLAX as needed constipation Narcan as needed for accidental overdose Solu-Medrol 40 mg IV daily Continue home duloxetine Heat as needed Ortho/spine consultation appreciated L1-L2 spinal stenosis with radiculopathy -pain management consult recommending SKIP -cardiology consult appreciated, Brilinta held starting today 07/11 -will be clear for SKIP on 07/18 -PT evaluation pending (2) CAD (coronary artery disease): Plan: status post 5 stents with most recent being September 2023. Patient is continued on dual antiplatelet therapy with aspirin and Brilinta. He follows locally with cardiology Continue aspirin and Brilinta Continue atorvastatin (3) Hyperlipidemia: Plan: Continue atorvastatin (4) Hypertension: Plan: Continue spironolactone Continue metoprolol Continue lisinopril Plan 63-year-old male with history of coronary artery disease status post multiple stents, hyperlipidemia, GERD, chronic back pain presenting with severe acute worsening of back pain ongoing for the last week. Admission and Anticipated Discharge Date Admission Date: July 06, 2024 Subjective Pt still complaining of intractable back pain. Review of Systems Review of Systems: CONST: Negative for fever, body aches and chills. HENT: Negative for neck pain/stiffness, headache, congestion, sore throat, swelling. EYES: Negative for discharge/pain or vision changes. RESP: Negative for cough/hemoptysis and shortness of breath. CV: Negative chest pain, difficulty breathing, palpitations. ABD: Negative pain, nausea, vomiting. : Negative increase frequency, dysuria, blood in urine or stool. MUSC: Negative for muscle aches, edema. SKIN: Negative rash, lesions/sores. NEURO: Negative headache, dizziness, weakness. Physical Exam Physical Exam: GENERAL APPEARANCE NAD, activity normal for age, well developed/ well nourished, no cyanosis, pallor, or diaphoresis. EYES lids/conjunctiva normal. EARS/NOSE/THROAT Mucous membranes moist, nares normal, lips/teeth normal uvula midline without oral pharyngeal erythema, exudate or swelling TMs normal bilaterally. No lymphangitis/lymphedema. HEAD/NECK normocephalic atraumatic, no facial trauma, neck is supple. RESPIRATORY respiratory effort normal, speaks in full sentences, no tripod position, no accessory muscle use. Lungs clear to auscultation without rhonchi, wheezes, rales CARDIAC Regular rate and rhythm, no edema. ABDOMINAL Soft, ND/NT. No evidence of fluid wave. No pulsatile masses on exam, rebound tenderness, Rizo sign or pain over Mcburney's point. MUSCLES/EXTREMITIES No abnormal range of motion, no swelling. SKIN Warm, pink and dry. No rashes, dermatoses, petechiae or lesions. NEUROLOGICAL Speech is clear and appropriate. Normal level of consciousness. Gait and coordination are normal. 5/5 strength in all extremities. PSYCH Normal mood and affect. Judgement/competence is appropriate Results & Data Results & Data Vital Signs (Past 12 Hours) Vital Signs Temp Pulse Resp BP Pulse Ox O2 Del Method 07/11/24 09:05 Room Air 07/11/24 07:34 36.6 C 62 20 135/84 97 Room Air PG Care Time/CCT Total # of Minutes Spent Total Time Spent with Patient: Total time spent is greater than 50% in coordination of care (as documented) at patient's floor/unit and/or counseling patient: Coding Level of Care Code 95613 SUB INP/OBS CARE 2/35MIN Diagnoses Back pain M54.9 Coronary artery disease involving [place] coronary artery of [place] heart without angina pectoris I25.10 Coronary Disease-Associated Artery/Lesion type: [place] artery [place] vs. transplanted heart: [place] heart Associated angina: without angina Hyperlipidemia, unspecified hyperlipidemia type E78.5 Hyperlipidemia type: unspecified Hypertension I10 Hypertension type: unspecified (2) CAD (coronary artery disease) Coronary Disease-Associated Artery/Lesion type: [place] artery [place] vs. transplanted heart: [place] heart Associated angina: without angina Qualified Code(s): I25.10 - Atherosclerotic heart disease of [place] coronary artery without angina pectoris (3) Hyperlipidemia Hyperlipidemia type: unspecified Qualified Code(s): E78.5 - Hyperlipidemia, unspecified (4) Hypertension Hypertension type: unspecified Qualified Code(s): I10 - Essential (primary) hypertension
[2024-07-11 09:51] LABS: BUN Creatinine Ratio 19.8 (10-20); Creatinine Clr Calc Pharmacy 69.6 ml/min
[2024-07-11 13:13] LABS: Calcium 8.3 mg/dl (8.6-10.3)
[2024-07-12 08:23] LABS: Hematocrit (blood only) 35.1 % (42.0-52.0); Hemoglobin 11.8 g/dl (14.0-18.0); Mean Corpuscular Hemoglobin 30.3 pg (25.0-34.0); Mean Corpuscular Hgb Conc 33.6 g/dL (32.0-36.0); Mean Platelet Volume 10.6 fL (9.4-12.4); Platelet Count 218 K/uL (130-400); RDW Coefficient of Variation 13.7 % (11.5-14.5); RDW Standard Deviation 44.7 fL (36.4-46.3); White Blood Count 13.65 K/ul (4.8-10.8)
[2024-07-12 08:40] LABS: BUN Creatinine Ratio 18.3 (10-20); Calcium 8.4 mg/dl (8.6-10.3); Creatinine Clr Calc Pharmacy 74.3 ml/min; Potassium 4.1 mmol/L (3.5-5.1)
--- NOTE | 2024-07-12 10:11 | Hospitalist Progress Note ---
Date of Service July 12, 2024 Assessment & Plan (1) Back pain: Plan: severe acute on chronic left-sided back pain with radiation into the buttock and groin. MRI of the lumbar spine performed with results as above. In brief, some findings suggestive of possible discitis. L1-L2 disc osteophyte complex causing mild spinal canal stenosis as well as L5-S1 arthritis causing stenosis. Patient's pain distribution is most consistent with an L1-L2 nerve. Question focal process going on in the hip? Uncertain if this process represents an acute infection, discitis Admit to medical Pain control with Dilaudid as needed. Of note, patient has an adverse reaction to morphine Flexeril as needed Zofran as needed Senna/docusate every morning with MiraLAX as needed constipation Narcan as needed for accidental overdose Solu-Medrol 40 mg IV daily Continue home duloxetine Heat as needed Ortho/spine consultation appreciated L1-L2 spinal stenosis with radiculopathy -pain management consult recommending SKIP -cardiology consult appreciated, Brilinta held starting today 07/11 -will be clear for SKIP on 07/18 -PT evaluation pending -oxycodone added for pain control (2) CAD (coronary artery disease): Plan: status post 5 stents with most recent being September 2023. Patient is continued on dual antiplatelet therapy with aspirin and Brilinta. He follows locally with cardiology Continue aspirin and Brilinta Continue atorvastatin (3) Hyperlipidemia: Plan: Continue atorvastatin (4) Hypertension: Plan: Continue spironolactone Continue metoprolol Continue lisinopril Plan 63-year-old male with history of coronary artery disease status post multiple stents, hyperlipidemia, GERD, chronic back pain presenting with severe acute worsening of back pain ongoing for the last week. Admission and Anticipated Discharge Date Admission Date: July 06, 2024 Subjective Pt still complaining of intractable back pain. Review of Systems Review of Systems: CONST: Negative for fever, body aches and chills. HENT: Negative for neck pain/stiffness, headache, congestion, sore throat, swelling. EYES: Negative for discharge/pain or vision changes. RESP: Negative for cough/hemoptysis and shortness of breath. CV: Negative chest pain, difficulty breathing, palpitations. ABD: Negative pain, nausea, vomiting. : Negative increase frequency, dysuria, blood in urine or stool. MUSC: Negative for muscle aches, edema. SKIN: Negative rash, lesions/sores. NEURO: Negative headache, dizziness, weakness. Physical Exam Physical Exam: GENERAL APPEARANCE NAD, activity normal for age, well developed/ well nourished, no cyanosis, pallor, or diaphoresis. EYES lids/conjunctiva normal. EARS/NOSE/THROAT Mucous membranes moist, nares normal, lips/teeth normal uvula midline without oral pharyngeal erythema, exudate or swelling TMs normal bilaterally. No lymphangitis/lymphedema. HEAD/NECK normocephalic atraumatic, no facial trauma, neck is supple. RESPIRATORY respiratory effort normal, speaks in full sentences, no tripod position, no accessory muscle use. Lungs clear to auscultation without rhonchi, wheezes, rales CARDIAC Regular rate and rhythm, no edema. ABDOMINAL Soft, ND/NT. No evidence of fluid wave. No pulsatile masses on exam, rebound tenderness, Rizo sign or pain over Mcburney's point. MUSCLES/EXTREMITIES No abnormal range of motion, no swelling. SKIN Warm, pink and dry. No rashes, dermatoses, petechiae or lesions. NEUROLOGICAL Speech is clear and appropriate. Normal level of consciousness. Gait and coordination are normal. 5/5 strength in all extremities. PSYCH Normal mood and affect. Judgement/competence is appropriate Results & Data Results & Data Vital Signs (Past 12 Hours) Vital Signs Temp Pulse Resp BP Pulse Ox O2 Del Method 07/12/24 07:33 36.7 C 61 18 153/77 H 97 Room Air PG Care Time/CCT Total # of Minutes Spent Total Time Spent with Patient: Total time spent is greater than 50% in coordination of care (as documented) at patient's floor/unit and/or counseling patient: Coding Level of Care Code 75431 SUB INP/OBS CARE 2/35MIN Diagnoses Back pain M54.9 Coronary artery disease involving [place] coronary artery of [place] heart without angina pectoris I25.10 Coronary Disease-Associated Artery/Lesion type: [place] artery [place] vs. transplanted heart: [place] heart Associated angina: without angina Hyperlipidemia, unspecified hyperlipidemia type E78.5 Hyperlipidemia type: unspecified Hypertension I10 Hypertension type: unspecified (2) CAD (coronary artery disease) Coronary Disease-Associated Artery/Lesion type: [place] artery [place] vs. transplanted heart: [place] heart Associated angina: without angina Qualified Code(s): I25.10 - Atherosclerotic heart disease of [place] coronary artery without angina pectoris (3) Hyperlipidemia Hyperlipidemia type: unspecified Qualified Code(s): E78.5 - Hyperlipidemia, unspecified (4) Hypertension Hypertension type: unspecified Qualified Code(s): I10 - Essential (primary) hypertension
[2024-07-12] MEDS: oxyCODONE HCL IR 5 MG TAB (IMMEDIATE RELEASE) PO PRN (11:57)
[2024-07-12] MEDS ORDERED: hydrALAZINE HCL 20 MG/ML VIAL IV PRN (15:11)
[2024-07-13] MEDS: POLYETHYLENE (MIRALAX) 17 GM PACK PO PRN (07:36)
[2024-07-13 07:57] LABS: Hemoglobin 11.8 g/dl (14.0-18.0); Mean Corpuscular Hgb Conc 34.7 g/dL (32.0-36.0); Mean Corpuscular Volume 89.2 fL (80.0-100.0); Mean Platelet Volume 11.1 fL (9.4-12.4); Platelet Count 220 K/uL (130-400); RDW Coefficient of Variation 13.2 % (11.5-14.5); RDW Standard Deviation 43.4 fL (36.4-46.3); Red Blood Count 3.81 M/uL (4.70-6.10); White Blood Count 13.54 K/ul (4.8-10.8)
[2024-07-13 08:19] LABS: Calcium 8.7 mg/dl (8.6-10.3); Creatinine Clr Calc Pharmacy 72.9 ml/min; Potassium 3.7 mmol/L (3.5-5.1)
--- NOTE | 2024-07-13 10:12 | Hospitalist Progress Note ---
Date of Service July 13, 2024 Assessment & Plan (1) Back pain: Plan: severe acute on chronic left-sided back pain with radiation into the buttock and groin. MRI of the lumbar spine performed with results as above. In brief, some findings suggestive of possible discitis. L1-L2 disc osteophyte complex causing mild spinal canal stenosis as well as L5-S1 arthritis causing stenosis. Patient's pain distribution is most consistent with an L1-L2 nerve. Question focal process going on in the hip? Uncertain if this process represents an acute infection, discitis Admit to medical Pain control with Dilaudid as needed. Of note, patient has an adverse reaction to morphine Flexeril as needed Zofran as needed Senna/docusate every morning with MiraLAX as needed constipation Narcan as needed for accidental overdose Solu-Medrol 40 mg IV daily Continue home duloxetine Heat as needed Ortho/spine consultation appreciated L1-L2 spinal stenosis with radiculopathy -cardiology consult appreciated, Brilinta held starting 07/11 -will be clear for procedure on 07/18 -pain management recommending surgery as opposed to SKIP -Ortho-spine to follow up for re-evaluation. -PT daily -oxycodone added for pain control (2) CAD (coronary artery disease): Plan: status post 5 stents with most recent being September 2023. Patient is continued on dual antiplatelet therapy with aspirin and Brilinta. He follows locally with cardiology Continue aspirin and Brilinta on hold for possible surgery Continue atorvastatin (3) Hyperlipidemia: Plan: Continue atorvastatin (4) Hypertension: Plan: Continue spironolactone Continue metoprolol Continue lisinopril Plan 63-year-old male with history of coronary artery disease status post multiple stents, hyperlipidemia, GERD, chronic back pain presenting with severe acute worsening of back pain ongoing for the last week. Admission and Anticipated Discharge Date Admission Date: July 06, 2024 Subjective Pt still complaining of intractable back pain, rating it 7/10. Review of Systems Review of Systems: CONST: Negative for fever, body aches and chills. HENT: Negative for neck pain/stiffness, headache, congestion, sore throat, swel ling. EYES: Negative for discharge/pain or vision changes. RESP: Negative for cough/hemoptysis and shortness of breath. CV: Negative chest pain, difficulty breathing, palpitations. ABD: Negative pain, nausea, vomiting. : Negative increase frequency, dysuria, blood in urine or stool. MUSC: Negative for muscle aches, edema. SKIN: Negative rash, lesions/sores. NEURO: Negative headache, dizziness, weakness. Physical Exam Physical Exam: GENERAL APPEARANCE NAD, activity normal for age, well developed/ well nourished, no cyanosis, pallor, or diaphoresis. EYES lids/conjunctiva normal. EARS/NOSE/THROAT Mucous membranes moist, nares normal, lips/teeth normal uvula midline without oral pharyngeal erythema, exudate or swelling TMs normal bilaterally. No lymphangitis/lymphedema. HEAD/NECK normocephalic atraumatic, no facial trauma, neck is supple. RESPIRATORY respiratory effort normal, speaks in full sentences, no tripod position, no accessory muscle use. Lungs clear to auscultation without rhonchi, wheezes, rales CARDIAC Regular rate and rhythm, no edema. ABDOMINAL Soft, ND/NT. No evidence of fluid wave. No pulsatile masses on exam, rebound tenderness, Rizo sign or pain over Mcburney's point. MUSCLES/EXTREMITIES No abnormal range of motion, no swelling. SKIN Warm, pink and dry. No rashes, dermatoses, petechiae or lesions. NEUROLOGICAL Speech is clear and appropriate. Normal level of consciousness. Gait and coordination are normal. 5/5 strength in all extremities. PSYCH Normal mood and affect. Judgement/competence is appropriate Results & Data Results & Data Vital Signs (Past 12 Hours) Vital Signs Temp Pulse Pulse Resp BP BP Pulse Ox 07/13/24 07:02 36.6 C 59 L 18 152/80 H 96 07/13/24 03:45 36.6 C 59 L 178/85 H 94 07/13/24 00:35 180/79 H 07/12/24 23:00 180/80 H O2 Del Method 07/13/24 07:02 Room Air 07/13/24 03:45 Room Air 07/13/24 00:35 07/12/24 23:00 PG Care Time/CCT Total # of Minutes Spent Total Time Spent with Patient: Total time spent is greater than 50% in coordination of care (as documented) at patient's floor/unit and/or counseling patient: Coding Level of Care Code 29901 SUB INP/OBS CARE 2/35MIN Diagnoses Back pain M54.9 Coronary artery disease involving [place] coronary artery of [place] heart without angina pectoris I25.10 Coronary Disease-Associated Artery/Lesion type: [place] artery [place] vs. transplanted heart: three affiliated heart Associated angina: without angina Hyperlipidemia, unspecified hyperlipidemia type E78.5 Hyperlipidemia type: unspecified Hypertension I10 Hypertension type: unspecified (2) CAD (coronary artery disease) Coronary Disease-Associated Artery/Lesion type: [place] artery [place] vs. transplanted heart: three [place] heart Associated angina: without angina Qualified Code(s): I25.10 - Atherosclerotic heart disease of [place] coronary artery without angina pectoris (3) Hyperlipidemia Hyperlipidemia type: unspecified Qualified Code(s): E78.5 - Hyperlipidemia, unspecified (4) Hypertension Hypertension type: unspecified Qualified Code(s): I10 - Essential (primary) hypertension
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
[2024-07-14] MEDS: HYDROmorphone INJ 0.5 MG/0.5 ML SYR IV PRN (11:59)
--- NOTE | 2024-07-14 12:01 | Orthopedic Progress Note ---
Date of Service July 14, 2024 Assessment & Plan (1) Spinal stenosis of lumbar region with radiculopathy: Plan: we have a long discussion today regarding ultimate treatment plan. He has pain control with pain management. He is not interested in surgery at this time. Will start his anticoagulation as soon as possible. I would have him follow-up with interventional pain management through my office for injections and pain control. Admission and Anticipated Discharge Date Admission Date: July 06, 2024 Subjective Patient states that his pain has been better controlled now that he is in the hospital. He still quite nervous about any surgical intervention. He has been up and ambulating. Physical Exam Physical Exam: Patient does appear more comfortable today. He is neurologically intact. Results & Data Vital Signs (Past 12 Hours) Vital Signs Temp Pulse Pulse Resp BP BP Pulse Ox 07/14/24 07:38 07/14/24 07:35 36.7 C 65 18 161/87 H 97 07/14/24 04:22 60 149/76 H O2 Del Method 07/14/24 07:38 Room Air 07/14/24 07:35 Room Air 07/14/24 04:22
--- NOTE | 2024-07-14 13:51 | Hospitalist Progress Note ---
Date of Service July 14, 2024 Assessment & Plan (1) Back pain: Plan: severe acute on chronic left-sided back pain with radiation into the buttock and groin. MRI of the lumbar spine performed with results as above. In brief, some findings suggestive of possible discitis. L1-L2 disc osteophyte complex causing mild spinal canal stenosis as well as L5-S1 arthritis causing stenosis. Patient's pain distribution is most consistent with an L1-L2 nerve. Question focal process going on in the hip? Uncertain if this process represents an acute infection, discitis Admit to medical Pain control with Dilaudid as needed. Of note, patient has an adverse reaction to morphine Flexeril as needed Zofran as needed Senna/docusate every morning with MiraLAX as needed constipation Narcan as needed for accidental overdose Solu-Medrol 40 mg IV daily Continue home duloxetine Heat as needed Ortho/spine consultation appreciated L1-L2 spinal stenosis with radiculopathy -cardiology consult appreciated, Brilinta held starting 07/11 -will be clear for procedure on 07/18 -pain management recommending surgery as opposed to SKIP -Ortho-spine to follow up appreciated -Pt now willing to have surgery, chronic pain management is no longer an option for him -Requesting to speak with Dr. Sim again, message to his service sent -PT daily -oxycodone and dilaudid for pain control (2) CAD (coronary artery disease): Plan: status post 5 stents with most recent being September 2023. Patient is continued on dual antiplatelet therapy with aspirin and Brilinta. He follows locally with cardiology Continue aspirin and Brilinta on hold for possible surgery Continue atorvastatin - restart Brilinta if surgery not planned by 07/18. (3) Hyperlipidemia: Plan: Continue atorvastatin (4) Hypertension: Plan: Continue spironolactone Continue metoprolol Continue lisinopril Plan 63-year-old male with history of coronary artery disease status post multiple stents, hyperlipidemia, GERD, chronic back pain presenting with severe acute worsening of back pain ongoing for the last week. Pt has reconsidered and feels surgery is option he is willing to move forward with over living with chronic pain. Awaiting final decision between ortho and patient about surgery. Admission and Anticipated Discharge Date Admission Date: July 06, 2024 Subjective Pt states he is ready to have surgery and cannot live with his back pain anymore. Review of Systems Review of Systems: CONST: Negative for fever, body aches and chills. HENT: Negative for neck pain/stiffness, headache, congestion, sore throat, swelling. EYES: Negative for discharge/pain or vision changes. RESP: Negative for cough/hemoptysis and shortness of breath. CV: Negative chest pain, difficulty breathing, palpitations. ABD: Negative pain, nausea, vomiting. : Negative increase frequency, dysuria, blood in urine or stool. MUSC: Negative for muscle aches, edema. SKIN: Negative rash, lesions/sores. NEURO: Negative headache, dizziness, weakness. Physical Exam Physical Exam: GENERAL APPEARANCE NAD, activity normal for age, well developed/ well nourished, no cyanosis, pallor, or diaphoresis. EYES lids/conjunctiva normal. EARS/NOSE/THROAT Mucous membranes moist, nares normal, lips/teeth normal uvula midline without oral pharyngeal erythema, exudate or swelling TMs normal bilaterally. No lymphangitis/lymphedema. HEAD/NECK normocephalic atraumatic, no facial trauma, neck is supple. RESPIRATORY respiratory effort normal, speaks in full sentences, no tripod position, no accessory muscle use. Lungs clear to auscultation without rhonchi, wheezes, rales CARDIAC Regular rate and rhythm, no edema. ABDOMINAL Soft, ND/NT. No evidence of fluid wave. No pulsatile masses on exam, rebound tenderness, Rizo sign or pain over Mcburney's point. MUSCLES/EXTREMITIES No abnormal range of motion, no swelling. SKIN Warm, pink and dry. No rashes, dermatoses, petechiae or lesions. NEUROLOGICAL Speech is clear and appropriate. Normal level of consciousness. Gait and coordination are normal. 5/5 strength in all extremities. PSYCH Normal mood and affect. Judgement/competence is appropriate Results & Data Results & Data Vital Signs (Past 12 Hours) Vital Signs Temp Pulse Pulse Resp BP BP Pulse Ox 07/14/24 07:38 07/14/24 07:35 36.7 C 65 18 161/87 H 97 07/14/24 04:22 60 149/76 H O2 Del Method 07/14/24 07:38 Room Air 07/14/24 07:35 Room Air 07/14/24 04:22 PG Care Time/CCT Total # of Minutes Spent Total Time Spent with Patient: Total time spent is greater than 50% in coordination of care (as documented) at patient's floor/unit and/or counseling patient: Coding Level of Care Code 12453 SUB INP/OBS CARE 2/35MIN Diagnoses Back pain M54.9 Coronary artery disease involving [place] coronary artery of [place] heart without angina pectoris I25.10 Coronary Disease-Associated Artery/Lesion type: [place] artery [place] vs. transplanted heart: [place] heart Associated angina: without angina Hyperlipidemia, unspecified hyperlipidemia type E78.5 Hyperlipidemia type: unspecified Hypertension I10 Hypertension type: unspecified (2) CAD (coronary artery disease) Coronary Disease-Associated Artery/Lesion type: [place] artery [place] vs. transplanted heart: [place] heart Associated angina: without angina Qualified Code(s): I25.10 - Atherosclerotic heart disease of [place] coronary artery without angina pectoris (3) Hyperlipidemia Hyperlipidemia type: unspecified Qualified Code(s): E78.5 - Hyperlipidemia, unspecified (4) Hypertension Hypertension type: unspecified Qualified Code(s): I10 - Essential (primary) hypertension
[2024-07-14] MEDS: TICAGRELOR 90 MG TAB PO SCH (14:55)
--- NOTE | 2024-07-14 15:08 | Orthopedic Progress Note ---
Date of Service July 14, 2024 Assessment & Plan (1) Spinal stenosis of lumbar region with radiculopathy: Plan: At this time we will continue to withhold his anticoagulation and plan for thoracolumbar decompression T12 to L2 this . Risk benefits pros cons and alternatives were outlined in detail. We will make him n.p.o. after midnight Saturday. Admission and Anticipated Discharge Date Admission Date: July 06, 2024 Subjective I did revisit patient again today in the room with his at the bedside. We revisited the concept of proceeding with surgery in light of his incapacitating back and left leg pain. At this point after consideration discussed with his would like to proceed. Results & Data Vital Signs (Past 12 Hours) Vital Signs Temp Pulse Pulse Resp BP BP Pulse Ox 07/14/24 07:38 07/14/24 07:35 36.7 C 65 18 161/87 H 97 07/14/24 04:22 60 149/76 H O2 Del Method 07/14/24 07:38 Room Air 07/14/24 07:35 Room Air 07/14/24 04:22
--- NOTE | 2024-07-14 16:39 | XRay Report ---
INDICATION: Back pain. TECHNIQUE: 3 views of the lumbar spine. COMPARISON: MRI from 07/06/2024. FINDINGS/IMPRESSION: No acute fracture or traumatic dislocation. Multilevel fusion hardware. Hardware appears intact. Disc space narrowing and facet arthropathy most pronounced at L1-L2. Vascular calcifications. Electronically signed by Jeovanny Dozier 07-14-2024 4:38 PM
--- NOTE | 2024-07-14 17:04 | CT Scan Report ---
Clinical history: Preoperative examination Technique: Axial computed tomography images were obtained of the lumbar spine without intravenous contrast. Sagittal and coronal reconstructions were obtained Comparison is made to the radiographs obtained today and the MRI dated 07/06/2024 Findings: There is a posterior fusion of L2 and L3 with posterior fixation rods and bilateral pedicle screws. There is anterior interbody fusion at L2-3, L3-4, and L4-5. There is fusion of the right sacroiliac joint with 3 fixation screws. There is no definite sign of instrumentation failure. There are complete laminectomy defects of the L2-L4 vertebral bodies. No acute fracture is identified. There is some sclerosis and mild deformity of the S1 segment that could be due to old injury. There is scoliosis. There is 4 mm of retrolisthesis of L1 on L2. There are prominent degenerative endplate changes at L1-2. Focal osseous lesion is evident. There is no definite sign of osteomyelitis At T12-L1, there is a mild disc bulge without spinal stenosis. The neural foramen are patent At L1-2, there is spinal stenosis due to a disc bulge and facet osteoarthritis. There is bilateral neural foramen narrowing that may affect the exiting L1 nerve roots At the fused level of L2-3, there is no spinal stenosis or visible nerve root compression At the fused level of L3-4, there is no spinal stenosis or visible nerve root compression At the fused level of L4-5, there is no spinal stenosis or visible nerve root compression At L5-S1, there is a mild disc bulge without spinal stenosis. The neural foramen are patent. There is facet osteoarthritis There are bilateral renal cysts. There are small hyperdense left renal lesions Impression: 1. Unchanged posterior fusion at L2-3 2. Unchanged anterior fusion of L2-L5 3. Scoliosis 4. Retrolisthesis at L1-2 5. Spinal stenosis at L1-2 6. Bilateral neural foramen narrowing at L1-2 that may affect the exiting L1 nerve roots 7. Bilateral renal cysts 8. Small hyperdense left renal lesions that may represent benign proteinaceous or hemorrhagic cyst but are indeterminate in nature. Renal protocol abdominal CT with and without contrast could be considered for further evaluation ACT 112: Positive. There are findings on this exam that require communication between the performing entity and the patient following Patient Test Result Information Act ([place] ACT 112) guidelines. Electronically signed by Viet Walters 07-14-2024 5:04 PM
[2024-07-16] MEDS ORDERED: MIDAZOLAM HCL 1 MG/ML 2ML VIAL ONE (06:55)
[2024-07-16] MEDS ORDERED: LIDOCAINE 2% 2 ML VIAL/AMP(20MG/ML) INFIL ONE (06:55)
[2024-07-16] MEDS ORDERED: PROPOFOL IV EMULSION 10 MG/ML 20 ML VIAL IV ONE (06:55)
[2024-07-16] MEDS ORDERED: DEXAMETHASONE SOD INJ 4 MG/ML VIAL ONE (06:55)
[2024-07-16] MEDS ORDERED: ONDANSETRON INJ 2 MG/ML 2 ML VIAL ONE (06:55)
[2024-07-16] MEDS ORDERED: LARYING-O-JET KIT (LTA) ONE (06:58)
[2024-07-16] MEDS ORDERED: ROCURONIUM BROMIDE 10 MG/ML 5 ML VIAL IV ONE ×2 (06:58→08:49)
[2024-07-16] MEDS ORDERED: SODIUM CHLORIDE 0.9% PF INJ 10 ML VIAL ONE (06:58)
[2024-07-16] MEDS ORDERED: HYDROmorphone INJ 2 MG/ML SYR/VIAL ONE ×2 (06:59→09:09)
[2024-07-16] MEDS ORDERED: PROPOFOL IV EMULSION 10 MG/ML 100 ML VIAL IV ONE (07:02)
[2024-07-16] MEDS: LACTATED RINGER'S 1,000 ML IV SCH (07:25)
[2024-07-16] MEDS ORDERED: ATROPINE SULFATE 0.1 MG/ML 10ML SYR IV PRN (07:31)
[2024-07-16] MEDS ORDERED: ePHEDrine sulfate 50 MG/ML AMP IV PRN (07:31)
[2024-07-16] MEDS ORDERED: PROMETHAZINE HCL 6.25 MG in SODIUM CHLORIDE 0.9% 50 ML IV PRN (07:31)
[2024-07-16] MEDS ORDERED: ONDANSETRON INJ 2 MG/ML 2 ML VIAL IV PRN ×2 (07:31→11:37)
[2024-07-16] MEDS ORDERED: HYDROmorphone INJ 2 MG/ML SYR/VIAL IV PRN (07:31)
--- NOTE | 2024-07-16 07:31 | Anesthesiology Consultation ---
Date of Service July 16, 2024 Assessment & Plan Chart Review Chart Review: Acceptable Risk for Surgery and Patient NOT seen in Pre Admission Testing Consults Requested none ASA ASA3 Proposed Anesthesia Anesthesia Type: General Risk / Benefits Reviewed With: PT / POA / Parent / Guardian, Accepts Plan and Informed Consent Obtained History Surgery Operation Date: 07/16/24 07:45 Proposed Procedures p T12-L2 Decompression and Fusion, Spinal Cord Monitoring - [place] Sim, Height/Weight Height: 5 ft 7 in Weight: 86.183 kg Allergies Allergy/AdvReac Type Severity Reaction Status Date / Time chlorhexidine Allergy Intermediate severe Verified 07/06/24 19:09 itching, redness Sulfa (Sulfonamide Allergy Intermediate rash, hives Verified 07/06/24 19:09 Antibiotics) acetaminophen AdvReac Severe elevated Verified 07/06/24 19:09 LFTs ibuprofen AdvReac Severe elevated Verified 07/06/24 19:09 LFTs morphine AdvReac Intermediate shakiness, Verified 07/06/24 19:09 grumpy, disoriented Medications Home Medications Medication Instructions Recorded Confirmed Last Taken ascorbic acid (vitamin C) 1,000 mg 1,000 mg PO QAM ##0 04/07/16 07/06/24 07/06/24 tablet aspirin 81 mg tablet,delayed 81 mg PO HS 11/14/17 07/06/24 07/05/24 release cyanocobalamin (vitamin B-12) 500 500 mcg PO QAM 11/14/17 07/06/24 07/06/24 mcg tablet (Vitamin B-12) duloxetine 60 mg capsule,delayed 60 mg PO BID 11/14/17 07/06/24 07/06/24 08:00 release (Cymbalta) folic acid 400 mcg tablet 0.4 mg PO QAM 11/14/17 07/06/24 07/06/24 lorazepam 0.5 mg tablet 0.5 mg PO Q12H PRN Anxiety 11/14/17 07/06/24 10/07/23 metoprolol succinate 100 mg 100 mg PO QAM 11/14/17 07/06/24 07/06/24 tablet,extended release 24 hr multivitamin 1 tab PO QAM 11/14/17 07/06/24 07/06/24 pyridoxine (vitamin B6) 100 mg 100 mg PO QAM 11/14/17 07/06/24 07/06/24 tablet cholecalciferol (vitamin D3) 25 1,000 mcg PO DAILY 05/22/23 07/06/24 07/06/24 mcg (1,000 unit) capsule (Vitamin D3) lisinopril 20 mg tablet 20 mg PO QAM 05/22/23 07/06/24 07/06/24 zinc gluconate 50 mg tablet 50 mg PO QAM 05/22/23 07/06/24 07/06/24 famotidine 20 mg tablet 20 mg PO BID 09/06/23 07/06/24 07/06/24 08:00 krill 1,000 mg-omega-3 230 mg-dha 1 cap PO QAM 09/06/23 07/06/24 07/06/24 60 bo-[id number]-oynztfpqa-astaxan capsule (MegaRed [place]-3 Krill Oil) spironolactone 25 mg tablet 25 mg PO QAM 09/06/23 07/06/24 07/06/24 atorvastatin 80 mg tablet 40 mg PO DAILY 10/09/23 07/06/24 07/06/24 ticagrelor 90 mg tablet (Brilinta) 90 mg PO BID #60 tabs 11/07/23 07/06/24 07/06/24 08:00 nitroglycerin 0.4 mg sublingual 0.4 mg sublingual DIRECTED PRN 03/25/24 07/06/24 Unknown tablet (Nitrostat) Chest Pain #25 tabs cyclobenzaprine 5 mg tablet 5 mg PO TID PRN muscle spasm #30 07/01/24 07/06/24 Unknown tabs oxycodone 5 mg tablet 5 mg PO Q8H PRN Pain 07/06/24 07/06/24 Unknown Active Medications Generic Name Dose Route Start Last Admin Trade Name Freq PRN Reason Stop Dose Admin Aspirin 81 mg 07/07/24 21:00 07/15/24 20:10 Aspirin 81 Mg Ectab PO 08/06/24 20:59 81 mg HS SUZETTE Administration Atorvastatin Calcium 40 mg 07/07/24 09:00 07/15/24 08:18 Atorvastatin 40 Mg Tab PO 08/06/24 08:59 40 mg DAILY SUZETTE Administration Cyclobenzaprine HCl 5 mg 07/06/24 23:45 07/16/24 00:29 Cyclobenzaprine Hcl 10 Mg Tab PO 08/05/24 23:44 5 mg TID PRN Administration muscle spasm Duloxetine HCl 60 mg 07/07/24 09:00 07/15/24 20:10 Duloxetine Hcl 60 Mg Cap PO 08/06/24 08:59 60 mg BID SUZETTE Administration Famotidine 20 mg 07/07/24 09:00 07/15/24 20:10 Famotidine 20 Mg Tab PO 08/06/24 08:59 20 mg BID SUZETTE Administration Folic Acid 400 mcg 07/07/24 09:00 07/15/24 08:18 Folic Acid 400 Mcg Tab PO 08/06/24 08:59 400 mcg QAM SUZETTE Administration Hydromorphone HCl 0.5 mg 07/06/24 23:38 07/14/24 11:59 Hydromorphone Inj 0.5 Mg/0.5 Ml Syr IV 07/20/24 23:37 0.5 mg Q4H PRN Administration Pain (1,2,3,4,5) & Pre PT Hydromorphone HCl 1 mg 07/07/24 12:39 07/16/24 02:18 Hydromorphone Inj 1 Mg/Ml Syringe IV 07/20/24 23:37 1 mg Q3H PRN Administration Pain (6,7,8,9,10) Methylprednisolone 40 mg/ 0.64 mls @ 1.5 mls/min 07/07/24 09:00 07/15/24 08:31 Syringe IV 08/06/24 08:59 1.5 mls/min DAILY SUZETTE Administration Lactated Ringer's 1,000 mls @ 15 mls/hr 07/16/24 07:00 07/16/24 07:25 Lr IV 07/19/24 06:59 15 mls/hr .Q24H SUZETTE Administration Lisinopril 20 mg 07/07/24 09:00 07/15/24 08:18 Lisinopril 20 Mg Tab PO 08/06/24 08:59 20 mg QAM SUZETTE Administration Metoprolol Succinate 100 mg 07/07/24 09:00 07/15/24 08:19 Metoprolol Succ 50mg Ext Rel Tab PO 08/06/24 08:59 100 mg QAM SUZETTE Administration Ondansetron HCl 4 mg 07/06/24 23:38 07/14/24 11:01 Ondansetron Inj 2 Mg/Ml 2 Ml Vial IV 08/05/24 23:37 4 mg Q6H PRN Administration Nausea And Vomiting Oxycodone HCl 5 mg 07/12/24 10:10 07/16/24 00:29 Oxycodone Hcl Ir 5 Mg Tab (Immediate Release) PO 07/26/24 10:09 5 mg Q6H PRN Administration Moderate Pain 4-6/10 Polyethylene Glycol 17 gm 07/06/24 23:38 07/15/24 12:42 Polyethylene (Miralax) 17 Gm Pack PO 08/05/24 23:37 17 gm DAILY PRN Administration constipation Senna/Docusate Sodium 2 tab 07/07/24 21:00 07/15/24 20:10 Docusate Sodium/Senna 50/8.6mg Tab PO 08/06/24 20:59 2 tab HS SUZETTE Administration Spironolactone 25 mg 07/07/24 09:00 07/15/24 08:18 Spironolactone 25 Mg Tab PO 08/06/24 08:59 25 mg QAM SUZETTE Administration Ticagrelor 90 mg 07/14/24 12:45 07/14/24 14:55 Ticagrelor 90 Mg Tab PO 08/13/24 12:44 Not Given BID SUZETTE NPO Date Last Intake of Fluids: 07/15/24 Time Last Intake of Fluids: 22:00 Date Last Intake of Solids: 07/15/24 Time Last Intake of Solids: 18:00 Past Medical History Medical History ACS (acute coronary syndrome) STEMI (ST elevation myocardial infarction) Chest pain Thrombophlebitis HLD (hyperlipidemia) Myocardial Infarction 2003. BPH (benign prostatic hyperplasia) Coronary artery disease 2004- stent x 1, 2012- stents x 2. [place] [facility] [place] Kidney stones GERD (gastroesophageal reflux disease) controlled Anxiety Exercise / Class Metabolic Activity II 4-5 Yardwork/Stairs/Walk up hill Past Family History Family History Other No family history of adverse response to anesthesia Past Surgical History Surgical History H/O tooth extraction removal of infected dental implant 01/19/20 placed on abx. S/P lumbar fusion hardware removal, L2-L3 decompression with fusion: 11/15/17: Grade 1 view, MAC#3, ETT 8.0 at [facility] History of tooth extraction S/P epidural steroid injection lumbar and SI joint injections History of cataract surgery bilateral History of cystoscopy with stent History of lithotripsy laser lithotripsy H/O hand surgery LEFT Fusion of spine Lumbar x2 S/P cervical spinal fusion 05/2015. MAC 3. Grade 1 view. No issues. Full ROM. Hx of inguinal hernia repair left History of cardiac cath 2003 - STENT 2010- STENTS Past Anesthesia History No Hx of Anesthesia Complications and No Family Hx of Anesthesia Complications History of PONV No Hx of PONV and No Hx of Motion Sickness Social History Smoking Status: Current every day smoker tobacco type: cigarettes Smoking cigarettes per day: 8-10 Do You Dip or Chew Tobacco: No Hx Alcohol Use: No Hx Substance Use: Yes substance use type: marijuana Substance Use Type Other:: 2 days ago. Inhalation form only. Last Used Substance: Days (ago) Last Used Substance Other:: thc Physical Exam Vital Signs Last Vital Signs Temp 37.0 C 07/16/24 07:20 Pulse 64 07/16/24 07:20 Resp 20 07/16/24 07:20 BP 132/92 07/16/24 07:20 Pulse Ox 97 07/16/24 07:20 O2 Del Method Room Air 07/16/24 07:20 ENMT Mouth: + dentures (upper plate) and + loose teeth (several slightly loose) Thyromental Distance: > or= 3.5 Finger Breadths Mallampati Class: II Neck normal visual inspection Respiratory normal respiratory effort Auscultation: lungs clear to auscultation bilaterally Cardiovascular Rate/Rhythm: regular rate and regular rhythm Psychiatric Orientation: alert Testing Laboratory Results 07/13/24 07:13 07/13/24 07:13 PT 10.5 Seconds (9.0-12.0) 07/06/24 18:18 INR 1.0 (0.9-1.1) 07/06/24 18:18 Urine Color Yellow 07/06/24 16:40 Urine Appearance Clear (Clear) 07/06/24 16:40 Urine pH 6.0 (4.5-7.5) 07/06/24 16:40 Ur Specific [place] 1.008 (1.000-1.030) 07/06/24 16:40 Urine Protein Negative (Negative) 07/06/24 16:40 Urine Glucose (UA) Negative (Negative) 07/06/24 16:40 Urine Ketones Negative (Negative) 07/06/24 16:40 Urine Nitrite Negative (Negative) 07/06/24 16:40 Ur Leukocyte Esterase Negative (Negative) 07/06/24 16:40 07/08/24 08:15 Aerobic Blood Culture - Final Blood No growth in Aerobic bottle after 5 days. Anaerobic Blood Culture - Final No growth in Anaerobic bottle after 5 days. 07/08/24 08:21 Aerobic Blood Culture - Final Blood No growth in Aerobic bottle after 5 days. Anaerobic Blood Culture - Final No growth in Anaerobic bottle after 5 days. 07/06/24 21:11 Aerobic Blood Culture - Final Blood No growth in Aerobic bottle after 5 days. Anaerobic Blood Culture - Final Bacillus cereus Staphylococcus capitis 07/06/24 21:10 Aerobic Blood Culture - Final Blood No growth in Aerobic bottle after 5 days. Anaerobic Blood Culture - Final No growth in Anaerobic bottle after 5 days.
--- NOTE | 2024-07-16 07:35 | History & Physical Bridge Note ---
Date of Service July 16, 2024 History & Physical Bridge Note I have examined the patient, reviewed the History & Physical and in the interval since the performance of the History & Physical I have noted the following changes of clinical significance: no changes noted Patient has severe back and lumbar radiculopathy requiring IV narcotic medications. He has been anticoagulated has known severe cardiac disease and is at high risk for surgical invention. In light of his anticoagulation being optimal for surgery and the risks involved regarding the window of anticoagulation, his narcotic requirement secondary to pain I am recommending we proceed with T12-L2 decompression fusion hardware removal L3-L4.
[2024-07-16] MEDS: FAMOTIDINE/PF 20 MG/2 ML VIAL IV ONE (08:10)
[2024-07-16] MEDS: ceFAZolin 2000MG 2,000 MG/15 ML SYR IV ONE (08:10)
[2024-07-16] MEDS ORDERED: PHENYLEPHRINE 100MCG/ML 5ML SYR ONE (08:14)
--- NOTE | 2024-07-16 08:14 | History & Physical Bridge Note ---
Date of Service July 16, 2024 History & Physical Bridge Note I have examined the patient, reviewed the History & Physical and in the interval since the performance of the History & Physical I have noted the following changes of clinical significance: no changes noted in addition to being properly anticoagulated for surgery requiring significant doses of IV narcotic medications for pain. He has demonstrated progressive neurologic deficit affecting the left hip flexors consistent with his L1 neural compression radiculopathy. Subsequently recommending emergent decompression fusion.
[2024-07-16] MEDS ORDERED: ePHEDrine sulfate 50 MG/5 ML SYR ONE (08:21)
[2024-07-16] MEDS: BUPIVACAINE/EPINEPHRINE 0.25% 1:200,000 30 ML VIAL ONE (08:40)
[2024-07-16] MEDS ORDERED: SUGAMMADEX SODIUM 200 MG/2 ML VIAL IV ONE (08:47)
[2024-07-16] MEDS ORDERED: DexMEDEtomidine HCL IV 100 MCG/ML VIAL IV ONE (09:11)
[2024-07-16] MEDS ORDERED: KETAMINE HCL 10MG/ML SYR ONE (09:13)
[2024-07-16] MEDS: FLOSEAL HEMOSTATIC MATRIX 10ML TOP ONE (09:40)
[2024-07-16] MEDS: ceFAZolin 330 MG/ML 1 GM VIAL ONE (09:49)
--- NOTE | 2024-07-16 09:57 | Operative Report ---
Post Operative Report Pre & Post Diagnosis Operation Date: 07/16/24 07:45 Pre-Op Diagnosis: #1 lumbar spondylosis with radiculopathy and neurologic deficit. #2 lumbar spinal stenosis Post-Op Diagnosis: Same I identified the patient and participated in the time-out.: Yes Procedure Operation Date: 07/16/24 07:45 Actual Procedures #1 removal of posterior instrumentation L2-L3. #2 exploration of fusion L2-L3. #3 decompression T12-L1 L1-L2 with bilateral medial facetectomies and foraminotomies. #4 posterior spinal fusion T12-L2. #5 placed posterior instrumentation T12-L4 3 using camber. #6 interbody fusion L1-L2. #7 placement Spira 9 x 26 mm at L1-L2. #8 placement locally harvested morselized autograft in the posterior gutters. #9 placement infuse collagen sponge, with Koros in the posterior lateral gutters and os design bone graft interbody space. #10 application of versa wrap of the exposed dura. Surgeon Darien Sim, Rn Utilization Management Um Jessica Chambers Estimated Blood Loss 50 Findings Consistent with Post-Op Diagnosis Specimens None Indications This is a 63-year-old male who presents with severe lumbar back pain with radiculopathy and progressive neurologic deficit. He failed attempts at nonoperative care and subsequently here for urgent decompression fusion. Description of Procedure Patient was met with identified informed consent obtained. Patient was then taken to the operative suite underwent sedation placed in a prone position on the Jesus table the chest pad and the bolsters. All bony prominences well- padded eyes inspected to ensure no external precipice upon them. This point the thoracolumbar spine was prepped and draped in normal sterile fashion. Sharp dissection with the assistance of Bovie cautery performed down to and exposing the lamina and transverse processes of T12-L1 and instrumentation at L2-L3 bilaterally. I then proceeded move the hardware to L3 bilaterally explored the fusion mass noting the mature and intact. Then performed a complete laminectomy of L1 with bilateral medial facetectomies and foraminotomies followed by partial laminectomy of T12 with bilateral medial facetectomies to address all subarticular stenosis and epidural lipomatosis. Pedicle screws were then placed in T12 L1-L2-L3 bilaterally with assistance of fluoroscopy and appropriate sized lefty placed. By way the transforaminal portion right complete discectomy of L1- L2 was performed endplates corrected to subcortical mean bone and a 9 x 26 mm s piral cage filled with Oxyzyme bone graft tapped in position. The rods were then locked in final position bilaterally. The transverse processes of T12 L1- L2 burred to subcortical bleeding bone. Infuse collagen sponge bath Koros and local autograft placed the posterior gutters. Versa wrap placed over the exposed dura. 15 round KALANI drain inserted. Incision was then closed with 1 Vicryl the fascia 2-0 Vicryl subcutaneously and 4 Monocryl for final skin closure. Steri-Strips sterile dressing placed. Patient waken taken PACU stable condition. Please note spinal cord monitoring was utilized at the procedure no changes noted. Jessica Chambers was present at the entire surgery involved the patient positioning complex portion of the surgery and final skin closure. I attest to the content of the Intraoperative Record and any orders documented therein. Any exceptions are noted below.
[2024-07-16] MEDS: fentaNYL citrate PF 100 MCG/2 ML VIAL IV PRN (10:35)
--- NOTE | 2024-07-16 10:49 | Anesthesiology Progress Note ---
Date of Service July 16, 2024 Anesthesia Post Procedure Vital Signs Vital Signs: Temp Pulse Pulse Pulse Resp BP BP 07/16/24 10:45 96 H 12 140/96 07/16/24 10:35 91 H 15 169/109 H 07/16/24 10:25 103 H 15 152/91 H 07/16/24 10:15 36.1 C L 85 12 146/66 H 07/16/24 07:20 37.0 C 64 20 132/92 07/16/24 06:57 36.5 C 70 16 134/90 07/15/24 19:33 36.8 C 71 18 158/81 H 07/15/24 14:35 36.8 C 67 18 116/76 Pulse Ox O2 Del Method O2 Flow Rate 07/16/24 10:45 98 Oxymask 3 07/16/24 10:35 100 Oxymask 3 07/16/24 10:25 100 Oxymask 3 07/16/24 10:15 100 Oxymask 6 07/16/24 07:20 97 Room Air 07/16/24 06:57 98 Room Air 07/15/24 19:33 98 Room Air 07/15/24 14:35 95 Room Air Pain Intensity Bilateral Lower Back: Pain Intensity: 6 Left Lower Back: Pain Intensity: 9 Transfer of Care Handoff Completed per policy Notes Mental Status: alert / awake / arousable Patient Amnestic to Procedure: Yes Nausea / Vomiting: adequately controlled Pain: adequately controlled Airway Patency, RR, SpO2: stable & adequate BP & HR: stable & adequate Hydration State: stable & adequate Anesthetic Complications: no major complications apparent
[2024-07-16] MEDS ORDERED: ALUMINUM/MAGNESIUM SUSP 30 ML UDC PO PRN (11:37)
[2024-07-16] MEDS ORDERED: FAMOTIDINE 20 MG TAB PO PRN (11:37)
[2024-07-16] MEDS ORDERED: DO NOT ADMINISTER FLU VACCINE PRN (11:37)
[2024-07-16] MEDS ORDERED: ONDANSETRON 4 MG OD TAB PO PRN (11:37)
[2024-07-16] MEDS ORDERED: LORazepam 0.5 MG TAB PO PRN (11:37)
[2024-07-16] MEDS ORDERED: NALOXONE HCL 0.4 MG/1 ML VIAL/CARP IV PRN (11:37)
[2024-07-16] MEDS ORDERED: MAGNESIUM HYDROXIDE SUSP 30 ML UDC PO PRN (11:37)
[2024-07-16] MEDS ORDERED: diphenhydrAMINE Capsule 25 MG CAP PO PRN (11:37)
[2024-07-16] MEDS ORDERED: METOCLOPRAMIDE HCL INJ 5 MG/ML 2 ML VIAL IV PRN (11:37)
[2024-07-16] MEDS ORDERED: PROMETHAZINE 12.5 MG/50.5 ML BAG IV PRN (11:37)
[2024-07-16] MEDS ORDERED: SOD PHOSPHATE/SOD BIPHOSPHATE ENEMA 132 ML BTL PR PRN (11:37)
[2024-07-16] MEDS ORDERED: hydrOXYzine HCl 25 MG TAB PO PRN (11:37)
[2024-07-16] MEDS ORDERED: DO NOT ADMINISTER PNEUMOCOCCAL VACCINE PRN (11:37)
--- NOTE | 2024-07-16 11:54 | Fluoroscopy Report ---
FL lumbar spine 2-3V CLINICAL HISTORY: T12-L2 DECOMP/FUSION COMPARISON STUDY: None FLUOROSCOPY TIME: 20 seconds FLUOROSCOPY IMAGES: 3 EXPOSURE DOSE: 15 mGy FINDINGS: Fluoroscopy was provided for lower thoracic and upper lumbar metallic spinal fusion. IMPRESSION: Intraoperative fluoroscopy. ACT 112: Negative or not required by law. Electronically signed by: Rojas Dunham M.D. 07/16/2024 11:53 AM
[2024-07-16] MEDS: HYDROmorphone INJ 1 MG/ML SYRINGE IV PRN (13:20)
[2024-07-16] MEDS: oxyCODONE HCL IR 5 MG TAB (IMMEDIATE RELEASE) PO PRN (14:18)
[2024-07-16] MEDS: ceFAZolin 2000MG 2,000 MG/15 ML SYR IV SCH (16:43)
[2024-07-16] MEDS: HYDROmorphone INJ 0.5 MG/0.5 ML SYR IV PRN (19:19)
[2024-07-16] MEDS: DOCUSATE SODIUM/SENNA 50/8.6MG TAB PO SCH (21:31)
[2024-07-17] MEDS: traMADol HCL 50 MG TABLET PO PRN (02:42)
[2024-07-17] MEDS: POLYETHYLENE (MIRALAX) 17 GM PACK PO SCH (05:50)
[2024-07-17 08:17] LABS: Basophils # (auto) 0.02 K/uL (0.00-0.20); Basophils % (auto) 0.1 %; Eosinophils # (auto) 0.03 K/uL (0.00-0.50); Eosinophils % (auto) 0.2 %; Immature Granulocytes # (auto) 0.11 K/uL (0.01-0.20); Immature Granulocytes % (auto) 0.6 %; Lymphocytes % (auto) 22.2 %; Mean Corpuscular Hemoglobin 30.4 pg (25.0-34.0); Mean Corpuscular Hgb Conc 33.3 g/dL (32.0-36.0); Mean Corpuscular Volume 91.2 fL (80.0-100.0); Mean Platelet Volume 10.9 fL (9.4-12.4); Monocytes # (auto) 1.41 K/uL (0.11-0.59); Monocytes % (auto) 7.6 %; Neutrophils % (auto) 69.3 %; Platelet Count 205 K/uL (130-400); RDW Coefficient of Variation 14.2 % (11.5-14.5); RDW Standard Deviation 47.1 fL (36.4-46.3); Red Blood Count 3.62 M/uL (4.70-6.10); White Blood Count 18.47 K/ul (4.8-10.8)
[2024-07-17 08:31] LABS: BUN Creatinine Ratio 13.6 (10-20); Calcium 8.5 mg/dl (8.6-10.3); Creatinine Clr Calc Pharmacy 37.5 ml/min; Potassium 3.9 mmol/L (3.5-5.1)
--- NOTE | 2024-07-17 09:56 | Orthopedic Progress Note ---
Date of Service July 17, 2024 Assessment & Plan (1) Spinal stenosis of lumbar region with radiculopathy: Plan: At this time the patient is tolerating physical therapy. Will monitor his KALANI output. Anticipate removal of Harrison catheter today. Will be safe for discharge home in the next few days. Admission and Anticipated Discharge Date Admission Date: July 06, 2024 Subjective Back pain controlled leg pain markedly improved Physical Exam Physical Exam: Patient is up and ambulating with physical therapy. Is good strength testing. Results & Data Vital Signs (Past 12 Hours) Vital Signs Temp Pulse Pulse Resp BP BP Pulse Ox 07/17/24 08:08 36.7 C 76 18 120/77 97 07/17/24 02:54 36.5 C 74 20 107/69 96 07/16/24 23:00 36.8 C 72 18 121/70 93 O2 Del Method 07/17/24 08:08 Room Air 07/17/24 02:54 Room Air 07/16/24 23:00 Room Air
--- NOTE | 2024-07-17 12:13 | Hospitalist Progress Note ---
Date of Service July 17, 2024 Assessment & Plan (1) RADHA (acute kidney injury): Plan: creatinine pre-op was 1 this am creatinine was 2 after seeing him this am on rounds and evaluating his labs, etc I added NS hydration despite such his creatinine has continued to rise as repeat creatinine later in the day - 2.8 HOLD spironolactone HOLD lisinopril with his kidney stones strongly consider repeat CT (had CT a/p in June showing b/l stones) to rule out obstructing/ureteral stone check urine Cr, urine Na, and urinalysis with urine cx in addition to the above he has not voided since his chavarria catheter was removed early this am will place back chavarria (2) Spinal stenosis of lumbar region with radiculopathy: Plan: POD #1 s/p: #1 removal of posterior instrumentation L2-L3. #2 exploration of fusion L2-L3. #3 decompression T12-L1 L1-L2 with bilateral medial facetectomies and foraminotomies. #4 posterior spinal fusion T12-L2. Appreciate Dr Sim's assistance. H/H stable following his surgery. Surgery complicated by meghann-operative RADHA - see #1 above. SEVERE back pain despite dilaudid 1mg IV q3h prn He likely has significant tolerance due to 20+ years of oxycodone use Spoke with pharmacist - will d/c dilaudid prn; will change to SE[employer]ER dilaudid with basal & demands; place end-tidal CO2 detector (no formal dx of RACHELLE, but reports severe snoring) (3) Back pain: Plan: 2nd to L1-L2 spinal stenosis with left-sided radiculopathy s/p lumbar spine surgery as in #2 above pain is acute on chronic - acute pain was quite severe pain management had been consulted earlier in the stay but after multiple visits patient felt that surgery would potentially be more beneficial than pursuing an epidural pain injection or continuing with pain management some ? of discitis at L1-L2 early in the stay but this was felt unlikely this was the opinion of both ortho-spine & ID pre-op patient was seen by cardiology and brilinta was held starting 07/11 in preparation for his surgery cont cymbalta 60mg BID (4) CAD (coronary artery disease): Plan: multiple stents in the past (5) - most recent being September 2023 cont asa 81mg daily cont to hold Brilinta cont atorvastatin no ischemic symptoms post-surgery fortunately (5) Hyperlipidemia: Plan: Continue atorvastatin (6) Hypertension: Plan: Continue metoprolol succinate but BPs today have been low-normal May need to reduce the dose of such HOLD lisinopril due to RADHA HOLD aldactone due to RADHA (7) Chronic narcotic dependence: Plan: oxycodone 5mg TID for 20+ years per patient see #2 above (8) Kidney stones: Plan: b/l, as seen on CT a/p in June [address] to ensure no ureteral stone contributing to RADHA (9) BPH (benign prostatic hyperplasia): Plan: not on any agents for such Plan pt's updated twice at bedside today cont PT/OT Admission and Anticipated Discharge Date Admission Date: July 06, 2024 Subjective patient resting in bed at bedside chavarria had just been removed he reports ongoing SEVERE left sided back pain - similar location to pain experienced pre-op however, his left hip/left groin pain is much improved strength in legs is intact passing flatus; no stool yet no dyspnea no chest pain no orthopnea he admits he has eaten and drank very poorly over the last few days with respect to pain control - he is receiving the dilaudid 1mg nearly q3h without any appreciable effect on his pain he has been on oxycodone 5mg TID for "about 20 years" dose has not been changed in a long time pain continues to be 8 or higher on pain scale most times Review of Systems Review of Systems: gen - no fevers or chills cv - no PND GI - no N/V - had chavarria, just removed this am neuro - no paresthesias of legs Physical Exam Physical Exam: gen - awake, alert; laying in bed; uncomfortable at times mouth - MM dry neck - no JVD heart - RRR, s1 s2, no murmur lungs - CTA b/l, no rales or wheezes abd - soft NT ND BS+ back - dressings intact lumbar spine region ext - no edema, pulses 2+ b/l feet neuro - strength all muscle groups 5/5 b/l legs psych - a/o x 3 Results & Data Results & Data Vital Signs (Past 12 Hours) Vital Signs Temp Pulse Pulse Resp BP BP Pulse Ox 07/17/24 08:08 36.7 C 76 18 120/77 97 07/17/24 02:54 36.5 C 74 20 107/69 96 O2 Del Method 07/17/24 08:08 Room Air 07/17/24 02:54 Room Air Laboratory Results Laboratory Results - last 24 hr 07/17/24 07/17/24 07:36 17:56 WBC 18.47 H RBC 3.62 L Hgb 11.0 L Hct 33.0 L MCV 91.2 MCH 30.4 MCHC 33.3 RDW Std Deviation 47.1 H RDW Coeff of Jeanette 14.2 Plt Count 205 MPV 10.9 Immature Gran % (Auto) 0.6 Neut % (Auto) 69.3 Lymph % (Auto) 22.2 Millard % (Auto) 7.6 Eos % (Auto) 0.2 Baso % (Auto) 0.1 Neut # (Auto) 12.80 H Lymph # (Auto) 4.10 H Millard # (Auto) 1.41 H Eos # (Auto) 0.03 Baso # (Auto) 0.02 Immature Gran # (Auto) 0.11 Sodium 137 134 L Potassium 3.9 3.7 Chloride 101 99 Carbon Dioxide 31 27 Anion Gap 5 8 BUN 28 H 33 H Creatinine 2.06 H 2.82 H D Est Cr Clr Drug Dosing 37.5 27.4 eGFR 35.09 24.07 BUN/Creatinine Ratio 13.6 11.7 Glucose 88 107 H Calcium 8.5 L 8.3 L PG Care Time/CCT Total # of Minutes Spent Total Time Spent with Patient: Total time spent is greater than 50% in coordination of care (as documented) at patient's floor/unit and/or counseling patient: Coding Level of Care Code 90795 SUB INP/OBS CARE 3/50MIN Diagnoses RADHA (acute kidney injury) N17.9 Spinal stenosis of lumbar region with radiculopathy M48.061; M54.16 Back pain M54.9 Coronary artery disease involving ione coronary artery of ione heart without angina pectoris I25.10 Associated angina: without angina Coronary Disease-Associated Artery/Lesion type: ione artery [place] vs. transplanted heart: ione heart Hyperlipidemia, unspecified hyperlipidemia type E78.5 Hyperlipidemia type: unspecified Hypertension I10 Hypertension type: unspecified Chronic narcotic dependence F11.20 Kidney stones N20.0 Benign prostatic hyperplasia without lower urinary tract symptoms N40.0 Lower urinary tract symptom presence: symptoms absent (4) CAD (coronary artery disease) Associated angina: without angina Coronary Disease-Associated Artery/Lesion type: ione artery [place] vs. transplanted heart: ione heart Qualified Code(s): I25.10 - Atherosclerotic heart disease of ione coronary artery without angina pectoris (5) Hyperlipidemia Hyperlipidemia type: unspecified Qualified Code(s): E78.5 - Hyperlipidemia, unspecified (6) Hypertension Hypertension type: unspecified Qualified Code(s): I10 - Essential (primary) hypertension (9) BPH (benign prostatic hyperplasia) Lower urinary tract symptom presence: symptoms absent Qualified Code(s): N40.0 - Benign prostatic hyperplasia without lower urinary tract symptoms
[2024-07-17] MEDS ORDERED: NALOXONE HCL 0.4 MG/1 ML VIAL/CARP IV PRN (13:14)
[2024-07-17] MEDS: LORazepam 2 MG/1 ML VIAL IV PRN (13:39)
[2024-07-17] MEDS: SODIUM CHLORIDE 0.9% 1,000 ML IV SCH ×2 (13:39→16:57)
[2024-07-17] MEDS: HYDROmorphone PCA 30 MG/30 ML IV PRN (14:39)
[2024-07-17 18:29] LABS: BUN Creatinine Ratio 11.7 (10-20); Calcium 8.3 mg/dl (8.6-10.3); Creatinine Clr Calc Pharmacy 27.4 ml/min; Potassium 3.7 mmol/L (3.5-5.1)
[2024-07-17] MEDS ORDERED: LORazepam 0.5 MG TAB PO PRN (20:25)
[2024-07-17] MEDS: SODIUM CHLORIDE 0.9% 500 ML IV ONE (21:34)
[2024-07-17 23:19] LABS: Base Excess VBG -0.2 mEq/L; HCO3 VBG 26 mmol/L; Oxygen Saturation VBG < 60.0 %; PCO2 VBG 50 mmHg (38-50); PO2 VBG 20 mmHg; pH VBG 7.33 (7.36-7.41)
[2024-07-17 23:25] LABS: Appearance Urine Cloudy (Clear); Bacteria Urine Automated None Seen (None Seen); Bilirubin Urine Negative (Negative); Blood Urine Negative (Negative); Calcium Oxalate Crystals Urine Present (None Prsent); Cast Urine Automated >20 /lpf (0-2); Color Urine Dark Yellow; Epithelial Cell Urine Auto 0-2 /hpf (0-2); Glucose Urine UA Negative (Negative); Ketones Urine Trace (Negative); Leukocyte Esterase Urine 1+ (Negative); Mucus Urine Present (None Prsent); Nitrite Urine Negative (Negative); Protein Urine 1+ (Negative); Urobilinogen Urine Negative (Negative)
[2024-07-17 23:40] LABS: BUN Creatinine Ratio 12.6 (10-20); Creatinine Clr Calc Pharmacy 28.7 ml/min; Magnesium 1.5 mg/dl (1.7-2.4); Potassium 4.1 mmol/L (3.5-5.1)
--- NOTE | 2024-07-17 23:59 | CT Scan Report ---
Exam(s): CT ABDOMEN + PELVIS Without Contrast EXAM: CT Abdomen and Pelvis Without Intravenous Contrast CLINICAL HISTORY: acute renal failure; h/o stones; r/o obstruction. TECHNIQUE: Axial computed tomography images of the abdomen and pelvis without intravenous contrast. CTDI is 23.72 mGy and DLP is 1323.22 mGy-cm. Automated exposure control was utilized for the study. A dose lowering technique was utilized adhering to the principles of ALARA. COMPARISON: CT abdomen and pelvis without contrast dated 07/01/2024. FINDINGS: Artifacts: Beam hardening artifact from the lumbar hardware noted on multiple image slices. Limitations: There is respiratory artifact, which degrades image quality on multiple image slices. Lung bases: Unremarkable. No mass. No consolidation. ABDOMEN: Liver: Similar hypodense areas involving segment 4 of the liver and involving the inferomedial margin of the right lobe of the liver without alteration in size or morphologic appearance. Gallbladder and bile ducts: Unremarkable. No calcified stones. No ductal dilation. Pancreas: Unremarkable. No ductal dilation. Spleen: Unremarkable. No splenomegaly. Adrenals: Unremarkable. No mass. Kidneys and ureters: Accounting for respiratory artifact, the unenhanced kidneys are stable in appearance with similar punctate nonobstructive subcentimeter nephrolithiasis involving the inferior pole the left kidney. No definite right-sided nephrolithiasis. No hydronephrosis or definite ureteral stones. Similar cortical cyst involving the inferolateral left kidney, stable in size measuring 4.4 cm. Stomach and bowel: No evidence for focal high-grade bowel obstruction with prominent gas throughout the small and large bowel. No dilation. Mild to moderate stool burden. PELVIS: Appendix: No findings to suggest acute appendicitis. Bladder: The bladder is decompressed with a Harrison catheter in position. No stones. Reproductive: Unremarkable as visualized. ABDOMEN and PELVIS: Intraperitoneal space: Unremarkable. No free air. No significant fluid collection. Bones/joints: Stable postsurgical changes throughout the lumbar spine with fusion from T12-L3 levels. There is also surgical hardware at L4-5 and L5-S1 with laminectomy defects from L1-L4 levels. No acute fracture. No dislocation. Soft tissues: Unremarkable. Vasculature: Stable extensive atherosclerotic calcification of the aorta and iliac arteries. No abdominal aortic aneurysm. Lymph nodes: Unremarkable. No enlarged lymph nodes. IMPRESSION: 1. Accounting for respiratory artifact, the unenhanced kidneys are stable in appearance with similar punctate nonobstructive subcentimeter nephrolithiasis involving the inferior pole the left kidney. No definite right-sided nephrolithiasis. No hydronephrosis or definite ureteral stones. The bladder is decompressed with a Harrison catheter in position. 2. Remaining presumed incidental findings, as noted above. Electronically signed by: Deven Alberts MD 07/17/24 23:58 PM
[2024-07-18 05:51] LABS: Hematocrit (blood only) 32.8 % (42.0-52.0); Mean Corpuscular Hemoglobin 31.3 pg (25.0-34.0); Mean Corpuscular Hgb Conc 33.5 g/dL (32.0-36.0); Mean Corpuscular Volume 93.4 fL (80.0-100.0); Platelet Count 205 K/uL (130-400); RDW Coefficient of Variation 14.4 % (11.5-14.5); RDW Standard Deviation 48.8 fL (36.4-46.3); Red Blood Count 3.51 M/uL (4.70-6.10)
[2024-07-18 06:06] LABS: BUN Creatinine Ratio 14.4 (10-20); Calcium 8.9 mg/dl (8.6-10.3); Creatinine Clr Calc Pharmacy 33.7 ml/min; Potassium 4.1 mmol/L (3.5-5.1)
--- NOTE | 2024-07-18 07:47 | Orthopedic Progress Note ---
Date of Service July 18, 2024 Assessment & Plan (1) Spinal stenosis of lumbar region with radiculopathy: Plan: Patient is stable postoperative #2. Will continue with GI DVT prophylaxis and mobilization efforts. He has accommodation of chronic pain syndrome with acute radiculopathy superimposed. Will continue with pain control measures, GI DVT prophylaxis as well as physical therapy. Hopefully will be able to get him ready for discharge in the next few days. Admission and Anticipated Discharge Date Admission Date: July 06, 2024 Subjective Patient was seen bedside in room 454. He states he is having significant pain. He had episode yesterday where he was confused. Majority of the pain is in the thoracolumbar region of his back itself he is not complaining much of leg pain. He denies any other numbness, tingling, or paresthesias. Physical Exam Physical Exam: On exam he is alert and oriented. His is bedside. He is able to move his extremities to gravity without difficulty. His strength and sensation are grossly intact his abdomen soft nontender his calves are supple and nontender. His KALANI drain is in place and holding suction. Results & Data Vital Signs (Past 12 Hours) Vital Signs Temp Pulse Pulse Resp BP BP Pulse Ox 07/18/24 07:23 37.4 C 80 20 118/74 93 07/18/24 05:06 37.3 C 79 17 120/67 92 07/17/24 22:44 36.5 C 82 18 117/76 92 07/17/24 22:40 36.5 C 72 14 117/76 92 O2 Del Method 07/18/24 07:23 07/18/24 05:06 Room Air 07/17/24 22:44 Room Air 07/17/24 22:40 Room Air
[2024-07-18] MEDS: cefTRIAXone SODIUM 2,000 MG/50 ML BAG IV SCH (08:26)
[2024-07-18] MEDS: MAGNESIUM SULFATE / D5W 1 GM/100 ML BAG IV SCH (08:51)
--- NOTE | 2024-07-18 10:37 | Hospitalist Progress Note ---
Date of Service July 18, 2024 Assessment & Plan (1) RADHA (acute kidney injury): Plan: creatinine pre-op was 1, sabi to 2 on the AM of 07/17, then 2.8 last evening which was the peak creatinine this am 2.2 improving nicely FeNa was <1 c/w prerenal etiology (likely intravascular volume depletion) continue IV fluids repeat BMP am tomorrow cont to HOLD spironolactone & lisinopril s/p CT a/p last pm - no obstruction, no ureteral stones, etc await urine cx results cont chavarria (2) Spinal stenosis of lumbar region with radiculopathy: Plan: POD #2 s/p: #1 removal of posterior instrumentation L2-L3. #2 exploration of fusion L2-L3. #3 decompression T12-L1 L1-L2 with bilateral medial facetectomies and foraminotomies. #4 posterior spinal fusion T12-L2. Appreciate Dr Sim's assistance. H/H stable following his surgery. Surgery complicated by meghann-operative RADHA - see #1 above. Had had SEVERE back pain despite dilaudid 1mg IV q3h prn He likely has significant tolerance due to 20+ years of oxycodone use Changed to [employer]OR dilaudid on 07/17/24 with basal & demands; removed basal overnight due to confusion. Confusion is much better today -- and given uncontrolled pain - will place the basal back at 0.2mg/hr. Will likely need additional adjustments as the day goes on. Placed on end-tidal CO2 detector and CO2 are upper 30s this am (3) Back pain: Plan: 2nd to L1-L2 spinal stenosis with left-sided radiculopathy s/p lumbar spine surgery as in #2 above pain is acute on chronic - acute pain was quite severe pain management had been consulted earlier in the stay but after multiple visits patient felt that surgery would potentially be more beneficial than pursuing an epidural pain injection or continuing with pain management some ? of discitis at L1-L2 early in the stay but this was felt unlikely this was the opinion of both ortho-spine & ID pre-op patient was seen by cardiology and brilinta was held starting 07/11 in preparation for his surgery cont cymbalta 60mg BID (4) CAD (coronary artery disease): Plan: multiple stents in the past (5) - most recent being September 2023 cont asa 81mg daily cont to hold Brilinta cont atorvastatin no ischemic symptoms post-surgery fortunately (5) Hyperlipidemia: Plan: Continue atorvastatin (6) Hypertension: Plan: Continue metoprolol succinate at dose of 100mg qam BPs are stable today HOLD lisinopril due to RADHA HOLD aldactone due to RADHA (7) Chronic narcotic dependence: Plan: oxycodone 5mg TID for 20+ years per patient see #2 above (8) Kidney stones: Plan: b/l, as seen on CT a/p in June [address] last pm without obstruciton / ureteral stone contributing to RADHA (9) BPH (benign prostatic hyperplasia): Plan: not on any agents for such (10) Hypercapnia: Plan: peak pCO2 of 50 last pm end-tidal CO2s yesterday were low to mid 40s end-tidal CO2 today are improved to upper 30s (11) Acute encephalopathy: Plan: likely combination of RADHA, narcotics, rising pCO2s, ?UTI, etc. improved today follow carefully (12) UTI (urinary tract infection): Plan: ? of given the rising leukocytosis and the previous chavarria reasonable to cover for possible UTI with rocephin 2gm daily while awaiting urine cx (13) Hypomagnesemia: Plan: give 2 grams mag sulfate IV x 1 this am repeat mag level in am tomorrow Plan pt's updated extensively at bedside this am cont PT/OT appreciate ortho assistance Admission and Anticipated Discharge Date Admission Date: July 06, 2024 Subjective patient's mental status is improved this am but not back to baseline knew he was in the hospital, [facility] did recall he had back surgery a few days ago myoclonic jerks much better today he tolerated breakfast back pain - remains severe we added back the basal rate for his [employer] dilaudid no radicular symptoms in the L groin or L leg no change in location of pain (left lower back) at bedside chavarria was placed back last pm; urine output has improved since then Review of Systems Review of Systems: gen - no fevers or chills cv - no chest pain pulm - no dyspnea GI - no abd pain or N/V; passing flatus but no stool Physical Exam Physical Exam: gen - awake, alert; more oriented today; sitting at side of the bed; uncomfortable when he tries to move mouth - MM moist today neck - no JVD heart - RRR, s1 s2, no murmur lungs - CTA b/l, no rales or wheezes abd - soft NT BS+; slightly distended back - dressings intact lumbar spine region, Nate drain in place with serosanginuous fluid ext - no edema, pulses 2+ b/l feet neuro - no myoclonic jerks today psych - a/o to person, hospital, year but [facility] Results & Data Results & Data Vital Signs (Past 12 Hours) Vital Signs Temp Pulse Pulse Pulse Resp BP BP 07/18/24 07:53 97 H 07/18/24 07:23 37.4 C 80 20 118/74 07/18/24 05:06 37.3 C 79 17 120/67 07/17/24 22:44 36.5 C 82 18 117/76 07/17/24 22:40 36.5 C 72 14 117/76 Pulse Ox O2 Del Method 07/18/24 07:53 07/18/24 07:23 93 07/18/24 05:06 92 Room Air 07/17/24 22:44 92 Room Air 07/17/24 22:40 92 Room Air Laboratory Results Laboratory Results - last 24 hr 07/17/24 07/17/24 07/17/24 17:56 20:45 23:00 WBC RBC Hgb Hct MCV MCH MCHC RDW Std Deviation RDW Coeff of Jeanette Plt Count MPV VBG pH 7.33 L VBG pCO2 50 VBG pO2 20 VBG HCO3 26 VBG O2 Saturation < 60.0 VBG Base Excess -0.2 Sodium 134 L 135 L Potassium 3.7 4.1 Chloride 99 102 Carbon Dioxide 27 28 Anion Gap 8 5 BUN 33 H 34 H Creatinine 2.82 H D 2.69 H Est Cr Clr Drug Dosing 27.4 28.7 eGFR 24.07 25.47 BUN/Creatinine Ratio 11.7 12.6 Glucose 107 H 105 H Calcium 8.3 L 8.0 L Magnesium 1.5 L Ammonia 10.0 L Procalcitonin 0.27 Urine Color Dark Yellow Urine Appearance Cloudy A Urine pH 5.0 Ur Specific [place] 1.020 Urine Protein 1+ H Urine Glucose (UA) Negative Urine Ketones Trace H Urine Blood Negative Urine Nitrite Negative Urine Bilirubin Negative Urine Urobilinogen Negative Ur Leukocyte Esterase 1+ H Urine WBC (Auto) 11-20 H Urine RBC (Auto) 11-20 H U Hyaline Cast (Auto) >20 H U Epithel Cells (Auto) 0-2 Urine Bacteria (Auto) None Seen Calcium Oxalate Crystal Present A Urine Mucus Present A Ur Random Creatinine 384.0 Ur Random Sodium 26 07/18/24 05:29 WBC 19.40 H RBC 3.51 L Hgb 11.0 L Hct 32.8 L MCV 93.4 MCH 31.3 MCHC 33.5 RDW Std Deviation 48.8 H RDW Coeff of Jeanette 14.4 Plt Count 205 MPV 11.0 VBG pH VBG pCO2 VBG pO2 VBG HCO3 VBG O2 Saturation VBG Base Excess Sodium 136 Potassium 4.1 Chloride 103 Carbon Dioxide 27 Anion Gap 6 BUN 33 H Creatinine 2.29 H D Est Cr Clr Drug Dosing 33.7 eGFR 30.90 BUN/Creatinine Ratio 14.4 Glucose 102 H Calcium 8.9 Magnesium Ammonia Procalcitonin Urine Color Urine Appearance Urine pH Ur Specific [place] Urine Protein Urine Glucose (UA) Urine Ketones Urine Blood Urine Nitrite Urine Bilirubin Urine Urobilinogen Ur Leukocyte Esterase Urine WBC (Auto) Urine RBC (Auto) U Hyaline Cast (Auto) U Epithel Cells (Auto) Urine Bacteria (Auto) Calcium Oxalate Crystal Urine Mucus Ur Random Creatinine Ur Random Sodium Diagnostic Findings 07/17/24 20:45 Urine Culture - Pending Urine,Indwelling Cath 07/08/24 08:15 Aerobic Blood Culture - Final Blood No growth in Aerobic bottle after 5 days. Anaerobic Blood Culture - Final No growth in Anaerobic bottle after 5 days. 07/08/24 08:21 Aerobic Blood Culture - Final Blood No growth in Aerobic bottle after 5 days. Anaerobic Blood Culture - Final No growth in Anaerobic bottle after 5 days. 07/06/24 21:11 Aerobic Blood Culture - Final Blood No growth in Aerobic bottle after 5 days. Anaerobic Blood Culture - Final Bacillus cereus Staphylococcus capitis 07/06/24 21:10 Aerobic Blood Culture - Final Blood No growth in Aerobic bottle after 5 days. Anaerobic Blood Culture - Final No growth in Anaerobic bottle after 5 days. PG Care Time/CCT Total # of Minutes Spent Total Time Spent with Patient: Total time spent is greater than 50% in coordination of care (as documented) at patient's floor/unit and/or counseling patient: Coding Level of Care Code 34487 SUB INP/OBS CARE 50MIN Diagnoses RADHA (acute kidney injury) N17.9 Spinal stenosis of lumbar region with radiculopathy M48.061; M54.16 Back pain M54.9 Coronary artery disease involving [place] coronary artery of [place] heart without angina pectoris I25.10 Coronary Disease-Associated Artery/Lesion type: [place] artery [place] vs. transplanted heart: [place] heart Associated angina: without angina Hyperlipidemia, unspecified hyperlipidemia type E78.5 Hyperlipidemia type: unspecified Hypertension I10 Hypertension type: unspecified Chronic narcotic dependence F11.20 Kidney stones N20.0 Benign prostatic hyperplasia without lower urinary tract symptoms N40.0 Lower urinary tract symptom presence: symptoms absent Hypercapnia R06.89 Acute encephalopathy G93.40 UTI (urinary tract infection) N39.0 Hypomagnesemia E83.42 (4) CAD (coronary artery disease) Coronary Disease-Associated Artery/Lesion type: [place] artery [place] vs. transplanted heart: [place] heart Associated angina: without angina Qualified Code(s): I25.10 - Atherosclerotic heart disease of [place] coronary artery without angina pectoris (5) Hyperlipidemia Hyperlipidemia type: unspecified Qualified Code(s): E78.5 - Hyperlipidemia, unspecified (6) Hypertension Hypertension type: unspecified Qualified Code(s): I10 - Essential (primary) hypertension (9) BPH (benign prostatic hyperplasia) Lower urinary tract symptom presence: symptoms absent Qualified Code(s): N40.0 - Benign prostatic hyperplasia without lower urinary tract symptoms
[2024-07-19 06:44] LABS: Hematocrit (blood only) 27.4 % (42.0-52.0); Hemoglobin 9.2 g/dl (14.0-18.0); Mean Corpuscular Hgb Conc 33.6 g/dL (32.0-36.0); Mean Corpuscular Volume 92.3 fL (80.0-100.0); Mean Platelet Volume 11.8 fL (9.4-12.4); Platelet Count 150 K/uL (130-400); RDW Coefficient of Variation 14.1 % (11.5-14.5); RDW Standard Deviation 48.2 fL (36.4-46.3); Red Blood Count 2.97 M/uL (4.70-6.10); White Blood Count 11.01 K/ul (4.8-10.8)
[2024-07-19 07:10] LABS: Calcium 8.3 mg/dl (8.6-10.3); Creatinine Clr Calc Pharmacy 63.3 ml/min; Magnesium 1.8 mg/dl (1.7-2.4)
--- NOTE | 2024-07-19 07:45 | Orthopedic Progress Note ---
Date of Service July 19, 2024 Assessment & Plan (1) Spinal stenosis of lumbar region with radiculopathy: Plan: Patient is still struggling at this point. Has history for chronic narcotic use. Will continue with GI DVT prophylaxis and pain control measures. He needs to try to minimize the use of narcotics. He will be seen by physical therapy for ambulation and gait training. We will consider removing the drain tomorrow to help with mobilization. Admission and Anticipated Discharge Date Admission Date: July 06, 2024 Subjective Patient seen bedside in room 454. He states he had a bad night. He got confused he feels likely due to the narcotics. He was up and moving yesterday but has not been up this morning. He complains of severe back pain. He is not having neurologic symptoms this morning. He denies any other numbness, tingling, or paresthesias. Physical Exam Physical Exam: On exam he is alert and oriented. He answers questions appropriately. He moves all of his extremities to gravity. His abdomen soft nontender his calves are supple nontender his KALANI drain is in place and holding suction he is placed out to 30 cc in the last 2 measurements. Results & Data Vital Signs (Past 12 Hours) Vital Signs Temp Pulse Pulse Resp BP Pulse Ox O2 Del Method 07/19/24 07:39 37.0 C 91 H 19 164/81 H 97 Room Air 07/19/24 07:20 84 07/19/24 03:51 37.1 C 69 19 126/76 94 Room Air 07/18/24 22:51 37.5 C 79 18 132/74 95 Room Air 07/18/24 20:41 36.4 C L 75 18 111/65 93 Room Air
[2024-07-19] MEDS: cephALEXin 500 MG CAP PO SCH (08:19)
[2024-07-19] MEDS: oxyCODONE HCL 10 MG TABCR (OxyCONTIN) PO SCH (08:19)
[2024-07-19] MEDS: bisacodyL 10 MG SUPP PR PRN (09:33)
--- NOTE | 2024-07-19 19:20 | Hospitalist Progress Note ---
Date of Service July 19, 2024 Assessment & Plan (1) Acute encephalopathy: Plan: likely combination of RADHA, rising pCO2s (2 nights ago), suspected UTI, chavarria (and potentially malpositioned chavarria), constipation, ?narcotics themselves, hospital delirium, etc. improved today would not institute any HS antipsychotics at this time having chavarria out may help encouraged him to get from bed to chair for meals, open blinds, get sunlight exposure, etc. (2) RADHA (acute kidney injury): Plan: creatinine pre-op was 1, sabi to 2 on the AM of 07/17, then 2.8 evening of 07/17 creatinine 2.2 on 07/18 creatinine now 1.2 this am improving nicely FeNa was <1 c/w prerenal etiology (likely had intravascular volume depletion) IV fluids have been stopped repeat BMP am tomorrow cont to HOLD spironolactone & lisinopril s/p CT a/p this admission - no obstruction, no ureteral stones, etc chavarria has been d/c although urine cx was negative, given the recent leukocytosis, abnormal u/a, etc will empirically Rx for UTI d/c rocephin, and Rx with keflex 500mg BID x 6 additional days (3) Spinal stenosis of lumbar region with radiculopathy: Plan: POD #3 s/p: #1 removal of posterior instrumentation L2-L3. #2 exploration of fusion L2-L3. #3 decompression T12-L1 L1-L2 with bilateral medial facetectomies and foraminotomies. #4 posterior spinal fusion T12-L2. Appreciate Dr Sim's assistance. H/H stable following his surgery. Surgery complicated by meghann-operative RADHA - see #1 above. Cont [employer] dilaudid -- no changes to parameters today. Allow demand doses; basal rate has been stopped. Did start oxycontin 10mg BID for long-acting pain relief. Plan - attempt d/c of dilaudid [employer] OPERATOR on 07/20. If successful then transition to oxycodone IR 5-10mg prn. (4) Back pain: Plan: 2nd to L1-L2 spinal stenosis with left-sided radiculopathy s/p lumbar spine surgery as in #2 above pain is acute on chronic - acute pain was quite severe pain management had been consulted earlier in the stay but after multiple visits patient felt that surgery would potentially be more beneficial than pursuing an epidural pain injection or continuing with pain management some ? of discitis at L1-L2 early in the stay but this was felt unlikely this was the opinion of both ortho-spine & ID pre-op patient was seen by cardiology and brilinta was held starting 07/11 in preparation for his surgery cont cymbalta 60mg BID (5) CAD (coronary artery disease): Plan: multiple stents in the past (5) - most recent being September 2023 cont asa 81mg daily cont to hold Brilinta - resume when ok with ortho-spine cont atorvastatin no ischemic symptoms post-surgery fortunately (6) Hyperlipidemia: Plan: Continue atorvastatin (7) Hypertension: Plan: Continue metoprolol succinate at dose of 100mg qam Continue to HOLD lisinopril and aldactone due to RADHA and low-normal BPs (8) Chronic narcotic dependence: Plan: oxycodone 5mg TID for 20+ years per patient see #3 above for acute pain control plan (9) Kidney stones: Plan: b/l, as seen on CT a/p in June [address] last pm without obstruciton / ureteral stone contributing to RADHA (10) BPH (benign prostatic hyperplasia): Plan: not on any agents for such (11) Hypercapnia: Plan: peak pCO2 of 50 two nights ago end-tidal CO2 levels are upper 30s today (normal) (12) UTI (urinary tract infection): Plan: although urine cx was negative will empirically Rx for possible UTI given his leukocytosis, abnormal u/a, etc. s/p 1 dose of rocephin; stop such today, transition to po keflex 500 BID x 6 more days wbc count is better today (13) Hypomagnesemia: Plan: replaced normal level today at 1.8 Plan pt's updated extensively at bedside again today cont PT/OT appreciate ortho assistance hopefully tonight is better night for him Admission and Anticipated Discharge Date Admission Date: July 06, 2024 Subjective patient had a "rough night" last pm was quite confused his end-tidal CO2 detector kept falling out of his nose, after his basal rate was removed (discontinued due to concern it was causing his confusion) he had w orsening back pain, etc. confusion much improved today chavarria was removed at his request and he is voiding w/o difficulty staff report that when the chavarria was removed it may have been malpositioned; retrospectively this may have contributed to his confusion due to increased pain this am after dilaudid basal rate was stopped I elected to start oxycontin 10mg BID he tolerated this today, and he took a long nap following the nap he felt better overall did not eat breakfast or lunch but likely will eat dinner is drinking fluids still no bowel movement but passing plenty of flatus Review of Systems Review of Systems: cv - no chest pain pulm - no dyspnea or [place] neuro - no dizziness or lightheadedness GI - no abd pain despite the lack of stool; no N/V musculo - L back pain, but no L groin pain or pain in either leg Physical Exam Physical Exam: gen - awake, alert - not altered during my visit; comfortable-appearing; laying in bed mouth - MMM nose - end-tidal CO2 detector in place neck - no JVD heart - RRR, s1 s2, no murmur lungs - CTA b/l, no rales or wheezes abd - soft NT BS+; distended back - dressings intact lumbar spine region, Nate drain in place with serosanginuous fluid ext - no edema, pulses 2+ b/l feet Results & Data Results & Data Vital Signs (Past 12 Hours) Vital Signs Temp Pulse Pulse Resp BP BP Pulse Ox 07/19/24 16:46 36.8 C 81 18 120/69 96 07/19/24 15:00 80 07/19/24 11:00 36.5 C 91 H 18 147/75 H 95 07/19/24 10:36 07/19/24 07:39 37.0 C 91 H 19 164/81 H 97 O2 Del Method 07/19/24 16:46 Room Air 07/19/24 15:00 07/19/24 11:00 Room Air 07/19/24 10:36 Room Air 07/19/24 07:39 Room Air Laboratory Results Laboratory Results - last 24 hr 07/19/24 05:34 WBC 11.01 H RBC 2.97 L Hgb 9.2 L Hct 27.4 L MCV 92.3 MCH 31.0 MCHC 33.6 RDW Std Deviation 48.2 H RDW Coeff of Jeanette 14.1 Plt Count 150 MPV 11.8 Sodium 135 L Potassium 4.0 Chloride 107 Carbon Dioxide 26 Anion Gap 2 L BUN 28 H Creatinine 1.22 D Est Cr Clr Drug Dosing 63.3 eGFR 65.79 BUN/Creatinine Ratio 23.0 H Glucose 100 H Calcium 8.3 L Magnesium 1.8 PG Care Time/CCT Total # of Minutes Spent Total Time Spent with Patient: Total time spent is greater than 50% in coordination of care (as documented) at patient's floor/unit and/or counseling patient: Coding Level of Care Code 32153 SUB INP/OBS CARE 3/50MIN Diagnoses Acute encephalopathy G93.40 RADHA (acute kidney injury) N17.9 Spinal stenosis of lumbar region with radiculopathy M48.061; M54.16 Back pain M54.9 Coronary artery disease involving [place] coronary artery of [place] heart without angina pectoris I25.10 Associated angina: without angina Coronary Disease-Associated Artery/Lesion type: [place] artery [place] vs. transplanted heart: [place] heart Hyperlipidemia, unspecified hyperlipidemia type E78.5 Hyperlipidemia type: unspecified Hypertension I10 Hypertension type: unspecified Chronic narcotic dependence F11.20 Kidney stones N20.0 Benign prostatic hyperplasia without lower urinary tract symptoms N40.0 Lower urinary tract symptom presence: symptoms absent Hypercapnia R06.89 UTI (urinary tract infection) N39.0 Hypomagnesemia E83.42 (5) CAD (coronary artery disease) Associated angina: without angina Coronary Disease-Associated Artery/Lesion type: [place] artery [place] vs. transplanted heart: [place] heart Qualified Code(s): I25.10 - Atherosclerotic heart disease of [place] coronary artery without angina pectoris (6) Hyperlipidemia Hyperlipidemia type: unspecified Qualified Code(s): E78.5 - Hyperlipidemia, unspecified (7) Hypertension Hypertension type: unspecified Qualified Code(s): I10 - Essential (primary) hypertension (10) BPH (benign prostatic hyperplasia) Lower urinary tract symptom presence: symptoms absent Qualified Code(s): N40.0 - Benign prostatic hyperplasia without lower urinary tract symptoms
[2024-07-20 06:53] LABS: Hematocrit (blood only) 25.8 % (42.0-52.0); Hemoglobin 8.7 g/dl (14.0-18.0); Mean Corpuscular Hemoglobin 30.7 pg (25.0-34.0); Mean Corpuscular Hgb Conc 33.7 g/dL (32.0-36.0); Mean Corpuscular Volume 91.2 fL (80.0-100.0); Mean Platelet Volume 11.5 fL (9.4-12.4); Platelet Count 149 K/uL (130-400); RDW Coefficient of Variation 13.8 % (11.5-14.5); RDW Standard Deviation 46.3 fL (36.4-46.3); Red Blood Count 2.83 M/uL (4.70-6.10); White Blood Count 8.76 K/ul (4.8-10.8)
[2024-07-20 07:16] LABS: BUN Creatinine Ratio 16.5 (10-20); Calcium 8.4 mg/dl (8.6-10.3); Creatinine Clr Calc Pharmacy 79.6 ml/min; Potassium 3.8 mmol/L (3.5-5.1)
--- NOTE | 2024-07-20 10:19 | Hospitalist Progress Note ---
Date of Service July 20, 2024 Assessment & Plan (1) Acute metabolic encephalopathy: Plan: likely combination of RADHA, rising pCO2s (3 nights ago), suspected UTI, potentially malpositioned chavarria, constipation, ?narcotics themselves, hospital delirium, etc. again improved today would not institute any HS antipsychotics at this time cont out of bed to chair for meals, open blinds during the day, get sunlight exposure, etc. (2) Anemia: Plan: hemoglobin was 12-13 in June and at time of admission H/H slowly drifting down suspect numerous blood draws, mild perioperative blood loss, etc as the main culprits for his anemia no over GI bleeding and NATE output has not been excessive recheck CBC am check B12, folate, Fe studies in am as well (3) RADHA (acute kidney injury): Plan: creatinine pre-op was 1, sabi to 2 on the AM of 07/17, then 2.8 evening of 07/17 creatinine improved to 2.2 on 07/18 creatinine now <1 today RADHA resolved FeNa was <1 c/w prerenal etiology (likely had significant intravascular volume depletion leading up to surgery and in the day following surgery - pt was not eating/drinking/etc) IV fluids have been stopped cont to HOLD spironolactone & lisinopril as BPs have been 120s/130s without these 2 meds s/p CT a/p this admission - no obstruction, no ureteral stones, etc chavarria has been d/c although urine cx was negative, given the recent leukocytosis (peak of 19), abnormal u/a, etc will empirically Rx for UTI s/p 1 dose of rocephin, and now on keflex 500mg BID x 6 additional days (4) Spinal stenosis of lumbar region with radiculopathy: Plan: POD #4 s/p: #1 removal of posterior instrumentation L2-L3. #2 exploration of fusion L2-L3. #3 decompression T12-L1 L1-L2 with bilateral medial facetectomies and foraminotomies. #4 posterior spinal fusion T12-L2. Appreciate Dr Sim's assistance. Surgery complicated by meghann-operative RADHA as above, metabolic encephalopathy, ?UTI, and uncontrolled/severe back pain leading to institution of MOHS SURGEON dilaudid. All issues improved and/or resolved. Stop MOHS SURGEON dilaudid today, 07/20/24. Start oxycodone IR - 5mg q4h prn for pain 1-7 on pain scale; 10mg q4h prn for pain 8-10 on pain scale. Cont oxycontin 10mg BID for long-acting pain relief. Thus far the above is working well for him. (5) Back pain: Plan: 2nd to L1-L2 spinal stenosis with left-sided radiculopathy s/p lumbar spine surgery as above pain is acute on chronic - acute pain has been severe pain management had been consulted earlier in the stay but after multiple visits patient felt that surgery would potentially be more beneficial than pursuing an epidural pain injection or continuing with pain management some ? of discitis at L1-L2 early in the stay but this was felt unlikely this was the opinion of both ortho-spine & ID pre-op patient was seen by cardiology and brilinta was held starting 07/11 in preparation for his surgery cont cymbalta 60mg BID (6) CAD (coronary artery disease): Plan: multiple stents in the past (5) - most recent being September 2023 cont asa 81mg daily cont atorvastatin no ischemic symptoms post-surgery fortunately per Dr Sim can resume Brilinta on 07/21/24 (as long as H/H are stable) (7) Hyperlipidemia: Plan: Continue atorvastatin (8) Hypertension: Plan: Continue metoprolol succinate at dose of 100mg qam Continue to HOLD lisinopril and aldactone as noted above (9) Chronic narcotic dependence: Plan: oxycodone 5mg TID for 20+ years per patient narcotics prescribed by PCP see #4 above for acute pain control plan (10) Kidney stones: Plan: b/l, as seen on CT a/p in June [address] this admission without obstruction / ureteral stone contributing to recent RADHA (11) BPH (benign prostatic hyperplasia): Plan: not on any agents for such (12) Hypercapnia: Plan: peak pCO2 of 50 on VBG on POD #1 subsequent end-tidal CO2 levels have been upper 30s (normal) on end-tidal CO2 detector resolved (13) UTI (urinary tract infection): Plan: although urine cx was negative will empirically Rx for possible UTI given his l eukocytosis, abnormal u/a, etc. s/p 1 dose of rocephin followed by Keflex 500 BID x 6 more days wbc count now normal (14) Hypomagnesemia: Plan: replaced normal level of 1.8 on 07/19/24 (15) Constipation due to opioid therapy: Plan: no BM in over a week has been getting miralax QID for many days also on senna/colace at HS despite the above no success does not examine like an ileus will order dulcolax 10mg x 1 for tomorrow morning, 07/21 if no success then try dulcolax suppos or enema after that other option is a dose of SC Relistor Plan pt's updated extensively by phone this evening, 07/20/24 told about pain med plan of care as delineated below cont PT needs OT eval - order placed appreciate ortho assistance by Dr Sim I updated the pt's PCP, Dr Jaylon Bishop ([facility]), by phone today brief review of hospitalization given discussed his pain management as Dr Bishop prescribes his narcotics for him as outpatient discussed that he is now on oxycontin 10mg BID with plans to d/c MOHS SURGEON dilaudid and resume oxycodone IR prn Dr Bishop & I both hope the oxycontin can just be for a brief period - maybe 2-3 weeks after discharge - during his transition & recovery at home Admission and Anticipated Discharge Date Admission Date: July 06, 2024 Subjective tele overnight wnl per staff Mr Stein overall had a good night no significant sundowning/confusion he did sleep for several hours per nursing: MOHS SURGEON dilaudid - from 7pm last night to 7am this am he received 1.8mg total. There were 19 demands, and 9 doses were given. during my visit he reported improved appetite no dyspnea no chest pain despite no BM in over a week denies bloating/abd pain/nausea/emesis passing copious flatus denies paresthesias or weakness of his legs denies L groin pain only pain is the left low back Review of Systems Review of Systems: - voiding w/o difficulty neuro - no focal motor weakness; just generalized tiredness/weakness GI - no N/V pulm - no cough CV - no orthopnea gen - no fevers or chills Physical Exam Physical Exam: gen - awake, alert, just slight confusion at times; comfortable-appearing; sitting at side of bed mouth - MMM neck - no JVD heart - RRR, s1 s2, no murmur lungs - CTA b/l, no rales or wheezes; slightly decreased BS bases abd - soft NT BS+; not distended today; no HSM back - dressings intact lumbar spine region, Nate drain in place with serosanginuous fluid ext - no edema, pulses 2+ b/l feet Results & Data Results & Data Vital Signs (Past 12 Hours) Vital Signs Temp Pulse Resp BP BP Pulse Ox O2 Del Method 07/20/24 08:47 36.9 C 93 H 18 118/78 93 Room Air 07/20/24 04:36 37.1 C 97 H 17 125/77 97 Room Air 07/19/24 23:31 36.5 C 87 19 126/70 97 Room Air Laboratory Results Laboratory Results - last 24 hr 07/20/24 06:00 WBC 8.76 RBC 2.83 L Hgb 8.7 L Hct 25.8 L MCV 91.2 MCH 30.7 MCHC 33.7 RDW Std Deviation 46.3 RDW Coeff of Jeanette 13.8 Plt Count 149 MPV 11.5 Sodium 135 L Potassium 3.8 Chloride 104 Carbon Dioxide 27 Anion Gap 4 BUN 16 Creatinine 0.97 Est Cr Clr Drug Dosing 79.6 eGFR 86.63 BUN/Creatinine Ratio 16.5 Glucose 101 H Calcium 8.4 L PG Care Time/CCT Total # of Minutes Spent Total Time Spent with Patient: Total time spent is greater than 50% in coordination of care (as documented) at patient's floor/unit and/or counseling patient: Coding Level of Care Code 37169 SUB INP/OBS CARE 3/50MIN Diagnoses Acute metabolic encephalopathy G93.41 Anemia D64.9 RADHA (acute kidney injury) N17.9 Spinal stenosis of lumbar region with radiculopathy M48.061; M54.16 Back pain M54.9 Coronary artery disease involving [place] coronary artery of [place] heart without angina pectoris I25.10 Associated angina: without angina Coronary Disease-Associated Artery/Lesion type: [place] artery [place] vs. transplanted heart: [place] heart Hyperlipidemia, unspecified hyperlipidemia type E78.5 Hyperlipidemia type: unspecified Hypertension I10 Hypertension type: unspecified Chronic narcotic dependence F11.20 Kidney stones N20.0 Benign prostatic hyperplasia without lower urinary tract symptoms N40.0 Lower urinary tract symptom presence: symptoms absent Hypercapnia R06.89 UTI (urinary tract infection) N39.0 Hypomagnesemia E83.42 Constipation due to opioid therapy K59.03; T40.2X5A (6) CAD (coronary artery disease) Associated angina: without angina Coronary Disease-Associated Artery/Lesion type: [place] artery [place] vs. transplanted heart: [place] heart Qualified Code(s): I25.10 - Atherosclerotic heart disease of [place] coronary artery without angina pectoris (7) Hyperlipidemia Hyperlipidemia type: unspecified Qualified Code(s): E78.5 - Hyperlipidemia, unspecified (8) Hypertension Hypertension type: unspecified Qualified Code(s): I10 - Essential (primary) hypertension (11) BPH (benign prostatic hyperplasia) Lower urinary tract symptom presence: symptoms absent Qualified Code(s): N40.0 - Benign prostatic hyperplasia without lower urinary tract symptoms
--- NOTE | 2024-07-20 11:40 | Orthopedic Progress Note ---
Date of Service July 20, 2024 Assessment & Plan (1) Spinal stenosis of lumbar region with radiculopathy: Plan: At this time are hoping to wean him from his [employer]IVE [employer]CHITECT and transition to 100% oral pain medication. This would allow him to be discharged home tomorrow. Admission and Anticipated Discharge Date Admission Date: July 06, 2024 Subjective Patient's back pain is controlled but still limiting. His leg symptoms markedly improved. He is tolerating physical therapy. Physical Exam Physical Exam: On exam he sitting with the bedside. Is comfortable. Good strength testing. Results & Data Vital Signs (Past 12 Hours) Vital Signs Temp Pulse Pulse Resp BP BP Pulse Ox 07/20/24 11:21 37.1 C 76 18 121/68 98 07/20/24 09:00 95 H 07/20/24 08:47 36.9 C 93 H 18 118/78 93 07/20/24 04:36 37.1 C 97 H 17 125/77 97 O2 Del Method 07/20/24 11:21 Room Air 07/20/24 09:00 07/20/24 08:47 Room Air 07/20/24 04:36 Room Air
[2024-07-20] MEDS: oxyCODONE HCL IR 5 MG TAB (IMMEDIATE RELEASE) PO PRN ×2 (12:35→21:51)
[2024-07-20] MEDS: POLYETHYLENE (MIRALAX) 17 GM PACK PO SCH (21:53)
[2024-07-21 03:29] VITALS: O2SAT 97
[2024-07-21 05:53] LABS: Hematocrit (blood only) 26.2 % (42.0-52.0); Hemoglobin 8.9 g/dl (14.0-18.0); Mean Corpuscular Hemoglobin 31.1 pg (25.0-34.0); Mean Corpuscular Volume 91.6 fL (80.0-100.0); Platelet Count 149 K/uL (130-400); RDW Coefficient of Variation 13.6 % (11.5-14.5); RDW Standard Deviation 45.4 fL (36.4-46.3); Red Blood Count 2.86 M/uL (4.70-6.10); White Blood Count 8.26 K/ul (4.8-10.8)
[2024-07-21 06:08] LABS: Anion Gap 3 (3-11); BUN Creatinine Ratio 11.5 (10-20); Blood Urea Nitrogen 11 mg/dl (6-23); Calcium 8.5 mg/dl (8.6-10.3); Carbon Dioxide 29 mmol/L (21-32); Chloride 103 mmol/L (98-107); Creatinine Clr Calc Pharmacy 80.7 ml/min; Glucose 94 mg/dl (70-99(Fasting)); Potassium 4.3 mmol/L (3.5-5.1); Sodium 135 mmol/L (136-145)
[2024-07-21 06:29] LABS: Ferritin 258.9 ng/ml (8-388)
[2024-07-21 06:32] LABS: Iron < 10 mcg/dl (35-175); Total Iron Binding Cap Calc 199 mcg/dl (250-450); Transferrin 142 mg/dl (200-360)
[2024-07-21 06:33] LABS: Folate (Folic Acid),Ser orPlas 17.28 ng/ml (>5.38)
[2024-07-21 07:31] VITALS: BP 128/79; RESP 18; TEMP 99.3
--- NOTE | 2024-07-21 08:15 | Hospitalist Progress Note ---
Date of Service July 21, 2024 Assessment & Plan (1) Acute metabolic encephalopathy: Plan: likely combination of RADHA, rising pCO2s (3 nights ago), suspected UTI, potentially malpositioned chavarria, constipation, ?narcotics themselves, hospital delirium, etc. again improved today would not institute any HS antipsychotics at this time cont out of bed to chair for meals, open blinds during the day, get sunlight exposure, etc. (2) Anemia: Plan: hemoglobin was 12-13 in June and at time of admission H/H slowly drifting down suspect numerous blood draws, mild perioperative blood loss, etc as the main culprits for his anemia no over GI bleeding and KALANI output has not been excessive recheck CBC am check B12, folate, Fe studies in am as well (3) RADHA (acute kidney injury): Plan: creatinine pre-op was 1, sabi to 2 on the AM of 07/17, then 2.8 evening of 07/17 creatinine improved to 2.2 on 07/18 creatinine now <1 , RADHA resolved FeNa was <1 c/w prerenal etiology (likely had significant intravascular volume depletion leading up to surgery and in the day following surgery - pt was not eating/drinking/etc) IV fluids have been stopped cont to HOLD spironolactone & lisinopril as BPs have been 120s/130s without these 2 meds s/p CT a/p this admission - no obstruction, no ureteral stones, etc chavarria has been d/c although urine cx was negative, given the recent leukocytosis (peak of 19), abnormal u/a, etc will empirically Rx for UTI s/p 1 dose of rocephin, and now on keflex 500mg BID x 6 additional days (EOT 07/25) (4) Spinal stenosis of lumbar region with radiculopathy: Plan: POD #4 s/p: #1 removal of posterior instrumentation L2-L3. #2 exploration of fusion L2-L3. #3 decompression T12-L1 L1-L2 with bilateral medial facetectomies and foraminotomies. #4 posterior spinal fusion T12-L2. Appreciate Dr Sim's assistance. Surgery complicated by meghann-operative RADHA as above, metabolic encephalopathy, ?UTI, and uncontrolled/severe back pain leading to institution of GLASS SAGGER dilaudid. All issues improved and/or resolved. Stop GLASS SAGGER dilaudid today, 07/20/24. Start oxycodone IR - 5mg q4h prn for pain 1-7 on pain scale; 10mg q4h prn for pain 8-10 on pain scale. Cont oxycontin 10mg BID for long-acting pain relief. Thus far the above is working well for him. (5) Back pain: Plan: 2nd to L1-L2 spinal stenosis with left-sided radiculopathy s/p lumbar spine surgery as above pain is acute on chronic - acute pain has been severe pain management had been consulted earlier in the stay but after multiple visits patient felt that surgery would potentially be more beneficial than pursuing an epidural pain injection or continuing with pain management some ? of discitis at L1-L2 early in the stay but this was felt unlikely this was the opinion of both ortho-spine & ID pre-op patient was seen by cardiology and brilinta was held starting 07/11 in preparation for his surgery cont cymbalta 60mg BID (6) CAD (coronary artery disease): Plan: multiple stents in the past (5) - most recent being September 2023 cont asa 81mg daily cont atorvastatin no ischemic symptoms post-surgery fortunately per Dr Sim can resume Brilinta on 07/21/24 (as long as H/H are stable) (7) Hyperlipidemia: Plan: Continue atorvastatin (8) Hypertension: Plan: Continue metoprolol succinate at dose of 100mg qam Continue to HOLD lisinopril and aldactone as noted above (9) Chronic narcotic dependence: Plan: oxycodone 5mg TID for 20+ years per patient narcotics prescribed by PCP see #4 above for acute pain control plan (10) Kidney stones: Plan: b/l, as seen on CT a/p in June [address] this admission without obstruction / ureteral stone contributing to recent RADHA (11) BPH (benign prostatic hyperplasia): Plan: not on any agents for such (12) Hypercapnia: Plan: peak pCO2 of 50 on VBG on POD #1 subsequent end-tidal CO2 levels have been upper 30s (normal) on end-tidal CO2 detector resolved (13) UTI (urinary tract infection): Plan: although urine cx was negative will empirically Rx for possible UTI given his l eukocytosis, abnormal u/a, etc. s/p 1 dose of rocephin followed by Keflex 500 BID x 6 more days wbc count now normal (14) Hypomagnesemia: Plan: replaced normal level of 1.8 on 07/19/24 (15) Constipation due to opioid therapy: Plan: no BM in over a week has been getting miralax QID for many days also on senna/colace at HS despite the above no success does not examine like an ileus will order dulcolax 10mg x 1 for tomorrow morning, 07/21 if no success then try dulcolax suppos or enema after that other option is a dose of SC Relistor Plan pt's updated extensively by phone this evening, 07/20/24 told about pain med plan of care as delineated below cont PT needs OT eval - order placed appreciate ortho assistance by Dr Sim I updated the pt's PCP, Dr Jaylon Bishop ([facility]), by phone today brief review of hospitalization given discussed his pain management as Dr Bishop prescribes his narcotics for him as outpatient discussed that he is now on oxycontin 10mg BID with plans to d/c GLASS SAGGER dilaudid and resume oxycodone IR prn Dr Bishop & I both hope the oxycontin can just be for a brief period - maybe 2-3 weeks after discharge - during his transition & recovery at home Admission and Anticipated Discharge Date Admission Date: July 06, 2024 Results & Data Results & Data Vital Signs (Past 12 Hours) Vital Signs Temp Pulse Pulse Resp BP Pulse Ox O2 Del Method 07/21/24 07:30 37.4 C 90 18 128/79 97 Room Air 07/21/24 03:28 36.7 C 77 21 129/72 97 Room Air 07/20/24 23:41 37.4 C 84 20 127/77 96 Room Air 07/20/24 21:33 79 PG Care Time/CCT Total # of Minutes Spent Total Time Spent with Patient: Total time spent is greater than 50% in coordination of care (as documented) at patient's floor/unit and/or counseling patient: Coding Diagnoses Acute metabolic encephalopathy G93.41 Anemia D64.9 RADHA (acute kidney injury) N17.9 Spinal stenosis of lumbar region with radiculopathy M48.061; M54.16 Back pain M54.9 Coronary artery disease involving [place] coronary artery of [place] heart without angina pectoris I25.10 Associated angina: without angina Coronary Disease-Associated Artery/Lesion type: [place] artery [place] vs. transplanted heart: [place] heart Hyperlipidemia, unspecified hyperlipidemia type E78.5 Hyperlipidemia type: unspecified Hypertension I10 Hypertension type: unspecified Chronic narcotic dependence F11.20 Kidney stones N20.0 Benign prostatic hyperplasia without lower urinary tract symptoms N40.0 Lower urinary tract symptom presence: symptoms absent Hypercapnia R06.89 UTI (urinary tract infection) N39.0 Hypomagnesemia E83.42 Constipation due to opioid therapy K59.03; T40.2X5A (6) CAD (coronary artery disease) Associated angina: without angina Coronary Disease-Associated Artery/Lesion type: [place] artery [place] vs. transplanted heart: [place] heart Qualified Code(s): I25.10 - Atherosclerotic heart disease of [place] coronary artery without angina pectoris (7) Hyperlipidemia Hyperlipidemia type: unspecified Qualified Code(s): E78.5 - Hyperlipidemia, unspecified (8) Hypertension Hypertension type: unspecified Qualified Code(s): I10 - Essential (primary) hypertension (11) BPH (benign prostatic hyperplasia) Lower urinary tract symptom presence: symptoms absent Qualified Code(s): N40.0 - Benign prostatic hyperplasia without lower urinary tract symptoms
[2024-07-21] MEDS: bisacodyL 5 MG TABEC PO SCH (08:26)
--- NOTE | 2024-07-21 08:50 | Discharge Summary ---
Discharge Summary Date of Service July 21, 2024 Principal Dx & Hospital Course #1 = Principal Diagnosis (1) Spinal stenosis of lumbar region with radiculopathy: 63yo male with PMHx significant for CAD (s/p multiple stents), HTN, HLD, GERD presented for severe acute onset of back pain ongoing x 1 week. MRI lumbar spine obtained which noted possible osteophyte complex causing mild spinal stenosis as well as L5-S1 arthritis causing stenosis and distribution of pain most consistent with L1-L2 nerve root. Question focal process going on concerning for possible discitis Pain management, ID, cardiology consulted while inpatient given concerns for infection and cardiac history/clearance. Was provided IV abx as blood cx bacillus/stap capitiis species but were likely containment and no ongoing abx therapy for such. Orthopedic spine, Dr Sim planned for OR for surgery for symptoms/findings and patient underwent following procedures with Dr Sim on 07/17 * #1 removal of posterior instrumentation L2-L3. * #2 exploration of fusion L2-L3. * #3 decompression T12-L1 L1-L2 with bilateral medial facetectomies and foraminotomies. * #4 posterior spinal fusion T12-L2. Surgery complicated by meghann-operative metabolic encephalopathy/possible UTI w/ RADHA w/ Cr to 2.8 and uncontrolled pain ( spironolactone and lisinipril were held and patient Cr normalized and 0.96 prior to dc and can be resumed now that mentation/PO intake back to baseline). Did repeat UA and concerns for possible UTI given leukocytosis however urine cx did not grow (?2nd to steroid effect) but decision to complete course w/ keflex continued at dc for additional 4 days to complete treatment. Pain control effective with oxycontin 10mg BID and hopefully able to taper off in follow up. Was also renewed rx for Oxycodone 5mg to use 5-10mg for breakthrough as has been >1 month since prior refill. Notified after dc by nursing about possible medication issue and contacted [facility] and needing prior auth for the Oxycontin and out of pocket >200$. Navigator messaged to asssit w/ prior auth but does have the short acting #28 tablets and also notified his PCP for concerns if unable to address at this time. +BM prior to dc and did check iron studies given anemia and attempted Venofer IV x 1 but IV not good and wanting to go. Deferred on PO iron until moving bowels more regular vs arranging Venofer outpatient. KALANI drain remained in place at [facility] and plavix to resume at [facility] as discussed w/ orthopedics and sending with KALANI in place and will have removal in office on SATURDAY. (2) Acute metabolic encephalopathy: suspected combination of ARDHA/rising pCO2, suspected UTI/possible malpositioned chavarria, constipation, ?narcotics themselves, ?hospital delirium IMPROVED w/ normalization in Cr, adequate pain control and tx possible UTI and was alert/oriented for myself during encounter 07/21 and continued pain regimen at [facility] as above and encouraged continued bowel regimen to prevent constipation. Continued PO Keflex at [facility] to complete course as outlined above (3) Anemia: hemoglobin was 12-13 in june, slowly drifing down and suspect multiple blood draws as culprit along with ongoing KALANI output and resumption of aspirin. Hgb IMPROVED 8.7--> 8.9 prior to dc and no upper abd pain or conern for GI bleeding B12/folate acceptable Iron studies with iron <10, trans % sat unable to be calculated. Ferritin 258 and likely acutely elevated but attempted Venofer IV but as above bad IV/not wanting another Consideration for PO iron vs IV in follow up but deferred PO given prior issues w/ constipation on pain medication but can be considered. Rec repeat CBC in another week or two outpatient (or sooner if needed) as plavix to resume at [facility] but KALANI in place in case of any increased outpt and f/u on w/ spine as above (4) RADHA (acute kidney injury): As above, post-operative RADHA w/ Cr to 2.9 suspected blood loss, intravascular depletion w/ ongoing spironolactone/lisinopril use and was provided IVF and held BP meds and back to baseline. Note CTAP this admit without obstruction/stones and chavarria has been removed. Abx for UTI, PO continued at [facility]. (5) Back pain: 2nd to above, pain management/regimen stable as outlined above Concerns for ?discititis earlier in stay but felt unlikely by orthospine and ID cont cymbalta 60mg BID , oxycodone/oxycontin as above (6) CAD (coronary artery disease): multiple stents in the past (5) - most recent being September 2023 cont asa 81mg daily , lipitor no ischemic symptoms post-surgery fortunately per Dr Sim can resume Brilinta on 07/21/24 (as long as H/H are stable) --> resumed at [facility] as discussed. KALANI drain remaining in place (7) Hyperlipidemia: Continued atorvastatin (8) Hypertension: Continued metoprolol succinate at dose of 100mg qam Continue to HOLD lisinopril and Aldactone as noted above -- resumed at [facility], f/u PCP as needed for adjustment but BP/renal function stable. Consider holding Aldactone in f/u but continued for now (9) Chronic narcotic dependence: oxycodone 5mg TID for 20+ years per patient narcotics prescribed by PCP See above, oxycontin at dc short course hopefully able to taper off (10) Kidney stones: b/l, as seen on CT a/p in June [address] this admission without obstruction / ureteral stone contributing to recent RADHA (11) BPH (benign prostatic hyperplasia): not on any agents for such (12) Hypercapnia: peak pCO2 of 50 on VBG on POD #1 subsequent end-tidal CO2 levels have been upper 30s (normal) on end-tidal CO2 detector resolved (13) UTI (urinary tract infection): although urine cx was negative will empirically Rx for possible UTI given his leukocytosis, abnormal u/a, etc. s/p 1 dose of rocephin followed by Keflex 500 BID at [facility] above wbc count now normal ,afebrile (14) Hypomagnesemia: replaced normal level of 1.8 on 07/19/24 (15) Constipation due to opioid therapy: no BM in over a week has been getting miralax QID for many days also on senna/colace at [facility] despite the above no success does not examine like an ileus Dulcolax 10mg x 1 ordered, +BM. Continue OTC bowel regimen recommended to prevent worsening constipation. Could consider relistor if ongoing issues but good results w/ dulcolax Plan pt's updated extensively by phone this evening, 07/20/24 and again bedside AM 07/21 Notes For Next Care Provider Wean off Oxycontin as able Monitor to resume lisinopril/spironolactone Consider PO iron (if moving bowels/no issues w/ constipation)- was attempted to give Venofer IV but IV went bad/did not want a new site Strongly encourage ongoing OTC bowel regimen to prevent constipation Medication Changes From Visit Keflex 500mg BID x another 4 days to complete course OxyContin 10mg BID x 28 tablets Oxycodone IR 5mg as needed Admission HPI Per Admitting Provider Alphonso Steni is a 63-year-old male with history of coronary artery disease ([address] with last stent being placed in Septemberatient on dual antiplatelet therapy with aspirin and Brilinta), chronic lumbar back pain presenting with acute worsening of back pain. Patient reports that 1 week ago on June 30 he was woken from sleep at 0230 with severe, acute left-sided back pain. The pain is located in his left lumbar region with radiation into the left hip, buttock and groin. Patient was seen in the emergency room on July 01 with this complaint and was treated with IV fluids, Zofran, Dilaudid and oxycodone. He was ultimately discharged with Flexeril to be used as needed. Patient has been using heat, ice, Flexeril, oxycodone 5 mg p.o. every 8 hours as well as Flexeril and prednisone for the last several days with no improvement. he reports very severe pain specifically with sitting. He has been unable to ambulate. He did have some increased activity over which may have aggravated his back including playing ball with his grandchildren But nothing comes to mind as an acute precipitating episode. Patient denies trauma or falls. He did experience some subjective fevers and chills approximately 2 weeks ago. no neurological deficit, bowel or bladder in volvement In the ER patient is afebrile, hemodynamically stable, nontoxic in appearance Ongoing severe pain ER course: Zofran 4 mg Solu-Medrol 125 mg Dilaudid 0.5 mg x 3 doses Cefepime 2 g IV Vancomycin 1750 mg IV Admission Exam Per Admitting Provider General: patient resting comfortably, NAD, non-toxic in appearance, AA&O x 4 Skin: warm, dry, intact, no rashes or lesions HEENT: NC/AT, PERRL, EOMI, anicteric sclera, conjunctiva without injection, external ear normal to inspection and nontender, nares patent, moist mucus membranes, dentition intact, no oropharyngeal lesions, neck supple, trachea midline, no LAD, no thyromegaly, no JVD Heart: +S1/S2, regular, no m/r/g Lungs: equal air entry bilaterally, no rales/rhonchi/wheezes Abd: +BS, soft, NT/ND, no masses/organomegaly/ascites Ext: warm, 2+ pulses in UE/LE bilaterally, no clubbing/cyanosis or edema Neuro: nonfocal, patient AA&O x 4, speech intact, no facial droop, moving all extremities on command with equal strength 5/5 Back examno gross deformity, no midline tenderness or pain with percussion of the spine, no paraspinal spasm, pain with palpation of left buttock and hip area Discharge Exam General: 63yo male moving his bowels, reports improvement in pain, wanting to go home, in room, NAD Head atraumatic, normocephalic, mmm, trachea midline Resp; even/unlabored, no wheezing/rales, on ROOM AIR CV: RRR, no significant m/r/g, no pitting edema GI:+BS, slight distension (reports less), soft/nontender, no rebound/guarding : no chavarria MSK/Neuro: dorsiflexion/plantar flexion intact, dressing to lumbar spine c/d/i, serous drainage from KALANI Psych; AOx3, cooperative but anxious/wanting to go home Discharge Plan Discharge Items Patient Disposition: Home - Self-Care Reason For Visit: SEVERE LEFT SIDED BACK PAIN Discharge Diagnosis: Lumbar spondylosis with radiculopathy Health Concerns: You have been hospitalized for an urgent problem which required surgery. During your stay at [facility], we have made an effort to correct the problem that brought you to the hospital while keeping you as comfortable as possible. Surgery and medications were used to bring your condition under control and your discharge instructions will include directions for any medications you should take after leaving the hospital. Please make sure to follow the advice of your surgeon regarding follow up with the surgeon and with your primary care provider. Activity: As commented below Lifting: No more than 5 pounds Exercise/Sports: None Non-emergency contact: Primary Care Provider and Surgeon Call non-emergency contact if: you have any medication questions, your symptoms worsen, your pain is not controlled, your pain is concerning for you and you have a fever Follow-up/Referrals: Darien Sim DO [Surgeon] - Michael Bishop MD [Primary Care Provider] - 07/27/24 10:25 am (Hospital follow up scheduled for July 27, 2024 at 10:25am) Diet: Regular Addtl Attending Provider Instructions: You have been hospitalized for back pain. Dr Sim was consulted and you underwent surgery. You were also found to have possible UTI and are being sent on KEFLEX 500mg twice daily for another 4 days after this evening's dose to complete the course. We are sending you on OXYCONTIN 10mg twice daily for long acting pain control and have send short course of the Oxycodone IR (immediate release) until seen by Dr Bishop in follow up and hopefully will be able to transition back to short acting in follow up. Continue bowel regimen to prevent constipation. Please monitor your BP at home and HOLD your lisinopril and spironolactone until seen in follow up. Please follow up with Dr Sim in the next week as well as PCP. Please return to the ER with any increased pain, fever, drainage, weakness, confusion or for any other symptoms concerning for you. It has been a pleasure being a part of the medical team providing for you while you have been in the hospital. Take care! Addtl Binder Operator Provider Instructions: ACTIVITY RECOMMENDATIONS: SELF CARE INSTRUCTIONS AFTER THORACIC/LUMBAR FUSIONS 1. You may walk to your tolerance. It is good exercise for your legs and back. Expect some back and intermittent leg aches and pains. 2. You may perform "counter-top" level activities (make a sandwich, ema with a project, etc.). 3. No bending or lifting of more than 10 pounds or back twisting of any nature (roll like a log when turning in bed). 4. You may ride in a car for 20-30 minutes at a time. No driving until after your first visit with your doctor. 5. Frequent changes of position and restricting sitting to 30 minutes at a time will help limit the amount of back spasms and stiffness you may experience. 6. You may discontinue the use of ambulatory aids (cane, crutches, etc.) once your strength and confidence allow. 7. You may ingot caster the shower and let water strike your incision when you arrive home at least once daily. Do not take a tub bath, sit in a hot tub or go into a swimming pool until after your first recheck in the office. 8. You may resume previous diet. SPECIAL CARE INSTRUCTIONS: VERY IMPORTANT TO READ AND REVIEW A. Your surgical incision has been closed with a cosmetic suture under the skin that will dissolve in about 6 weeks. In 14 days, you can use a pair of clean scissors and cut the suture that is left outside of the skin at the ends of your incision. 1. The small skin tapes can be removed 7 days after surgery if they have not fallen off by that point. 2. You may keep the wound open to air as much as possible to promote healing after post-op day number 5 unless told otherwise by your doctor. 3. If you think the wound looks like it is becoming infected (redness or worsening drainage) and/or you are experiencing fever, chill or worsening back pain and muscle spasms, contact the office so that we may evaluate you as soon as possible. B. Complications are uncommon, but please contact us if you have any signs or symptoms of: 1. wound infection (fever higher than 102.5 degrees F, redness, separation of wound, drainage, or increasing pain from the incision) 2. blood clots in legs (pain, swelling, redness and warmth in legs) 3. urinary tract infection (fever higher than 102.5 degrees F, burning upon urination or increased frequency of urination) 4. nerve problems (inability to walk on your toes or heels, numbness, loss of bowel or bladder control) 5. any other symptoms that concern you C. Please call the office at if you have any concerns or questions about your operation or recovery. D. No smoking! Smoking drastically decreases the chance of a solid fusion. E. Do not take any anti-inflammatory medications (Indocin, Advil, Motrin, Aspirin, Naprosyn, etc.) as these may inhibit the chance of a solid fusion. Tylenol is okay to take for pain. MANAGING PAIN AFTER SPINAL SURGERY 1. Narcotic medication is intended for short-term use and will be provided for surgical pain. Surgical pain usually lasts for a period of 4-6 weeks. Narcotic medication includes Percocet, Vicodin, Darvocet, Tylenol #3 or Lortab. 2. Longer-term pain is more appropriately treated with non-narcotic medication such as Tylenol ES. 3. Muscle spasm is not appropriately treated with narcotics. Muscle relaxers such as Soma, Flexeril or Skelaxin can be used along with Tylenol ES. 4. Remember that we all live with some "aches and pains". This is not unusual or uncommon after an injury or as we get older. a. Back pain is expected and may include muscle spasms for 4 to 6 weeks after surgery. The pain should gradually improve. If the pain worsens for no apparent reason, please contact the office. b. Intermittent leg pain may also be experienced and should not be concerned about unless it worsens for no apparent reason. If so, please contact the office. 5. We will provide appropriate medication within the normal guidelines of their prescribed use. We will also be very cautious and aware of potential abuse and extended duration of patients' medication needs. a. Pain medications are for your comfort and to assist with sleep and rest so that the tissue can heal. They are not provided in order to return to normal activity and should not be used through the day. To do so or worsening pain at night can result from ongoing tissue damage and development of tolerance to the prescribed medicine. 6. Please allow 2-3 days to process refills. Prescriptions will not be mailed but must be picked up at the office. FOLLOW UP VISIT: Keep your scheduled follow-up appointment. Any questions, please call the office at . Pending Studies at Discharge: No Stand-Alone Forms: My [facility], Smoking Cessation Medications and DC Order Prescriptions: New oxycodone 5 mg tablet 5 mg PO Q6H PRN (Reason: pain) Qty: 30 0RF cephalexin 500 mg Capsule 500 mg PO BID Qty: 9 0RF oxycodone [OxyContin] 10 mg Tablet,Oral Only,Ext.Rel.12 Hr 10 mg PO BID Qty: 28 0RF Continued ascorbic acid (vitamin C) 1,000 mg Tablet 1,000 mg PO QAM Qty: 0 Brilinta 90 mg tablet 90 mg PO BID Qty: 60 11RF nitroglycerin [Nitrostat] 0.4 mg tablet, sublingual 0.4 mg Sublingual DIRECTED PRN (Reason: Chest Pain) Qty: 25 3RF multivitamin Tablet 1 tab PO QAM metoprolol succinate 100 mg Tablet Extended Release 24 Hr 100 mg PO QAM folic acid 400 mcg Tablet 0.4 mg PO QAM aspirin 81 mg Tablet,Delayed Release (Dr/Ec) 81 mg PO HS lorazepam 0.5 mg Tablet 0.5 mg PO Q12H PRN (Reason: Anxiety) cyanocobalamin (vitamin B-12) [Vitamin B-12] 500 mcg Tablet 500 mcg PO QAM pyridoxine (vitamin B6) 100 mg Tablet 100 mg PO QAM duloxetine [Cymbalta] 60 mg Capsule,Delayed Release(Dr/Ec) 60 mg PO BID spironolactone 25 mg tablet 25 mg PO QAM famotidine 20 mg tablet 20 mg PO BID [id number] [MegaRed [place]-3 Krill Oil] 1,000-230-60 mg Capsule 1 cap PO QAM atorvastatin 80 mg tablet 40 mg PO DAILY lisinopril 20 mg tablet 20 mg PO QAM zinc gluconate 50 mg Tablet 50 mg PO QAM cholecalciferol (vitamin D3) [Vitamin D3] 25 mcg (1,000 unit) Capsule 1,000 mcg PO DAILY cyclobenzaprine 5 mg tablet 5 mg PO TID PRN (Reason: muscle spasm) Qty: 30 0RF oxycodone 5 mg tablet 5 mg PO Q8H PRN (Reason: Pain) Discharge Orders: Discharge Order (Routine); Ordered 07/21/24 Ordered By: Rosette Santos Admission Data Admit Date/Time: 07/06/24 22:34 Attending Provider: Ralph Dorsey Admit Provider: Matilde Márquez Primary Care Provider: Michael Bishop Other Providers: Darien Sim; Pearl Rodriguez; Vinay Galindo Other Interventions: Discharge Summary Assessment (RN) Last Done: 07/21/24 12:07 Hospital Stay Data Consultations 07/06/24 21:08 Consult Orthopedic Surgery Routine 07/07/24 08:17 Consult Infectious Diseases Routine 07/08/24 10:04 Consult Pain Management Routine 07/10/24 15:49 Consult Cardiology Routine Procedures Performed Operation Date: 07/16/24 07:45 Actual Procedures p T12-L2 Decompression and Fusion, Spinal Cord Monitoring(Not Applicable) - Darien Sim DO s hardware removal L2-L3,(Not Applicable) - Darien M Chiquis, DO Diagnostic Imagining Performed Lumbar Spine MRI 07/06/24 16:35 EXAM: MR lumbar spine wo con CLINICAL HISTORY: Back pain. TECHNIQUE: MRI of the lumbar spine was performed without the administration of intravenous contrast. Sequences obtained include sagittal T1-weighted, T2-weighted, STIR (Short Tau Inversion Recovery), and axial T2-weighted sequences. COMPARISON: No previous studies are available for comparison. FINDINGS: Vertebral Alignment: Normal alignment of the lumbar spine without evidence of fracture or malalignment. No evidence of scoliosis is observed. Marrow signals are normal. Vertebral Bodies and Intervertebral Discs: Normal vertebral body height, no fracture identified. Advanced spine degenerative changes with osteophytes Laminectomy with transpedicular internal fixation of L2 and L3 vertebrae. Discectomy and internal disc fixation noted at L2-3 L3-4 and L4-5 intervertebral discs Partial fusion of the disc space of L2-3 ,L3-4 and L4-5 disc spaces High signal noted within L1-2 disc with associated mild bone marrow edema at opposing endplates of L1 and L2 vertebra suggesting possible discitis with the possibility of early spondylodiscitis cannot be totally excluded. No detected collections L1-4. [id number] analysis: T12-L1: There is no significant disc pathology. No spinal canal stenosis. No neural foraminal stenosis.No ligamentum flavum hypertrophy and facet joint arthropathy. L1-L2: 4.7mm diffuse disc bulge with disc osteophyte complex causing mild spinal canal stenosis and bilateral severe neural foraminal stenosis impinging the exiting nerve roots .No ligamentum flavum hypertrophy and facet joint arthropathy. L2-L3: No disc at this level. Bilateral facet joint arthritis is noted. L3-L4: No disc at this level. Bilateral facet joint arthritis is noted. L4-L5: No disc at this level. Bilateral facet joint arthritis is noted. L5-S1: There is no significant disc pathology. No spinal canal stenosis.Bilateral facet joint arthritis causing bilateral moderate neuroforaminal stenosis at this level. Spinal Cord and Nerve Roots: Conus medullaris terminates at the L1 level without abnormality. Nerve roots appear unremarkable bilaterally. The lower thoracic spinal cord, conus medullaris, and cauda equina nerve roots are unremarkable. Soft Tissues: Paraspinal soft tissues appear normal without evidence of abnormal signal intensity or mass lesions. IMPRESSION: 1. High signal noted within L1-2 disc with associated mild bone marrow edema at opposing endplates of L1 and L2 vertebra, suggesting possible discitis with the possibility of early spondylodiscitis cannot be totally excluded. No detected collections. Correlate clinically. 2. Advanced spine degenerative changes with osteophytes. 3. Laminectomy with transpedicular internal fixation of L2 and L3 vertebrae. Discectomy and internal disc fixation noted at L2-3 L3-4 and L4-5 intervertebral discs. 4. L1-L2 disc osteophyte complex causing mild spinal canal stenosis. 5. L5-S1 Bilateral facet joint arthritis causing bilateral moderate neuroforaminal stenosis at this level. Electronically signed by Gui Raymundo 07-06-2024 8:[address] 07/14/24 15:17 Clinical history: Preoperative examination Technique: Axial computed tomography images were obtained of the lumbar spine without intravenous contrast. Sagittal and coronal reconstructions were obtained Comparison is made to the radiographs obtained today and the MRI dated 07/06/2024 Findings: There is a posterior fusion of L2 and L3 with posterior fixation rods and bilateral pedicle screws. There is anterior interbody fusion at L2-3, L3-4, and L4-5. There is fusion of the right sacroiliac joint with 3 fixation screws. There is no definite sign of instrumentation failure. There are complete laminectomy defects of the L2-L4 vertebral bodies. No acute fracture is identified. There is some sclerosis and mild deformity of the S1 segment that could be due to old injury. There is scoliosis. There is 4 mm of retrolisthesis of L1 on L2. There are prominent degenerative endplate changes at L1-2. Focal osseous lesion is evident. There is no definite sign of osteomyelitis At T12-L1, there is a mild disc bulge without spinal stenosis. The neural foramen are patent At L1-2, there is spinal stenosis due to a disc bulge and facet osteoarthritis. There is bilateral neural foramen narrowing that may affect the exiting L1 nerve roots At the fused level of L2-3, there is no spinal stenosis or visible nerve root compression At the fused level of L3-4, there is no spinal stenosis or visible nerve root compression At the fused level of L4-5, there is no spinal stenosis or visible nerve root compression At L5-S1, there is a mild disc bulge without spinal stenosis. The neural foramen are patent. There is facet osteoarthritis There are bilateral renal cysts. There are small hyperdense left renal lesions Impression: 1. Unchanged posterior fusion at L2-3 2. Unchanged anterior fusion of L2-L5 3. Scoliosis 4. Retrolisthesis at L1-2 5. Spinal stenosis at L1-2 6. Bilateral neural foramen narrowing at L1-2 that may affect the exiting L1 nerve roots 7. Bilateral renal cysts 8. Small hyperdense left renal lesions that may represent benign proteinaceous or hemorrhagic cyst but are indeterminate in nature. Renal protocol abdominal CT with and without contrast could be considered for further evaluation ACT 112: Positive. There are findings on this exam that require communication between the performing entity and the patient following Patient Test Result Information Act ([place] ACT 112) guidelines. Electronically signed by Viet Walters 07-14-2024 5:04 PM Lumbar Spine X-Ray 07/14/24 15:17 INDICATION: Back pain. TECHNIQUE: 3 views of the lumbar spine. COMPARISON: MRI from 07/06/2024. FINDINGS/IMPRESSION: No acute fracture or traumatic dislocation. Multilevel fusion hardware. Hardware appears intact. Disc space narrowing and facet arthropathy most pronounced at L1-L2. Vascular calcifications. Electronically signed by Jeovanny Dozier 07-14-2024 4:38 PM Lumbar Spine X-Ray 07/16/24 00:00 FL lumbar spine 2-3V CLINICAL HISTORY: T12-L2 DECOMP/FUSION COMPARISON STUDY: None FLUOROSCOPY TIME: 20 seconds FLUOROSCOPY IMAGES: 3 EXPOSURE DOSE: 15 mGy FINDINGS: Fluoroscopy was provided for lower thoracic and upper lumbar metallic spinal fusion. IMPRESSION: Intraoperative fluoroscopy. ACT 112: Negative or not required by law. Electronically signed by: Rojas Dunham M.D. 07/16/2024 11:53 AM Abdomen/Pelvis CT 07/17/24 21:22 Exam(s): CT ABDOMEN + PELVIS Without Contrast EXAM: CT Abdomen and Pelvis Without Intravenous Contrast CLINICAL HISTORY: acute renal failure; h/o stones; r/o obstruction. TECHNIQUE: Axial computed tomography images of the abdomen and pelvis without intravenous contrast. CTDI is 23.72 mGy and DLP is 1323.22 mGy-cm. Automated exposure control was utilized for the study. A dose lowering technique was utilized adhering to the principles of ALARA. COMPARISON: CT abdomen and pelvis without contrast dated 07/01/2024. FINDINGS: Artifacts: Beam hardening artifact from the lumbar hardware noted on multiple image slices. Limitations: There is respiratory artifact, which degrades image quality on multiple image slices. Lung bases: Unremarkable. No mass. No consolidation. ABDOMEN: Liver: Similar hypodense areas involving segment 4 of the liver and involving the inferomedial margin of the right lobe of the liver without alteration in size or morphologic appearance. Gallbladder and bile ducts: Unremarkable. No calcified stones. No ductal dilation. Pancreas: Unremarkable. No ductal dilation. Spleen: Unremarkable. No splenomegaly. Adrenals: Unremarkable. No mass. Kidneys and ureters: Accounting for respiratory artifact, the unenhanced kidneys are stable in appearance with similar punctate nonobstructive subcentimeter nephrolithiasis involving the inferior pole the left kidney. No definite right-sided nephrolithiasis. No hydronephrosis or definite ureteral stones. Similar cortical cyst involving the inferolateral left kidney, stable in size measuring 4.4 cm. Stomach and bowel: No evidence for focal high-grade bowel obstruction with prominent gas throughout the small and large bowel. No dilation. Mild to moderate stool burden. PELVIS: Appendix: No findings to suggest acute appendicitis. Bladder: The bladder is decompressed with a Chavarria catheter in position. No stones. Reproductive: Unremarkable as visualized. ABDOMEN and PELVIS: Intraperitoneal space: Unremarkable. No free air. No significant fluid collection. Bones/joints: Stable postsurgical changes throughout the lumbar spine with fusion from T12-L3 levels. There is also surgical hardware at L4-5 and L5-S1 with laminectomy defects from L1-L4 levels. No acute fracture. No dislocation. Soft tissues: Unremarkable. Vasculature: Stable extensive atherosclerotic calcification of the aorta and iliac arteries. No abdominal aortic aneurysm. Lymph nodes: Unremarkable. No enlarged lymph nodes. IMPRESSION: 1. Accounting for respiratory artifact, the unenhanced kidneys are stable in appearance with similar punctate nonobstructive subcentimeter nephrolithiasis involving the inferior pole the left kidney. No definite right-sided nephrolithiasis. No hydronephrosis or definite ureteral stones. The bladder is decompressed with a Chavarria catheter in position. 2. Remaining presumed incidental findings, as noted above. Electronically signed by: Deven Alberts MD 07/17/24 23:58 PM Pending Results Patient Have Any Pending Studies at Discharge: No Discharge Instructions Given to Patient (Per Discharging Provider) You have been hospitalized for back pain. Dr Sim was consulted and you underwent surgery. You were also found to have possible UTI and are being sent on KEFLEX 500mg twice daily for another 4 days after this evening's dose to complete the course. We are sending you on OXYCONTIN 10mg twice daily for long acting pain control and have send short course of the Oxycodone IR (immediate release) until seen by Dr Bishop in follow up and hopefully will be able to transition back to short acting in follow up. Continue bowel regimen to prevent constipation. Please monitor your BP at home and HOLD your lisinopril and spironolactone until seen in follow up. Please follow up with Dr Sim in the next week as well as PCP. Please return to the ER with any increased pain, fever, drainage, weakness, confusion or for any other symptoms concerning for you. It has been a pleasure being a part of the medical team providing for you while you have been in the hospital. Take care! Supervising Physician Co-Signing Physician Notes The patient was not seen by me. The chart was reviewed. Case discussed with BIMAL Doran. Agree with assessment and plan Total Time Total Time Spent Total Time Spent (In Minutes): 60 Coding Level of Care Code 44261 INP/OBS DISCH >30 MIN Diagnoses Spinal stenosis of lumbar region with radiculopathy M48.061; M54.16 Acute metabolic encephalopathy G93.41 Anemia D64.9 RADHA (acute kidney injury) N17.9 Back pain M54.9 Coronary artery disease involving [place] coronary artery of [place] heart without angina pectoris I25.10 Associated angina: without angina Coronary Disease-Associated Artery/Lesion type: [place] artery [place] vs. transplanted heart: [place] heart Hyperlipidemia, unspecified hyperlipidemia type E78.5 Hyperlipidemia type: unspecified Hypertension I10 Hypertension type: unspecified Chronic narcotic dependence F11.20 Kidney stones N20.0 Benign prostatic hyperplasia without lower urinary tract symptoms N40.0 Lower urinary tract symptom presence: symptoms absent Hypercapnia R06.89 UTI (urinary tract infection) N39.0 Hypomagnesemia E83.42 Constipation due to opioid therapy K59.03; T40.2X5A
[2024-07-21] MEDS: IRON SUCROSE 300 MG in SODIUM CHLORIDE 0.9% 250 ML IV ONE (09:46)
[2024-07-21 12:14] VITALS: PULSE 72
== END 2024-07-21 13:06 | disposition home or self-care (01) | DRG 426 ==
LOC: ED 15:22 → SUATTDRO 22:34 → 3N 22:34 → 4W 07-17 22:28